=== PATIENT | female | born 1945 | race Caucasian/White ===

== ENCOUNTER 2016-11-22 12:22 | Observation (INO) | payer OTHER, BC ==
[2016-11-22 12:29] VITALS: TEMP 98.1; BMI 26.2
[2016-11-22] MEDS ORDERED: SODIUM CHLORIDE 1,000 ML IV STA ×2 (13:07→15:30)
[2016-11-22] MEDS ORDERED: ONDANSETRON 4 MG/2 ML VIAL IVPUSH ONE (13:07)
--- NOTE | 2016-11-22 13:26 | PDOC ---
History of Present Illness - General Chief Complaint: Nausea/Vomiting Stated Complaint: PCP SENT, DEHYDRATED Time Seen by Provider: 11/22/16 13:06 History Source: Patient Exam Limitations: No Limitations - History of Present Illness Initial Comments: 11/22/16 14:03 70-year-old female presents to the emergency room for evaluation of generalized weakness, nausea vomiting, decreased appetite, elevated glucose, and increased urination. Patient states called her PCP who said to go to the ER for further evaluation. Patient denies fever, chills, headache, visual changes, chest pain, shortness of breath, abdominal pain, diarrhea, dysuria, or lower extremity edema. Pt states history of hypertension, diabetes, and CABG. Timing/Duration: constant, getting worse Severity: moderate Associated Symptoms: reports: loss of appetite, nausea/vomiting, weakness Past History - Past Medical History Allergies/Adverse Reactions: Allergies Allergy/AdvReac Type Severity Reaction Status Date / Time apple [Apple] Allergy Verified 11/22/16 12:25 peach [[place]] Allergy Verified 11/22/16 12:25 Penicillins Allergy Verified 11/22/16 12:25 Home Medications: Ambulatory Orders Aspirin [ASA -] 81 mg PO DAILY 09/03/14 Insuln Asp Prt/Insulin Aspart [Novolog Mix 70-30 Cartridge] 100 unit SQ DAILY Levofloxacin [Levaquin] 500 mg PO DAILY #5 tablet 09/06/14 Lidocaine 5% Patch [Lidoderm -] 1 patch TP Q12H PRN #7 patch 09/06/14 Oxycodone HCl [Roxicodone -] 5 mg PO Q6H PRN #20 tablet 09/06/14 Unobtainable 11/22/16 Diabetes: Yes HTN: Yes Suicide Attempt (Hx): No - Surgical History Cardiac Surgery: Yes (QUADRUPLE BYPASS) - Immunization History Immunization Up to Date: Yes - Psycho/Social/Smoking Cessation Hx Anxiety: No Suicidal Ideation: No Smoking History: Never smoked Have you smoked in the past 12 months: No Information on smoking cessation initiated: No Hx Alcohol Use: No Drug/Substance Use Hx: No Substance Use Type: None Patient Lives Alone: Yes Lives with/in: lives alone Review of Systems - Review of Systems Able to Perform ROS?: Yes Constitutional: Yes: Weakness HEENTM: No: Symptoms Reported Respiratory: No: Symptoms reported Cardiac (ROS): No: Symptoms Reported ABD/GI: Yes: Nausea, Poor Appetite, Poor Fluid Intake, Vomiting : No: Symptoms Reported Musculoskeletal: Yes: Muscle Weakness Integumentary: No: Symptoms Reported Neurological: Yes: Weakness Endocrine: No: Symptoms Reported *Physical Exam - Vital Signs Last Vital Signs Temp Pulse Resp BP Pulse Ox 98.1 F 92 H 20 111/27 100 11/22/16 12:27 11/22/16 12:27 11/22/16 12:27 11/22/16 12:27 11/22/16 12:27 - Physical Exam General Appearance: Yes: Nourished, Appropriately Dressed, Thin. No: Apparent Distress HEENT: positive: EOMI, FELY. negative: Pharynx Normal (dry, fruity breath), Pale Conjunctivae Neck: positive: Supple Respiratory/Chest: positive: Lungs Clear, Normal Breath Sounds. negative: Respiratory Distress, Accessory Muscle Use Cardiovascular: positive: Regular Rhythm, Regular Rate. negative: Murmur Gastrointestinal/Abdominal: positive: Soft. negative: Tenderness Musculoskeletal: negative: CVA Tenderness Extremity: positive: Normal Capillary Refill. negative: Pedal Edema Integumentary: positive: Normal Color, Dry, Warm, Ecchymosis ( left temporal with scab to Center. Small hematoma noted to Center) Neurologic: positive: Motor Strength 5/5 (moving all extremeties actively). negative: Normal Mood/Affect (fatigued) Heart Score/ECG Review - History History: Slightly suspicious - Electrocardiogram EKG: Normal - Age Age: >/= 65 - Risk Factors Risk Factors Heart Score: Yes Hx Diabetes Based on the list above the patient has:: 1-2 risk factors - Troponin Troponin: </= normal limit - Score Heart Score - Total: 3 - ECG Intrepretation Rhythm: Regular Rhythm (92. normal sinus rhythm. No acute findings. No ST elevation or depression.) ED Treatment Course - LABORATORY CBC & Chemistry Diagram: 11/23/16 06:00 11/23/16 06:00 - RADIOLOGY Radiology Studies Ordered: Category Date Time Status CHEST X-RAY PORTABLE* [RAD] Stat Radiology 11/22/16 13:07 Ordered Medical Decision Making - Critical Care Time Total Critical Care Time (minutes): 35 Critical Care Statement: The care of this patient involved high complexity decision making to prevent further life threatening deterioration of the patient 's condition and/or to evalute & treat vital organ system(s) failure or risk of failure. - Medical Decision Making 11/22/16 14:30 patient with history of diabetes presents with decreased appetite, nausea vomiting, increased urination, and weakness. Patient on exam appears dehydrated with a fruity smell to her breath. Patient with normal vital signs. Patient ordered for DKA workup including a cardiac workup and order for her head and neck CT since she states also struck her head on the nightstand of the day and has a hematoma with ecchymosis to the left temporal region. 11/22/16 15:30 Laboratory Tests 11/22/16 11/22/16 11/22/16 13:30 13:30 13:30 WBC 10.6 H D Hgb 13.2 Hct 37.7 Neutrophils % 91.0 H D INR 1.24 H VBG pH POC VBG pCO2 POC VBG pO2 Sodium 128 L Potassium 4.4 Chloride 88 L D Carbon Dioxide 22 Anion Gap 18 H BUN 27 H D Creatinine 1.0 D Creat Clearance w eGFR 54.81 Random Glucose 360 H* D Calcium 9.1 Magnesium 2.3 Total Bilirubin 1.1 H D AST 20 ALT 16 D Alkaline Phosphatase 93 Creatine Kinase 365 H CK-MB (CK-2) Pending Total Protein 6.5 Albumin 3.3 L Acetone, Qual 11/22/16 11/22/16 13:30 13:45 WBC Hgb Hct Neutrophils % INR VBG pH 7.41 POC VBG pCO2 34.5 L POC VBG pO2 19.9 L* Sodium Potassium Chloride Carbon Dioxide Anion Gap BUN Creatinine Creat Clearance w eGFR Random Glucose Calcium Magnesium Total Bilirubin AST ALT Alkaline Phosphatase Creatine Kinase CK-MB (CK-2) Total Protein Albumin Acetone, Qual Positive small 1+ H Patient ordered for second bag of IV fluid. Patient will be admitted and have repeat BGM after 2nd bag of IVF. Pt appears lethargic and inappropriately agitated with conversation. Repeat BGM 11/22/16 15:35 chest x-ray negative. Head CT results pending 11/22/16 16:[address] Gilmore who states to admit to the hospitalist on-call and she will consult. She also recommends repeating BGM and chemistry which I have already placed in the computer. Patient will be admitted to hospitalist Dr. Price who accepted the case. 11/22/16 17:[address] negative with noted nerve impingement of c6 Laboratory Tests 11/22/16 20:07 POC Glucometer [phone] *DC/Admit/Observation/Transfer Diagnosis at time of Disposition: Starvation ketoacidosis, Hyponatremia, IDDM (insulin dependent diabetes mellitus) Diabetic ketoacidosis Qualifiers: Diabetes mellitus type: type 1 Diabetes mellitus complication detail: without coma - Discharge Dispostion Disposition: AGAINST MEDICAL ADVICE Condition at time of disposition: Guarded Admit: Yes
[2016-11-22 13:49] LABS: VENOUS BLOOD GAS HCO3 21.6 meq/L (22-29); VENOUS PH 7.41 (7.31-7.41)
[2016-11-22 14:09] LABS: BASOPHIL 0.2 % (0-2.0); EOSINOPHIL 0.1 % (0-4.5); MCHC 35.1 g/dl (32.0-36.0); MEAN CELL VOLUME 85.5 fl (80-96); MEAN PLT VOLUME 7.5 fl (7.5-11.1); PLATELET COUNT 222 K/MM3 (134-434); WHITE BLOOD COUNT 10.6 K/mm3 (4.0-10.0)
[2016-11-22 14:27] LABS: ALBUMIN 3.3 g/dl (3.4-5.0); ANION GAP 18 (8-16); CALCIUM 9.1 mg/dL (8.5-10.1); CO2 22 mmol/L (21-32); MAGNESIUM 2.3 mg/dL (1.8-2.4); SGOT/AST 20 U/L (15-37); SGPT/ALT 16 U/L (12-78)
[2016-11-22 14:31] LABS: ALK PHOS 93 U/L (45-117); BILIRUBIN,TOTAL 1.1 mg/dL (0.2-1.0); TOT PROT 6.5 g/dl (6.4-8.2); TROPONIN I < 0.02 ng/ml (0.00-0.05)
[2016-11-22 14:32] LABS: INR 1.24 (0.82-1.09); PROTHROMBIN TIME (PATIENT) 13.7 SEC (9.98-11.88)
[2016-11-22 15:00] LABS: GLUCOSE,RANDOM 360 mg/dL (74-106)
--- NOTE | 2016-11-22 17:56 | HP ---
[id number] woman who presents to the ER today complaining of nausea and vomiting, generalized weakness for several days. She also reports increased thirst and increased urination. She notes that her sugars have been high for several weeks and she has been adjusting her insulin dose. She denies fever, chills, chest pain, abdominal pain, hematemesis, diarrhea, dysuria. PAST MEDICAL HISTORY Diabetes mellitus CAD PAST SURGICAL HISTORY 4-vessel CABG Allergies apple [Apple] Allergy (Verified 11/22/16 12:25) peach [[place]] Allergy (Verified 11/22/16 12:25) Penicillins Allergy (Verified 11/22/16 12:25) HOME MEDICATIONS 3 Medication Instructions Recorded Aspirin [ASA -] 81 mg PO DAILY 09/03/14 Insuln Asp Prt/Insulin Aspart 100 unit SQ DAILY 09/03/14 [Novolog Mix 70-30 Cartridge] Levofloxacin [Levaquin] 500 mg PO DAILY #5 tablet 09/06/14 Lidocaine 5% Patch [Lidoderm -] 1 patch TP Q12H PRN #7 patch 09/06/14 Oxycodone HCl [Roxicodone -] 5 mg PO Q6H PRN #20 tablet 09/06/14 Social History: Smoking: Never smoked Alcohol: None Drugs: None Recent Travel: No Family History: Non-contributory REVIEW OF SYSTEMS CONSTITUTIONAL: Present: chills, generalized weakness. Absent: fever, diaphoresis, malaise, loss of appetite, weight change HEENT: Absent: rhinorrhea, nasal congestion, throat pain, throat swelling, difficulty swallowing, mouth swelling, ear pain, eye pain, visual changes CARDIOVASCULAR: Absent: chest pain, syncope, palpitations, lightheadedness, peripheral edema RESPIRATORY: Absent: cough, shortness of breath, dyspnea with exertion, orthopnea, wheezing, stridor, hemoptysis GASTROINTESTINAL: Present: nausea, vomiting. Absent: abdominal pain, abdominal distension, diarrhea, constipation, melena, hematochezia GENITOURINARY: Present: urinary frequency. Absent: dysuria, urgency, hesitancy , hematuria, flank pain MUSCULOSKELETAL: Absent: myalgia, arthralgia, joint swelling, back pain, neck pain SKIN: Absent: rash, itching, pallor HEMATOLOGIC/IMMUNOLOGIC: Absent: easy bleeding, easy bruising, lymphadenopathy, frequent infections ENDOCRINE: Absent: unexplained weight gain, unexplained weight loss, heat intolerance, cold intolerance NEUROLOGIC: Absent: headache, focal weakness, paresthesias, dizziness, unsteady gait, seizure, mental status changes, bladder or bowel incontinence PSYCHIATRIC: Absent: anxiety, depression, suicidal or homicidal ideation, hallucinations. PHYSICAL EXAMINATION Vital Signs Period Temp Pulse Resp BP Sys/Barrera Pulse Ox Last 24 Hr 98.1 F 92 20 111/27 100 GENERAL: Awake, alert, and fully oriented, in no acute distress. HEAD: Normal with no signs of trauma. EYES: Pupils equal, round and reactive to light, extraocular movements intact, sclerae anicteric, conjunctivae clear. EARS, NOSE, THROAT: Ears normal, nares patent, oropharynx clear without exudates. Dry mucous membranes. NECK: Normal range of motion, supple without lymphadenopathy, JVD, or masses. LUNGS: Breath sounds equal, clear to auscultation bilaterally. No wheezes, and no crackles. No accessory muscle use. HEART: Regular rate and rhythm, normal S1 and S2 without murmur, rub or gallop. ABDOMEN: Soft, nontender, not distended, normoactive bowel sounds, no guarding, no rebound, no masses. No hepatomegaly or splenomegaly. MUSCULOSKELETAL: Normal range of motion at all joints. No bony deformities or tenderness. No CVA tenderness. UPPER EXTREMITIES: 2+ pulses, warm, well-perfused. No cyanosis. No clubbing. Cap refill <2 seconds. No peripheral edema. LOWER EXTREMITIES: 2+ pulses, warm, well-perfused. No calf tenderness. No peripheral edema. NEUROLOGICAL: Cranial nerves II-XII intact. Normal speech. Gait not observed. PSYCHIATRIC: Cooperative. Good eye contact. Appropriate mood and affect. SKIN: Warm, dry, normal turgor, no rashes or lesions noted. Laboratory Tests 11/22/16 11/22/16 11/22/16 13:30 13:30 13:30 WBC 10.6 H D RBC 4.42 Hgb 13.2 Hct 37.7 MCV 85.5 MCHC 35.1 RDW 13.0 Plt Count 222 D MPV 7.5 Neutrophils % 91.0 H D Lymphocytes % 3.0 L D Monocytes % 5.7 Eosinophils % 0.1 D Basophils % 0.2 INR 1.24 H VBG pH POC VBG pCO2 POC VBG pO2 Sodium 128 L Potassium 4.4 Chloride 88 L D Carbon Dioxide 22 Anion Gap 18 H BUN 27 H D Creatinine 1.0 D Creat Clearance w eGFR 54.81 Random Glucose 360 H* D Calcium 9.1 Magnesium 2.3 Total Bilirubin 1.1 H D AST 20 ALT 16 D Alkaline Phosphatase 93 Creatine Kinase 365 H CK-MB (CK-2) 2.257 Troponin I < 0.02 Total Protein 6.5 Albumin 3.3 L Acetone, Qual 11/22/16 11/22/16 13:30 13:45 WBC RBC Hgb Hct MCV MCHC RDW Plt Count MPV Neutrophils % Lymphocytes % Monocytes % Eosinophils % Basophils % INR VBG pH 7.41 POC VBG pCO2 34.5 L POC VBG pO2 19.9 L* Sodium Potassium Chloride Carbon Dioxide Anion Gap BUN Creatinine Creat Clearance w eGFR Random Glucose Calcium Magnesium Total Bilirubin AST ALT Alkaline Phosphatase Creatine Kinase CK-MB (CK-2) Troponin I Total Protein Albumin Acetone, Qual Positive small 1+ H Chest x-ray: No acute process. Head CT: Mild to moderate atrophy, minimal chronic microvascular ischemic changes. C-spine CT: No fracture. Moderate DDD C5-C6 with posterior spur formation and right lateral uncovertebral hypertrophy impinging right C6 nerve root. EKG: Sinus rhythm, rate 92, old inferior infarct. ASSESSMENT/PLAN: This is a 70-year-old woman with a history of insulin-dependent DM, CAD who comes to the ER today with weakness, nausea, vomiting, high sugars for several days. Shewas found to have glucose 360, sodium 128, BUN 27, creatinine 1.0, anion gap 18, pH 7.41, and small serum acetone. She has been treated with Zofran , IV fluid and she is feeling better. She is being placed in observation now for further evaluation and treatment of an emergent condition. 1. Hyperglycemia with ketosis - No evidence of acidosis - Given IV fluid in ER - Repeat BMP, ketones - if improving, will continue IV fluid and start Novolog sliding scale 2. Hyponatremia secondary to dehydration, vomiting - Corrected sodium is 132 - IV normal saline - Monitor electrolytes 3. Dehydration from vomiting - Continue IV fluid - Zofran as needed - Monitor BUN, creatinine 4. Uncontrolled type 2 diabetes mellitus 5. CAD, history of CABG - Continue aspirin Problem List - Problem (1) CAD (coronary artery disease) Code(s): I25.10 - ATHSCL HEART DISEASE OF [place] CORONARY ARTERY W/O ANG PCTRS (2) Hyperglycemia Code(s): R73.9 - HYPERGLYCEMIA, UNSPECIFIED (3) Ketosis due to diabetes Code(s): E13.10 - OTH DIABETES MELLITUS WITH KETOACIDOSIS WITHOUT COMA Visit type - Emergency Visit Emergency Visit: Yes ED Registration Date: 11/22/16 Care time: The patient presented to the Emergency Department on the above date and was hospitalized for further evaluation of their emergent condition. - New Patient This patient is new to me today: Yes Date on this admission: 11/22/16 - Critical Care Critical Care patient: No
[2016-11-22] MEDS ORDERED: ONDANSETRON 4 MG/2 ML VIAL IVPB PRN (17:57)
[2016-11-22] MEDS ORDERED: ACETAMINOPHEN 325 MG TABLET (FP) PO PRN (17:57)
[2016-11-22] MEDS ORDERED: SODIUM CHLORIDE 1,000 ML IV SCH (18:00)
[2016-11-22 19:27] LABS: ALBUMIN 3.1 g/dl (3.4-5.0); ALK PHOS 90 U/L (45-117); ANION GAP 14 (8-16); CALCIUM 8.6 mg/dL (8.5-10.1); CO2 21 mmol/L (21-32); CREATININE 0.8 mg/dL (0.55-1.02); GLUCOSE,RANDOM 299 mg/dL (74-106); SGOT/AST 21 U/L (15-37); SGPT/ALT 17 U/L (12-78); TOT PROT 6.2 g/dl (6.4-8.2)
[2016-11-22 19:33] LABS: BILIRUBIN,TOTAL 0.9 mg/dL (0.2-1.0)
[2016-11-22] MEDS: INSULIN SLIDING SCALE (NOVOLOG) 1 VIAL SQ SCH (22:02)
[2016-11-22] MEDS ORDERED: ONDANSETRON 4 MG/2 ML VIAL ONE (22:16)
[2016-11-23] MEDS: INSULIN SLIDING SCALE (NOVOLOG) 1 VIAL SQ SCH (06:08)
[2016-11-23] MEDS ORDERED: INSULIN REGULAR HUMAN 100 UNITS/ML *VIAL ONE (06:09)
[2016-11-23 06:12] LABS: BASOPHIL 0.2 % (0-2.0); MCH 28.1 pg (25.7-33.7); MEAN CELL VOLUME 85.2 fl (80-96); MEAN PLT VOLUME 7.4 fl (7.5-11.1); NEUTROPHILS 87.8 % (42.8-82.8); PLATELET COUNT 274 K/MM3 (134-434); WHITE BLOOD COUNT 11.4 K/mm3 (4.0-10.0)
[2016-11-23 06:15] VITALS: BP 137/67; PULSE 67
[2016-11-23 06:33] LABS: ACETONE SERUM POSITIVE MODERATE 2+ (NEGATIVE)
[2016-11-23 06:34] LABS: ANION GAP 12 (8-16); CALCIUM 8.5 mg/dL (8.5-10.1); CO2 22 mmol/L (21-32); CREATININE 0.9 mg/dL (0.55-1.02); GLUCOSE,RANDOM 284 mg/dL (74-106)
[2016-11-23] MEDS ORDERED: INSULIN (NOVOLOG MIX 70/30) 100 UNITS/ML MDV SQ ONE (09:23)
[2016-11-23] MEDS: INSULIN (NOVOLOG MIX 70/30) 100 UNITS/ML MDV SQ ONE ×2 (09:25→09:35)
[2016-11-23] MEDS ORDERED: ASPIRIN 81 MG CHEWABLE TABLETS ONE (09:45)
--- NOTE | 2016-11-23 09:58 | DS ---
Physical Exam: SUBJECTIVE: Pt was seen and examined. She states she was "very tired and upset " because "I got no sleep last night". She appeared agitated. I reassured her that as soon as we can get her blood sugars under control, we may be able to discharge her. She then stated "I am leaving now" and proceeded to get up from the stretcher. Also noted she had fresh blood on her gown. She stated that she pulled out her peripheral IV, because she was leaving. Assured her we were working diligently to stabilize her. She is refusing to stay and requesting to leave AMA. OBJECTIVE: Vital Signs Period Temp Pulse Resp BP Sys/Barrera Pulse Ox Last 24 Hr 67-78 18-18 115-137/66- 97-99 PHYSICAL EXAM GENERAL: The patient is awake, alert, slightly agitated, but fully oriented. HEAD: Left temporal region with noted purple bruise, pt states bruise is from falling out of bed and hitting bed on night table. EYES: sclera anicteric, conjunctiva clear. ENT: Ears normal, nares patent, oropharynx clear without exudates, moist mucous membranes. NECK: Trachea midline, full range of motion, supple. LUNGS: Breath sounds anteriorly, did not allow me to auscultate her lungs posteriorly HEART: Regular rate and rhythm ABDOMEN: Soft, nontender, nondistended - limited exam secondary to refusal EXTREMITIES: No edema, scabs on bilateral lower ext. NEUROLOGICAL: Normal speech, unsteady gait. Observed walking about 10 feet then had to hold on to furniture for balance. PSYCH: Normal mood, normal affect. LABS Laboratory Results - last 24 hr 11/22/16 11/22/16 11/23/16 18:19 20:07 06:00 WBC 11.4 H RBC 4.46 Hgb 12.5 Hct 38.0 MCV 85.2 MCHC 33.0 RDW 13.0 Plt Count 274 D MPV 7.4 L Neutrophils % 87.8 H Lymphocytes % 4.1 L D Monocytes % 7.9 Eosinophils % 0.0 D Basophils % 0.2 Sodium 130 L Potassium 4.4 Chloride 95 L Carbon Dioxide 21 Anion Gap 14 BUN 26 H Creatinine 0.8 Creat Clearance w eGFR > 60 POC Glucometer [phone] Random Glucose 299 H Calcium 8.6 Total Bilirubin 0.9 AST 21 ALT 17 Alkaline Phosphatase 90 Total Protein 6.2 L Albumin 3.1 L Acetone, Qual 11/23/16 11/23/16 06:00 06:07 WBC RBC Hgb Hct MCV MCHC RDW Plt Count MPV Neutrophils % Lymphocytes % Monocytes % Eosinophils % Basophils % Sodium 128 L Potassium 4.1 Chloride 94 L Carbon Dioxide 22 Anion Gap 12 BUN 22 H Creatinine 0.9 Creat Clearance w eGFR POC Glucometer [phone] Random Glucose 284 H Calcium 8.5 Total Bilirubin AST ALT Alkaline Phosphatase Total Protein Albumin Acetone, Qual Positive moderate 2+ H HOSPITAL COURSE: Date of Admission:11/22/16 Date of Discharge: 11/23/16 The patient has requested to sign out against medical advice. She has displayed the capacity to make her own decisions. I discussed with the patient that the plan was (1) To restart her on her home dose of Insulin and monitor her response (pt states she takes 70/30 of insulin 30 units in the a.m. and 30 units in the afternoon) (2) continue to monitor and hydrate her to assure she is stable and prior to discharge and; (3) Collect a urine sample for further workup. The risks regarding leaving the hospital with hyperglycemia and an unsteady gait have been discussed. All questions were answered fully. The patient understood the risks and is agreeing to leave against medical advice. Since pt gait is unsteady and she was agitated in the ED, 1:1 ordered for safety , as she is a very high fall risk. At a minimum I wanted to assure a safe discharge even if she is leaving AMA. I offered her a taxicab that we would pay for so that she gets home safe as I was concerned about her falling a she has a history of falls. Pt refused taxicab and instead agreed to stay until her friend picked her up. Prior to d/c she was given Novolog 70/30 15 units x 1 and a repeat BGM shows blood sugar of 302. Minutes to complete discharge: 60 Discharge Summary Reason For Visit: STARVATION,DIABETIC KETOACIDOSIS Current Active Problems Head trauma (Acute) Hyperglycemia (Acute) Hyponatremia (Acute) Ketosis due to diabetes (Acute) CAD (coronary artery disease) (Chronic) IDDM (insulin dependent diabetes mellitus) (Chronic) Condition: Guarded - Instructions Referrals: Gemini Gilmore MD [Primary Care Provider] - Disposition: AGAINST MEDICAL ADVICE - Home Medications Comprehensive Discharge Medication List: Ambulatory Orders Aspirin [ASA -] 81 mg PO DAILY 09/03/14 Insuln Asp Prt/Insulin Aspart [Novolog Mix 70-30 Cartridge] 100 unit SQ DAILY Levofloxacin [Levaquin] 500 mg PO DAILY #5 tablet 09/06/14 Lidocaine 5% Patch [Lidoderm -] 1 patch TP Q12H PRN #7 patch 09/06/14 Oxycodone HCl [Roxicodone -] 5 mg PO Q6H PRN #20 tablet 09/06/14 Unobtainable 11/22/16 This patient is new to me today: Yes Date on this admission: 11/23/16 Emergency Visit: Yes ED Registration Date: 11/22/16 Care time: The patient presented to the Emergency Department on the above date and was hospitalized for further evaluation of their emergent condition. Critical Care patient: No - Discharge Referral Referred to [facility] Med P.C.: No
[2016-11-23] MEDS ORDERED: ASPIRIN 81 MG CHEWABLE TABLETS PO SCH (10:00)
--- NOTE | 2016-11-23 12:46 | EKG ---
Test Reason : Blood Pressure : / mmHG Vent. Rate : 092 BPM Atrial Rate : 092 BPM P-R Int : 158 ms QRS Dur : 080 ms QT Int : 386 ms P-R-T Axes : 057 -25 005 degrees QTc Int : 477 ms NORMAL SINUS RHYTHM INFERIOR INFARCT (CITED ON OR BEFORE 11-DEC-2006) ABNORMAL ECG WHEN COMPARED WITH ECG OF 04-SEP-2014 14:21, T WAVE INVERSION NOW EVIDENT IN ANTERIOR LEADS Confirmed by MARGIE ANGELES MD ([id number]) on 11/23/2016 12:46:02 PM Referred By: Confirmed By:MARGIE ANGELES MD
== END 2016-11-23 10:26 | disposition left against medical advice (07) ==
LOC: JER 12:22 → SUPCPDRO 12:22 → INTOOBSV 17:00 → UNDOADMOB 17:00 → JERBED 17:00
PROVIDERS: ADMIT Internal Medicine; ATTEND Nurse Practitioner Family
DX: E10.10 Type 1 diabetes mellitus with ketoacidosis without coma (principal); Z79.4 Long term (current) use of insulin; E87.1 Hypo-osmolality and hyponatremia; E86.0 Dehydration; I25.10 Atherosclerotic heart disease of native coronary artery without angina pectoris; Z95.1 Presence of aortocoronary bypass graft
CPT/HCPCS: 36415; 70450-TC; 71010-TC; 72125-TC; 80048; 80053; 82009; 82550; 82553; 82803; 83735; 84484; 85025; 85610; 93005; 93010; 99285-25; G0378

== ENCOUNTER 2016-11-26 11:03 | Inpatient (IN) | payer OTHER, BC ==
[2016-11-26 11:27] VITALS: BMI 25.8
--- NOTE | 2016-11-26 11:34 | PDOC ---
History of Present Illness - General Chief Complaint: Injury Stated Complaint: HIGH BLOOD SUAGR Time Seen by Provider: 11/26/16 11:31 History Source: Patient, EMS, Family Exam Limitations: No Limitations - History of Present Illness Initial Comments: 11/26/16 11:33 CHIEF COMPLAINT: Falls HISTORY OF PRESENT ILLNESS: This is a 70 year old female with a history of IDDM and CAD s/p CABG brought in by EMS (alerted by her brother) for weakness, frequent falls (6 in the last 3 days with multiple injuries, patient denies any LOC) and failure to thrive (no oral intake for 4 days). She reports low back pain, headache, and right hip pain. She has been taking Advil without relief. She has some nausea. She denies fevers/chills, dysuria, chest pain, shortness of breath, vomiting/diarrhea/constipation, or any other symptoms. Vital signs on arrival are unremarkable. PCP is Dr. Gilmore REVIEW OF SYSTEMS: GENERAL/CONSTITUTIONAL: Generalized weakness. Poor appetite. No fever or chills. No weight change. HEAD, EYES, EARS, NOSE AND THROAT: No change in vision. No ear pain or discharge. No sore throat. CARDIOVASCULAR: No chest pain or palpitations. RESPIRATORY: No cough, wheezing, or shortness of breath. GASTROINTESTINAL: Nausea. No vomiting, diarrhea or constipation. GENITOURINARY: No dysuria, frequency, or change in urination. MUSCULOSKELETAL: No joint or muscle swelling or pain. No neck or back pain. SKIN: No rash or easy bruising. NEUROLOGIC: No headache, vertigo, loss of consciousness, or loss of sensation. ENDOCRINE: No increased thirst. No abnormal weight change. HEMATOLOGIC/LYMPHATIC: No anemia, easy bleeding, or history of blood clots. ALLERGIC/IMMUNOLOGIC: History of PCN allergy. PHYSICAL EXAM: GENERAL: The patient is awake, alert, and fully oriented, in no acute distress. HEAD: Left frontal scalp hematoma. ENT: Pupils equal, round and reactive to light, extraocular movements intact, sclera anicteric, conjunctiva clear. Neck supple. LUNGS: Clear to auscultation bilaterally. Normal excursion. No respiratory distress or use of accessory muscles. CV: RRR, S1/S2, no MRG. Cap refill < 2 sec. ABDOMEN: Soft, tender over bladder, non-distended. EXTREMITIES: Right hip tenderness, limited ROM. NEUROLOGICAL: Normal speech. CN II-XII grossly intact. Midline tenderness L3/4 region. PSYCH: Normal mood, normal affect. SKIN: Warm, dry, normal turgor, no rashes or lesions noted. Past History - Past Medical History Allergies/Adverse Reactions: Allergies Allergy/AdvReac Type Severity Reaction Status Date / Time apple [Apple] Allergy Verified 11/26/16 11:23 peach [[place]] Allergy Verified 11/26/16 11:23 Penicillins Allergy Verified 11/26/16 11:23 Home Medications: Ambulatory Orders Aspirin [ASA -] 81 mg PO DAILY 09/03/14 Insuln Asp Prt/Insulin Aspart [Novolog Mix 70-30 Cartridge] 100 unit SQ DAILY Oxycodone HCl [Roxicodone -] 5 mg PO Q6H PRN #20 tablet 09/06/14 Esomeprazole Magnesium 40 mg PO DAILY 11/26/16 Diabetes: Yes HTN: Yes Suicide Attempt (Hx): No - Surgical History Cardiac Surgery: Yes (QUADRUPLE BYPASS) - Reproductive History Cervical CA: No Dysfunctional Uterine Bleeding: No Ectopic : No Endometrial CA: No Polycystic Ovaries: No Therapeutic (s) & number: No Tubal Ligation: No - Immunization History Immunization Up to Date: Yes - Psycho/Social/Smoking Cessation Hx Anxiety: No Suicidal Ideation: No Smoking History: Never smoked Have you smoked in the past 12 months: No Hx Alcohol Use: No Drug/Substance Use Hx: No Substance Use Type: None *Physical Exam - Vital Signs Last Vital Signs Temp Pulse Resp BP Pulse Ox 97.3 F L 84 18 104/52 97 11/26/16 11:24 11/26/16 11:24 11/26/16 11:24 11/26/16 11:24 11/26/16 11:24 ED Treatment Course - LABORATORY CBC & Chemistry Diagram: 11/26/16 12:00 11/26/16 12:00 - RADIOLOGY Radiology Studies Ordered: Category Date Time Status CHEST X-RAY PORTABLE* [RAD] Stat Radiology 11/26/16 11:32 Ordered Medical Decision Making - Medical Decision Making 11/26/16 12:49 A/P: 70 year old female with frequent falls (6 in last 3 days), multiple injuries, and failure to thrive. 1. EKG 2. Basic labs, UA/culture 3. IVF 4. Head CT, lumbar spine xray, right hip/pelvis xray 5. Oxycodone 5mg po for pain 6. Anticipate admission/SNF placement Blood glucose 331. Will give insulin 5 units sq (patient has not been eating) in addition to IVF. Cr 1.6 (0.9 on 11/23). Head CT: Left frontal soft tissue swelling, no acute intracranial process Hip/pelvis xray: no fracture Lumbar spine xray: no fracture CXR: no acute process 11/26/16 14:[address] Gilmore who requests admission to Hospitalist (not service). 11/26/16 15:03 Patient combative, kicking brother and staff, refusing to remain in bed, attempting to pull out IV and slide out of bed. No improvement with 0.5mg Ativan IVP and Seroquel 25mg PO. Will place [place] Hugger. UA with 1305 WBCs consistent with UTI. Culture sent. Will treat with Levaquin ( PCN allergy). *DC/Admit/Observation/Transfer Diagnosis at time of Disposition: IDDM (insulin dependent diabetes mellitus), Frequent falls, Combative behavior , Confusion and disorientation, Failure to thrive in adult Head trauma Qualifiers: Encounter type: initial encounter Qualified Code(s): S09.90XA - Unspecified injury of head, initial encounter Urinary tract infection Qualifiers: Urinary tract infection type: acute cystitis Hematuria presence: without hematuria Qualified Code(s): N30.00 - Acute cystitis without hematuria - Discharge Dispostion Admit: Yes - Referrals Referrals: Gemini Gilmore MD [Primary Care Provider] -
[2016-11-26] MEDS ORDERED: oxyCODONE HCL 5 MG TABLET PO ONE (11:40)
[2016-11-26] MEDS ORDERED: oxyCODONE HCL 5 MG TABLET ONE (11:44)
--- NOTE | 2016-11-26 12:03 | PDOC ---
*Physical Exam - Vital Signs Last Vital Signs Temp Pulse Resp BP Pulse Ox 97.3 F L 84 18 104/52 97 11/26/16 11:24 11/26/16 11:24 11/26/16 11:24 11/26/16 11:24 11/26/16 11:24 ED Treatment Course - LABORATORY CBC & Chemistry Diagram: 11/28/16 05:35 11/28/16 05:35 - Medications Given in the ED: ED Medications Discontinued Medications Generic Name Dose Route Start Last Admin Trade Name Freq PRN Reason Stop Dose Admin Oxycodone HCl 5 mg 11/26/16 11:40 11/26/16 12:01 Roxicodone - PO 11/26/16 11:41 5 mg ONCE ONE Administration Medical Decision Making - Medical Decision Making 11/26/16 12:02 Pt seen by the Advanced Practice Provider under my direct supervision Ancillary studies reviewed I agree with plan as outlined by the Advanced Practice Provider MADDISON Rivera *DC/Admit/Observation/Transfer Diagnosis at time of Disposition: IDDM (insulin dependent diabetes mellitus), Head trauma, Frequent falls, Urinary tract infection, Combative behavior, Confusion and disorientation, Failure to thrive in adult
[2016-11-26 12:11] LABS: BASOPHIL 0.4 % (0-2.0); EOSINOPHIL 0.3 % (0-4.5); MCH 29.4 pg (25.7-33.7); MEAN CELL VOLUME 86.3 fl (80-96); MEAN PLT VOLUME 7.5 fl (7.5-11.1); NEUTROPHILS 89.8 % (42.8-82.8); PLATELET COUNT 206 K/MM3 (134-434); RDW 13.4 % (11.6-15.6); WHITE BLOOD COUNT 11.9 K/mm3 (4.0-10.0)
[2016-11-26 12:42] LABS: CALCIUM 8.5 mg/dL (8.5-10.1); CREATININE 1.6 mg/dL (0.55-1.02)
[2016-11-26] MEDS ORDERED: INSULIN (NOVOLOG) ASPART 100 UNITS/ML 10ML VIAL SQ ONE (12:48)
[2016-11-26] MEDS ORDERED: SODIUM CHLORIDE 1,000 ML IV STA (12:48)
[2016-11-26] MEDS ORDERED: INSULIN REGULAR HUMAN 100 UNITS/ML *VIAL ONE (13:10)
[2016-11-26] MEDS ORDERED: LORAZEPAM CARPU-JECT 2 MG/ML DISP.SYRIN ONE (14:59)
[2016-11-26] MEDS ORDERED: QUEtiapine FUMARATE 25 MG TABLET (FP) PO ONE (15:02)
[2016-11-26 15:03] LABS: URINE APPEARANCE TURBID; URINE BILIRUBIN NEGATIVE (NEGATIVE); URINE COLOR YELLOW; URINE GLUCOSE (UA) 3+ (NEGATIVE); URINE KETONE TRACE (NEGATIVE); URINE NITRITE NEGATIVE (NEGATIVE); URINE UROBILINOGEN NEGATIVE E.U./dl (0.2-1.0)
[2016-11-26 15:06] LABS: URINE BLOOD 2+ (NEGATIVE); URINE LEUK ESTERASE 3+ (NEGATIVE); URINE PROTEIN 2+ (NEGATIVE)
[2016-11-26] MEDS ORDERED: QUEtiapine FUMARATE 25 MG TABLET (FP) ONE (15:07)
[2016-11-26 15:09] LABS: URINE BACTERIA RARE /hpf (NONE SEEN); URINE RBC 28 /hpf (0-3); URINE WBC 1305 /hpf (3-5)
[2016-11-26] MEDS ORDERED: LEVOFLOXACIN 750 MG IVPB 150 ML IVPB ONE (15:11)
[2016-11-26] MEDS ORDERED: LEVOFLOXACIN 500 MG IVPB 100 ML IVPB ONE ×2 (15:14→15:50)
[2016-11-26] MEDS ORDERED: LORAZEPAM CARPU-JECT 2 MG/ML DISP.SYRIN IVPUSH ONE (15:17)
--- NOTE | 2016-11-26 15:39 | HP ---
PCP: Gemini Gilmore CHIEF COMPLAINT: Altered mental status HISTORY OF PRESENT ILLNESS: This is a 70-year-old woman who wsa brought in to the ER by EMS because of weakness and falls. Her brother called EMS. He reported that she had fallen 6 times in the past 3 days and that she has not been eating or drinking. She is confused and agitated and unable to provide a history. She was admitted here on 11/22 with hyperglycemia, ketosis, dehydration , nausea and vomiting. She was treated with IV fluid. She signed out AMA and was picked up by her neighbor on the morning of 11/23. PAST MEDICAL HISTORY Diabetes mellitus CAD PAST SURGICAL HISTORY 4-vessel CABG Allergies apple [Apple] Allergy (Verified 11/26/16 11:23) peach [[place]] Allergy (Verified 11/26/16 11:23) Penicillins Allergy (Verified 11/26/16 11:23) HOME MEDICATIONS 3 Medication Instructions Recorded Aspirin [ASA -] 81 mg PO DAILY 09/03/14 Insuln Asp Prt/Insulin Aspart 100 unit SQ DAILY 09/03/14 [Novolog Mix 70-30 Cartridge] Oxycodone HCl [Roxicodone -] 5 mg PO Q6H PRN #20 tablet 09/06/14 Esomeprazole Magnesium 40 mg PO DAILY 11/26/16 Social History: Smoking: Never smoked Alcohol: None Drugs: None Recent Travel: No Family History: Non-contributory REVIEW OF SYSTEMS Unable to obtain PHYSICAL EXAMINATION Vital Signs Period Temp Pulse Resp BP Sys/Barrera Pulse Ox Last 24 Hr 97.3 F 84 18 104/52 97 GENERAL: Awake, confused, agitated. HEAD: Hematoma above left eyebrow. EYES: Pupils equal, round and reactive to light, sclerae anicteric, conjunctivae clear. EARS, NOSE, THROAT: Ears normal, nares patent. Dry mucous membranes. NECK: No lymphadenopathy, JVD, or masses. LUNGS: Breath sounds equal, clear to auscultation bilaterally. No wheezes, and no crackles. No accessory muscle use. HEART: Regular rate and rhythm, normal S1 and S2 without murmur, rub or gallop. ABDOMEN: Soft, not distended, normoactive bowel sounds, no guarding, no rebound , no masses. No hepatomegaly or splenomegaly. MUSCULOSKELETAL: Unable to assess. UPPER EXTREMITIES: 2+ pulses, warm, well-perfused. No cyanosis. No clubbing. Cap refill <2 seconds. No peripheral edema. LOWER EXTREMITIES: 2+ pulses, warm, well-perfused. No calf tenderness. No peripheral edema. NEUROLOGICAL: Unable to assess. PSYCHIATRIC: Uncooperative. SKIN: Warm, dry, poor turgor. Laboratory Tests 11/26/16 11/26/16 11/26/16 11:43 12:00 12:00 WBC 11.9 H RBC 4.39 Hgb 12.9 Hct 37.9 MCV 86.3 MCHC 34.0 RDW 13.4 Plt Count 206 D MPV 7.5 Neutrophils % 89.8 H Lymphocytes % 3.4 L Monocytes % 6.1 Eosinophils % 0.3 D Basophils % 0.4 Sodium 131 L Potassium 3.8 Chloride 95 L Carbon Dioxide 21 Anion Gap 15 BUN 42 H D Creatinine 1.6 H D Random Glucose 331 H* Calcium 8.5 Urine Color Yellow Urine Appearance Turbid Urine pH 5.0 Ur Specific Eunice 1.006 Urine Protein 2+ H Urine Glucose (UA) 3+ H Urine Ketones Trace H Urine Blood 2+ H Urine Nitrite Negative Urine Bilirubin Negative Urine Urobilinogen Negative Ur Leukocyte Esterase 3+ H D Urine RBC 28 Urine WBC 1305 Ur Epithelial Cells Rare Urine Bacteria Rare Chest x-ray: No acute process. X-rays lumbar spine: Facet joint arthropathy L3-L4, L4-L5. X-rays pelvis/right hip: IVC filter. Left femur hardware. Head CT: No infarct, mass, hemorrhage, fracture. ASSESSMENT/PLAN: This is a 70-year-old woman with a history of insulin-dependent DM, CAD who comes to the ER today with weakness, falls, altered mental status, decreased oral intake and confusion. She was found to have WBC 11.9, sodium 131, glucose 331, BUN 42, creatinine 1.6. Urinalysis is positive for 2+ protein, 3+ glucose, trace ketones, 2+ blood, 3+ leukocyte esterase and 1305 WBC. She is being admitted now for treatment of an emergent condition. 1. Acute metabolic encephalopathy secondary to UTI, RICHARD - Levaquin IV - IV fluid - Follow up urine culture 2. Acute kidney injury secondary to dehydration - IV fluid - Monitor BUN, creatinine 3. Dehydration - IV fluid 4. Hyponatremia - Corrected sodium is 135 4. Uncontrolled type 2 diabetes mellitus with hyperglycemia - Hold 70/30 insulin - Fingersticks with Novolog sliding scale 5. CAD, history of CABG - Continue aspirin Visit type - Emergency Visit Emergency Visit: Yes ED Registration Date: 11/26/16 Care time: The patient presented to the Emergency Department on the above date and was hospitalized for further evaluation of their emergent condition. - New Patient This patient is new to me today: Yes Date on this admission: 11/26/16 - Critical Care Critical Care patient: No
[2016-11-26] MEDS ORDERED: ONDANSETRON 4 MG/2 ML VIAL IVPB PRN (15:44)
[2016-11-26] MEDS ORDERED: LORAZEPAM CARPU-JECT 2 MG/ML DISP.SYRIN IVPUSH PRN (15:48)
[2016-11-26] MEDS: INSULIN SLIDING SCALE (NOVOLOG) 1 VIAL SQ SCH ×2 (17:41→22:10)
[2016-11-26] MEDS: SODIUM CHLORIDE 1,000 ML IV SCH (17:48)
[2016-11-27] MEDS: SODIUM CHLORIDE 1,000 ML IV SCH ×2 (04:26→17:04)
[2016-11-27] MEDS: INSULIN SLIDING SCALE (NOVOLOG) 1 VIAL SQ SCH ×4 (06:19→21:57)
[2016-11-27 08:10] LABS: CALCIUM 7.9 mg/dL (8.5-10.1); CREATININE 1.1 mg/dL (0.55-1.02)
--- NOTE | 2016-11-27 09:22 | PN ---
Physical Exam: SUBJECTIVE: Patient seen and examined. States she feels well, denies pain. OBJECTIVE: Vital Signs Period Temp Pulse Resp BP Sys/Barrera Pulse Ox Last 24 Hr 97.4 F-98.7 F 82-99 18-20 94-155/50-72 96-97 GENERAL: The patient is awake, alert, and fully oriented, in no acute distress. HEAD: Normal with no signs of trauma. EYES: PERRL, extraocular movements intact, sclera anicteric, conjunctiva clear. No ptosis. ENT: Ears normal, nares patent, oropharynx clear without exudates, moist mucous membranes. NECK: Trachea midline, full range of motion, supple. LUNGS: Breath sounds equal, clear to auscultation bilaterally, no wheezes, no crackles, no accessory muscle use. HEART: Regular rate and rhythm, S1, S2 without murmur, rub or gallop. ABDOMEN: Soft, nontender, nondistended, normoactive bowel sounds, no guarding, no rebound, no hepatosplenomegaly, no masses. EXTREMITIES: 2+ pulses, warm, well-perfused, no edema. NEUROLOGICAL: Cranial nerves II through XII grossly intact. Normal speech, gait not observed. PSYCH: Normal mood, normal affect. SKIN: Warm, dry, normal turgor, no rashes or lesions noted Laboratory Results - last 24 hr 11/26/16 11/26/16 11/27/16 17:33 22:05 05:48 Sodium Potassium Chloride Carbon Dioxide Anion Gap BUN Creatinine POC Glucometer 267 148 239 Random Glucose Calcium 11/27/16 06:00 Sodium 140 Potassium 3.4 L Chloride 106 D Carbon Dioxide 21 Anion Gap 13 BUN 33 H D Creatinine 1.1 H D POC Glucometer Random Glucose 267 H Calcium 7.9 L Active Medications Generic Name Dose Route Start Last Admin Trade Name Freq PRN Reason Stop Dose Admin Acetaminophen 650 mg 11/26/16 15:44 Tylenol - PO Q4H PRN FEVER OR PAIN Aspirin 81 mg 11/27/16 10:00 Asa - PO DAILY KHANH Levofloxacin 50 mls @ 50 mls/hr 11/27/16 10:00 Levaquin 250 Mg Premixed Ivpb - IVPB DAILY KHANH Sodium Chloride 1,000 mls @ 100 mls/hr 11/26/16 15:45 11/27/16 04:26 Normal Saline - IV 100 mls/hr ASDIR KHANH Administration Potassium Chloride 100 mls @ 100 mls/hr 11/27/16 09:15 Potassium Chloride 10 Meq Premix Ivpb - IVPB 11/27/16 10:14 Q60M KHANH Insulin Aspart 1 vial 11/27/16 08:43 Novolog Vial Sliding Scale - SQ ACHS [facility] Protocol Insulin Detemir 7 units 11/27/16 22:00 Levemir Vial SQ HS KHANH Lorazepam 0.5 mg 11/26/16 15:48 11/26/16 22:18 Ativan Injection - IVPUSH 0.5 mg Q6H PRN Administration AGITATION Ondansetron HCl 4 mg 11/26/16 15:44 Zofran Injection IVPB Q6H PRN NAUSEA Pantoprazole Sodium 40 mg 11/27/16 10:00 Protonix - PO DAILY [facility] ASSESSMENT/PLAN:
[2016-11-27] MEDS: PANTOPRAZOLE 40 MG TABLET (FP) PO SCH (09:33)
[2016-11-27] MEDS: ASPIRIN 81 MG CHEWABLE TABLETS PO SCH (09:33)
[2016-11-27 09:40] LABS: BASOPHIL 0.4 % (0-2.0); MCH 29.3 pg (25.7-33.7); MCHC 34.5 g/dl (32.0-36.0); MEAN CELL VOLUME 84.8 fl (80-96); MEAN PLT VOLUME 7.5 fl (7.5-11.1); PLATELET COUNT 219 K/MM3 (134-434); RDW 13.3 % (11.6-15.6); WHITE BLOOD COUNT 10.8 K/mm3 (4.0-10.0)
[2016-11-27] MEDS ORDERED: LEVOFLOXACIN 250 MG IVPB 50 ML IVPB SCH (10:00)
[2016-11-27] MEDS ORDERED: KCL 10 MEQ IVPB 100 ML IVPB SCH (10:30)
[2016-11-27] MEDS ORDERED: INSULIN (NOVOLOG) ASPART 100 UNITS/ML 10ML VIAL ONE (11:56)
[2016-11-27] MEDS ORDERED: INSULIN (NOVOLOG) ASPART 100 UNITS/ML 10ML VIAL SQ ONE (12:45)
[2016-11-27] MEDS: ACETAMINOPHEN 325 MG TABLET (FP) PO PRN (12:55)
--- NOTE | 2016-11-27 13:06 | PN ---
Physical Exam: SUBJECTIVE: 09:22 Patient seen and examined. She denies pain, shortness of breath, fever, chills, nausea or vomiting. She does state she feels better than she did when she was admitted. 14:11: Pt noted to have a fever of 99.9F, she reports some chills. Lactic acid and blood cultures ordered. ID consulted. OBJECTIVE: Vital Signs Period Temp Pulse Resp BP Sys/Barrera Pulse Ox Last 24 Hr 97.4 F-98.7 F 82-99 18-20 94-155/50-72 96-97 GENERAL: The patient is awake, alert, and fully oriented, in no acute distress. She knows her name, where she is and todays date. She was cooperative with my exam, however had to be placed on a Alicia vest as she continues to try to get OOB without assistance. HEAD: Large purple bruise on her left temporal region. EYES: sclera anicteric, conjunctiva clear. No ptosis. ENT: Ears normal, nares patent, oropharynx clear without exudates, moist mucous membranes. NECK: Trachea midline, full range of motion, supple. LUNGS: Breath sounds equal, clear to auscultation bilaterally HEART: Regular rate and rhythm ABDOMEN: Soft, nontender, nondistended, normoactive bowel sounds, no guarding EXTREMITIES: No edema noted, right skinner with multiple scabs NEUROLOGICAL: Normal speech, high fall risk PSYCH: Normal mood, normal affect, not agitated Laboratory Results - last 24 hr 11/26/16 11/26/16 11/27/16 17:33 22:05 05:48 WBC RBC Hgb Hct MCV MCHC RDW Plt Count MPV Neutrophils % Lymphocytes % Monocytes % Eosinophils % Basophils % Sodium Potassium Chloride Carbon Dioxide Anion Gap BUN Creatinine POC Glucometer 267 148 239 Random Glucose Calcium 11/27/16 11/27/16 06:00 06:00 WBC 10.8 H RBC 3.79 Hgb 11.1 D Hct 32.1 L D MCV 84.8 MCHC 34.5 RDW 13.3 Plt Count 219 MPV 7.5 Neutrophils % 90.0 H Lymphocytes % 3.7 L Monocytes % 5.9 Eosinophils % 0.0 D Basophils % 0.4 Sodium 140 Potassium 3.4 L Chloride 106 D Carbon Dioxide 21 Anion Gap 13 BUN 33 H D Creatinine 1.1 H D POC Glucometer Random Glucose 267 H Calcium 7.9 L Active Medications Generic Name Dose Route Start Last Admin Trade Name Raulito PRN Reason Stop Dose Admin Acetaminophen 650 mg 11/26/16 15:44 11/27/16 12:55 Tylenol - PO 650 mg Q4H PRN Administration FEVER OR PAIN Aspirin 81 mg 11/27/16 10:00 11/27/16 09:33 Asa - PO 81 mg DAILY KHANH Administration Levofloxacin 50 mls @ 50 mls/hr 11/27/16 10:00 11/27/16 09:33 Levaquin 250 Mg Premixed Ivpb - IVPB 50 mls/hr DAILY KHANH Administration Sodium Chloride 1,000 mls @ 100 mls/hr 11/26/16 15:45 11/27/16 04:26 Normal Saline - IV 100 mls/hr ASDIR KHANH Administration Insulin Aspart 1 vial 11/27/16 08:43 11/27/16 12:45 Novolog Vial Sliding Scale - SQ 14 units ACHS KHANH Administration Protocol Insulin Detemir 10 units 11/27/16 22:00 Levemir Vial SQ HS KHANH Lorazepam 0.5 mg 11/26/16 15:48 11/26/16 22:18 Ativan Injection - IVPUSH 0.5 mg Q6H PRN Administration AGITATION Ondansetron HCl 4 mg 11/26/16 15:44 Zofran Injection IVPB Q6H PRN NAUSEA Pantoprazole Sodium 40 mg 11/27/16 10:00 11/27/16 09:33 Protonix - PO 40 mg DAILY KHANH Administration ASSESSMENT/PLAN: Mrs. Paul is a 70 year old female with a significant past medical history of hypertension, diabetes mellitus and CABG. On 11/26/2016 she was brought in by EMS for generalized weakness, multiple falls at home with injury, poor PO intake, back pain, headache and right hip pain. . Mrs Paul was recently here on 11/22/2016 for nausea/vomiting, poor appetite, hyperglycemia and increased urination but left AMA. Imaging: Head CT 11/26/2016 - No evidence of intracranial hemorrhage, edema, midline shift , mass effect or skull fracture Hip Pelvis Xray 11/26/2016 - No acute bony abnormalities Metabolic Encephalopathy - acute Assessment/Plan: Metabolic enchephalopaty likely secondary to UTI and RICHARD On admission, pt noted to be confused, agitated, she is now back to her baseline. She answers questions appropriately but has periods of restlessness. She requires a alicia vest as she continues to get OOB unassisted UTI - acute Assessment/Plan: Urinalysis 11/26/2016 with +2 protein, +3 glucose, +2 blood, +3 leuk. est. Urine cultures pending, On Levaquin IV currently Leukocytosis improved today, however had fever of 99.9 (oral) and chills today: given Tylenol 650mg Lactic levels ordered, blood cultures ordered ID consulted and changed Levaquin to Aztreonam Acute Kidney Injury - acute/improving Assessment/Plan: likely due to dehydration/poor PO intake Baseline BUN/Creatinine 14/0.9 RICHARD improving with IV hydration - NS increased to 125cc/hr Avoid nephrotoxic medications Monitor I&Os Skeletal: Head trauma/multiple falls - chronic Assessment/Plan: CT of head with no evidence of intracranial hemorrhage, edema, midline shift, mass effect or skull fracture Bacitracin on left frontal BID Neuro checks q 4 Continue fall precautions [place] Vest for safety, bed alarm PT evaluation, may need short term rehab Cardiology: CABG/CAD Assessment/Plan: on ASA 81mg daily Hypertension - chronic Assessment/Plan: May need to start on cardiac meds, monitor BP for now Trend BPs Endocrine: Hyperglycemia - chronic Assessment/Plan: BGMs remain elevated. Adjusted Novolog sliding scale for tighter control. Added Levemir 10 units starting tonight Cheese Pancake Roller consulted F.E.N. Fluids: Normal Saline increased 125cc/hr Electrolytes: Hyponatremia: resolved Hypokalemia: 1 K rider Nutrition: Diabetic diet/RD consulted for poor PO intake, Glucerna TID Prophylaxis: DVT: SCDs bilateral legs, Heparin SC TID GI: Colace, protonix Psyche consulted to assess for capacity as pt wants to continue to live at home, despite family wishes. Disposition: Requires continued inpatient hospitalization. Full Code. Visit type - Emergency Visit Emergency Visit: Yes ED Registration Date: 11/26/16 Care time: The patient presented to the Emergency Department on the above date and was hospitalized for further evaluation of their emergent condition. - New Patient This patient is new to me today: No - Critical Care Critical Care patient: No - Discharge Referral Referred to [facility] Med P.C.: No
--- NOTE | 2016-11-27 14:37 | CONSULT ---
Consult Consult Specialty:: infectious diseases Reason for Consultation:: ams,uti,fever - History of Present Illness Chief Complaint: says nothing is bothering her History of Present Illness: Patient not able to give history but giving here and there initial admission history is as follows 70-year-old woman who wsa brought in to the ER by EMS because of weakness and falls. Her brother called EMS. He reported that she had fallen 6 times in the past 3 days and that she has not been eating or drinking. She is confused and agitated and unable to provide a history. She was admitted here on 11/22 with hyperglycemia, ketosis, dehydration, nausea and vomiting. She was treated with IV fluid. She signed out AMA and was picked up by her neighbor on the morning of 11/23. when asked the patient how did she fall she cannot tell me she has bruises on the left forehead patient is a non compliant patient and has not been taking her medications properly currently she is awake and answering in one sentences she denies smoking etoh and drugs - History Source History Provided By: Medical Record Limitations to Obtaining History: Clinical Condition - Alcohol/Substance Use Hx Alcohol Use: No - Smoking History Smoking history: Never smoked Have you smoked in the past 12 months: No Home Medications - Allergies Allergies/Adverse Reactions: Allergies Allergy/AdvReac Type Severity Reaction Status Date / Time apple [Apple] Allergy Verified 11/26/16 11:23 peach [[place]] Allergy Verified 11/26/16 11:23 Penicillins Allergy Verified 11/26/16 11:23 - Home Medications Home Medications: Ambulatory Orders Aspirin [ASA -] 81 mg PO DAILY 09/03/14 Insuln Asp Prt/Insulin Aspart [Novolog Mix 70-30 Cartridge] 100 unit SQ DAILY Oxycodone HCl [Roxicodone -] 5 mg PO Q6H PRN #20 tablet 09/06/14 Esomeprazole Magnesium 40 mg PO DAILY 11/26/16 Review of Systems Unable to obtain ROS, reason: unable to clearly obtain Physical Exam Vital Signs: Vital Signs Temperature 99.9 F H 11/27/16 14:03 Pulse Rate 88 11/27/16 14:03 Respiratory Rate 20 11/27/16 14:03 Blood Pressure 128/57 11/27/16 14:03 O2 Sat by Pulse Oximetry (%) 96 11/26/16 21:00 Constitutional: Yes: Anxious, Mild Distress, Other Eyes: Yes: Conjunctiva Clear HENT: Yes: Atraumatic, Other (bruise on the left side of th forehead) Neck: Yes: Supple, Trachea Midline Respiratory: Yes: Regular, Poor Air Entry Gastrointestinal: Yes: Normal Bowel Sounds, Soft Musculoskeletal: Yes: WNL Extremities: Yes: WNL Wound/Incision: Yes: Other Neurological: Yes: Alert, Confusion Psychiatric: Yes: Alert Labs: CBC, BMP 11/27/16 06:00 11/27/16 12:30 Imaging - Results Chest X-ray: Report Reviewed, Image Reviewed X-ray: Report Reviewed, Image Reviewed Cat Scan: Report Reviewed, Image Reviewed Assessment/Plan uti dehydration ac kidney injury metabolic encephalopathy fever uti uncontolled dm plan will start patient on aztreonam hydration
[2016-11-27] MEDS ORDERED: SODIUM CHLORIDE 1,000 ML IV STA (15:47)
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
--- NOTE | 2016-11-27 16:10 | CONSULT ---
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 She has neighbors who are friends, supportive of her. She is admitted for dehydration, UTI, recent falls, with large hemotoma on left forehead. Head CT scan is normal but currently has increasesd lactic acid, looks flushed but afebrile. Unstable diabetes, insulin dependent. Denies substance abuse, but endorsed she loves to yu but not done so in 3 months. Symptoms: reports: Depressed Mood (Endorsed feeling depressed at times at [facility] , but denies si.) - Previous Psychiatric Treatment Outpatient: None Inpatient: None - Previous Substance Abuse Treatment Outpatient: None Inpatient: None - Current Medications Current Medications: Active Medications Acetaminophen (Tylenol -) 650 mg PO Q4H PRN PRN Reason: FEVER OR PAIN Last Admin: 11/27/16 12:55 Dose: 650 mg Aspirin (Asa -) 81 mg PO DAILY K[facility]ANH Last Admin: 11/27/16 09:33 Dose: 81 mg Bacitracin (Bacitracin -) 1 applic TP BID K[facility]ANH Heparin Sodium (Porcine) (Heparin -) 5,000 unit SQ TID K[facility]ANH Aztreonam 1 gm/ Dextrose 50 mls @ 100 mls/hr IVPB Q8H-IV K[facility] Sodium Chloride (Normal Saline -) 1,000 mls @ 125 mls/hr IV ASDIR K[facility]ANH Sodium Chloride (Normal Saline -) 1,000 mls @ 1,000 mls/hr IV ASDIR STA Stop: 11/27/16 16:46 Last Admin: 11/27/16 15:56 Dose: 1,000 mls/hr Insulin Aspart (Novolog Vial Sliding Scale -) 1 vial SQ ACHS [facility] PRN Reason: Protocol Last Admin: 11/27/16 12:45 Dose: 14 units Insulin Detemir (Levemir Vial) 10 units SQ HS [facility] Lorazepam (Ativan Injection -) 0.5 mg IVPUSH Q6H PRN PRN Reason: AGITATION Last Admin: 11/26/16 22:18 Dose: 0.5 mg Ondansetron HCl (Zofran Injection) 4 mg IVPB Q6H PRN PRN Reason: NAUSEA Pantoprazole Sodium (Protonix -) 40 mg PO DAILY [facility] Last Admin: 11/27/16 09:33 Dose: 40 mg - Allergies Allergies: Allergies Allergy/AdvReac Type Severity Reaction Status Date / Time apple [Apple] Allergy Verified 11/26/16 11:23 peach [[place]] Allergy Verified 11/26/16 11:23 Penicillins Allergy Verified 11/26/16 11:23 - Current Living Status Usual Living Arrangement: Alone (Has family pets) - Current Mental Status Evaluation Appearance: Disheveled Attitude: Cooperative, Suspicious ("mildly suspiuscious of others") - Affect Affect: Flat Appropriateness: Appropriate to Content - Mood Mood: Depressed - Speech/Language Expressive: Soft - Psychomotor Activity Psychomotor Activity: Normal - Thought Process Thought Process: Intact - Thought Content Hallucinations: Absent Problem List - Problems (1) Head trauma Code(s): S09.90XA - UNSPECIFIED INJURY OF HEAD, INITIAL ENCOUNTER Qualifiers: Encounter type: initial encounter Qualified Code(s): S09.90XA - Unspecified injury of head, initial encounter (2) Depression determined by examination Code(s): F32.9 - MAJOR DEPRESSIVE DISORDER, SINGLE EPISODE, UNSPECIFIED Assessment/Plan Patient currently depressed affect, She is not confused, she is able to sign her own consent does not lack comptency. May benifit for a follow up with her PCP, possibly depression may benefit from Lexapro 5mg for depression, once her toxicity or may start in Outpatient. Thanks for the consult.
--- NOTE | 2016-11-27 16:28 | EKG ---
Test Reason : Blood Pressure : / mmHG Vent. Rate : 084 BPM Atrial Rate : 084 BPM P-R Int : 144 ms QRS Dur : 080 ms QT Int : 418 ms P-R-T Axes : 015 -37 -06 degrees QTc Int : 493 ms SINUS RHYTHM WITH OCCASIONAL PREMATURE VENTRICULAR COMPLEXES LEFT AXIS DEVIATION INFERIOR INFARCT (CITED ON OR BEFORE 11-DEC-2006) T WAVE ABNORMALITY, CONSIDER ANTERIOR ISCHEMIA ABNORMAL ECG WHEN COMPARED WITH ECG OF 22-NOV-2016 14:40, PREMATURE VENTRICULAR COMPLEXES ARE NOW PRESENT Confirmed by VALERIE MIDDLETON MD ([id number]) on 11/27/2016 4:27:25 PM Referred By: Confirmed By:VALERIE MIDDLETON MD
[2016-11-27] MEDS: AZTREONAM 1 GM in DEXTROSE 5%-WATER - 50 ML IVPB SCH (18:04)
[2016-11-27] MEDS ORDERED: PT OWN MED DRAWER 7, Y5N ONE (18:07)
[2016-11-27] MEDS: BACITRACIN 30 GM TUBE TOPICAL OINTMENT TP SCH ×2 (18:07→21:59)
[2016-11-27] MEDS: INSULIN DETEMIR 100 UNITS/ML MDV SQ SCH (21:57)
[2016-11-27] MEDS: HEPARIN NA (PORCINE) 5,000 UNITS/ML 1ML VIAL SQ SCH (21:59)
[2016-11-27] MEDS ORDERED: BACITRACIN 30 GM TUBE TOPICAL OINTMENT TP SCH (22:00)
[2016-11-27] MEDS ORDERED: INSULIN DETEMIR 100 UNITS/ML MDV SQ SCH (22:00)
[2016-11-28] MEDS ORDERED: PT OWN MED DRAWER 7, Y5N ONE ×3 (00:44→18:00)
[2016-11-28] MEDS: ACETAMINOPHEN 325 MG TABLET (FP) PO PRN (00:45)
[2016-11-28] MEDS: SODIUM CHLORIDE 1,000 ML IV SCH ×3 (01:12→15:39)
[2016-11-28] MEDS: AZTREONAM 1 GM in DEXTROSE 5%-WATER - 50 ML IVPB SCH ×3 (01:13→18:01)
[2016-11-28] MEDS: HEPARIN NA (PORCINE) 5,000 UNITS/ML 1ML VIAL SQ SCH ×3 (06:19→22:00)
[2016-11-28] MEDS: INSULIN SLIDING SCALE (NOVOLOG) 1 VIAL SQ SCH ×5 (06:19→22:02)
[2016-11-28 07:08] LABS: ALBUMIN 1.8 g/dl (3.4-5.0); ANION GAP 11 (8-16); CALCIUM 8.1 mg/dL (8.5-10.1); CO2 24 mmol/L (21-32); GLUCOSE,RANDOM 163 mg/dL (74-106)
[2016-11-28 07:17] LABS: ALK PHOS 75 U/L (45-117); BILIRUBIN,TOTAL 0.3 mg/dL (0.2-1.0); CREATININE 0.7 mg/dL (0.55-1.02); SGOT/AST 25 U/L (15-37); SGPT/ALT 16 U/L (12-78); TOT PROT 4.3 g/dl (6.4-8.2)
[2016-11-28] MEDS ORDERED: POTASSIUM CHLORIDE TABS 20 MEQ TABLET.ER (FP) PO ONE ×2 (07:33→11:15)
[2016-11-28 07:39] LABS: MCH 29.7 pg (25.7-33.7); MCHC 35.2 g/dl (32.0-36.0); MEAN CELL VOLUME 84.3 fl (80-96); MEAN PLT VOLUME 7.3 fl (7.5-11.1); PLATELET COUNT 220 K/MM3 (134-434); RDW 13.3 % (11.6-15.6)
--- NOTE | 2016-11-28 08:43 | PN ---
Progress Note (short form) - Note Progress Note: Subjective: The patient was seen and examined at the bedside, she reports feeling better today. She is denying any pain. Tmax 99.9 Current Medications Generic Name Dose Route Start Last Admin Trade Name Freeugenie PRN Reason Stop Dose Admin Acetaminophen 650 mg 11/26/16 15:44 11/28/16 00:45 Tylenol - PO 650 mg Q4H PRN Administration FEVER OR PAIN Aspirin 81 mg 11/27/16 10:00 11/27/16 09:33 Asa - PO 81 mg DAILY K[facility]AN[facility] Administration Bacitracin 1 applic 11/27/16 15:00 11/27/16 21:59 Bacitracin - TP 1 applic BID K[facility]AN[facility] Administration Heparin Sodium (Porcine) 5,000 unit 11/27/16 22:00 11/28/16 06:19 Heparin - SQ 5,000 unit TID [facility] Administration Aztreonam 1 gm/ Dextrose 50 mls @ 100 mls/hr 11/27/16 18:00 11/28/16 01:13 IVPB 100 mls/hr Q8H-IV [facility] Administration Sodium Chloride 1,000 mls @ 125 mls/hr 11/27/16 15:02 11/28/16 01:12 Normal Saline - IV 125 mls/hr ASDIR K[facility]ANH Administration Insulin Aspart 1 vial 11/27/16 08:43 11/28/16 06:19 Novolog Vial Sliding Scale - SQ 2 units ACHS K[facility] Administration Protocol Insulin Detemir 10 units 11/27/16 22:00 11/27/16 21:57 Levemir Vial SQ 10 unit HS [facility] Administration Lorazepam 0.5 mg 11/26/16 15:48 11/26/16 22:18 Ativan Injection - IVPUSH 0.5 mg Q6H PRN Administration AGITATION Ondansetron HCl 4 mg 11/26/16 15:44 Zofran Injection IVPB Q6H PRN NAUSEA Pantoprazole Sodium 40 mg 11/27/16 10:00 11/27/16 09:33 Protonix - PO 40 mg DAILY K[facility] Administration Objective: Vital Signs Period Temp Pulse Resp BP Sys/Barrera Pulse Ox Last 24 Hr 98.1 F-99.9 F 72-101 18-20 124-148/57-86 94-96 Physical Exam: General: NAD, A&Ox3 HEENT: Forehead ecchymosis Lungs: CTA bilaterally Heart: RRR, S1S2 Abd: Obese, soft, non-tender. Normoactive bowel sounds Ext: Warm, well-perfused. 2+ DP/PT bilaterally Neuro: CN 2-12 intact CBCD WBC 10.0 K/mm3 (4.0-10.0) 11/28/16 05:35 RBC 3.60 M/mm3 (3.60-5.2) 11/28/16 05:35 Hgb 10.7 GM/dL (10.7-15.3) 11/28/16 05:35 Hct 30.3 % (32.4-45.2) L 11/28/16 05:35 MCV 84.3 fl (80-96) 11/28/16 05:35 MCHC 35.2 g/dl (32.0-36.0) 11/28/16 05:35 RDW 13.3 % (11.6-15.6) 11/28/16 05:35 Plt Count 220 K/MM3 (134-434) 11/28/16 05:35 MPV 7.3 fl (7.5-11.1) L 11/28/16 05:35 CMP Sodium 140 mmol/L (136-145) 11/28/16 05:35 Potassium 3.1 mmol/L (3.5-5.1) L 11/28/16 05:35 Chloride 105 mmol/L (98-107) 11/28/16 05:35 Carbon Dioxide 24 mmol/L (21-32) 11/28/16 05:35 Anion Gap 11 (8-16) 11/28/16 05:35 BUN 18 mg/dL (7-18) D 11/28/16 05:35 Creatinine 0.7 mg/dL (0.55-1.02) D 11/28/16 05:35 Creat Clearance w eGFR > 60 (>60) 11/28/16 05:35 Random Glucose 163 mg/dL (74-106) H D 11/28/16 05:35 Calcium 8.1 mg/dL (8.5-10.1) L 11/28/16 05:35 Total Bilirubin 0.3 mg/dL (0.2-1.0) D 11/28/16 05:35 AST 25 U/L (15-37) 11/28/16 05:35 ALT 16 U/L (12-78) 11/28/16 05:35 Alkaline Phosphatase 75 U/L (45-117) 11/28/16 05:35 Total Protein 4.3 g/dl (6.4-8.2) L D 11/28/16 05:35 Albumin 1.8 g/dl (3.4-5.0) L D 11/28/16 05:35 Microbiology 11/26/16 11:43 Urine - Urine Clean Catch Urine Culture - Preliminary Non Lactose Fermenting Gnb Assessment: This is a 70 year old female with PMHx of CAD s/p CABG, DM, who presented to the ED for weakness and falls. Plan: 1) ID: UTI - Urine culture with prelim non-lactose fermenting gnb - Continue Aztreonam, awaiting final culture - Lactic acidosis resolved - Leukocytosis resolved - F/u blood cultures - Appreciate ID consult 2) Neuro: Acute metabolic encephalopathy - Likely 2/2 infectious etiology: UTI - Resolved 3) MSK: S/p Fall - Head CT 11/26 with no evidence of acute intracranial hemorrhage, edema, midline shift, mass effect, or skull fracture - Right hip x-ray with no acute pathology - Lumbar x-ray with no acute bony abnormalities are seen - PT: walked 30ft with PT 4) : RICHARD - Resolved 5) Endocrine: IDDM - BGM ACHS - ISS ACHS - Continue Levemir 6) Cardiology: CAD s/p CABG - Continue ASA 7) F/E/N: - Monitor electrolytes - Hypokalemia: replete - Diabetic diet 8) Prophylaxis: - Heparin 5,000u sq tid - SCDs bilaterally 9) Dispo: - Requires continued inpatient care - Will likely require SNF, discussed with case management - Per Psych: patient has capacity to make her own decisions CODE STATUS: FULL CODE Visit type - Emergency Visit Emergency Visit: Yes ED Registration Date: 11/26/16 Care time: The patient presented to the Emergency Department on the above date and was hospitalized for further evaluation of their emergent condition. - New Patient This patient is new to me today: Yes Date on this admission: 11/28/16 - Critical Care Critical Care patient: No
[2016-11-28] MEDS: PANTOPRAZOLE 40 MG TABLET (FP) PO SCH (11:03)
[2016-11-28] MEDS: ASPIRIN 81 MG CHEWABLE TABLETS PO SCH (11:03)
--- NOTE | 2016-11-28 16:12 | PN ---
Progress Note, Physician History of Present Illness: patient stable low grade fever - Current Medication List Current Medications: Active Medications Acetaminophen (Tylenol -) 650 mg PO Q4H PRN PRN Reason: FEVER OR PAIN Last Admin: 11/28/16 00:45 Dose: 650 mg Aspirin (Asa -) 81 mg PO DAILY [facility] Last Admin: 11/28/16 11:03 Dose: 81 mg Bacitracin (Bacitracin -) 1 applic TP BID [facility] Last Admin: 11/27/16 21:59 Dose: 1 applic Heparin Sodium (Porcine) (Heparin -) 5,000 unit SQ TID [facility] Last Admin: 11/28/16 14:49 Dose: 5,000 unit Aztreonam 1 gm/ Dextrose 50 mls @ 100 mls/hr IVPB Q8H-IV [facility] Last Admin: 11/28/16 11:02 Dose: 100 mls/hr Sodium Chloride (Normal Saline -) 1,000 mls @ 125 mls/hr IV ASDIR [facility] Last Admin: 11/28/16 15:39 Dose: Not Given Insulin Aspart (Novolog Vial Sliding Scale -) 1 vial SQ ACHS [facility] PRN Reason: Protocol Last Admin: 11/28/16 13:48 Dose: 4 units Insulin Detemir (Levemir Vial) 10 units SQ HS [facility] Last Admin: 11/27/16 21:57 Dose: 10 unit Lorazepam (Ativan Injection -) 0.5 mg IVPUSH Q6H PRN PRN Reason: AGITATION Last Admin: 11/26/16 22:18 Dose: 0.5 mg Ondansetron HCl (Zofran Injection) 4 mg IVPB Q6H PRN PRN Reason: NAUSEA Pantoprazole Sodium (Protonix -) 40 mg PO DAILY [facility] Last Admin: 11/28/16 11:03 Dose: 40 mg - Objective Vital Signs: Vital Signs Temperature 97.7 F 11/28/16 14:08 Pulse Rate 82 11/28/16 14:08 Respiratory Rate 20 11/28/16 14:08 Blood Pressure 139/76 11/28/16 14:08 O2 Sat by Pulse Oximetry (%) 94 L 11/27/16 21:00 Constitutional: Yes: No Distress, Calm HENT: Yes: Other (ecchymosis on left forehead) Cardiovascular: Yes: Regular Rate and Rhythm Respiratory: Yes: Regular, CTA Bilaterally Gastrointestinal: Yes: Normal Bowel Sounds, Soft Musculoskeletal: Yes: WNL Extremities: Yes: WNL Labs: CBC, BMP 11/28/16 05:35 11/28/16 05:35 Assessment/Plan uti dehydration ac kidney injury metabolic encephalopathy fever uti uncontolled dm plan await for organism to be identified continue current abx
[2016-11-28] MEDS ORDERED: INSULIN (NOVOLOG) ASPART 100 UNITS/ML 10ML VIAL ONE (21:10)
[2016-11-28] MEDS: BACITRACIN 30 GM TUBE TOPICAL OINTMENT TP SCH ×2 (21:57→22:04)
[2016-11-28] MEDS: INSULIN DETEMIR 100 UNITS/ML MDV SQ SCH (22:00)
[2016-11-29] MEDS ORDERED: PT OWN MED DRAWER 7, Y5N ONE ×2 (01:27→09:26)
[2016-11-29] MEDS: AZTREONAM 1 GM in DEXTROSE 5%-WATER - 50 ML IVPB SCH ×2 (01:29→09:29)
[2016-11-29] MEDS: HEPARIN NA (PORCINE) 5,000 UNITS/ML 1ML VIAL SQ SCH ×3 (06:05→15:09)
[2016-11-29] MEDS: INSULIN SLIDING SCALE (NOVOLOG) 1 VIAL SQ SCH ×3 (06:05→11:58)
[2016-11-29 07:28] LABS: CALCIUM 7.2 mg/dL (8.5-10.1); CREATININE 0.5 mg/dL (0.55-1.02)
[2016-11-29] MEDS ORDERED: POTASSIUM CHLORIDE TABS 20 MEQ TABLET.ER (FP) PO ONE ×2 (08:30→13:47)
--- NOTE | 2016-11-29 08:30 | PN ---
Progress Note (short form) - Note Progress Note: Subjective: The patient was seen and examined at the bedside, she reports feeling good today. She would like to be discharged home today. Awaiting PT reevaluation Current Medications Generic Name Dose Route Start Last Admin Trade Name Raulito PRN Reason Stop Dose Admin Acetaminophen 650 mg 11/26/16 15:44 11/28/16 00:45 Tylenol - PO 650 mg Q4H PRN Administration FEVER OR PAIN Aspirin 81 mg 11/27/16 10:00 11/28/16 11:03 Asa - PO 81 mg DAILY [facility]ANH Administration Bacitracin 1 applic 11/27/16 15:00 11/28/16 22:04 Bacitracin - TP Not Given BID [facility] Heparin Sodium (Porcine) 5,000 unit 11/27/16 22:00 11/29/16 06:08 Heparin - SQ Not Given TID [facility] Aztreonam 1 gm/ Dextrose 50 mls @ 100 mls/hr 11/27/16 18:00 11/29/16 01:29 IVPB 100 mls/hr Q8H-IV [facility] Administration Sodium Chloride 1,000 mls @ 125 mls/hr 11/27/16 15:02 11/28/16 15:39 Normal Saline - IV Not Given ASDIR K[facility] Insulin Aspart 1 vial 11/27/16 08:43 11/29/16 06:08 Novolog Vial Sliding Scale - SQ Not Given ACHS [facility] Protocol Insulin Detemir 10 units 11/27/16 22:00 11/28/16 22:00 Levemir Vial SQ 10 unit HS [facility] Administration Lorazepam 0.5 mg 11/26/16 15:48 11/26/16 22:18 Ativan Injection - IVPUSH 0.5 mg Q6H PRN Administration AGITATION Ondansetron HCl 4 mg 11/26/16 15:44 Zofran Injection IVPB Q6H PRN NAUSEA Pantoprazole Sodium 40 mg 11/27/16 10:00 11/28/16 11:03 Protonix - PO 40 mg DAILY K[facility]ANH Administration Potassium Chloride 40 meq 11/29/16 08:30 K-Dur - PO 11/29/16 08:31 ONCE ONE Objective: Vital Signs Period Temp Pulse Resp BP Sys/Barrera Pulse Ox Last 24 Hr 97.7 F-99.6 F 82-94 18-20 117-139/54-76 94 Physical Exam: General: NAD, A&Ox3 HEENT: Forehead ecchymosis Lungs: CTA bilaterally Heart: RRR, S1S2 Abd: Obese, soft, non-tender. Normoactive bowel sounds Ext: Left elbow abrasion. Warm, well-perfused. 2+ DP/PT bilaterally Neuro: CN 2-12 intact CBCD WBC 10.0 K/mm3 (4.0-10.0) 11/28/16 05:35 RBC 3.60 M/mm3 (3.60-5.2) 11/28/16 05:35 Hgb 10.7 GM/dL (10.7-15.3) 11/28/16 05:35 Hct 30.3 % (32.4-45.2) L 11/28/16 05:35 MCV 84.3 fl (80-96) 11/28/16 05:35 MCHC 35.2 g/dl (32.0-36.0) 11/28/16 05:35 RDW 13.3 % (11.6-15.6) 11/28/16 05:35 Plt Count 220 K/MM3 (134-434) 11/28/16 05:35 MPV 7.3 fl (7.5-11.1) L 11/28/16 05:35 CMP Sodium 137 mmol/L (136-145) 11/29/16 06:00 Potassium 3.1 mmol/L (3.5-5.1) L 11/29/16 06:00 Chloride 105 mmol/L (98-107) 11/29/16 06:00 Carbon Dioxide 22 mmol/L (21-32) 11/29/16 06:00 Anion Gap 10 (8-16) 11/29/16 06:00 BUN 10 mg/dL (7-18) D 11/29/16 06:00 Creatinine 0.5 mg/dL (0.55-1.02) L D 11/29/16 06:00 Creat Clearance w eGFR > 60 (>60) 11/28/16 05:35 Random Glucose 152 mg/dL (74-106) H 11/29/16 06:00 Calcium 7.2 mg/dL (8.5-10.1) L 11/29/16 06:00 Total Bilirubin 0.3 mg/dL (0.2-1.0) D 11/28/16 05:35 AST 25 U/L (15-37) 11/28/16 05:35 ALT 16 U/L (12-78) 11/28/16 05:35 Alkaline Phosphatase 75 U/L (45-117) 11/28/16 05:35 Total Protein 4.3 g/dl (6.4-8.2) L D 11/28/16 05:35 Albumin 1.8 g/dl (3.4-5.0) L D 11/28/16 05:35 Microbiology 11/27/16 14:35 Blood - Peripheral Venous Blood Culture - Preliminary NO GROWTH OBTAINED AFTER 24 HOURS, INCUBATION TO CONTINUE FOR 4 DAYS. 11/27/16 14:30 Blood - Peripheral Venous Blood Culture - Preliminary NO GROWTH OBTAINED AFTER 24 HOURS, INCUBATION TO CONTINUE FOR 4 DAYS. 11/26/16 11:43 Urine - Urine Clean Catch Urine Culture - Preliminary Non Lactose Fermenting Gnb Assessment: This is a 70 year old female with PMHx of CAD s/p CABG, DM, who presented to the ED for weakness and falls. Plan: 1) ID: UTI - Urine culture with prelim non-lactose fermenting gnb - Continue Aztreonam, awaiting final culture - Lactic acidosis resolved - Leukocytosis resolved - Blood cultures with NGTD - Appreciate ID consult 2) Neuro: Acute metabolic encephalopathy - Likely 2/2 infectious etiology: UTI - Resolved 3) MSK: S/p Fall - Head CT 11/26 with no evidence of acute intracranial hemorrhage, edema, midline shift, mass effect, or skull fracture - Right hip x-ray with no acute pathology - Lumbar x-ray with no acute bony abnormalities are seen - PT: patient refused PT yesterday 4) : RICHARD - Resolved 5) Endocrine: IDDM - BGM ACHS - ISS ACHS - Continue Levemir 6) Cardiology: CAD s/p CABG - Continue ASA 7) F/E/N: - Monitor electrolytes - Hypokalemia: replete - Diabetic diet 8) Prophylaxis: - Heparin 5,000u sq tid - SCDs bilaterally 9) Dispo: - Requires continued inpatient care - Will likely require SNF, discussed with case management - Per Psych: patient has capacity to make her own decisions CODE STATUS: FULL CODE Visit type - Emergency Visit Emergency Visit: Yes ED Registration Date: 11/26/16 Care time: The patient presented to the Emergency Department on the above date and was hospitalized for further evaluation of their emergent condition. - New Patient This patient is new to me today: No - Critical Care Critical Care patient: No
[2016-11-29] MEDS: ASPIRIN 81 MG CHEWABLE TABLETS PO SCH (09:29)
[2016-11-29] MEDS: PANTOPRAZOLE 40 MG TABLET (FP) PO SCH (09:29)
[2016-11-29] MEDS: BACITRACIN 30 GM TUBE TOPICAL OINTMENT TP SCH (09:30)
[2016-11-29] MEDS: SODIUM CHLORIDE 1,000 ML IV SCH (11:27)
--- NOTE | 2016-11-29 14:25 | DS ---
Physical Examination Vital Signs: Vital Signs Temperature 98.7 F 11/29/16 09:31 Pulse Rate 88 11/29/16 09:31 Respiratory Rate 20 11/29/16 09:31 Blood Pressure 129/67 11/29/16 09:31 O2 Sat by Pulse Oximetry (%) 94 L 11/28/16 21:00 Findings/Remarks: Physical Exam: General: NAD, A&Ox3 HEENT: Forehead ecchymosis Lungs: CTA bilaterally Heart: RRR, S1S2 Abd: Obese, soft, non-tender. Normoactive bowel sounds Ext: Left elbow abrasion. Warm, well-perfused. 2+ DP/PT bilaterally Neuro: CN 2-12 intact Labs: CBC, BMP 11/28/16 05:35 11/29/16 06:00 Discharge Summary Reason For Visit: IDDM,HEAD TRAUMA,FREQUENT FALLS Current Active Problems Combative behavior (Acute) Confusion and disorientation (Acute) Depression determined by examination (Acute) Failure to thrive in adult (Acute) Frequent falls (Acute) Head trauma (Acute) Hyperglycemia (Acute) Hyponatremia (Acute) Urinary tract infection (Acute) CAD (coronary artery disease) (Chronic) IDDM (insulin dependent diabetes mellitus) (Chronic) Hospital Course: This is a 70 year old female with PMHx of CAD s/p CABG, DM, who presented to the ED for weakness and falls. Plan: 1) ID: UTI - Urine culture with billy sensitive e.coli - Lactic acidosis resolved - Leukocytosis resolved - Blood cultures with NGTD - Appreciate ID consult 2) Neuro: Acute metabolic encephalopathy - Likely 2/2 infectious etiology: UTI - Resolved 3) MSK: S/p Fall - Head CT 11/26 with no evidence of acute intracranial hemorrhage, edema, midline shift, mass effect, or skull fracture - Right hip x-ray with no acute pathology - Lumbar x-ray with no acute bony abnormalities are seen - PT: patient refused PT yesterday 4) : RICHARD - Resolved 5) Endocrine: IDDM - BGM ACHS - ISS ACHS - Continue Levemir 6) Cardiology: CAD s/p CABG - Continue ASA The patient was discharged on oral levaquin 500mg po daily x3 days Condition: Improved - Instructions Diet, Activity, Other Instructions: Please return to the ED with new, persistent, or worsening symptoms. Please follow-up with providers as indicated. Please have your potassium level checked tomorrow, replete as needed. Referrals: Gemini Gilmore MD [Primary Care Provider] - (Please follow-up with your pcp within 2-3 days ) Disposition: [facility] FACILITY - Home Medications Comprehensive Discharge Medication List: Ambulatory Orders Aspirin [ASA -] 81 mg PO DAILY 09/03/14 Esomeprazole Magnesium 40 mg PO DAILY 11/26/16 Bacitracin - [Bacitracin Topical Ointment -] 1 applic TP BID tube 11/29/16 Insulin (Levemir) [Levemir Vial] 10 units SQ HS #0 ml 11/29/16 Insulin Sliding Scale [Novolog Vial Sliding Scale -] 1 vial SQ ACHS units 11/29 This patient is new to me today: No Emergency Visit: Yes ED Registration Date: 11/26/16 Care time: The patient presented to the Emergency Department on the above date and was hospitalized for further evaluation of their emergent condition. Critical Care patient: No - Discharge Referral Referred to [facility] Med P.C.: No
--- NOTE | 2016-11-29 14:55 | PN ---
Progress Note, Physician History of Present Illness: doing much better sitting in chair - Current Medication List Current Medications: Active Medications Acetaminophen (Tylenol -) 650 mg PO Q4H PRN PRN Reason: FEVER OR PAIN Last Admin: 11/28/16 00:45 Dose: 650 mg Aspirin (Asa -) 81 mg PO DAILY [facility] Last Admin: 11/29/16 09:29 Dose: 81 mg Bacitracin (Bacitracin -) 1 applic TP BID [facility] Last Admin: 11/29/16 09:30 Dose: 1 applic Heparin Sodium (Porcine) (Heparin -) 5,000 unit SQ TID [facility] Last Admin: 11/29/16 06:08 Dose: Not Given Aztreonam 1 gm/ Dextrose 50 mls @ 100 mls/hr IVPB Q8H-IV [facility] Last Admin: 11/29/16 09:29 Dose: 100 mls/hr Sodium Chloride (Normal Saline -) 1,000 mls @ 125 mls/hr IV ASDIR [facility] Last Admin: 11/29/16 11:27 Dose: 125 mls/hr Insulin Aspart (Novolog Vial Sliding Scale -) 1 vial SQ ACHS [facility] PRN Reason: Protocol Last Admin: 11/29/16 11:58 Dose: 4 units Insulin Detemir (Levemir Vial) 10 units SQ HS [facility] Last Admin: 11/28/16 22:00 Dose: 10 unit Lorazepam (Ativan Injection -) 0.5 mg IVPUSH Q6H PRN PRN Reason: AGITATION Last Admin: 11/26/16 22:18 Dose: 0.5 mg Ondansetron HCl (Zofran Injection) 4 mg IVPB Q6H PRN PRN Reason: NAUSEA Pantoprazole Sodium (Protonix -) 40 mg PO DAILY [facility] Last Admin: 11/29/16 09:29 Dose: 40 mg - Objective Vital Signs: Vital Signs Temperature 98.7 F 11/29/16 09:31 Pulse Rate 88 11/29/16 09:31 Respiratory Rate 20 11/29/16 09:31 Blood Pressure 129/67 11/29/16 09:31 O2 Sat by Pulse Oximetry (%) 94 L 11/28/16 21:00 Constitutional: Yes: No Distress, Calm Cardiovascular: Yes: Regular Rate and Rhythm Respiratory: Yes: Regular, CTA Bilaterally Gastrointestinal: Yes: Normal Bowel Sounds, Soft Musculoskeletal: Yes: WNL Extremities: Yes: WNL Neurological: Yes: Alert, Oriented Psychiatric: Yes: Alert Labs: CBC, BMP 11/28/16 05:35 11/29/16 06:00 Assessment/Plan uti dehydration ac kidney injury metabolic encephalopathy fever uti uncontolled dm plan organism noted can switch to oral levaquin 500mg daily for 3 more days
[2016-11-29 14:59] VITALS: BP 112/64; PULSE 82; TEMP 98
== END 2016-11-29 17:03 | DRG 682 ==
LOC: JER 11:03 → JERBED 15:20 → J7W 17:20
PROVIDERS: ADMIT Internal Medicine; ATTEND Registered Nurse
DX: N17.9 Acute kidney failure, unspecified (principal); G92 Toxic encephalopathy; E13.10 Other specified diabetes mellitus with ketoacidosis without coma; N39.0 Urinary tract infection, site not specified; E87.1 Hypo-osmolality and hyponatremia; E86.0 Dehydration; R62.7 Adult failure to thrive; Z79.4 Long term (current) use of insulin; F44.89 Other dissociative and conversion disorders; B96.20 Unspecified Escherichia coli [E. coli] as the cause of diseases classified elsewhere; I25.10 Atherosclerotic heart disease of native coronary artery without angina pectoris; Z95.1 Presence of aortocoronary bypass graft; Z95.5 Presence of coronary angioplasty implant and graft; S00.83XA Contusion of other part of head, initial encounter; W19.XXXA Unspecified fall, initial encounter; Z91.81 History of falling; Y92.009 Unspecified place in unspecified non-institutional (private) residence as the place of occurrence of the external cause; Z91.14 Patient's other noncompliance with medication regimen; R45.1 Restlessness and agitation; F32.9 Major depressive disorder, single episode, unspecified
CPT/HCPCS: 36415; 70450-TC; 71010-TC; 72100-TC; 73523-TC; 80048; 80053; 81003; 81015; 82009; 82947; 83605; 85025; 87040; 87086; 87186; 93005; 93010; 94010; 97116-GP; 97162-PG; 99283-25; G0378; J1644

== ENCOUNTER 2016-12-29 11:34 | Inpatient (IN) | payer OTHER, BC ==
--- NOTE | 2016-12-29 11:45 | PDOC ---
History of Present Illness - General History Source: Patient Exam Limitations: No Limitations - History of Present Illness Initial Comments: 12/29/16 12:45 The patient is a 71 year old female with a significant past medical history of hypertension, insulin dependent diabetes mellitus, CAD s/p CABG, who presents to the ER via EMS with high blood sugar since director of early childhood today. Family alerted EMS today for patients high blood sugar and confusion. As per EMS, patients blood sugar measured 388 and she had a fever of 101. On interview, family is not at patients bedside. Patient denies any pain. She states her blood sugar normally gets high when she is stressed, but she denies any recent stress. Patient states she had a flu shot this year. She states she took her insulin medication this morning. Denies chest pain, heart palpitations Denies cough, shortness of breath, chest pain Denies abdominal pain, nausea, vomiting, diarrhea Denies headache, lightheadedness <Tawana Parra - Last Filed: 12/29/16 15:02> <Alla Brown - Last Filed: 12/29/16 21:50> - General Chief Complaint: Blood Sugar Problem Stated Complaint: HYPER GLYCIEMIA Time Seen by Provider: 12/29/16 11:45 Past History <Tawana Parra - Last Filed: 12/29/16 15:02> - Past Medical History Cancer: Yes Cardiac Disorders: Yes Diabetes: Yes HTN: Yes Suicide Attempt (Hx): No - Surgical History Cardiac Surgery: Yes (QUADRUPLE BYPASS) - Reproductive History Cervical CA: No Dysfunctional Uterine Bleeding: No Ectopic : No Endometrial CA: No Polycystic Ovaries: No Therapeutic (s) & number: No Tubal Ligation: No - Immunization History Immunization Up to Date: Yes - Psycho/Social/Smoking Cessation Hx Anxiety: No Suicidal Ideation: No Smoking History: Never smoked Have you smoked in the past 12 months: No Hx Alcohol Use: No Drug/Substance Use Hx: No Substance Use Type: None <Alla Brown - Last Filed: 12/29/16 21:50> - Past Medical History Allergies/Adverse Reactions: Allergies Allergy/AdvReac Type Severity Reaction Status Date / Time apple [Apple] Allergy Verified 12/29/16 12:20 peach [[place]] Allergy Verified 12/29/16 12:20 Penicillins Allergy Verified 12/29/16 12:20 Home Medications: Ambulatory Orders Aspirin [ASA -] 81 mg PO DAILY 09/03/14 Esomeprazole Magnesium 40 mg PO DAILY 11/26/16 Insulin (Levemir) [Levemir Vial] 10 units SQ HS #0 ml 11/29/16 Insulin Sliding Scale [Novolog Vial Sliding Scale -] 1 vial SQ ACHS units 11/29 Escitalopram Oxalate [Lexapro -] 10 mg PO DAILY 12/29/16 Ezetimibe/Simvastatin [Vytorin 10-20 mg Tablet] 1 tab PO DAILY 12/29/16 Review of Systems - Review of Systems Able to Perform ROS?: Yes Comments:: 12/29/16 12:47 GENERAL/CONSTITUTIONAL: Fever, chills. No weakness. HEAD, EYES, EARS, NOSE AND THROAT: No change in vision. No ear pain or discharge. No sore throat. CARDIOVASCULAR: No chest pain or shortness of breath. RESPIRATORY: No cough, wheezing, or hemoptysis. GASTROINTESTINAL: No nausea, vomiting, diarrhea or constipation. GENITOURINARY: No dysuria, frequency, or change in urination. MUSCULOSKELETAL: No joint or muscle swelling or pain. No neck or back pain. SKIN: No rash NEUROLOGIC: No headache, vertigo, loss of consciousness, or change in strength/ sensation. ENDOCRINE: No increased thirst. No abnormal weight change. HEMATOLOGIC/LYMPHATIC: No anemia, easy bleeding, or history of blood clots. ALLERGIC/IMMUNOLOGIC: No hives or skin allergy. <Uts,Tawana - Last Filed: 12/29/16 15:02> *Physical Exam - Vital Signs Last Vital Signs Temp Pulse Resp BP Pulse Ox 101.2 F H 103 H 18 157/54 100 12/29/16 11:50 12/29/16 11:50 12/29/16 11:50 12/29/16 11:50 12/29/16 11:50 - Physical Exam Comments: 12/29/16 12:49 GENERAL: Awake, alert, and fully oriented, in no acute distress HEAD: No signs of trauma EYES: PERRLA, EOMI, sclera anicteric, conjunctiva clear ENT: Dry mucous membranes. Auricles normal inspection, hearing grossly normal, nares patent, oropharynx clear without exudates. NECK: Normal ROM, supple, no lymphadenopathy, JVD, or masses LUNGS: Breath sounds equal, clear to auscultation bilaterally. No wheezes, and no crackles HEART: Regular rate and rhythm, normal S1 and S2, no murmurs, rubs or gallops ABDOMEN: Soft, nontender, normoactive bowel sounds. No guarding, no rebound. No masses EXTREMITIES: Normal range of motion, no edema. No clubbing or cyanosis. No cords, erythema, or tenderness NEUROLOGICAL: Cranial nerves II through XII grossly intact. Normal speech, normal gait SKIN: Warm, Dry, normal turgor, no rashes or lesions noted. <PrfantasmaTawana - Last Filed: 12/29/16 15:02> Heart Score/ECG Review - ECG Impressions Comment:: EKG read 13:40- NSR 95 bpm, no acute ST/T changes. +Q waves III, aVF. <Alla Brown - Last Filed: 12/29/16 21:50> ED Treatment Course - LABORATORY CBC & Chemistry Diagram: 12/29/16 12:50 12/29/16 12:50 <AlannaAbiodun meeka - Last Filed: 12/29/16 15:02> - LABORATORY CBC & Chemistry Diagram: 12/29/16 12:50 12/29/16 18:25 <Alla Brown - Last Filed: 12/29/16 21:50> Medical Decision Making - Medical Decision Making 12/29/16 15:[address] Fuller <PrfantasmaTawana - Last Filed: 12/29/16 15:02> - Medical Decision Making 12/29/16 14:47 Late entry. Patient has history of DM, poor outpatient compliance with meds. She was initially very vague with history, unclear as to why she was in ED. On her initial evaluation, she was noted to be somewhat bizarre (when asked for urine sample, she put cold water with soap in the specimen cup). I discussed with her brother, to determine if this is baseline. He stated that she acts like this from time to time, and that she frequently signs out AMA when she is feeling better. He received a call from relative, who stated that patient has been vomiting frequently for the past 2 days, unable to tolerate anything PO. She has been somewhat confused, different than her baseline. He notes that she has had DKA in the past due to UTI. I am still awaiting urine sample. I have ordered an insulin drip, as her gap is high and she has 2+ acetone in the blood. Will discuss with ICU for admission. <Alla Brown - Last Filed: 12/29/16 21:50> *DC/Admit/Observation/Transfer - Attestations Scribe Attestion: 12/29/16 12:51 Documentation prepared by Tawana Parra, acting as medical assistant cardiology for Alla Brown MD <Tawana Parra - Last Filed: 12/29/16 15:02> - Discharge Dispostion Admit: Yes <Alla Brown - Last Filed: 12/29/16 21:50> Diagnosis at time of Disposition: DKA, type 2 Qualifiers: Diabetes mellitus complication detail: without coma Diabetes mellitus snf insulin use: with termite inspector use Qualified Code(s): E13.10 - Other specified diabetes mellitus with ketoacidosis without coma - Discharge Dispostion Condition at time of disposition: Critical
[2016-12-29] MEDS ORDERED: SODIUM CHLORIDE 1,000 ML IV STA (12:32)
[2016-12-29] MEDS ORDERED: ACETAMINOPHEN 325 MG TABLET (FP) PO ONE (12:32)
[2016-12-29] MEDS ORDERED: ACETAMINOPHEN 325 MG TABLET (FP) ONE (12:41)
[2016-12-29 12:58] LABS: BASOPHIL 0.2 % (0-2.0); MCH 29.1 pg (25.7-33.7); MCHC 33.4 g/dl (32.0-36.0); MEAN CELL VOLUME 87.1 fl (80-96); MEAN PLT VOLUME 7.7 fl (7.5-11.1); NEUTROPHILS 95.2 % (42.8-82.8); PLATELET COUNT 180 K/MM3 (134-434); RDW 15.4 % (11.6-15.6); WHITE BLOOD COUNT 12.2 K/mm3 (4.0-10.0)
[2016-12-29 13:20] LABS: ALK PHOS 124 U/L (45-117); ANION GAP 20 (8-16); BILIRUBIN,TOTAL 0.7 mg/dL (0.2-1.0); CALCIUM 8.3 mg/dL (8.5-10.1); CO2 14 mmol/L (21-32); CREATININE 0.9 mg/dL (0.55-1.02); SGPT/ALT 15 U/L (12-78); TOT PROT 6.1 g/dl (6.4-8.2)
[2016-12-29 13:22] LABS: SGOT/AST 17 U/L (15-37)
[2016-12-29 13:27] LABS: GLUCOSE,RANDOM 393 mg/dL (74-106)
[2016-12-29] MEDS ORDERED: INSULIN REGULAR HUMAN 100 UNITS/ML *VIAL SQ ONE (13:34)
[2016-12-29 13:37] LABS: OSMOLALITY,SERUM 301 mosm/kg (278-305)
[2016-12-29 13:39] LABS: ACETONE SERUM POSITIVE MODERATE 2+ (NEGATIVE)
--- NOTE | 2016-12-29 13:42 | EKG ---
Test Reason : Blood Pressure : / mmHG Vent. Rate : 095 BPM Atrial Rate : 095 BPM P-R Int : 154 ms QRS Dur : 082 ms QT Int : 406 ms P-R-T Axes : 048 -27 085 degrees QTc Int : 510 ms NORMAL SINUS RHYTHM INFERIOR INFARCT (CITED ON OR BEFORE 11-DEC-2006) PROLONGED QT ABNORMAL ECG WHEN COMPARED WITH ECG OF 26-NOV-2016 11:46, PREMATURE VENTRICULAR COMPLEXES ARE NO LONGER PRESENT Confirmed by VALERIE MIDDLETON MD ([id number]) on 12/29/2016 1:42:11 PM Referred By: Confirmed By:VALERIE MIDDLETON MD
[2016-12-29] MEDS ORDERED: INSULIN REGULAR 100 UNITS in SODIUM CHLORIDE 99 ML IVPB SCH (13:45)
[2016-12-29] MEDS ORDERED: INSULIN REGULAR HUMAN 100 UNITS/ML *VIAL ONE (14:14)
--- NOTE | 2016-12-29 15:05 | HP ---
CHIEF COMPLAINT: vomiting x 1 week PCP: [facility]ando HISTORY OF PRESENT ILLNESS: This is a 71 year old female with a significant past medical history of hypertension, insulin dependent diabetes mellitus, CAD s/p CABG, who presents to the ER with high blood sugar and vomiting for past week. Family alerted EMS today for patients high blood sugar and confusion. She also had a temperature of 101 by EMS . Patient denies any pain, shortness of breath, dizziness or nausea at present . She admits to vomiting for past week, no foods today and complaining of hunger on interview. Patient states she had a flu shot this year. She states she took her insulin medication this morning. ER course was notable for: (1)random glucose: 393mg/dl (2)temperature: 101 (3)Anion Gap: 20 Recent Travel: None PAST MEDICAL HISTORY: Hypertension Insulin Dependent Diabetes Mellitus CAD PAST SURGICAL HISTORY: s/p left hip fracture CabG Social History: Smoking: denies Alcohol: denies Drugs: denies Family History: Allergies apple [Apple] Allergy (Verified 12/29/16 12:20) peach [[place]] Allergy (Verified 12/29/16 12:20) Penicillins Allergy (Verified 12/29/16 12:20) HOME MEDICATIONS: Home Medications Medication Instructions Recorded Aspirin [ASA -] 81 mg PO DAILY 09/03/14 Esomeprazole Magnesium 40 mg PO DAILY 11/26/16 Insulin (Levemir) [Levemir Vial] 10 units SQ HS #0 ml 11/29/16 Insulin Sliding Scale [Novolog 1 vial SQ ACHS units 11/29/16 Vial Sliding Scale -] Escitalopram Oxalate [Lexapro -] 10 mg PO DAILY 12/29/16 Ezetimibe/Simvastatin [Vytorin 1 tab PO DAILY 12/29/16 10-20 mg Tablet] REVIEW OF SYSTEMS CONSTITUTIONAL: Absent: fever, chills, diaphoresis, generalized weakness, malaise, loss of appetite, weight change HEENT: Absent: rhinorrhea, nasal congestion, throat pain, throat swelling, difficulty swallowing, mouth swelling, ear pain, eye pain, visual changes CARDIOVASCULAR: Absent: chest pain, syncope, palpitations, irregular heart rate, lightheadedness , peripheral edema RESPIRATORY: Absent: cough, shortness of breath, dyspnea with exertion, orthopnea, wheezing, stridor, hemoptysis GASTROINTESTINAL: Absent: abdominal pain, abdominal distension, nausea, vomiting, diarrhea, constipation, melena, hematochezia GENITOURINARY: Absent: dysuria, frequency, urgency, hesitancy, hematuria, flank pain, genital pain MUSCULOSKELETAL: Absent: myalgia, arthralgia, joint swelling, back pain, neck pain SKIN: Absent: rash, itching, pallor HEMATOLOGIC/IMMUNOLOGIC: Absent: easy bleeding, easy bruising, lymphadenopathy, frequent infections ENDOCRINE: Absent: unexplained weight gain, unexplained weight loss, heat intolerance, cold intolerance NEUROLOGIC: Absent: headache, focal weakness or paresthesias, dizziness, unsteady gait, seizure, mental status changes, bladder or bowel incontinence PSYCHIATRIC: Absent: anxiety, depression, suicidal or homicidal ideation, hallucinations. PHYSICAL EXAMINATION Vital Signs - 24 hr 12/29/16 12/29/16 11:50 14:30 Temperature 101.2 F H Pulse Rate 103 H Pulse Rate [ 91 H Apical] Respiratory 18 18 Rate Blood Pressure 157/54 Blood Pressure 115/53 [Left Arm] O2 Sat by Pulse 100 96 Oximetry (%) GENERAL: Awake, alert, and fully oriented, in no acute distress. HEAD: Normal with no signs of trauma. EYES: Pupils equal, round and reactive to light, extraocular movements intact, sclera anicteric, conjunctiva clear. No lid lag. EARS, NOSE, THROAT: Ears normal, nares patent, oropharynx clear without exudates. Moist mucous membranes. NECK: Normal range of motion, supple without lymphadenopathy, JVD, or masses. LUNGS: Breath sounds equal, clear to auscultation bilaterally. No wheezes, and no crackles. No accessory muscle use. HEART: Regular rate and rhythm, normal S1 and S2 without murmur, rub or gallop. ABDOMEN: Soft, nontender, not distended, normoactive bowel sounds, no guarding, no rebound, no masses. No hepatomegaly or splenomegaly. MUSCULOSKELETAL: Normal range of motion at all joints. No bony deformities or tenderness. No CVA tenderness. UPPER EXTREMITIES: 2+ pulses, warm, well-perfused. No cyanosis. No clubbing. Cap refill <2 seconds. No peripheral edema. LOWER EXTREMITIES: 2+ pulses, warm, well-perfused. No calf tenderness. No peripheral edema. NEUROLOGICAL: Cranial nerves II-XII intact. Normal speech. Normal gait. PSYCHIATRIC: Cooperative. Good eye contact. Appropriate mood and affect. SKIN: Warm, dry, normal turgor, no rashes or lesions noted. Laboratory Results - last 24 hr 12/29/16 12/29/16 12/29/16 12:50 12:50 12:50 WBC 12.2 H RBC 4.17 Hgb 12.1 D Hct 36.3 D MCV 87.1 MCHC 33.4 RDW 15.4 D Plt Count 180 MPV 7.7 Neutrophils % 95.2 H Lymphocytes % 1.4 L D Monocytes % 3.2 L Eosinophils % 0.0 D Basophils % 0.2 Sodium 132 L Potassium 4.6 D Chloride 98 Carbon Dioxide 14 L D Anion Gap 20 H BUN 25 H D Creatinine 0.9 D Creat Clearance w eGFR > 60 Random Glucose 393 H* D Serum Osmolality 301 Lactic Acid Calcium 8.3 L Total Bilirubin 0.7 D AST 17 D ALT 15 Alkaline Phosphatase 124 H D Total Protein 6.1 L D Albumin 3.0 L D Acetone, Qual Positive moderate 2+ H 12/29/16 12:50 WBC RBC Hgb Hct MCV MCHC RDW Plt Count MPV Neutrophils % Lymphocytes % Monocytes % Eosinophils % Basophils % Sodium Potassium Chloride Carbon Dioxide Anion Gap BUN Creatinine Creat Clearance w eGFR Random Glucose Serum Osmolality Lactic Acid 1.534 Calcium Total Bilirubin AST ALT Alkaline Phosphatase Total Protein Albumin Acetone, Qual ASSESSMENT/PLAN: This is a 71 year old female with a significant past medical history of hypertension, insulin dependent diabetes mellitus, CAD s/p CABG, who presents to the ER with high blood sugar and vomiting for past week. Family alerted EMS today for patients high blood sugar and confusion. She also had a temperature of 101. She is admitted to ICU for DKA and possible UTI 1. IDDM/DKA -insulin drip as directed - NS with 20 meq of kcl 1 l at 100cc/hr -admit to icu; DKA protocol -repeat bmp 2. UTI -urinalysis/urine culture -Blood cultures -Rocephin 1gm daily 3. Hypertension - continue on home medication 4. CAD - continue on Vytorin VTE Prophylaxis SCDS both legs FEN Fluids: Po fluids, IVF normal saline with 20 meq kcl Electroylte replete as necessary Nutrition: remain NPO Problem List - Problem (1) DKA, type 2 Code(s): E13.10 - OTH DIABETES MELLITUS WITH KETOACIDOSIS WITHOUT COMA Qualifiers: Diabetes mellitus complication detail: without coma Diabetes mellitus society editor insulin use: with society editor use Qualified Code(s): E13.10 - Other specified diabetes mellitus with ketoacidosis without coma (2) Hyperglycemia Code(s): R73.9 - HYPERGLYCEMIA, UNSPECIFIED (3) Urinary tract infection Code(s): N39.0 - URINARY TRACT INFECTION, SITE NOT SPECIFIED (4) CAD (coronary artery disease) Code(s): I25.10 - ATHSCL HEART DISEASE OF [place] CORONARY ARTERY W/O ANG PCTRS (5) IDDM (insulin dependent diabetes mellitus) Code(s): E11.9 - TYPE 2 DIABETES MELLITUS WITHOUT COMPLICATIONS Z79.4 - HAULING CONTRACTOR (CURRENT) USE OF INSULIN (6) HTN (hypertension) Code(s): I10 - ESSENTIAL (PRIMARY) HYPERTENSION Visit type - Emergency Visit Emergency Visit: Yes ED Registration Date: 12/29/16 Care time: The patient presented to the Emergency Department on the above date and was hospitalized for further evaluation of their emergent condition. - New Patient This patient is new to me today: Yes Date on this admission: 12/29/16 - Critical Care Critical Care patient: No
[2016-12-29] MEDS ORDERED: SODIUM CHLORIDE 1,000 ML IV SCH (16:00)
[2016-12-29 16:26] LABS: URINE APPEARANCE CLOUDY; URINE BILIRUBIN NEGATIVE (NEGATIVE); URINE COLOR YELLOW; URINE GLUCOSE (UA) 3+ (NEGATIVE); URINE KETONE 2+ (NEGATIVE); URINE NITRITE NEGATIVE (NEGATIVE); URINE UROBILINOGEN 2.0 E.U/dl E.U./dl (0.2-1.0)
[2016-12-29 16:30] LABS: URINE BLOOD 2+ (NEGATIVE); URINE LEUK ESTERASE 2+ (NEGATIVE); URINE PROTEIN 1+ (NEGATIVE)
[2016-12-29 16:35] LABS: URINE BACTERIA FEW /hpf (NONE SEEN); URINE RBC 11 /hpf (0-3); URINE WBC 46 /hpf (3-5)
[2016-12-29] MEDS ORDERED: CEFTRIAXONE 1 GM in DEXTROSE 5%-WATER - 50 ML IVPB SCH (17:00)
[2016-12-29] MEDS ORDERED: SODIUM CHLORIDE 1,000 ML with POTASSIUM CHLORIDE 20 MEQ IVPB SCH (17:00)
[2016-12-29] MEDS ORDERED: LEVOFLOXACIN 500 MG IVPB 100 ML IVPB ONE (17:20)
[2016-12-29 17:26] VITALS: BMI 24.3
[2016-12-29] MEDS ORDERED: SODIUM CHLORIDE 0.9%/KCL 1,000 ML IV SCH (17:30)
[2016-12-29] MEDS ORDERED: DEXTROSE 5%-0.45% SALINE 1,000 ML with POTASSIUM CHLORIDE 20 MEQ IVPB SCH (18:45)
[2016-12-29 19:00] LABS: CREATININE 0.8 mg/dL (0.55-1.02)
[2016-12-29] MEDS: MUPIROCIN 2% TOPICAL OINTMENT FOR DECOLONIZATION NS SCH (21:40)
[2016-12-29] MEDS ORDERED: CHLORHEXIDINE GLUCONATE 4% CLEANSER FOR DECOLONIZATION TP SCH (22:00)
[2016-12-30 06:11] LABS: BASOPHIL 0.2 % (0-2.0); EOSINOPHIL 0.4 % (0-4.5); MCH 29.5 pg (25.7-33.7); MCHC 34.5 g/dl (32.0-36.0); MEAN CELL VOLUME 85.4 fl (80-96); NEUTROPHILS 87.2 % (42.8-82.8); PLATELET COUNT 157 K/MM3 (134-434); RDW 15.5 % (11.6-15.6); WHITE BLOOD COUNT 7.4 K/mm3 (4.0-10.0)
[2016-12-30] MEDS: INSULIN (NOVOLOG) ASPART 100 UNITS/ML 10ML VIAL SQ SCH ×3 (06:30→18:00)
[2016-12-30 06:54] LABS: ALBUMIN 2.4 g/dl (3.4-5.0); ANION GAP 10 (8-16); CALCIUM 8.1 mg/dL (8.5-10.1); CO2 22 mmol/L (21-32); GLUCOSE,RANDOM 186 mg/dL (74-106); SGPT/ALT 12 U/L (12-78)
[2016-12-30 06:57] LABS: ALK PHOS 94 U/L (45-117); BILIRUBIN,TOTAL 0.4 mg/dL (0.2-1.0); CREATININE 0.6 mg/dL (0.55-1.02); SGOT/AST 16 U/L (15-37); TOT PROT 5.1 g/dl (6.4-8.2)
[2016-12-30] MEDS ORDERED: INSULIN (NOVOLOG) ASPART 100 UNITS/ML 10ML VIAL SQ SCH ×2 (07:00)
[2016-12-30] MEDS ORDERED: PANTOPRAZOLE 40 MG TABLET (FP) PO SCH (10:00)
[2016-12-30] MEDS ORDERED: ESCITALOPRAM OXALATE 10 MG TABLET (FP) PO SCH (10:00)
[2016-12-30] MEDS ORDERED: ATORVASTATIN CA 10 MG TABLET (FP) PO SCH (10:00)
[2016-12-30] MEDS ORDERED: EZETIMIBE 10 MG TABLET (FP) PO SCH (10:00)
[2016-12-30] MEDS ORDERED: ASPIRIN 81 MG CHEWABLE TABLETS PO SCH (10:00)
[2016-12-30] MEDS ORDERED: PT OWN MED DRAWER 7, Y5N ONE ×3 (10:01→18:19)
[2016-12-30] MEDS: MUPIROCIN 2% TOPICAL OINTMENT FOR DECOLONIZATION NS SCH (10:02)
--- NOTE | 2016-12-30 10:05 | CONSULT ---
Consult Consult Specialty:: PULM/CCM Referred by:: SHMUEL Reason for Consultation:: DKA - History of Present Illness Chief Complaint: Eleavted blood sugar / AMS History of Present Illness: 71 F, hypertension, insulin dependent diabetes mellitus (endocrine in Dr Gilmore) , CAD, and CABG. Admitted via the ER due to elevated blood sugar and confusion since yesterday AM. As per EMS records her blood sugar measured 388 and she had a fever of 101. No travel history or sick contacts. She was placed on IV Insulin therapy and admitted to the ICU. - History Source History Provided By: Patient Limitations to Obtaining History: Poor Historian - Past Medical History Cardio/Vascular: Yes: CAD, HTN Pulmonary: No: COPD, Previously Intubated, Pulmonary Embolus ...: No Endocrine: Yes: Diabetes Mellitus - Past Surgical History Past Surgical History: Yes: CABG - Alcohol/Substance Use Hx Alcohol Use: No - Smoking History Smoking history: Never smoked Have you smoked in the past 12 months: No - Social History Usual Living Arrangement: Alone (Has family pets) Home Medications - Allergies Allergies/Adverse Reactions: Allergies Allergy/AdvReac Type Severity Reaction Status Date / Time apple [Apple] Allergy Verified 12/29/16 12:20 peach [[place]] Allergy Verified 12/29/16 12:20 Penicillins Allergy Verified 12/29/16 12:20 - Home Medications Home Medications: Ambulatory Orders Aspirin [ASA -] 81 mg PO DAILY 09/03/14 Esomeprazole Magnesium 40 mg PO DAILY 11/26/16 Insulin (Levemir) [Levemir Vial] 10 units SQ HS #0 ml 11/29/16 Insulin Sliding Scale [Novolog Vial Sliding Scale -] 1 vial SQ ACHS units 11/29 Escitalopram Oxalate [Lexapro -] 10 mg PO DAILY 12/29/16 Ezetimibe/Simvastatin [Vytorin 10-20 mg Tablet] 1 tab PO DAILY 12/29/16 Review of Systems - Review of Systems Constitutional: reports: Fever, Malaise. denies: Chills, Loss of Appetite, Night Sweats, Unintentional Wgt. Loss, Weakness Eyes: reports: No Symptoms HENT: reports: No Symptoms Neck: reports: No Symptoms Cardiovascular: reports: No Symptoms Respiratory: reports: Cough. denies: Hemoptysis, Snoring, SOB, SOB on Exertion , Wheezing Gastrointestinal: reports: No Symptoms Genitourinary: reports: No Symptoms Breasts: reports: No Symptoms Reported Musculoskeletal: reports: No Symptoms Integumentary: reports: No Symptoms Neurological: reports: Confusion Endocrine: reports: No Symptoms Hematology/Lymphatic: reports: No Symptoms Psychiatric: reports: No Symptoms Physical Exam Vital Signs: Vital Signs Temperature 98.0 F 12/30/16 06:00 Pulse Rate 75 12/30/16 08:00 Respiratory Rate 20 12/30/16 08:45 Blood Pressure 113/63 12/30/16 08:00 O2 Sat by Pulse Oximetry (%) 100 12/30/16 08:53 Constitutional: Yes: Well Nourished, No Distress, Calm Eyes: Yes: Conjunctiva Clear, EOM Intact HENT: Yes: Atraumatic, Normocephalic Neck: Yes: Supple, Trachea Midline Cardiovascular: Yes: Regular Rate and Rhythm Respiratory: Yes: Regular, CTA Bilaterally. No: Accessory Muscle Use, Stridor, Wheezes Gastrointestinal: Yes: Normal Bowel Sounds, Soft ...Rectal Exam: Yes: Deferred Renal/: Yes: WNL Musculoskeletal: Yes: WNL Extremities: Yes: WNL Edema: No Peripheral Pulses WNL: Yes Integumentary: Yes: WNL Neurological: Yes: Alert, Oriented ...Motor Strength: WNL Psychiatric: Yes: WNL, Alert, Oriented Labs: CBC, BMP 12/30/16 05:00 12/30/16 05:00 Imaging - Results Chest X-ray: Report Reviewed, Image Reviewed (Clear lung feilds / film is slightly rotated -> accentuated Right pulmonary artery) Problem List - Problems (1) DKA, type 2 Code(s): E13.10 - OTH DIABETES MELLITUS WITH KETOACIDOSIS WITHOUT COMA Qualifiers: Diabetes mellitus complication detail: without coma Diabetes mellitus alf insulin use: with alf use Qualified Code(s): E13.10 - Other specified diabetes mellitus with ketoacidosis without coma (2) HTN (hypertension) Code(s): I10 - ESSENTIAL (PRIMARY) HYPERTENSION (3) Confusion and disorientation Code(s): F99 - MENTAL DISORDER, NOT OTHERWISE SPECIFIED (4) Hyperglycemia Code(s): R73.9 - HYPERGLYCEMIA, UNSPECIFIED (5) CAD (coronary artery disease) Code(s): I25.10 - ATHSCL HEART DISEASE OF [place] CORONARY ARTERY W/O ANG PCTRS (6) IDDM (insulin dependent diabetes mellitus) Code(s): E11.9 - TYPE 2 DIABETES MELLITUS WITHOUT COMPLICATIONS Z79.4 - TOWERMAN (CURRENT) USE OF INSULIN Assessment/Plan Insulin coverage PO as tolerated IVF VTE prophylaxis Follow BGM Noted that the patient received empiric ABX -> all cultures are pending Dr Fuller CCTime 35"
[2016-12-30] MEDS ORDERED: LEVOFLOXACIN 500 MG IVPB 100 ML IVPB SCH (10:45)
--- NOTE | 2016-12-30 11:32 | PN ---
Progress Note (short form) - Note Progress Note: Subjective: The patient was seen and examined at the bedside, she reports feeling good this morning. Current Medications Generic Name Dose Route Start Last Admin Trade Name Raulito PRN Reason Stop Dose Admin Aspirin 81 mg 12/30/16 10:00 12/30/16 09:57 Asa - PO 81 mg DAILY KHANH Administration Atorvastatin Calcium 10 mg 12/30/16 10:00 12/30/16 09:57 Lipitor - PO 10 mg DAILY KHANH Administration Chlorhexidine Gluconate 1 applic 12/29/16 22:00 12/29/16 21:40 Hibiclens For Decolonization - TP 1 applic HS KHANH Administration Ezetimibe 10 mg 12/30/16 10:00 Zetia - PO DAILY KHANH Escitalopram Oxalate 10 mg 12/30/16 10:00 12/30/16 09:57 Lexapro - PO 10 mg DAILY KHANH Administration Potassium Chloride 20 meq/ 1,010 mls @ 100 mls/hr 12/29/16 18:45 12/29/16 18:45 Dextrose/Sodium Chloride IVPB 100 mls/hr ASDIR KHANH Administration Levofloxacin 100 mls @ 100 mls/hr 12/30/16 10:45 12/30/16 11:22 Levaquin 500 Mg Premixed Ivpb - IVPB 100 mls/hr DAILY KHANH Administration Insulin Aspart 5 units 12/30/16 07:00 12/30/16 06:30 Novolog Vial SQ 5 units TIDAC KHANH Administration Insulin Aspart 1 vial 12/30/16 16:30 Novolog Vial Sliding Scale - SQ ACHS [facility] Protocol Insulin Detemir 15 units 12/30/16 22:00 Levemir Vial SQ HS KHANH Mupirocin 1 applic 12/29/16 22:00 12/30/16 10:02 Bactroban Ointment (For Decolonization) - NS 01/03/17 21:59 1 applic BID KHANH Administration Pantoprazole Sodium 40 mg 12/30/16 10:00 12/30/16 09:57 Protonix - PO 40 mg DAILY KHANH Administration Objective: Vital Signs Period Temp Pulse Resp BP Sys/Barrera Pulse Ox Last 24 Hr 97.5 F-101.2 F 75-103 18-23 99-157/46-63 96-100 Physical Exam: General: NAD, A&Ox3 Lungs: CTA bilaterally Heart: RRR, S1S2 Abd: Soft, non-tender, non-distended. Normoactive bowel sounds Ext: Warm, well-perfused. 2+ DP/PT bilaterally Neuro: CN 2-12 intact CBCD WBC 7.4 K/mm3 (4.0-10.0) D 12/30/16 05:00 RBC 3.58 M/mm3 (3.60-5.2) L 12/30/16 05:00 Hgb 10.6 GM/dL (10.7-15.3) L D 12/30/16 05:00 Hct 30.6 % (32.4-45.2) L D 12/30/16 05:00 MCV 85.4 fl (80-96) 12/30/16 05:00 MCHC 34.5 g/dl (32.0-36.0) 12/30/16 05:00 RDW 15.5 % (11.6-15.6) 12/30/16 05:00 Plt Count 157 K/MM3 (134-434) 12/30/16 05:00 MPV 8.0 fl (7.5-11.1) 12/30/16 05:00 CMP Sodium 131 mmol/L (136-145) L 12/30/16 05:00 Potassium 4.2 mmol/L (3.5-5.1) 12/30/16 05:00 Chloride 99 mmol/L (98-107) 12/30/16 05:00 Carbon Dioxide 22 mmol/L (21-32) D 12/30/16 05:00 Anion Gap 10 (8-16) 12/30/16 05:00 BUN 16 mg/dL (7-18) D 12/30/16 05:00 Creatinine 0.6 mg/dL (0.55-1.02) D 12/30/16 05:00 Creat Clearance w eGFR > 60 (>60) 12/30/16 05:00 Random Glucose 186 mg/dL (74-106) H D 12/30/16 05:00 Calcium 8.1 mg/dL (8.5-10.1) L 12/30/16 05:00 Total Bilirubin 0.4 mg/dL (0.2-1.0) D 12/30/16 05:00 AST 16 U/L (15-37) 12/30/16 05:00 ALT 12 U/L (12-78) 12/30/16 05:00 Alkaline Phosphatase 94 U/L (45-117) D 12/30/16 05:00 Total Protein 5.1 g/dl (6.4-8.2) L 12/30/16 05:00 Albumin 2.4 g/dl (3.4-5.0) L 12/30/16 05:00 Microbiology 12/29/16 12:50 Nasopharyngeal Swab Influenza Types A,B Antigen (CARLITO) - Final 12/29/16 12:50 Nasopharyngeal Swab - Final Assessment: This is a 71 year old female with PMHx of HTN, IDDM, CAD s/p CABG, who presented to the ED with hyperglycemia and vomiting x 1 week. Plan: 1) Endocrinology: DKA - Anion gap closed: insulin gtt discontinued overnight - Continue Levemir - ISS ACHS - Insulin Novolog 5u sq tidac - BGM ACHS - IV fluids 2) ID: UA with 2+ leuks, 2+ ketones - Empiric abx with Levaquin - Awaiting urine culture - WBC trended down 12.2->7.4 - Tmax 12/29 101.2 3) Cardiology: CAD - Continue ASA - Continue Zetia - Continue Lipitor 4) F/E/N: - Diabetic diet - Monitor electrolytes - Hyponatremia, continue to monitor 5) Prophylaxis: - OOB ambulating - Heparin 5,000u sq bid 6) Dispo: - Requires continued inpatient care CODE STATUS: FULL CODE Problem List - Problems (1) DKA, type 2 Code(s): E13.10 - OTH DIABETES MELLITUS WITH KETOACIDOSIS WITHOUT COMA Qualifiers: Diabetes mellitus complication detail: without coma Diabetes mellitus intermediate insulin use: with long term care phlebotomist use Qualified Code(s): E13.10 - Other specified diabetes mellitus with ketoacidosis without coma (2) HTN (hypertension) Code(s): I10 - ESSENTIAL (PRIMARY) HYPERTENSION (3) Hyperglycemia Code(s): R73.9 - HYPERGLYCEMIA, UNSPECIFIED (4) Hyponatremia Code(s): E87.1 - HYPO-OSMOLALITY AND HYPONATREMIA (5) Urinary tract infection Code(s): N39.0 - URINARY TRACT INFECTION, SITE NOT SPECIFIED (6) CAD (coronary artery disease) Code(s): I25.10 - ATHSCL HEART DISEASE OF [place] CORONARY ARTERY W/O ANG PCTRS (7) IDDM (insulin dependent diabetes mellitus) Code(s): E11.9 - TYPE 2 DIABETES MELLITUS WITHOUT COMPLICATIONS 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 - New Patient This patient is new to me today: No - Critical Care Critical Care patient: Yes Total Critical Care Time (in minutes): 40 Critical Care Statement: The care of this patient involved high complexity decision making to prevent further life threatening deterioration of the patient 's condition and/or to evalute & treat vital organ system(s) failure or risk of failure.
[2016-12-30] MEDS: INSULIN SLIDING SCALE (NOVOLOG) 1 VIAL SQ SCH ×3 (12:20→21:15)
[2016-12-30] MEDS ORDERED: INSULIN SLIDING SCALE (NOVOLOG) 1 VIAL SQ SCH ×2 (12:30→16:30)
[2016-12-30] MEDS ORDERED: HEMOQUE TEST 1 EACH EACH ONE (16:38)
[2016-12-30] MEDS ORDERED: DEXTROSE 5%-0.45% SALINE 1,000 ML with POTASSIUM CHLORIDE 20 MEQ IVPB SCH (18:26)
[2016-12-30] MEDS ORDERED: INSULIN (NOVOLOG) ASPART 100 UNITS/ML 10ML VIAL ONE (21:09)
[2016-12-30] MEDS: HEPARIN NA (PORCINE) 5,000 UNITS/ML 1ML VIAL SQ SCH (21:14)
[2016-12-30] MEDS: INSULIN DETEMIR 100 UNITS/ML MDV SQ SCH (21:15)
[2016-12-30] MEDS ORDERED: HEPARIN NA (PORCINE) 5,000 UNITS/ML 1ML VIAL SQ SCH (22:00)
[2016-12-30] MEDS ORDERED: MUPIROCIN 2% TOPICAL OINTMENT FOR DECOLONIZATION NS SCH (22:00)
[2016-12-30] MEDS ORDERED: INSULIN DETEMIR 100 UNITS/ML MDV SQ SCH (22:00)
[2016-12-30] MEDS ORDERED: CHLORHEXIDINE GLUCONATE 4% CLEANSER FOR DECOLONIZATION TP SCH (22:00)
[2016-12-31] MEDS: INSULIN (NOVOLOG) ASPART 100 UNITS/ML 10ML VIAL SQ SCH ×3 (06:34→17:27)
[2016-12-31] MEDS: INSULIN SLIDING SCALE (NOVOLOG) 1 VIAL SQ SCH ×4 (06:34→21:08)
[2016-12-31] MEDS: ASPIRIN 81 MG CHEWABLE TABLETS PO SCH (09:37)
[2016-12-31] MEDS: HEPARIN NA (PORCINE) 5,000 UNITS/ML 1ML VIAL SQ SCH ×2 (09:37→21:08)
[2016-12-31] MEDS: ESCITALOPRAM OXALATE 10 MG TABLET (FP) PO SCH (09:38)
[2016-12-31] MEDS: EZETIMIBE 10 MG TABLET (FP) PO SCH (09:39)
[2016-12-31] MEDS: PANTOPRAZOLE 40 MG TABLET (FP) PO SCH (09:39)
[2016-12-31] MEDS: ATORVASTATIN CA 10 MG TABLET (FP) PO SCH (09:42)
[2016-12-31] MEDS ORDERED: LEVOFLOXACIN 500 MG IVPB 100 ML IVPB SCH (10:00)
[2016-12-31 11:55] LABS: BASOPHIL 0.3 % (0-2.0); EOSINOPHIL 0.9 % (0-4.5); MCH 29.5 pg (25.7-33.7); MCHC 35.4 g/dl (32.0-36.0); MEAN CELL VOLUME 83.2 fl (80-96); MEAN PLT VOLUME 7.7 fl (7.5-11.1); NEUTROPHILS 80.1 % (42.8-82.8); PLATELET COUNT 141 K/MM3 (134-434); RDW 15.5 % (11.6-15.6); WHITE BLOOD COUNT 5.3 K/mm3 (4.0-10.0)
--- NOTE | 2016-12-31 12:49 | CONSULT ---
Consult Consult Specialty:: infectious diseases Reason for Consultation:: uti - History of Present Illness Chief Complaint: dizziness,vomiting History of Present Illness: 71 year old female with a significant past medical history of hypertension, insulin dependent diabetes mellitus, CAD s/p CABG, who presents to the ER with high blood sugar and vomiting for past week. Family alerted EMS today for patients high blood sugar and confusion. She also had a temperature of 101 by EMS . Patient denies any pain, shortness of breath, dizziness or nausea at present . She admits to vomiting for past week, no foods today and complaining of hunger on interview. Patient states she had a flu shot this year. She states she took her insulin medication this morning. this was the admission history patient tells me that she is very well now and that she was throwing up for more than 10 days on admission patient was started on levaquin by MADDISON Delgado patient is growing gnb in the urine I ahve taken care of this patient on the last admission and as far as i recollect patient had uti that time also - History Source History Provided By: Patient Limitations to Obtaining History: No Limitations - Past Medical History Cardio/Vascular: Yes: CAD, HTN Pulmonary: No: COPD, Previously Intubated, Pulmonary Embolus ...: No Endocrine: Yes: Diabetes Mellitus - Past Surgical History Past Surgical History: Yes: CABG - Alcohol/Substance Use Hx Alcohol Use: No - Smoking History Smoking history: Never smoked Have you smoked in the past 12 months: No - Social History Usual Living Arrangement: Alone (Has family pets) Home Medications - Allergies Allergies/Adverse Reactions: Allergies Allergy/AdvReac Type Severity Reaction Status Date / Time apple [Apple] Allergy Verified 12/29/16 12:20 peach [Charles] Allergy Verified 12/29/16 12:20 Penicillins Allergy Verified 12/29/16 12:20 - Home Medications Home Medications: Ambulatory Orders Aspirin [ASA -] 81 mg PO DAILY 09/03/14 Esomeprazole Magnesium 40 mg PO DAILY 11/26/16 Insulin (Levemir) [Levemir Vial] 10 units SQ HS #0 ml 11/29/16 Insulin Sliding Scale [Novolog Vial Sliding Scale -] 1 vial SQ ACHS units 11/29 Escitalopram Oxalate [Lexapro -] 10 mg PO DAILY 12/29/16 Ezetimibe/Simvastatin [Vytorin 10-20 mg Tablet] 1 tab PO DAILY 12/29/16 Review of Systems - Review of Systems Constitutional: reports: Fever, Weakness Eyes: reports: No Symptoms HENT: reports: No Symptoms Neck: reports: No Symptoms Cardiovascular: reports: No Symptoms Respiratory: reports: No Symptoms Gastrointestinal: reports: Vomiting Genitourinary: reports: Other Neurological: reports: Confusion Endocrine: reports: Increased Thirst, Other Hematology/Lymphatic: reports: No Symptoms Psychiatric: reports: No Symptoms Physical Exam Vital Signs: Vital Signs Temperature 98 F 12/31/16 10:00 Pulse Rate 70 12/31/16 10:00 Respiratory Rate 18 12/31/16 10:00 Blood Pressure 146/69 12/31/16 10:00 O2 Sat by Pulse Oximetry (%) 98 12/31/16 09:00 Constitutional: Yes: Well Nourished, No Distress, Calm Eyes: Yes: Conjunctiva Clear HENT: Yes: Atraumatic Neck: Yes: Supple, Trachea Midline Cardiovascular: Yes: Regular Rate and Rhythm Respiratory: Yes: Regular, CTA Bilaterally Gastrointestinal: Yes: Normal Bowel Sounds, Soft Musculoskeletal: Yes: WNL Extremities: Yes: WNL Neurological: Yes: Alert, Oriented Psychiatric: Yes: Alert, Oriented Labs: CBC, BMP 12/31/16 11:15 12/30/16 05:00 Assessment/Plan Problem List - Problems (1) DKA, type 2 Code(s): E13.10 - OTH DIABETES MELLITUS WITH KETOACIDOSIS WITHOUT COMA Qualifiers: Diabetes mellitus complication detail: without coma Diabetes mellitus long-term insulin use: with long-term use Qualified Code(s): E13.10 - Other specified diabetes mellitus with ketoacidosis without coma (2) HTN (hypertension) Code(s): I10 - ESSENTIAL (PRIMARY) HYPERTENSION (3) Hyperglycemia Code(s): R73.9 - HYPERGLYCEMIA, UNSPECIFIED (4) Hyponatremia Code(s): E87.1 - HYPO-OSMOLALITY AND HYPONATREMIA (5) Urinary tract infection Code(s): N39.0 - URINARY TRACT INFECTION, SITE NOT SPECIFIED (6) CAD (coronary artery disease) Code(s): I25.10 - ATHSCL HEART DISEASE OF [place] CORONARY ARTERY W/O ANG PCTRS (7) IDDM (insulin dependent diabetes mellitus) Code(s): E11.9 - TYPE 2 DIABETES MELLITUS WITHOUT COMPLICATIONS Z79.4 - ASSISTED (CURRENT) USE OF INSULIN plan stopped levaquin started on aztreonam continue monitoring await for identification of organism and sensitivities
[2016-12-31] MEDS: AZTREONAM 1 GM in DEXTROSE 5%-WATER - 50 ML IVPB SCH ×2 (13:44→17:28)
--- NOTE | 2016-12-31 14:02 | PN ---
Physical Exam: SUBJECTIVE: Patient seen and examined. She states she feels better, denies any nausea or vomiting. OBJECTIVE: GENERAL: The patient is awake, alert, and fully oriented, in no acute distress. She knows her name, where she is and todays date. She was cooperative with my exam. No signs of agitation. EYES: sclera anicteric, conjunctiva clear. No ptosis. ENT: Ears normal, nares patent, oropharynx clear without exudates, moist mucous membranes. NECK: Trachea midline, full range of motion, supple. LUNGS: Breath sounds equal, clear to auscultation bilaterally HEART: Regular rate and rhythm ABDOMEN: Soft, nontender, nondistended, normoactive bowel sounds, no guarding EXTREMITIES: No edema noted NEUROLOGICAL: Normal speech, high fall risk PSYCH: Normal mood, normal affect, not agitated Vital Signs Period Temp Pulse Resp BP Sys/Barrera Pulse Ox Last 24 Hr 97.8 F-98.4 F 70-87 16-18 116-146/54-69 98-100 Laboratory Results - last 24 hr 12/30/16 12/30/16 12/30/16 11:02 16:36 21:14 WBC RBC Hgb Hct MCV MCHC RDW Plt Count MPV Neutrophils % Lymphocytes % Monocytes % Eosinophils % Basophils % POC Glucometer 296.51136 278.54915 223 12/31/16 12/31/16 12/31/16 05:45 11:15 11:41 WBC 5.3 RBC 3.81 Hgb 11.2 Hct 31.7 L MCV 83.2 MCHC 35.4 RDW 15.5 Plt Count 141 MPV 7.7 Neutrophils % 80.1 Lymphocytes % 9.6 D Monocytes % 9.1 Eosinophils % 0.9 D Basophils % 0.3 POC Glucometer 80 195 Active Medications Generic Name Dose Route Start Last Admin Trade Name Freq PRN Reason Stop Dose Admin Aspirin 81 mg 12/31/16 10:00 12/31/16 09:37 Asa - PO 81 mg DAILY KHANH Administration Atorvastatin Calcium 10 mg 12/31/16 10:12/31/16 09:42 Lipitor - PO 10 mg DAILY KHANH Administration Ezetimibe 10 mg 12/31/16 10:00 12/31/16 09:39 Zetia - PO 10 mg DAILY KHANH Administration Escitalopram Oxalate 10 mg 12/31/16 10:00 12/31/16 09:38 Lexapro - PO 10 mg DAILY KHANH Administration Heparin Sodium (Porcine) 5,000 unit 12/30/16 22:00 12/31/16 09:37 Heparin - SQ 5,000 unit BID KHANH Administration Potassium Chloride 20 meq/ 1,010 mls @ 100 mls/hr 12/30/16 18:26 12/31/16 04:48 Dextrose/Sodium Chloride IVPB 100 mls/hr ASDIR KHANH Administration Aztreonam 1 gm/ Dextrose 50 mls @ 100 mls/hr 12/31/16 13:00 12/31/16 13:44 IVPB 100 mls/hr Q8H-IV KHANH Administration Protocol Insulin Aspart 1 vial 12/30/16 22:00 12/31/16 11:41 Novolog Vial Sliding Scale - SQ Not Given ACHS KHANH Protocol Insulin Aspart 5 units 12/31/16 07:00 12/31/16 11:42 Novolog Vial SQ 5 units TIDAC KHANH Administration Insulin Detemir 15 units 12/30/16 22:00 12/30/16 21:15 Levemir Vial SQ 15 units HS KHANH Administration Pantoprazole Sodium 40 mg 12/31/16 10:00 12/31/16 09:39 Protonix - PO 40 mg DAILY KHANH Administration ASSESSMENT/PLAN: Mrs. Paul is a 71 year old female with a significant past medical history of hypertension, diabetes mellitus and CABG. She presented to the ER on 12/29/2016 with high blood sugar and vomiting for past week. Family alerted EMS today for patients high blood sugar and confusion. She also had a temperature of 101 on admission. Mrs Paul was recently here on 11/22/2016 for nausea/vomiting, poor appetite, hyperglycemia and increased urination but left AMA. On 11/26/2016 she was brought in by EMS for generalized weakness, multiple falls at home with injury, poor PO intake, back pain, headache and right hip pain. . In the ER she was noted to have a random glucose of 393, temperature of 101F and an anion gap of 20. Imagin12/29/2016 with improvement in aeration since prior study. No acute chest pathology. Metabolic Encephalopathy - acute Assessment/Plan: Metabolic enchephalopaty likely secondary to hyperglycemia and acute UTI Hyperglycemia - chronic Assessment/Plan: Anion gap 10 Insulin drip d/sabino On Levemir @ HS Monitor BGMs will decrease IVFs UTI - acute Assessment/Plan: Confusion likely secondary to acute UTI Urine cultures with non lactose fermenting grib Tmax 101.2 on 12/29, WBC within normal limits Pt is back to her baseline mentally ID consulted and changed Levaquin to Aztreonam Cardiology: CABG/CAD/Hyperlipidemia Assessment/Plan: on ASA 81mg daily, Zetia and Lipitor Hypertension - chronic Assessment/Plan: May need to start on cardiac meds, monitor BP for now Trend BPs F.E.N. Fluids: D5 w/20 MEQ @50cc/hr Electrolytes: within normal limits Nutrition: diabetic diet Physical therapy requested Prophylaxis: DVT: Heparin BID GI: Protonix 40mg daily Visit type - Emergency Visit Emergency Visit: Yes ED Registration Date: 12/29/16 Care time: The patient presented to the Emergency Department on the above date and was hospitalized for further evaluation of their emergent condition. - New Patient This patient is new to me today: No - Critical Care Critical Care patient: No - Discharge Referral Referred to [facility] Med P.C.: No
[2016-12-31] MEDS ORDERED: DEXTROSE 5%-NORMAL SALINE 1,000 ML IV SCH (14:45)
[2016-12-31] MEDS: INSULIN DETEMIR 100 UNITS/ML MDV SQ SCH (21:08)
[2017-01-01] MEDS: AZTREONAM 1 GM in DEXTROSE 5%-WATER - 50 ML IVPB SCH ×3 (02:19→17:02)
[2017-01-01] MEDS: INSULIN (NOVOLOG) ASPART 100 UNITS/ML 10ML VIAL SQ SCH ×3 (06:20→16:56)
[2017-01-01] MEDS: INSULIN SLIDING SCALE (NOVOLOG) 1 VIAL SQ SCH ×4 (06:20→21:25)
[2017-01-01 07:16] LABS: BASOPHIL 0.3 % (0-2.0); EOSINOPHIL 1.3 % (0-4.5); MCH 29.4 pg (25.7-33.7); MCHC 35.2 g/dl (32.0-36.0); MEAN CELL VOLUME 83.4 fl (80-96); MEAN PLT VOLUME 7.7 fl (7.5-11.1); NEUTROPHILS 79.3 % (42.8-82.8); PLATELET COUNT 148 K/MM3 (134-434); RDW 15.1 % (11.6-15.6); WHITE BLOOD COUNT 4.8 K/mm3 (4.0-10.0)
[2017-01-01 08:20] LABS: ALBUMIN 2.5 g/dl (3.4-5.0); ALK PHOS 101 U/L (45-117); ANION GAP 9 (8-16); BILIRUBIN,TOTAL 0.4 mg/dL (0.2-1.0); CALCIUM 8.5 mg/dL (8.5-10.1); CO2 25 mmol/L (21-32); CREATININE 0.6 mg/dL (0.55-1.02); GLUCOSE,RANDOM 250 mg/dL (74-106); MAGNESIUM 1.7 mg/dL (1.8-2.4); SGOT/AST 7 U/L (15-37); SGPT/ALT 12 U/L (12-78); TOT PROT 5.2 g/dl (6.4-8.2)
[2017-01-01] MEDS ORDERED: MAGNESIUM SULF 50% (8.12 MEQ/2 ML-1 GM VIAL) IVPB ONE (08:45)
[2017-01-01] MEDS: ATORVASTATIN CA 10 MG TABLET (FP) PO SCH (09:29)
[2017-01-01] MEDS: PANTOPRAZOLE 40 MG TABLET (FP) PO SCH (09:30)
[2017-01-01] MEDS: HEPARIN NA (PORCINE) 5,000 UNITS/ML 1ML VIAL SQ SCH ×2 (09:30→21:21)
[2017-01-01] MEDS: EZETIMIBE 10 MG TABLET (FP) PO SCH (09:30)
[2017-01-01] MEDS: ESCITALOPRAM OXALATE 10 MG TABLET (FP) PO SCH (09:31)
[2017-01-01] MEDS: ASPIRIN 81 MG CHEWABLE TABLETS PO SCH (09:31)
--- NOTE | 2017-01-01 10:20 | PN ---
Physical Exam: SUBJECTIVE: Patient seen and examined. She is asking to go home. Verbalizing the need to take better care of herself so she does not keep returning to the hospital. She is in agreement of having a visiting nurse monitor her closer at home. Walked apx 150feet with physical therapy. OBJECTIVE: Vital Signs Period Temp Pulse Resp BP Sys/Barrera Pulse Ox Last 24 Hr 97.8 F-98.2 F 68-86 18-118 124-152/54-73 96-98 GENERAL: The patient is awake, alert, and fully oriented, in no acute distress. She knows her name, where she is and todays date. She was cooperative with my exam. No signs of agitation. Asking to go home. EYES: sclera anicteric, conjunctiva clear. No ptosis. ENT: Ears normal, nares patent, oropharynx clear without exudates, moist mucous membranes. NECK: Trachea midline, full range of motion, supple. LUNGS: Breath sounds equal, clear to auscultation bilaterally HEART: Regular rate and rhythm ABDOMEN: Soft, nontender, nondistended, normoactive bowel sounds, no guarding EXTREMITIES: No edema noted NEUROLOGICAL: Normal speech, high fall risk - multiple falls at home s/p rehab. PSYCH: Normal mood, normal affect, not agitated, cooperative. Laboratory Results - last 24 hr 12/31/16 12/31/16 12/31/16 11:15 11:41 17:26 WBC 5.3 RBC 3.81 Hgb 11.2 Hct 31.7 L MCV 83.2 MCHC 35.4 RDW 15.5 Plt Count 141 MPV 7.7 Neutrophils % 80.1 Lymphocytes % 9.6 D Monocytes % 9.1 Eosinophils % 0.9 D Basophils % 0.3 Sodium Potassium Chloride Carbon Dioxide Anion Gap BUN Creatinine Creat Clearance w eGFR POC Glucometer 195 191 Random Glucose Calcium Magnesium Total Bilirubin AST ALT Alkaline Phosphatase Total Protein Albumin 12/31/16 01/01/17 01/01/17 21:03 05:35 05:35 WBC 4.8 RBC 3.94 Hgb 11.6 Hct 32.8 MCV 83.4 MCHC 35.2 RDW 15.1 Plt Count 148 MPV 7.7 Neutrophils % 79.3 Lymphocytes % 10.4 Monocytes % 8.7 Eosinophils % 1.3 Basophils % 0.3 Sodium 138 Potassium 3.6 Chloride 104 Carbon Dioxide 25 Anion Gap 9 BUN 7 D Creatinine 0.6 Creat Clearance w eGFR > 60 POC Glucometer 301 Random Glucose 250 H D Calcium 8.5 Magnesium 1.7 L D Total Bilirubin 0.4 AST 7 L D ALT 12 Alkaline Phosphatase 101 Total Protein 5.2 L Albumin 2.5 L 01/01/17 05:48 WBC RBC Hgb Hct MCV MCHC RDW Plt Count MPV Neutrophils % Lymphocytes % Monocytes % Eosinophils % Basophils % Sodium Potassium Chloride Carbon Dioxide Anion Gap BUN Creatinine Creat Clearance w eGFR POC Glucometer 253 Random Glucose Calcium Magnesium Total Bilirubin AST ALT Alkaline Phosphatase Total Protein Albumin Active Medications Generic Name Dose Route Start Last Admin Trade Name Freq PRN Reason Stop Dose Admin Aspirin 81 mg 12/31/16 10:00 01/01/17 09:31 Asa - PO 81 mg DAILY KHANH Administration Atorvastatin Calcium 10 mg 12/31/16 10:00 01/01/17 09:29 Lipitor - PO 10 mg DAILY KHANH Administration Ezetimibe 10 mg 12/31/16 10:00 01/01/17 09:30 Zetia - PO 10 mg DAILY KHANH Administration Escitalopram Oxalate 10 mg 12/31/16 10:00 01/01/17 09:31 Lexapro - PO 10 mg DAILY KHANH Administration Heparin Sodium (Porcine) 5,000 unit 12/30/16 22:00 01/01/17 09:30 Heparin - SQ Not Given BID [facility] Aztreonam 1 gm/ Dextrose 50 mls @ 100 mls/hr 12/31/16 13:00 01/01/17 09:34 IVPB 100 mls/hr Q8H-IV KHANH Administration Protocol Dextrose/Sodium Chloride 1,000 mls @ 75 mls/hr 12/31/16 14:45 12/31/16 14:45 D5-Ns - IV 75 mls/hr ASDIR KHANH Administration Insulin Aspart 1 vial 12/30/16 22:00 01/01/17 06:20 Novolog Vial Sliding Scale - SQ [address] [facility] Administration Protocol Insulin Aspart 5 units 12/31/16 07:00 01/01/17 06:20 Novolog Vial SQ 5 units TIDAC KHANH Administration Insulin Detemir 15 units 12/30/16 22:00 12/31/16 21:08 Levemir Vial SQ 15 units HS KHANH Administration Pantoprazole Sodium 40 mg 12/31/16 10:00 01/01/17 09:30 Protonix - PO 40 mg DAILY KHANH Administration ASSESSMENT/PLAN: Mrs. Paul is a 71 year old female with a significant past medical history of hypertension, diabetes mellitus and CABG. She presented to the ER on 12/29/2016 with high blood sugar and vomiting for past week. Family alerted EMS today for patients high blood sugar and confusion. She also had a temperature of 101F. on admission. Mrs Paul was recently here on 11/22/2016 for nausea/vomiting, poor appetite, hyperglycemia and increased urination but left AMA. On 11/26/2016 she was brought in by EMS for generalized weakness, multiple falls at home with injury, poor PO intake, back pain, headache and right hip pain and was sent to rehab on discharge. . On this admission she was noted to have a random glucose of 393, temperature of 101F, leukocytosis, tachycardia and had altered mental status. Her UA on admission with urine protein +1, glucose 3+, Ketones 2+, blood 2+, leuk est.2+. Imagin12/29/2016 with improvement in aeration since prior study. No acute chest pathology. Sepsis - resolved Assessment/Plan: On admission had leukocytosis (12.2), tachycardia (hr 103s), was febrile (101.2F) and had altered mental status. Her WBC is now within normal limits, her vitals are stable and her mental status is back to baseline Tmax 101.2 on 12/29, WBC within normal limits, remains afebrile Levaquin has been changed to Aztreonam 1gm as per ID Urine cultures with +Ecoli Blood cultures ngtd Metabolic Encephalopathy - resolved Assessment/Plan: Metabolic enchephalopaty likely secondary to hyperglycemia and acute UTI Hyperglycemia - chronic Assessment/Plan: Anion gap 10 Insulin drip d/sabino On Levemir 15 units @ HS, but blood sugars remain elevated, increased Levemir to 20units Monitor BGMs, will d/c IVFs. UTI - acute Assessment/Plan: Confusion likely secondary to acute UTI Urine cultures with +ecoli Tmax 101.2 on 12/29, WBC within normal limits, remains afebrile Pt is back to her baseline mentally ID consulted and changed Levaquin to Aztreonam Cardiology: CABG/CAD/Hyperlipidemia Assessment/Plan: on ASA 81mg daily, Zetia and Lipitor Hypertension - chronic Assessment/Plan: monitor BP for now, Trend BPs F.E.N. Fluids: tolerating PO Electrolytes: within normal limits Nutrition: diabetic diet Physical following Prophylaxis: DVT: Heparin BID GI: colace prn Disposition: Continues to require inpatient hospitalization. Full Code. Visit type - Emergency Visit Emergency Visit: Yes ED Registration Date: 12/29/16 Care time: The patient presented to the Emergency Department on the above date and was hospitalized for further evaluation of their emergent condition. - New Patient This patient is new to me today: No - Critical Care Critical Care patient: No - Discharge Referral Referred to [facility] Med P.C.: No
[2017-01-01] MEDS ORDERED: INSULIN (NOVOLOG) ASPART 100 UNITS/ML 10ML VIAL ONE ×2 (11:01→20:43)
--- NOTE | 2017-01-01 15:08 | PN ---
Progress Note, Physician History of Present Illness: patient stable doing much better - Current Medication List Current Medications: Active Medications Aspirin (Asa -) 81 mg PO DAILY [facility] Last Admin: 01/01/17 09:31 Dose: 81 mg Atorvastatin Calcium (Lipitor -) 10 mg PO DAILY [facility] Last Admin: 01/01/17 09:29 Dose: 10 mg Ezetimibe (Zetia -) 10 mg PO DAILY [facility] Last Admin: 01/01/17 09:30 Dose: 10 mg Escitalopram Oxalate (Lexapro -) 10 mg PO DAILY [facility] Last Admin: 01/01/17 09:31 Dose: 10 mg Heparin Sodium (Porcine) (Heparin -) 5,000 unit SQ BID [facility] Last Admin: 01/01/17 09:30 Dose: Not Given Aztreonam 1 gm/ Dextrose 50 mls @ 100 mls/hr IVPB Q8H-IV [facility] PRN Reason: Protocol Last Admin: 01/01/17 09:34 Dose: 100 mls/hr Insulin Aspart (Novolog Vial Sliding Scale -) 1 vial SQ ACHS [facility] PRN Reason: Protocol Last Admin: 01/01/17 11:17 Dose: Not Given Insulin Aspart (Novolog Vial) 5 units SQ TIDAC [facility] Last Admin: 01/01/17 11:16 Dose: 5 units Insulin Detemir (Levemir Vial) 20 units SQ HS [facility] Pantoprazole Sodium (Protonix -) 40 mg PO DAILY [facility] Last Admin: 01/01/17 09:30 Dose: 40 mg - Objective Vital Signs: Vital Signs Temperature 97.8 F 01/01/17 06:00 Pulse Rate 68 01/01/17 14:57 Respiratory Rate 20 01/01/17 14:57 Blood Pressure 131/57 01/01/17 14:57 O2 Sat by Pulse Oximetry (%) 98 01/01/17 09:00 Constitutional: Yes: No Distress, Calm Cardiovascular: Yes: Regular Rate and Rhythm Respiratory: Yes: Regular, CTA Bilaterally Gastrointestinal: Yes: Normal Bowel Sounds, Soft Genitourinary: Yes: Anuria Musculoskeletal: Yes: WNL Extremities: Yes: WNL Neurological: Yes: Alert, Oriented Psychiatric: Yes: Alert Labs: CBC, BMP 01/01/17 05:35 01/01/17 05:35 Assessment/Plan Problem List - Problems (1) DKA, type 2 Code(s): E13.10 - OTH DIABETES MELLITUS WITH KETOACIDOSIS WITHOUT COMA Qualifiers: Diabetes mellitus complication detail: without coma Diabetes mellitus terminal press operator insulin use: with terminal press operator use Qualified Code(s): E13.10 - Other specified diabetes mellitus with ketoacidosis without coma (2) HTN (hypertension) Code(s): I10 - ESSENTIAL (PRIMARY) HYPERTENSION (3) Hyperglycemia Code(s): R73.9 - HYPERGLYCEMIA, UNSPECIFIED (4) Hyponatremia Code(s): E87.1 - HYPO-OSMOLALITY AND HYPONATREMIA (5) Urinary tract infection Code(s): N39.0 - URINARY TRACT INFECTION, SITE NOT SPECIFIED (6) CAD (coronary artery disease) Code(s): I25.10 - ATHSCL HEART DISEASE OF [place] CORONARY ARTERY W/O ANG PCTRS (7) IDDM (insulin dependent diabetes mellitus) Code(s): E11.9 - TYPE 2 DIABETES MELLITUS WITHOUT COMPLICATIONS Z79.4 - RETIREMENT (CURRENT) USE OF INSULIN plan continue aztreonam if patient is doing well we will consider switching to oral tomorrow rest as per primary team
[2017-01-01] MEDS ORDERED: INSULIN DETEMIR 100 UNITS/ML MDV SQ ONE (20:42)
[2017-01-01] MEDS ORDERED: INSULIN DETEMIR 100 UNITS/ML MDV SQ SCH (22:00)
[2017-01-02] MEDS ORDERED: PT OWN MED DRAWER 7, Y5N ONE ×2 (01:18→09:47)
[2017-01-02] MEDS: AZTREONAM 1 GM in DEXTROSE 5%-WATER - 50 ML IVPB SCH ×2 (01:22→12:00)
[2017-01-02] MEDS: INSULIN (NOVOLOG) ASPART 100 UNITS/ML 10ML VIAL SQ SCH (06:29)
[2017-01-02] MEDS: INSULIN SLIDING SCALE (NOVOLOG) 1 VIAL SQ SCH ×2 (06:29→12:01)
[2017-01-02 07:19] LABS: BASOPHIL 0.5 % (0-2.0); EOSINOPHIL 2.5 % (0-4.5); MCH 29.5 pg (25.7-33.7); MCHC 35.4 g/dl (32.0-36.0); MEAN CELL VOLUME 83.5 fl (80-96); MEAN PLT VOLUME 7.4 fl (7.5-11.1); NEUTROPHILS 77.9 % (42.8-82.8); PLATELET COUNT 167 K/MM3 (134-434); RDW 15.1 % (11.6-15.6)
[2017-01-02 07:55] LABS: ALBUMIN 2.2 g/dl (3.4-5.0); ALK PHOS 92 U/L (45-117); ANION GAP 11 (8-16); BILIRUBIN,TOTAL 0.3 mg/dL (0.2-1.0); CALCIUM 8.1 mg/dL (8.5-10.1); CO2 24 mmol/L (21-32); CREATININE 0.6 mg/dL (0.55-1.02); GLUCOSE,RANDOM 207 mg/dL (74-106); SGOT/AST 8 U/L (15-37); SGPT/ALT 11 U/L (12-78); TOT PROT 4.9 g/dl (6.4-8.2)
[2017-01-02] MEDS ORDERED: INSULIN (NOVOLOG) ASPART 100 UNITS/ML 10ML VIAL SQ SCH (08:46)
--- NOTE | 2017-01-02 08:48 | DS ---
Physical Exam: SUBJECTIVE: Patient seen and examined. States she feels ready for discharge. She denies any pain, discomfort or any other discomfort. OBJECTIVE: Vital Signs Period Temp Pulse Resp BP Sys/Barrera Pulse Ox Last 24 Hr 97.0 F-97.8 F 63-80 18-20 128-147/57-74 97-98 PHYSICAL EXAM GENERAL: The patient is awake, alert, and fully oriented, in no acute distress. She knows her name, where she is and todays date. She was cooperative with my exam. No signs of agitation. Asking to go home. EYES: sclera anicteric, conjunctiva clear. No ptosis. ENT: Ears normal, nares patent, oropharynx clear without exudates, moist mucous membranes. NECK: Trachea midline, full range of motion, supple. LUNGS: Breath sounds equal, clear to auscultation bilaterally HEART: Regular rate and rhythm ABDOMEN: Soft, nontender, nondistended, normoactive bowel sounds, no guarding EXTREMITIES: No edema noted NEUROLOGICAL: Normal speech, high fall risk - multiple falls at home s/p rehab. PSYCH: Normal mood, normal affect, not agitated, cooperative. LABS Laboratory Results - last 24 hr 01/01/17 01/01/17 01/02/17 11:14 21:22 05:35 WBC 6.0 RBC 3.63 Hgb 10.7 Hct 30.3 L MCV 83.5 MCHC 35.4 RDW 15.1 Plt Count 167 MPV 7.4 L Neutrophils % 77.9 Lymphocytes % 10.9 Monocytes % 8.2 Eosinophils % 2.5 D Basophils % 0.5 Sodium Potassium Chloride Carbon Dioxide Anion Gap BUN Creatinine Creat Clearance w eGFR POC Glucometer 196 162 Random Glucose Calcium Total Bilirubin AST ALT Alkaline Phosphatase Total Protein Albumin 01/02/17 01/02/17 06:00 06:22 WBC RBC Hgb Hct MCV MCHC RDW Plt Count MPV Neutrophils % Lymphocytes % Monocytes % Eosinophils % Basophils % Sodium 138 Potassium 3.5 Chloride 103 Carbon Dioxide 24 Anion Gap 11 BUN 8 Creatinine 0.6 Creat Clearance w eGFR > 60 POC Glucometer 225 Random Glucose 207 H Calcium 8.1 L Total Bilirubin 0.3 D AST 8 L ALT 11 L Alkaline Phosphatase 92 Total Protein 4.9 L Albumin 2.2 L HOSPITAL COURSE: Date of Admission:12/29/16 Date of Discharge: 01/02/17 ASSESSMENT/PLAN: Mrs. Paul is a 71 year old female with a significant past medical history of hypertension, diabetes mellitus and CABG. She presented to the ER on 12/29/2016 with high blood sugar and vomiting for past week. Family alerted EMS today for patients high blood sugar and confusion. She also had a temperature of 101F. on admission. Mrs Paul was recently here on 11/22/2016 for nausea/vomiting, poor appetite, hyperglycemia and increased urination but left AMA. On 11/26/2016 she was brought in by EMS for generalized weakness, multiple falls at home with injury, poor PO intake, back pain, headache and right hip pain and was sent to rehab on discharge. . On this admission she was noted to have a random glucose of 393, temperature of 101F, leukocytosis, tachycardia and had altered mental status. Her UA on admission with urine protein +1, glucose 3+, Ketones 2+, blood 2+, leuk est.2+. Imagin12/29/2016 with improvement in aeration since prior study. No acute chest pathology. Sepsis - resolved Assessment/Plan: On admission had leukocytosis (12.2), tachycardia (hr 103s), was febrile (101.2F) and had altered mental status. Her WBC is now within normal limits, her vitals are stable and her mental status is back to baseline Tmax 101.2 on 12/29, WBC within normal limits, remains afebrile Urine cultures with +Ecoli Blood cultures ngtd Metabolic Encephalopathy - resolved Assessment/Plan: Metabolic enchephalopaty likely secondary to hyperglycemia and acute UTI Hyperglycemia - chronic Assessment/Plan: will be discharged on: Novolog sliding scale ac/hs Novolog 8 units TID/AC Levemir 20 units @ HS will need close follow up with visiting nurse who will reinforce importance of blood sugar monitoring and insulin administration UTI - acute/continue PO antibiotics, follow up with PCP Assessment/Plan: Pt is back to her baseline mentally Cardiology: CABG/CAD/Hyperlipidemia Assessment/Plan: on ASA 81mg daily, Zetia and Lipitor Hypertension - chronic Assessment/Plan: monitor BP for now, Trend BPs Disposition: Discharge today with close VNA follow up for elevated blood sugars. Will also refer to PCP. Full Code. Minutes to complete discharge: 45 Discharge Summary Reason For Visit: DKA TYPE 2 Current Active Problems DKA, type 2 (Acute) HTN (hypertension) (Acute) Condition: Improved - Instructions Diet, Activity, Other Instructions: Discharge medications: Novolog 8 units three times before meals Levemir 20 units @ bedtime In addition to the above, if your blood sugar falls within these ranges, plse follow the sliding scale ranges: Blood sugar 151-200 - take an additional 2 units of Novolog (fast acting insulin ) Blood sugar 201-250 - take an additional 3 units of Novolog (fast acting insulin ) Blood sugar 251-300 - take an additional 4 units of Novolog (fast acting insulin ) Blood sugar 301-350 - take an additional 5 units of Novolog and call your provider for additional dose instructions. Please test your blood sugar levels before meals. I your blood sugar falls below 80, do not take insulin but recheck before the next meal. Signs of Hypoglycemia: shakiness, sweating, dizziness. If your blood sugar drops suddenly and your experience signs of hypoglycemia, please call your provider immediately or return to the ER. Disposition: HOME - Home Medications Comprehensive Discharge Medication List: Ambulatory Orders Aspirin [ASA -] 81 mg PO DAILY 09/03/14 Esomeprazole Magnesium 40 mg PO DAILY 11/26/16 Insulin (Levemir) [Levemir Vial] 10 units SQ HS #0 ml 11/29/16 Insulin Sliding Scale [Novolog Vial Sliding Scale -] 1 vial SQ ACHS units 11/29 Escitalopram Oxalate [Lexapro -] 10 mg PO DAILY 12/29/16 Ezetimibe/Simvastatin [Vytorin 10-20 mg Tablet] 1 tab PO DAILY 12/29/16 This patient is new to me today: No Emergency Visit: Yes ED Registration Date: 12/29/16 Care time: The patient presented to the Emergency Department on the above date and was hospitalized for further evaluation of their emergent condition. Critical Care patient: No - Discharge Referral Referred to [facility] Med P.C.: No
[2017-01-02] MEDS: EZETIMIBE 10 MG TABLET (FP) PO SCH (09:40)
[2017-01-02] MEDS: PANTOPRAZOLE 40 MG TABLET (FP) PO SCH (09:40)
[2017-01-02] MEDS: ASPIRIN 81 MG CHEWABLE TABLETS PO SCH (09:40)
[2017-01-02] MEDS: ESCITALOPRAM OXALATE 10 MG TABLET (FP) PO SCH (09:40)
[2017-01-02] MEDS: ATORVASTATIN CA 10 MG TABLET (FP) PO SCH (09:40)
[2017-01-02] MEDS: HEPARIN NA (PORCINE) 5,000 UNITS/ML 1ML VIAL SQ SCH (09:40)
[2017-01-02] MEDS ORDERED: Insulin (LOG) Aspart 100 UNITS/ML VIAL SQ ONE (13:30)
--- NOTE | 2017-01-02 16:15 | PN ---
Progress Note, Physician History of Present Illness: patient stable doing much better no issues wants to go home - Current Medication List Current Medications: Active Medications Aspirin (Asa -) 81 mg PO DAILY [facility] Last Admin: 01/02/17 09:40 Dose: 81 mg Atorvastatin Calcium (Lipitor -) 10 mg PO DAILY [facility] Last Admin: 01/02/17 09:40 Dose: 10 mg Ezetimibe (Zetia -) 10 mg PO DAILY [facility] Last Admin: 01/02/17 09:40 Dose: 10 mg Escitalopram Oxalate (Lexapro -) 10 mg PO DAILY [facility] Last Admin: 01/02/17 09:40 Dose: 10 mg Heparin Sodium (Porcine) (Heparin -) 5,000 unit SQ BID [facility] Last Admin: 01/02/17 09:40 Dose: 5,000 unit Aztreonam 1 gm/ Dextrose 50 mls @ 100 mls/hr IVPB Q8H-IV [facility] PRN Reason: Protocol Last Admin: 01/02/17 12:00 Dose: 100 mls/hr Insulin Aspart (Novolog Vial Sliding Scale -) 1 vial SQ ACHS [facility] PRN Reason: Protocol Last Admin: 01/02/17 12:01 Dose: Not Given Insulin Aspart (Novolog Vial) 8 units SQ TIDAC [facility] Last Admin: 01/02/17 11:35 Dose: 8 units Insulin Aspart (Novolog) 4 units SQ ONCE ONE Stop: 01/02/17 13:31 Last Admin: 01/02/17 15:12 Dose: 4 units Insulin Detemir (Levemir Vial) 20 units SQ HS [facility] Last Admin: 01/01/17 21:24 Dose: 20 units Pantoprazole Sodium (Protonix -) 40 mg PO DAILY [facility] Last Admin: 01/02/17 09:40 Dose: 40 mg - Objective Vital Signs: Vital Signs Temperature 97.3 F L 01/02/17 14:00 Pulse Rate 81 01/02/17 14:00 Respiratory Rate 18 01/02/17 14:00 Blood Pressure 110/54 01/02/17 14:00 O2 Sat by Pulse Oximetry (%) 95 01/02/17 10:00 Constitutional: Yes: No Distress, Calm Cardiovascular: Yes: Regular Rate and Rhythm Respiratory: Yes: Regular, CTA Bilaterally Gastrointestinal: Yes: Normal Bowel Sounds, Soft Musculoskeletal: Yes: WNL Extremities: Yes: WNL Neurological: Yes: Alert, Oriented Psychiatric: Yes: Alert, Oriented Labs: CBC, BMP 01/02/17 05:35 01/02/17 06:00 Assessment/Plan Problem List - Problems (1) DKA, type 2 Code(s): E13.10 - OTH DIABETES MELLITUS WITH KETOACIDOSIS WITHOUT COMA Qualifiers: Diabetes mellitus complication detail: without coma Diabetes mellitus fpc insulin use: with fpc use Qualified Code(s): E13.10 - Other specified diabetes mellitus with ketoacidosis without coma (2) HTN (hypertension) Code(s): I10 - ESSENTIAL (PRIMARY) HYPERTENSION (3) Hyperglycemia Code(s): R73.9 - HYPERGLYCEMIA, UNSPECIFIED (4) Hyponatremia Code(s): E87.1 - HYPO-OSMOLALITY AND HYPONATREMIA (5) Urinary tract infection Code(s): N39.0 - URINARY TRACT INFECTION, SITE NOT SPECIFIED (6) CAD (coronary artery disease) Code(s): I25.10 - ATHSCL HEART DISEASE OF [place] CORONARY ARTERY W/O ANG PCTRS (7) IDDM (insulin dependent diabetes mellitus) Code(s): E11.9 - TYPE 2 DIABETES MELLITUS WITHOUT COMPLICATIONS Z79.4 - FDC (CURRENT) USE OF INSULIN plan doing well no issues patient can be send home on bactrim ds twice a day for 3 days education about diet and blood sugar control
[2017-01-02 19:58] VITALS: BP 136/61; PULSE 70; TEMP 98
== END 2017-01-02 17:15 | disposition home or self-care (01) | DRG 871 ==
LOC: JER 11:34 → JERBED 15:00 → JICU 16:56 → J4W 12-30 18:31
PROVIDERS: ADMIT Internal Medicine; ATTEND Nurse Practitioner Family
DX: A41.9 Sepsis, unspecified organism (principal); G93.41 Metabolic encephalopathy; E13.10 Other specified diabetes mellitus with ketoacidosis without coma; N39.0 Urinary tract infection, site not specified; E87.1 Hypo-osmolality and hyponatremia; Z79.4 Long term (current) use of insulin; I25.10 Atherosclerotic heart disease of native coronary artery without angina pectoris; Z95.1 Presence of aortocoronary bypass graft; B96.20 Unspecified Escherichia coli [E. coli] as the cause of diseases classified elsewhere; R41.82 Altered mental status, unspecified
CPT/HCPCS: 36415; 71010-TC; 80048; 80053; 81003; 81015; 82009; 83036; 83605; 83735; 83930; 85025; 87040; 87086; 87186; 87254; 87804; 93005; 93010; 97116-GP; 97161-GP; 99284-25; J1644

== ENCOUNTER 2017-01-12 13:29 | Emergency (ER) | payer OTHER, BC ==
[2017-01-12 13:50] VITALS: BMI 23.9
[2017-01-12] MEDS ORDERED: DIPHTH,PERTUSS(ACELL),TET VAC 0.5 ML VIAL IM ONE (14:15)
[2017-01-12 14:51] LABS: BASOPHIL 0.9 % (0-2.0); EOSINOPHIL 2.6 % (0-4.5); MCH 29.6 pg (25.7-33.7); MCHC 33.9 g/dl (32.0-36.0); MEAN CELL VOLUME 87.3 fl (80-96); MEAN PLT VOLUME 6.9 fl (7.5-11.1); NEUTROPHILS 82.2 % (42.8-82.8); PLATELET COUNT 304 K/MM3 (134-434); RDW 15.4 % (11.6-15.6); WHITE BLOOD COUNT 8.2 K/mm3 (4.0-10.0)
[2017-01-12 15:15] LABS: ALBUMIN 3.4 g/dl (3.4-5.0); BILIRUBIN,TOTAL 0.3 mg/dL (0.2-1.0); MAGNESIUM 2.2 mg/dL (1.8-2.4); TOT PROT 6.5 g/dl (6.4-8.2)
[2017-01-12] MEDS ORDERED: SODIUM CHLORIDE 1,000 ML IV STA (15:28)
--- NOTE | 2017-01-12 15:42 | PDOC ---
History of Present Illness - General Chief Complaint: Injury Stated Complaint: FALL/HEAD INJURY Time Seen by Provider: 01/12/17 13:54 History Source: Patient Exam Limitations: No Limitations - History of Present Illness Initial Comments: 01/12/17 15:02 71-year-old female with history of diabetes presents the ED status post mechanical fall. Patient states was closing the hurst of her car and when she did she lost her balance causing her to fall forward striking her left for head and left shoulder. Patient states had no LOC and was able to get up initially after the fall but due to the bleeding she had called EMS who brought her in ao 3 with normal vital signs. Patient states is on no blood thinners except for baby aspirin and denies any headache presently, dizziness, chest pain, shortness of breath, abdominal pain or weakness. Patient is stating left shoulder pain but only when she moves it. Occurred: reports: just prior to arrival Severity: reports: moderate Pain Location: reports: head, upper extremity Modifying Factors: improves with: None Loss of Consciousness: no loss of consciousness Associated Symptoms (Fall): denies symptoms Past History - Past Medical History Allergies/Adverse Reactions: Allergies Allergy/AdvReac Type Severity Reaction Status Date / Time apple [Apple] Allergy Verified 01/12/17 13:50 peach [[place]] Allergy Verified 01/12/17 13:50 Penicillins Allergy Verified 01/12/17 13:50 Home Medications: Ambulatory Orders Aspirin [ASA -] 81 mg PO DAILY 09/03/14 Esomeprazole Magnesium 40 mg PO DAILY 11/26/16 Insulin Sliding Scale [Novolog Vial Sliding Scale -] 1 vial SQ ACHS units 11/29 Escitalopram Oxalate [Lexapro -] 10 mg PO DAILY 12/29/16 Ezetimibe/Simvastatin [Vytorin 10-20 mg Tablet] 1 tab PO DAILY 12/29/16 Atorvastatin Ca [Lipitor] 10 mg PO DAILY tablet 01/02/17 Ezetimibe [Zetia -] 10 mg PO DAILY tablet 01/02/17 Insulin (Levemir) [Levemir Flexpen -] 20 units SQ HS #4 pen 01/02/17 Insulin Aspart [Novolog Flexpen] 8 unit SQ TID #7 insuln.pen 01/02/17 Insulin Sliding Scale [Novolog Vial Sliding Scale -] 1 vial SQ ACHS units 01/02 Sulfamethoxazole/Trimethoprim [Bactrim Ds -] 1 tab PO BID #6 tablet 01/02/17 Anemia: No Asthma: No Cancer: Yes Cardiac Disorders: Yes (CAD, CABG) CVA: No COPD: No Dementia: No Diabetes: Yes GI Disorders: No Disorders: No HTN: Yes Hypercholesterolemia: No Liver Disease: No Suicide Attempt (Hx): No Seizures: No Thyroid Disease: No - Surgical History Cardiac Surgery: Yes (QUADRUPLE BYPASS) Orthopedic Surgery: Yes (left hip fracture repair) - Reproductive History Cervical CA: No Dysfunctional Uterine Bleeding: No Ectopic : No Endometrial CA: No Polycystic Ovaries: No Therapeutic (s) & number: No Tubal Ligation: No - Immunization History Immunization Up to Date: Yes - Psycho/Social/Smoking Cessation Hx Anxiety: No Suicidal Ideation: No Smoking History: Never smoked Have you smoked in the past 12 months: No Information on smoking cessation initiated: No Hx Alcohol Use: No Drug/Substance Use Hx: No Substance Use Type: None Hx Substance Use Treatment: No Patient Lives Alone: Yes Lives with/in: lives alone Review of Systems - Review of Systems Able to Perform ROS?: Yes Constitutional: No: Symptoms Reported HEENTM: No: Symptoms Reported Respiratory: No: Symptoms reported Cardiac (ROS): No: Symptoms Reported ABD/GI: No: Symptoms Reported : No: Symptoms Reported Musculoskeletal: Yes: Joint Pain (left shoulder) Integumentary: Yes: Other (laceration to left forehead) Neurological: No: Headache *Physical Exam - Vital Signs Last Vital Signs Temp Pulse Resp BP Pulse Ox 98 F 81 14 141/76 97 01/12/17 13:31 01/12/17 13:31 01/12/17 13:31 01/12/17 13:31 01/12/17 13:31 - Physical Exam General Appearance: Yes: Nourished, Appropriately Dressed. No: Apparent Distress HEENT: positive: EOMI, FELY, TMs Normal, Pharynx Normal. negative: Pale Conjunctivae Neck: positive: Supple. negative: Tender, Decreased range of motion Respiratory/Chest: positive: Lungs Clear, Normal Breath Sounds. negative: Chest Tender, Respiratory Distress, Accessory Muscle Use Cardiovascular: positive: Regular Rhythm, Regular Rate. negative: Murmur Gastrointestinal/Abdominal: positive: Soft. negative: Tenderness Musculoskeletal: negative: Vertebral Tenderness Extremity: positive: Normal Capillary Refill, Normal Inspection, Normal Range of Motion. negative: Tender (left shoulder. no crepitus), Swelling, Erythema Integumentary: positive: Ecchymosis (to left temporal region, noted 2cm linear lacaration to left scalp line and a 1cm linear laceration above larger laceration) Neurologic: positive: Motor Strength 5/5 (ambulatory) Procedures - Laceration/Wound Repair Left Face Wound Length: to 2.5 cm Wound Explored: clean Wound's Depth, Shape: superficial, linear Irrigated w/ Saline: Yes Wound Repaired With: Dermabond ED Treatment Course - LABORATORY CBC & Chemistry Diagram: 01/12/17 14:38 01/12/17 14:38 - ADDITIONAL ORDERS Additional order review: Laboratory Results 01/12/17 14:38 Sodium 136 Potassium 5.3 H D Chloride 101 Carbon Dioxide 27 Anion Gap 8 BUN 18 D Creatinine 1.0 D Creat Clearance w eGFR 54.66 Random Glucose 329 H* D Calcium 9.0 Magnesium 2.2 D Total Bilirubin 0.3 AST 13 L D ALT 15 D Alkaline Phosphatase 130 H D Total Protein 6.5 D Albumin 3.4 D 01/12/17 14:38 RBC 4.24 MCV 87.3 MCHC 33.9 RDW 15.4 MPV 6.9 L Neutrophils % 82.2 Lymphocytes % 10.6 Monocytes % 3.7 L Eosinophils % 2.6 Basophils % 0.9 - RADIOLOGY Radiology Studies Ordered: Category Date Time Status CERVICAL SPINE CT W/O CONTR [CT] Stat CT Scan 01/12/17 14:[address] WITHOUT CONTRAST [CT] Stat CT Scan 01/12/17 14:14 Ordered - Medications Given in the ED: ED Medications Discontinued Medications Generic Name Dose Route Start Last Admin Trade Name Freq PRN Reason Stop Dose Admin Diphtheria/Tetanus/Acell Pertussis 0.5 ml 01/12/17 14:15 01/12/17 14:44 Adacel Adolescent/Adult - IM 01/12/17 14:16 0.5 ml .ONCE ONE Administration Medical Decision Making - Medical Decision Making 01/12/17 15:27 Patient status post mechanical fall with laceration to left scalp line. Patient states unknown last tetanus and has no complaints presently. Patient went for her head and neck tetanus, labs, and will perform laceration repair with Dermabond 01/12/17 16:29 CT of the head shows no significant change without acute intracranial pathology. Cervical CT negative for acute findings. Procedure for laceration repair done without difficulty. Patient currently receiving an IV fluid bolus and a pitcher of water. Patient will have repeat BGM prior to discharge. 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 Patient did have Escherichia coli last month which was sensitive to cephalosporins and Bactrim. I discussed with patient that if positive will receive a call to start antibiotics. *DC/Admit/Observation/Transfer Diagnosis at time of Disposition: IDDM (insulin dependent diabetes mellitus) Closed head injury Qualifiers: Encounter type: initial encounter Qualified Code(s): S09.90XA - Unspecified injury of head, initial encounter Laceration of forehead without complication Qualifiers: Encounter type: initial encounter Qualified Code(s): S01.81XA - Laceration without foreign body of other part of head, initial encounter - Discharge Dispostion Disposition: HOME Condition at time of disposition: Good - Patient Instructions Printed Discharge Instructions: DI for Closed Head Injury, DI for Laceration Repair With Dermabond Additional Instructions: Continue taking her medications as prescribed. Please do not get laceration wet as the glue may not hold. Allow glueto fall off on its own over the next 5 days. Return to ED if you develop any headache, dizziness, or visual changes.
[2017-01-12 17:51] LABS: URINE APPEARANCE CLEAR; URINE BILIRUBIN NEGATIVE (NEGATIVE); URINE BLOOD NEGATIVE (NEGATIVE); URINE COLOR STRAW; URINE GLUCOSE (UA) 3+ (NEGATIVE); URINE KETONE NEGATIVE (NEGATIVE); URINE NITRITE NEGATIVE (NEGATIVE); URINE PROTEIN NEGATIVE (NEGATIVE); URINE UROBILINOGEN NEGATIVE E.U./dl (0.2-1.0)
[2017-01-12 18:05] LABS: URINE LEUK ESTERASE 2+ (NEGATIVE)
[2017-01-12 18:09] LABS: URINE BACTERIA FEW /hpf (NONE SEEN); URINE HYALINE CAST 2 /lpf; URINE RBC 1 /hpf (0-3); URINE WBC 29 /hpf (3-5)
[2017-01-12 18:12] VITALS: BP 131/81; PULSE 76; TEMP 97.6
--- NOTE | 2017-01-13 20:28 | EKG ---
Test Reason : Blood Pressure : / mmHG Vent. Rate : 075 BPM Atrial Rate : 075 BPM P-R Int : 160 ms QRS Dur : 076 ms QT Int : 410 ms P-R-T Axes : 033 -14 065 degrees QTc Int : 457 ms SINUS RHYTHM WITH OCCASIONAL PREMATURE VENTRICULAR COMPLEXES INFERIOR INFARCT (CITED ON OR BEFORE 11-DEC-2006) POOR R WAVE PROGRESSION ABNORMAL ECG WHEN COMPARED WITH ECG OF 29-DEC-2016 13:37, PREMATURE VENTRICULAR COMPLEXES ARE NOW PRESENT QT HAS SHORTENED Confirmed by VITALIY HAJI MD ([id number]) on 01/13/2017 8:28:26 PM Referred By: Confirmed By:VITALIY HAJI MD
== END 2017-01-12 18:12 | disposition home or self-care (01) ==
LOC: JER 13:29
PROC: 3E0234Z Introduction of Serum, Toxoid and Vaccine into Muscle, Percutaneous Approach (ICD-10-PCS; principal; 2017-01-12)
PROC: 0HQ1XZZ Repair Face Skin, External Approach (ICD-10-PCS; 2017-01-12)
PROC: 3E0337Z Introduction of Electrolytic and Water Balance Substance into Peripheral Vein, Percutaneous Approach (ICD-10-PCS; 2017-01-12)
DX: S01.81XA Laceration without foreign body of other part of head, initial encounter (principal); W18.39XA Other fall on same level, initial encounter; Y93.89 Activity, other specified; Y92.89 Other specified places as the place of occurrence of the external cause; I10 Essential (primary) hypertension; E11.9 Type 2 diabetes mellitus without complications; Z79.4 Long term (current) use of insulin; I25.10 Atherosclerotic heart disease of native coronary artery without angina pectoris; Z95.1 Presence of aortocoronary bypass graft
CPT/HCPCS: 12011-25; 36415; 70450-TC; 72125-TC; 80053; 81003; 81015; 83735; 85025; 90471; 93005; 93010; 96360; 99285-25

== ENCOUNTER 2017-03-09 10:59 | Inpatient (IN) | payer OTHER, BC ==
[2017-03-09 11:27] VITALS: BMI 23.0
[2017-03-09 11:51] LABS: BASOPHIL 0.3 % (0-2.0); MCH 30.1 pg (25.7-33.7); MCHC 34.7 g/dl (32.0-36.0); MEAN CELL VOLUME 86.6 fl (80-96); MEAN PLT VOLUME 7.1 fl (7.5-11.1); NEUTROPHILS 91.8 % (42.8-82.8); PLATELET COUNT 201 K/MM3 (134-434); RDW 13.8 % (11.6-15.6)
[2017-03-09 12:07] LABS: INR 1.09 (0.82-1.09)
[2017-03-09 12:17] LABS: ALBUMIN 3.4 g/dl (3.4-5.0); ALK PHOS 127 U/L (45-117); ANION GAP 16 (8-16); BILIRUBIN,TOTAL 0.7 mg/dL (0.2-1.0); CALCIUM 9.1 mg/dL (8.5-10.1); CO2 20 mmol/L (21-32); CREATININE 1.2 mg/dL (0.55-1.02); GLUCOSE,RANDOM 252 mg/dL (74-106); MAGNESIUM 2.2 mg/dL (1.8-2.4); SGOT/AST 14 U/L (15-37); SGPT/ALT 13 U/L (12-78); TOT PROT 6.9 g/dl (6.4-8.2)
[2017-03-09 12:19] LABS: TROPONIN I < 0.02 ng/ml (0.00-0.05)
[2017-03-09] MEDS ORDERED: SODIUM CHLORIDE 0.9% 1000 ML INFUS.BAG IV ONE (12:25)
--- NOTE | 2017-03-09 12:26 | PDOC ---
History of Present Illness - General Chief Complaint: Blood Sugar Problem Stated Complaint: DIABETIC Time Seen by Provider: 03/09/17 11:17 - History of Present Illness Initial Comments: 03/09/17 12:26 CHIEF COMPLAINT: blood sugar, vomiting HISTORY OF PRESENT ILLNESS: 71 yo F with hx of IDDM, GERD, HLD s/p cardiac bypass x 4 presents to ED with vomiting x "a few days" and high blood sugar. Patient states she "feels fine" now and has no complaints. She denies any SOB, chest pain, palpitations, abdominal pain, or change in bowel or urinary. No recent travel or sick contacts. PAST MEDICAL HISTORY: Denies past medical history FAMILY HISTORY: Denies SOCIAL HISTORY: Denies tobacco, alcohol, illicit drug use. SURGICAL HISTORY: Denies ALLERGIES: PCN REVIEW OF SYSTEMS General/Constitutional: Denies fever or chills. Denies weakness, weight change. HEENT: Denies change in vision. Denies ear pain or discharge. Denies sore throat. Cardiovascular: Denies chest pain or shortness of breath. Respiratory: Denies cough, wheezing, or hemoptysis. Gastrointestinal: Vomiting "for a few days" but I feel better now. Denies diarrhea or constipation. Denies rectal bleeding. Genitourinary: Denies dysuria, frequency, or change in urination. Musculoskeletal: Denies joint or muscle swelling or pain. Denies neck or back pain. Skin and breasts: Denies rash or easy bruising. PHYSICAL EXAM General Appearance: Well-appearing, appropriately dressed. No apparent distress , no intoxication. HEENT: EOMI, PERRLA, normal ENT inspection, normal voice, TMs normal, pharynx normal. No conjunctival pallor. No photophobia, scleral icterus. Neck: Supple. Trachea midline. No tenderness, rigidity, carotid bruit, stridor , lymphadenopathy, or thyromegaly. Respiratory/Chest: Lungs CTAB. Cardiovascular: RRR. S1, S2. Vascular Pulses: Dorsalis-Pedis (R): 2+, Dorsalis-Pedis (L): 2+ Gastrointestinal/Abdominal: Normal bowel sounds. Abdomen soft, non-distended. No tenderness or rebound tenderness. No organomegaly, pulsatile mass, guarding , hernia, hepatomegaly, splenomegaly. Lymphatic: No adenopathy, tenderness. Musculoskeletal/Extremities: Normal inspection. FROM of all extremities, normal capillary refill. Pelvis Stable. No CVA tenderness. No tenderness to extremities, pedal edema, swelling, erythema or deformity. Integumentary: Appropriate color, dry, warm. No cyanosis, erythema, jaundice or rash Neurologic: division controller II-XII intact. Fully oriented, alert. Appropriate mood/affect. Motor strength 5/5. No appreciable EOM palsy, facial droop or sensory deficit. Past History - Past Medical History Allergies/Adverse Reactions: Allergies Allergy/AdvReac Type Severity Reaction Status Date / Time apple [Apple] Allergy Verified 03/09/17 11:27 peach [[place]] Allergy Verified 03/09/17 11:27 Penicillins Allergy Verified 03/09/17 11:27 Home Medications: Ambulatory Orders Aspirin [ASA -] 81 mg PO DAILY 09/03/14 Esomeprazole Magnesium 40 mg PO DAILY 11/26/16 Insulin Sliding Scale [Novolog Vial Sliding Scale -] 1 vial SQ ACHS units 11/29 Escitalopram Oxalate [Lexapro -] 10 mg PO DAILY 12/29/16 Ezetimibe/Simvastatin [Vytorin 10-20 mg Tablet] 1 tab PO DAILY 12/29/16 Atorvastatin Ca [Lipitor] 10 mg PO DAILY tablet 01/02/17 Ezetimibe [Zetia -] 10 mg PO DAILY tablet 01/02/17 Insulin (Levemir) [Levemir Flexpen -] 20 units SQ HS #4 pen 01/02/17 Insulin Aspart [Novolog Flexpen] 8 unit SQ TID #7 insuln.pen 01/02/17 Insulin Sliding Scale [Novolog Vial Sliding Scale -] 1 vial SQ ACHS units 01/02 Sulfamethoxazole/Trimethoprim [Bactrim DS -] 1 tab PO BID #14 tablet 03/09/17 Anemia: No Asthma: No Cancer: Yes Cardiac Disorders: Yes (CAD, CABG) CVA: No COPD: No Dementia: No Diabetes: Yes GI Disorders: No Disorders: No HTN: Yes Hypercholesterolemia: No Liver Disease: No Suicide Attempt (Hx): No Seizures: No Thyroid Disease: No - Surgical History Cardiac Surgery: Yes (QUADRUPLE BYPASS) Orthopedic Surgery: Yes (left hip fracture repair) - Reproductive History Cervical CA: No Dysfunctional Uterine Bleeding: No Ectopic : No Endometrial CA: No Polycystic Ovaries: No Therapeutic (s) & number: No Tubal Ligation: No - Immunization History Immunization Up to Date: Yes - Psycho/Social/Smoking Cessation Hx Anxiety: No Suicidal Ideation: No Smoking History: Never smoked Have you smoked in the past 12 months: No Information on smoking cessation initiated: No Hx Alcohol Use: No Drug/Substance Use Hx: No Substance Use Type: None Hx Substance Use Treatment: No *Physical Exam - Vital Signs Last Vital Signs Temp Pulse Resp BP Pulse Ox 99.3 F 95 H 16 104/55 97 03/09/17 11:20 03/09/17 11:20 03/09/17 11:20 03/09/17 11:20 03/09/17 11:20 Heart Score/ECG Review - History History: Moderately suspicious - Electrocardiogram EKG: Non specific repolarization disturbance - Age Age: >/= 65 - Risk Factors Risk Factors Heart Score: Yes Hx Hypercholesterolemia, Yes Hx Diabetes Based on the list above the patient has:: 1-2 risk factors - Troponin Troponin: </= normal limit - Score Heart Score - Total: 5 ED Treatment Course - LABORATORY CBC & Chemistry Diagram: 03/09/17 11:40 03/09/17 11:40 - ADDITIONAL ORDERS Additional order review: Laboratory Results 03/09/17 11:40 Sodium 129 L Potassium 4.7 Chloride 93 L Carbon Dioxide 20 L D Anion Gap 16 BUN 34 H D Creatinine 1.2 H Creat Clearance w eGFR 44.29 Random Glucose 252 H D Calcium 9.1 Magnesium 2.2 Total Bilirubin 0.7 D AST 14 L ALT 13 Alkaline Phosphatase 127 H Creatine Kinase 63 Troponin I < 0.02 Total Protein 6.9 Albumin 3.4 03/09/17 11:40 RBC 4.27 MCV 86.6 MCHC 34.7 RDW 13.8 D MPV 7.1 L Neutrophils % 91.8 H Lymphocytes % 4.0 L D Monocytes % 3.9 Eosinophils % 0.0 D Basophils % 0.3 - RADIOLOGY Radiology Studies Ordered: Category Date Time Status CHEST PA & LAT [RAD] Stat Radiology 03/09/17 11:35 Ordered Medical Decision Making - Medical Decision Making 03/09/17 13:38 71 yo F with hx of IDDM, GERD, HLD presents to ED with vomiting x "a few days" and high blood sugar. VS notable for temp 99.3F, HR 95. -rectal temp -CBC, CMP, PT/INR, Acetone -UA, Ucx -EKG, CXR EKG - non specific T wave changes to V2 and V3 Labs: WBC 11.1, BUN 34, Creatinine 1.2 UA: WBC 50 -1 L NS -Levaquin Rectal temp: 99.1F, HR now 83 Patient reassessed, states she feels okay and would like to go home. -Bactrim po rx sent to pharm Will discharge to home. 03/09/17 14:54 Patient vomited again prior to discharge and was unable to get out of bed. Discussed case with ER attending MD De Santiago. Will admit for inpatient services for RICHARD, UTI, and generalized weakness. *DC/Admit/Observation/Transfer Diagnosis at time of Disposition: IDDM (insulin dependent diabetes mellitus), Hyperglycemia Urinary tract infection Qualifiers: Urinary tract infection type: site unspecified Hematuria presence: without hematuria Qualified Code(s): N39.0 - Urinary tract infection, site not specified - Discharge Dispostion Admit: Yes - Prescriptions Prescriptions: Sulfamethoxazole/Trimethoprim [Bactrim DS -] 1 tab PO BID #14 tablet - Patient Instructions Printed Discharge Instructions: DI for Hyperglycemia -- Adult, DI for Urinary Tract Infection (UTI) Additional Instructions: Please take medications as prescribed and follow up with your primary care doctor within the next week. If you experience any fever, chills, nausea, vomiting, diarrhea, headache, dizziness, lightheadedness, chest pain, shortness of breath, or any new or worsening symptoms, please return to the ER.
[2017-03-09 12:41] LABS: URINE APPEARANCE SLCLOUDY; URINE BILIRUBIN NEGATIVE (NEGATIVE); URINE COLOR LTYELLOW; URINE GLUCOSE (UA) 3+ (NEGATIVE); URINE KETONE 2+ (NEGATIVE); URINE NITRITE NEGATIVE (NEGATIVE); URINE UROBILINOGEN NEGATIVE E.U./dl (0.2-1.0)
[2017-03-09 12:44] LABS: URINE BLOOD 3+ (NEGATIVE); URINE LEUK ESTERASE 2+ (NEGATIVE); URINE PROTEIN 2+ (NEGATIVE)
[2017-03-09 12:51] LABS: URINE BACTERIA RARE /hpf (NONE SEEN); URINE HYALINE CAST 1 /lpf; URINE MUCUS RARE; URINE RBC 7 /hpf (0-3); URINE WBC 50 /hpf (3-5)
[2017-03-09] MEDS ORDERED: LEVOFLOXACIN 500 MG IVPB 100 ML IVPB ONE ×2 (13:03→13:07)
--- NOTE | 2017-03-09 14:01 | PDOC ---
*Physical Exam - Vital Signs Last Vital Signs Temp Pulse Resp BP Pulse Ox 99.1 F 83 16 110/51 99 03/09/17 13:36 03/09/17 13:35 03/09/17 13:35 03/09/17 13:35 03/09/17 13:35 ED Treatment Course - LABORATORY CBC & Chemistry Diagram: 03/09/17 11:40 03/09/17 11:40 - ADDITIONAL ORDERS Additional order review: Laboratory Results 03/09/17 03/09/17 03/09/17 12:27 12:26 11:40 INR Sodium 129 L Potassium 4.7 Chloride 93 L Carbon Dioxide 20 L D Anion Gap 16 BUN 34 H D Creatinine 1.2 H Creat Clearance w eGFR 44.29 Random Glucose 252 H D Calcium 9.1 Magnesium 2.2 Total Bilirubin 0.7 D AST 14 L ALT 13 Alkaline Phosphatase 127 H Creatine Kinase 63 Troponin I < 0.02 Total Protein 6.9 Albumin 3.4 Urine Color Ltyellow Urine Appearance Slcloudy Urine pH 5.0 Ur Specific [place] 1.022 Urine Protein 2+ H Urine Glucose (UA) 3+ H Urine Ketones 2+ H Urine Blood 3+ H Urine Nitrite Negative Urine Bilirubin Negative Urine Urobilinogen Negative Ur Leukocyte Esterase 2+ H Urine RBC 7 Urine WBC 50 Ur Epithelial Cells Rare Urine Bacteria Rare Hyaline Casts 1 Urine Mucus Rare Acetone, Qual Positive small 1+ H 03/09/17 11:40 INR 1.09 Sodium Potassium Chloride Carbon Dioxide Anion Gap BUN Creatinine Creat Clearance w eGFR Random Glucose Calcium Magnesium Total Bilirubin AST ALT Alkaline Phosphatase Creatine Kinase Troponin I Total Protein Albumin Urine Color Urine Appearance Urine pH Ur Specific [place] Urine Protein Urine Glucose (UA) Urine Ketones Urine Blood Urine Nitrite Urine Bilirubin Urine Urobilinogen Ur Leukocyte Esterase Urine RBC Urine WBC Ur Epithelial Cells Urine Bacteria Hyaline Casts Urine Mucus Acetone, Qual 03/09/17 11:40 RBC 4.27 MCV 86.6 MCHC 34.7 RDW 13.8 D MPV 7.1 L Neutrophils % 91.8 H Lymphocytes % 4.0 L D Monocytes % 3.9 Eosinophils % 0.0 D Basophils % 0.3 - Medications Given in the ED: ED Medications Discontinued Medications Generic Name Dose Route Start Last Admin Trade Name Freq PRN Reason Stop Dose Admin Sodium Chloride 1,000 ml 03/09/17 12:25 03/09/17 12:28 Normal Saline - IV 03/09/17 12:26 1,000 ml ONCE ONE Administration Medical Decision Making - Medical Decision Making 03/09/17 14:00 Patient seen and evaluated with the nurse practitioner. I agree with the overall evaluation, assessment, and management with the following summary of visit: 71-year-old female diabetic presents with generalized weakness. Found to have UTI, mild dehydration on BUN/Cr. Given IV fluids and IV abx, HR improved, remained afebrile rectally. Requested discharge on abx, but encouraged for admission. Ultimately unable to stand on her own 2/2 generalized weakness, so will admit for UTI, VINNY, EKG changes. *DC/Admit/Observation/Transfer Diagnosis at time of Disposition: IDDM (insulin dependent diabetes mellitus), Hyperglycemia Urinary tract infection Qualifiers: Urinary tract infection type: site unspecified Hematuria presence: without hematuria Qualified Code(s): N39.0 - Urinary tract infection, site not specified - Prescriptions Prescriptions: Sulfamethoxazole/Trimethoprim [Bactrim DS -] 1 tab PO BID #14 tablet - Referrals - Patient Instructions Printed Discharge Instructions: DI for Urinary Tract Infection (UTI), DI for Hyperglycemia -- Adult Additional Instructions: Please take medications as prescribed and follow up with your primary care doctor within the next week. If you experience any fever, chills, nausea, vomiting, diarrhea, headache, dizziness, lightheadedness, chest pain, shortness of breath, or any new or worsening symptoms, please return to the ER. - Post Discharge Activity
[2017-03-09] MEDS ORDERED: ONDANSETRON 4 MG/2 ML VIAL IVPUSH ONE (14:40)
[2017-03-09] MEDS ORDERED: ONDANSETRON 4 MG/2 ML VIAL ONE (14:41)
[2017-03-09] MEDS ORDERED: ONDANSETRON 8 MG TABLET (FP) PO PRN (16:28)
--- NOTE | 2017-03-09 16:32 | PN ---
Teaching Attending Note Name of Resident: Maren Lora ATTENDING PHYSICIAN STATEMENT I saw and evaluated the patient. I reviewed the resident's note and discussed the case with the resident. I agree with the resident's findings and plan as documented. SUBJECTIVE: This is a 71-year-old woman with a history of type 2 DM, GERD, hyperlipidemia, CAD, CABG who presents to the ER complaining of weakness, vomiting. OBJECTIVE: Vital Signs Period Temp Pulse Resp BP Sys/Barrera Pulse Ox Last 24 Hr 99.1 F-99.3 F 83-95 16-16 104-110/51-55 97-99 GENERAL: No acute distress. Confused. HEART: S1S2, RRR LUNGS: Clear ABDOMEN: Soft, non-tender, non-distended, normal BS EXTREMITIES: No edema ASSESSMENT AND PLAN: This is a 71-year-old woman with a history of type 2 DM, CAD, CABG, HTN, hyperlipidemia, GERD who comes to the ER today with weakness, vomiting, altered mental status. 1. Acute kidney injury secondary to dehydration - IV fluid - Monitor BUN, creatinine 2. Acute metabolic encephalopathy secondary to RICHARD, UTI, hyperglycemia 3. Hyponatremia, hypovolemic - IV normal saline - Monitor electrolytes 4. UTI - Start Levaquin 5. CAD, history of CABG - Continue aspirin, Lipitor 6. Type 2 diabetes mellitus, uncontrolled - Contiue Levemir - Novolog slidng scale 7. Hypertension - On no medication 8. Hyperlpidemia - Continue Lipitor, Zetia 9. GERD - Continue Nexium
[2017-03-09] MEDS: INSULIN SLIDING SCALE (NOVOLOG) 1 VIAL SQ SCH ×2 (16:40→22:05)
--- NOTE | 2017-03-09 16:53 | HP ---
CHIEF COMPLAINT: vomiting; weakness PCP: Dr. Gilmore HISTORY OF PRESENT ILLNESS: 71 year old female with a PMHx of IDDM, HLD, CAD s/p x4 stents; presents to the emergency room due to vomiting for the past two weeks, poor appetite, weakness, urinary symptoms including dysuria and right sided flank pain. Patient has not been eating regular, does admit to weight loss, amount unknown. Has not been to her primary in a while, according to the patient. She denies MAL[place] , chills, chest pain, sob, diarrhea, abdominal pain. Upon admission, temp 99.3; normotensive, was going to be discharged after fluids given, but was weak and unable to get up out of bed. She was found to have hyperglycemia, hyponatremic and cr 1.2. Urine analysis positive for probable urinary tract infection. Recent Travel: no PAST MEDICAL HISTORY: PMHx of IDDM, HLD, CAD s/p x4 stents PAST SURGICAL HISTORY: CABG Social History: Smoking:no Alcohol:no Drugs: no Family History: Allergies apple [Apple] Allergy (Verified 03/09/17 11:27) peach [[place]] Allergy (Verified 03/09/17 11:27) Penicillins Allergy (Verified 03/09/17 11:27) HOME MEDICATIONS: Home Medications Medication Instructions Recorded Aspirin [ASA -] 81 mg PO DAILY 09/03/14 Esomeprazole Magnesium 40 mg PO DAILY 11/26/16 Insulin Sliding Scale [Novolog 1 vial SQ ACHS units 11/29/16 Vial Sliding Scale -] Escitalopram Oxalate [Lexapro -] 10 mg PO DAILY 12/29/16 Ezetimibe/Simvastatin [Vytorin 1 tab PO DAILY 12/29/16 10-20 mg Tablet] Atorvastatin Ca [Lipitor] 10 mg PO DAILY tablet 01/02/17 Ezetimibe [Zetia -] 10 mg PO DAILY tablet 01/02/17 Insulin (Levemir) [Levemir Flexpen 20 units SQ HS #4 pen 01/02/17 -] Insulin Aspart [Novolog Flexpen] 8 unit SQ TID #7 insuln.pen 01/02/17 Insulin Sliding Scale [Novolog 1 vial SQ ACHS units 01/02/17 Vial Sliding Scale -] Sulfamethoxazole/Trimethoprim 1 tab PO BID #14 tablet 03/09/17 [Bactrim DS -] REVIEW OF SYSTEMS CONSTITUTIONAL: Positive: generalized weakness, malaise, loss of appetite, weight change Absent: fever, chills, diaphoresis, HEENT: Absent: rhinorrhea, nasal congestion, throat pain, throat swelling, difficulty swallowing, mouth swelling, ear pain, eye pain, visual changes CARDIOVASCULAR: Absent: chest pain, syncope, palpitations, irregular heart rate, lightheadedness , peripheral edema RESPIRATORY: Absent: cough, shortness of breath, dyspnea with exertion, orthopnea, wheezing, stridor, hemoptysis GASTROINTESTINAL: Positive:nausea, vomiting, Absent: abdominal pain, abdominal distension, diarrhea, constipation, melena, hematochezia GENITOURINARY: Positive: dysuria,flank pain, Absent: frequency, urgency, hesitancy, hematuria, genital pain MUSCULOSKELETAL: Absent: myalgia, arthralgia, joint swelling, back pain, neck pain SKIN: Absent: rash, itching, pallor HEMATOLOGIC/IMMUNOLOGIC: Absent: easy bleeding, easy bruising, lymphadenopathy, frequent infections ENDOCRINE: Absent: unexplained weight gain, unexplained weight loss, heat intolerance, cold intolerance NEUROLOGIC: Absent: headache, focal weakness or paresthesias, dizziness, unsteady gait, seizure, mental status changes, bladder or bowel incontinence PSYCHIATRIC: Absent: anxiety, depression, suicidal or homicidal ideation, hallucinations. PHYSICAL EXAMINATION GENERAL: Awake, alert, and mildly confused HEAD: Normal with no signs of trauma. EYES: Pupils equal, round and reactive to light, extraocular movements intact, sclera anicteric, conjunctiva clear. No lid lag. EARS, NOSE, THROAT: Ears normal, nares patent, oropharynx clear without exudates. Moist mucous membranes. acetone odor to breath NECK: Normal range of motion, supple without lymphadenopathy, JVD, or masses. LUNGS: Breath sounds equal, clear to auscultation bilaterally. No wheezes, and no crackles. No accessory muscle use. HEART: Regular rate and rhythm, normal S1 and S2 without murmur, rub or gallop. ABDOMEN: Soft, nontender, not distended, normoactive bowel sounds, no guarding, no rebound, no masses. No hepatomegaly or splenomegaly. MUSCULOSKELETAL: Normal range of motion at all joints. No bony deformities or tenderness. No CVA tenderness. Right sided flank pain UPPER EXTREMITIES: 2+ pulses, warm, well-perfused. No cyanosis. No clubbing. No peripheral edema. LOWER EXTREMITIES: 2+ pulses, warm, well-perfused. No calf tenderness. No peripheral edema. NEUROLOGICAL: Cranial nerves II-XII intact. Normal speech. Normal gait. PSYCHIATRIC: Cooperative. Good eye contact. Appropriate mood and affect. SKIN: Warm, dry, normal turgor, no rashes or lesions noted, normal capillary refill. Current Medications Generic Name Dose Route Start Last Admin Trade Name Freq PRN Reason Stop Dose Admin Aspirin 81 mg 03/10/17 10:00 Asa - PO DAILY [facility] Atorvastatin Calcium 10 mg 03/10/17 10:00 Lipitor - PO DAILY [facility] Ezetimibe 10 mg 03/10/17 10:00 Zetia - PO DAILY [facility] Escitalopram Oxalate 10 mg 03/10/17 10:00 Lexapro - PO DAILY [facility] Levofloxacin 50 mls @ 50 mls/hr 03/10/17 10:00 Levaquin 250 Mg Premixed Ivpb - IVPB DAILY [facility] Sodium Chloride 1,000 mls @ 100 mls/hr 03/09/17 17:00 03/09/17 17:05 Normal Saline - IV 100 mls/hr ASDIR [facility] Administration Insulin Aspart 1 vial 03/09/17 16:30 03/09/17 16:40 Novolog Vial Sliding Scale - SQ Not Given [facility] Protocol Insulin Detemir 20 units 03/09/17 22:00 Levemir Vial SQ HS [facility] Ondansetron HCl 4 mg 03/09/17 16:28 Zofran - PO Q8H PRN NAUSEA AND/OR VOMITING Pantoprazole Sodium 40 mg 03/10/17 10:00 Protonix - PO DAILY [facility] ASSESSMENT/PLAN: 71 yea old female with a PMHx of IDDM, sugars currently uncontrolled, CABG, HTN , HLD, present to the ER with N/V/ poor appetite,, admitted to observation for RICHARD and UTI. #Acute kidney injury secondary to UTI and dehydration: -IV levaquin qd -IVF NS -monitor Cr -urine electrolytes, creatinine, osmols #Uncontrolled diabetes/ hypergylcemia -started levemir 20U HS -Insulin SS ACHS -BGM -hemoglobin A1c #hyponatremia: -urine studies -FeNa #confusion: most likely secondary to UTI and hyperglycemia #HLD -lipitor 10mg po daily #CAD: -cont ASA 81mg qd FEN: Fluids: NS 83ml/hr Electrolytes: hyponatremia VTE prophylaxis: scds for now ; in obs; ambulate Disposition: observation Visit type - Emergency Visit Emergency Visit: Yes ED Registration Date: 03/09/17 Care time: The patient presented to the Emergency Department on the above date and was hospitalized for further evaluation of their emergent condition. - New Patient This patient is new to me today: Yes Date on this admission: 03/11/17 - Critical Care Critical Care patient: No
[2017-03-09] MEDS: SODIUM CHLORIDE 1,000 ML IV SCH (17:05)
[2017-03-09] MEDS ORDERED: INSULIN (NOVOLOG) ASPART 100 UNITS/ML 10ML VIAL ONE (21:41)
[2017-03-09] MEDS: INSULIN DETEMIR 100 UNITS/ML MDV SQ SCH (22:05)
[2017-03-10] MEDS ORDERED: oxyCODONE HCL 5 MG TABLET PO ONE (01:16)
[2017-03-10] MEDS: INSULIN SLIDING SCALE (NOVOLOG) 1 VIAL SQ SCH ×4 (06:36→21:18)
[2017-03-10 07:55] LABS: BASOPHIL 0.1 % (0-2.0); EOSINOPHIL 0.4 % (0-4.5); MCH 30.3 pg (25.7-33.7); MCHC 35.4 g/dl (32.0-36.0); MEAN CELL VOLUME 85.7 fl (80-96); MEAN PLT VOLUME 7.5 fl (7.5-11.1); NEUTROPHILS 86.4 % (42.8-82.8); PLATELET COUNT 167 K/MM3 (134-434); RDW 13.5 % (11.6-15.6); WHITE BLOOD COUNT 6.7 K/mm3 (4.0-10.0)
[2017-03-10 07:58] LABS: CALCIUM 8.6 mg/dL (8.5-10.1); COCKROFT - GAULT 80.053; CREATININE 0.6 mg/dL (0.55-1.02)
[2017-03-10] MEDS ORDERED: ONDANSETRON 4 MG TABLET PO ONE (10:32)
[2017-03-10] MEDS: ASPIRIN 81 MG CHEWABLE TABLETS PO SCH (10:44)
[2017-03-10] MEDS: EZETIMIBE 10 MG TABLET (FP) PO SCH (10:44)
[2017-03-10] MEDS: PANTOPRAZOLE 40 MG TABLET (FP) PO SCH (10:44)
[2017-03-10] MEDS: SODIUM CHLORIDE 1,000 ML IV SCH ×3 (10:45→22:46)
[2017-03-10] MEDS: ESCITALOPRAM OXALATE 10 MG TABLET (FP) PO SCH (10:45)
[2017-03-10] MEDS: LEVOFLOXACIN 250 MG IVPB 50 ML IVPB SCH (10:45)
[2017-03-10] MEDS: ATORVASTATIN CA 10 MG TABLET (FP) PO SCH (10:46)
--- NOTE | 2017-03-10 10:54 | PN ---
Physical Exam: SUBJECTIVE: Patient seen and examined. She has no complaints. OBJECTIVE: Vital Signs Period Temp Pulse Resp BP Sys/Barrera Pulse Ox Last 24 Hr 98.0 F-99.0 F 72-81 16-18 118-146/57-71 99-99 GENERAL: The patient is awake, alert, and fully oriented, in no acute distress. LUNGS: Breath sounds equal, clear to auscultation bilaterally, no wheezes, no crackles, no accessory muscle use. HEART: Regular rate and rhythm, S1, S2 without murmur, rub or gallop. ABDOMEN: Soft, nontender, nondistended, normoactive bowel sounds, no guarding, no rebound, no hepatosplenomegaly, no masses. EXTREMITIES: 2+ pulses, warm, well-perfused, no edema. NEUROLOGICAL: Cranial nerves II through XII grossly intact. Normal speech, gait not observed. Laboratory Results - last 24 hr 03/09/17 03/09/17 03/10/17 17:10 22:03 06:00 WBC 6.7 D RBC 3.86 Hgb 11.7 Hct 33.0 MCV 85.7 MCHC 35.4 RDW 13.5 Plt Count 167 MPV 7.5 Neutrophils % 86.4 H Lymphocytes % 4.7 L Monocytes % 8.4 D Eosinophils % 0.4 D Basophils % 0.1 Sodium Potassium Chloride Carbon Dioxide Anion Gap BUN Creatinine POC Glucometer 308 Random Glucose Lactic Acid 1.148 Calcium 03/10/17 03/10/17 06:00 06:35 WBC RBC Hgb Hct MCV MCHC RDW Plt Count MPV Neutrophils % Lymphocytes % Monocytes % Eosinophils % Basophils % Sodium 134 L Potassium 3.8 Chloride 100 Carbon Dioxide 22 Anion Gap 12 BUN 21 H D Creatinine 0.6 D POC Glucometer 104 Random Glucose 96 D Lactic Acid Calcium 8.6 Active Medications Generic Name Dose Route Start Last Admin Trade Name Freq PRN Reason Stop Dose Admin Aspirin 81 mg 03/10/17 10:00 03/10/17 10:44 Asa - PO 81 mg DAILY [facility] Administration Atorvastatin Calcium 10 mg 03/10/17 10:03/10/17 10:46 Lipitor - PO Not Given DAILY [facility] Ezetimibe 10 mg 03/10/17 10:00 03/10/17 10:44 Zetia - PO 10 mg DAILY [facility] Administration Escitalopram Oxalate 10 mg 03/10/17 10:00 03/10/17 10:45 Lexapro - PO 10 mg DAILY [facility] Administration Levofloxacin 50 mls @ 50 mls/hr 03/10/17 10:00 03/10/17 10:45 Levaquin 250 Mg Premixed Ivpb - IVPB 50 mls/hr DAILY [facility] Administration Sodium Chloride 1,000 mls @ 100 mls/hr 03/09/17 17:00 03/10/17 10:45 Normal Saline - IV 100 mls/hr ASDIR [facility] Administration Insulin Aspart 1 vial 03/09/17 16:30 03/10/17 06:36 Novolog Vial Sliding Scale - SQ Not Given [facility] Protocol Insulin Detemir 20 units 03/09/17 22:00 03/09/17 22:05 Levemir Vial SQ 20 units HS [facility] Administration Ondansetron HCl 4 mg 03/09/17 16:28 03/10/17 10:45 Zofran - PO 4 mg Q8H PRN Administration NAUSEA AND/OR VOMITING Pantoprazole Sodium 40 mg 03/10/17 10:00 03/10/17 10:44 Protonix - PO 40 mg DAILY [facility] Administration ASSESSMENT/PLAN: This is a 71-year-old woman with a history of type 2 DM, CAD, CABG, HTN, hyperlipidemia, GERD who comes to the ER today with weakness, vomiting, altered mental status. 1. Acute kidney injury secondary to dehydration - Improved - Continue IV fluid - Continue to monitor BUN, creatinine 2. Acute metabolic encephalopathy secondary to RICHARD, UTI, hyperglycemia - Improved 3. Hyponatremia, hypovolemic - Improving with IV normal saline - Continue to monitor electrolytes 4. UTI - Start Levaquin 5. CAD, history of CABG - Continue aspirin, Lipitor 6. Type 2 diabetes mellitus, uncontrolled - Contiue Levemir - Novolog slidng scale 7. Hypertension - On no medication 8. Hyperlpidemia - Continue Lipitor, Zetia 9. GERD - Continue Nexium 10. Physical therapy evaluation Visit type - Emergency Visit Emergency Visit: Yes ED Registration Date: 03/09/17 Care time: The patient presented to the Emergency Department on the above date and was hospitalized for further evaluation of their emergent condition. - New Patient This patient is new to me today: No - Critical Care Critical Care patient: No
[2017-03-10 11:40] LABS: URINE CREATININE 64.6 mg/dL (20-320)
[2017-03-10 13:20] LABS: OSMOLALITY,SERUM 271 mosm/kg (278-305)
[2017-03-10] MEDS: INSULIN DETEMIR 100 UNITS/ML MDV SQ SCH (21:17)
[2017-03-10] MEDS ORDERED: HALOPERIDOL LACTATE 5 MG/ML IM ONE ×2 (22:22→23:51)
--- NOTE | 2017-03-11 00:10 | EKG ---
Test Reason : Blood Pressure : / mmHG Vent. Rate : 088 BPM Atrial Rate : 088 BPM P-R Int : 156 ms QRS Dur : 076 ms QT Int : 380 ms P-R-T Axes : 034 -08 091 degrees QTc Int : 459 ms POOR DATA QUALITY, INTERPRETATION MAY BE ADVERSELY AFFECTED NORMAL SINUS RHYTHM NONSPECIFIC ST AND T WAVE ABNORMALITY ABNORMAL ECG WHEN COMPARED WITH ECG OF 12-JAN-2017 14:44, PREMATURE VENTRICULAR COMPLEXES ARE NO LONGER PRESENT T WAVE INVERSION NOW EVIDENT IN ANTERIOR LEADS Confirmed by HENOK RUBIN MD ([id number]) on 03/11/2017 12:10:02 AM Referred By: Confirmed By:HENOK RUBIN MD
[2017-03-11] MEDS: INSULIN SLIDING SCALE (NOVOLOG) 1 VIAL SQ SCH ×4 (06:27→22:33)
[2017-03-11 07:36] LABS: CALCIUM 8.9 mg/dL (8.5-10.1)
[2017-03-11 07:37] LABS: COCKROFT - GAULT 96.067; CREATININE 0.5 mg/dL (0.55-1.02)
[2017-03-11] MEDS: LEVOFLOXACIN 250 MG IVPB 50 ML IVPB SCH (09:38)
[2017-03-11] MEDS: ASPIRIN 81 MG CHEWABLE TABLETS PO SCH (09:38)
[2017-03-11] MEDS: ESCITALOPRAM OXALATE 10 MG TABLET (FP) PO SCH (09:39)
[2017-03-11] MEDS: ATORVASTATIN CA 10 MG TABLET (FP) PO SCH (09:39)
[2017-03-11] MEDS: EZETIMIBE 10 MG TABLET (FP) PO SCH (09:40)
[2017-03-11] MEDS: PANTOPRAZOLE 40 MG TABLET (FP) PO SCH (09:40)
[2017-03-11] MEDS ORDERED: INSULIN (NOVOLOG) ASPART 100 UNITS/ML 10ML VIAL ONE ×2 (11:53→17:38)
[2017-03-11] MEDS ORDERED: ESCITALOPRAM OXALATE 10 MG TABLET (FP) PO SCH (13:45)
[2017-03-11] MEDS ORDERED: ESCITALOPRAM OXALATE 20 MG TABLET (FP) PO ONE (15:44)
[2017-03-11] MEDS ORDERED: POTASSIUM CHLORIDE TABS 20 MEQ TABLET.ER (FP) PO ONE (16:34)
--- NOTE | 2017-03-11 16:35 | PN ---
Physical Exam: SUBJECTIVE: Patient seen and examined, wants to go home, still weak and unsteady on her feet; physical therapy today, narrow gait, unsteady , needs assistance. OBJECTIVE: Vital Signs Period Temp Pulse Resp BP Sys/Barrera Pulse Ox Last 24 Hr 97.9 F-99.2 F 69-86 18-20 105-155/45-67 98-99 GENERAL: The patient is awake, alert, and fully oriented, in no acute distress. HEAD: Normal with no signs of trauma. LUNGS: Breath sounds equal, clear to auscultation bilaterally, no wheezes, no crackles, no accessory muscle use. HEART: Regular rate and rhythm, S1, S2 without murmur, rub or gallop. ABDOMEN: Soft, nontender, nondistended, normoactive bowel sounds, no guarding, no rebound, no hepatosplenomegaly, no masses. EXTREMITIES: 2+ pulses, warm, well-perfused, no edema. NEUROLOGICAL: Cranial nerves II through XII grossly intact. Normal speech, gait not observed. PSYCH: Normal mood, normal affect. SKIN: Warm, dry, normal turgor, no rashes or lesions noted Laboratory Results - last 24 hr 03/10/17 03/10/17 03/11/17 17:17 21:15 05:35 Sodium 138 Potassium 3.4 L Chloride 102 Carbon Dioxide 24 Anion Gap 12 BUN 12 D Creatinine 0.5 L POC Glucometer 168 136 Random Glucose 69 L D Calcium 8.9 03/11/17 06:23 Sodium Potassium Chloride Carbon Dioxide Anion Gap BUN Creatinine POC Glucometer 77 Random Glucose Calcium Active Medications Generic Name Dose Route Start Last Admin Trade Name Raulito PRN Reason Stop Dose Admin Aspirin 81 mg 03/10/17 10:00 03/11/17 09:38 Asa - PO 81 mg DAILY KHANH Administration Atorvastatin Calcium 10 mg 03/10/17 10:00 03/11/17 09:39 Lipitor - PO 10 mg DAILY KHANH Administration Ezetimibe 10 mg 03/10/17 10:03/11/17 09:40 Zetia - PO 10 mg DAILY KHANH Administration Escitalopram Oxalate 30 mg 03/11/17 13:45 Lexapro - PO DAILY KHANH Levofloxacin 50 mls @ 50 mls/hr 03/10/17 10:00 03/11/17 09:38 Levaquin 250 Mg Premixed Ivpb - IVPB 50 mls/hr DAILY KHANH Administration Sodium Chloride 1,000 mls @ 100 mls/hr 03/09/17 17:00 03/10/17 22:46 Normal Saline - IV 100 mls/hr ASDIR KHANH Administration Insulin Aspart 1 vial 03/09/17 16:30 03/11/17 11:54 Novolog Vial Sliding Scale - SQ 2 units ACHS KHANH Administration Protocol Insulin Detemir 20 units 03/09/17 22:00 03/10/17 21:17 Levemir Vial SQ 20 units HS KHANH Administration Ondansetron HCl 4 mg 03/09/17 16:28 03/10/17 10:45 Zofran - PO 4 mg Q8H PRN Administration NAUSEA AND/OR VOMITING Pantoprazole Sodium 40 mg 03/10/17 10:00 03/11/17 09:40 Protonix - PO 40 mg DAILY KHANH Administration Potassium Chloride 20 meq 03/11/17 16:34 K-Dur - PO 03/11/17 16:35 ONCE ONE ASSESSMENT/PLAN: 71 yea old female with a PMHx of IDDM, sugars currently uncontrolled, CABG, HTN , HLD, present to the ER with N/V/ poor appetite,, admitted to observation for RICHARD and UTI. #Acute kidney injury secondary to dehydration: richard resolved -IVF NS -urine electrolytes, creatinine, osmols #UTI: -urine culture contaminated; will repeat UA to check for resolving infection #Uncontrolled diabetes/ hypergylcemia -started levemir 20U HS -Insulin SS ACHS -BGM -hemoglobin A1c #hyponatremia: resolved -urine studies -FeNa #metabolic encephaolopathy: most likely secondary to UTI and hyperglycemia -reosolved with treatment of underlying issues #HLD -lipitor 10mg po daily #CAD: -cont ASA 81mg qd FEN: Fluids: NS 83ml/hr Electrolytes: wnl VTE prophylaxis: heparin Disposition: discuss with family subacute rehab; patient refusing [facility] [phone] Visit type - Emergency Visit Emergency Visit: Yes ED Registration Date: 03/09/17 Care time: The patient presented to the Emergency Department on the above date and was hospitalized for further evaluation of their emergent condition. - New Patient This patient is new to me today: No - Critical Care Critical Care patient: No
[2017-03-11] MEDS: SODIUM CHLORIDE 1,000 ML IV SCH (17:47)
--- NOTE | 2017-03-11 19:55 | PN ---
Teaching Attending Note Name of Resident: Maren Lora ATTENDING PHYSICIAN STATEMENT I saw and evaluated the patient. I reviewed the resident's note and discussed the case with the resident. I agree with the resident's findings and plan as documented. SUBJECTIVE: Patient confused overnight. No complaints this morning. Wants to go home. OBJECTIVE: Vital Signs Period Temp Pulse Resp BP Sys/Barrera Pulse Ox Last 24 Hr 97.9 F-99.2 F 69-86 18-20 105-137/45-67 95-98 HEART: S1S2, RRR LUNGS: Clear ABDOMEN: Soft, non-tender, non-distended, normal BS EXTREMITIES: No edema ASSESSMENT AND PLAN: This is a 71-year-old woman with a history of type 2 DM, CAD, CABG, HTN, hyperlipidemia, GERD who comes to the ER today with weakness, vomiting, altered mental status. 1. Acute kidney injury secondary to dehydration - Improved 2. Acute metabolic encephalopathy secondary to RICHARD, UTI, hyperglycemia 3. Hyponatremia, hypovolemic - Improved 4. Hypokalemia - Replete potassium 5. UTI - Continue Levaquin 6. CAD, history of CABG - Continue aspirin, Lipitor 7. Type 2 diabetes mellitus, uncontrolled - Contiue Levemir - Novolog slidng scale 8. Hypertension - On no medication 9. Hyperlpidemia - Continue Lipitor, Zetia 10. GERD - Continue Protonix 11. Depression - Continue Lexapro 12. Unsteady gait with multiple falls - Continue PT - May need subacute rehab at discharge
[2017-03-11] MEDS: HEPARIN NA (PORCINE) 5,000 UNITS/ML 1ML VIAL SQ SCH (22:32)
[2017-03-11] MEDS: INSULIN DETEMIR 100 UNITS/ML MDV SQ SCH (22:33)
[2017-03-12] MEDS: SODIUM CHLORIDE 1,000 ML IV SCH (04:32)
[2017-03-12] MEDS: INSULIN SLIDING SCALE (NOVOLOG) 1 VIAL SQ SCH ×2 (06:32→12:18)
[2017-03-12] MEDS: HEPARIN NA (PORCINE) 5,000 UNITS/ML 1ML VIAL SQ SCH ×2 (06:32→14:07)
[2017-03-12] MEDS ORDERED: ONDANSETRON 4 MG TABLET PO PRN (07:00)
[2017-03-12 08:13] LABS: CALCIUM 8.4 mg/dL (8.5-10.1); COCKROFT - GAULT 96.067; CREATININE 0.5 mg/dL (0.55-1.02)
[2017-03-12] MEDS: ATORVASTATIN CA 10 MG TABLET (FP) PO SCH (10:18)
[2017-03-12] MEDS: ASPIRIN 81 MG CHEWABLE TABLETS PO SCH (10:18)
[2017-03-12] MEDS: PANTOPRAZOLE 40 MG TABLET (FP) PO SCH (10:19)
[2017-03-12] MEDS: EZETIMIBE 10 MG TABLET (FP) PO SCH (10:19)
[2017-03-12] MEDS: LEVOFLOXACIN 250 MG IVPB 50 ML IVPB SCH (10:20)
[2017-03-12 11:40] LABS: URINE APPEARANCE CLEAR; URINE BILIRUBIN NEGATIVE (NEGATIVE); URINE BLOOD 2+ (NEGATIVE); URINE COLOR LTYELLOW; URINE GLUCOSE (UA) 2+ (NEGATIVE); URINE KETONE NEGATIVE (NEGATIVE); URINE LEUK ESTERASE 1+ (NEGATIVE); URINE NITRITE NEGATIVE (NEGATIVE); URINE PROTEIN NEGATIVE (NEGATIVE); URINE UROBILINOGEN NEGATIVE E.U./dl (0.2-1.0)
[2017-03-12 12:15] LABS: URINE MUCUS RARE; URINE RBC 4 /hpf (0-3); URINE WBC 14 /hpf (3-5)
[2017-03-12] MEDS ORDERED: INSULIN (NOVOLOG) ASPART 100 UNITS/ML 10ML VIAL ONE (12:15)
[2017-03-12 14:51] VITALS: BP 153/70; PULSE 70; TEMP 98.8
--- NOTE | 2017-03-12 15:04 | DS ---
Physical Exam: SUBJECTIVE: Patient seen and examined, awake, alert, oriented. Able to walked 50 feet with physical therapy yesterday; with rolling walker, although with one assist. Discussed with patient rehab, she refuses to go. Patient tolerating diet, glucose controlled. Denies chest pain, n,v, fever, chills. OBJECTIVE: Vital Signs Period Temp Pulse Resp BP Sys/Barrera Pulse Ox Last 24 Hr 97.9 F-99.5 F 70-75 18-20 112-153/51-70 95-97 PHYSICAL EXAM GENERAL: The patient is awake, alert, and fully oriented, in no acute distress. HEAD: Normal with no signs of trauma. LUNGS: Breath sounds equal, clear to auscultation bilaterally, no wheezes, no crackles, no accessory muscle use. HEART: Regular rate and rhythm, S1, S2, systolic murmur, rub or gallop. ABDOMEN: Soft, nontender, nondistended, normoactive bowel sounds, no guarding, no rebound, no hepatosplenomegaly, no masses. EXTREMITIES: 2+ pulses, warm, well-perfused, no edema. NEUROLOGICAL: Cranial nerves II through XII grossly intact. Normal speech, gait not observed. PSYCH: Normal mood, normal affect. SKIN: Warm, dry, normal turgor, no rashes or lesions noted. LABS Laboratory Results - last 24 hr 03/11/17 03/11/17 03/11/17 11:10 16:37 22:22 Sodium Potassium Chloride Carbon Dioxide Anion Gap BUN Creatinine POC Glucometer 159 158 191 Random Glucose Calcium Urine Color Urine Appearance Urine pH Ur Specific [place] Urine Protein Urine Glucose (UA) Urine Ketones Urine Blood Urine Nitrite Urine Bilirubin Urine Urobilinogen Ur Leukocyte Esterase Urine RBC Urine WBC Ur Epithelial Cells Urine Mucus 03/12/17 03/12/17 03/12/17 06:00 06:31 10:40 Sodium 141 Potassium 3.8 Chloride 107 Carbon Dioxide 26 Anion Gap 8 BUN 9 D Creatinine 0.5 L POC Glucometer 110 Random Glucose 87 D Calcium 8.4 L Urine Color Ltyellow Urine Appearance Clear Urine pH 6.0 Ur Specific [place] 1.008 Urine Protein Negative Urine Glucose (UA) 2+ H Urine Ketones Negative Urine Blood 2+ H Urine Nitrite Negative Urine Bilirubin Negative Urine Urobilinogen Negative Ur Leukocyte Esterase 1+ H Urine RBC 4 Urine WBC 14 Ur Epithelial Cells Rare Urine Mucus Rare 03/12/17 12:11 Sodium Potassium Chloride Carbon Dioxide Anion Gap BUN Creatinine POC Glucometer 180 Random Glucose Calcium Urine Color Urine Appearance Urine pH Ur Specific [place] Urine Protein Urine Glucose (UA) Urine Ketones Urine Blood Urine Nitrite Urine Bilirubin Urine Urobilinogen Ur Leukocyte Esterase Urine RBC Urine WBC Ur Epithelial Cells Urine Mucus HOSPITAL COURSE: Date of Admission:03/09/17 Date of Discharge: 03/12/17 This is a 71 year old female with a past medical history of IDDM, CABG, HTN, HLD , presented to the ER with N/V/poor appetite, admitted to hospital for RICHARD and UTI. Acute kidney injury and hyponatremia secondary to dehydration, resolved with IFV. Urinary tract infection treated with levaquin. Patient was hyperglycemic on presentation, controlled with levemir 20U HS and insulin SS. Sent home on regular home regimen. Patient was confused at times attributed to metabolic encephaolopathy, most likely secondary to UTI and hyperglycemia that resolved with treatment of underlying issues. Patient refused sub acute rehab, was sent home with VNS and script for outpatient physical therapy evaluation and treatment. Minutes to complete discharge: 35 Discharge Summary Reason For Visit: UTI HYPERGLYCEMIA Current Active Problems Hyperglycemia (Acute) Urinary tract infection (Acute) IDDM (insulin dependent diabetes mellitus) (Chronic) Condition: Improved - Instructions Diet, Activity, Other Instructions: Please take medications as prescribed and follow up with your primary care doctor within the next week. Due to your weakness we recommend physical therapy. Out patient physical therapy script is provided. If you experience any fever, chills, nausea, vomiting, diarrhea, headache, dizziness, lightheadedness, chest pain, shortness of breath, or any new or worsening symptoms, please return to the ER. Disposition: HOME - Home Medications Comprehensive Discharge Medication List: Ambulatory Orders Aspirin [ASA -] 81 mg PO DAILY 09/03/14 Esomeprazole Magnesium 40 mg PO DAILY 11/26/16 Insulin Sliding Scale [Novolog Vial Sliding Scale -] 1 vial SQ ACHS units 11/29 Escitalopram Oxalate [Lexapro -] 30 mg PO DAILY 12/29/16 Ezetimibe/Simvastatin [Vytorin 10-20 mg Tablet] 1 tab PO DAILY 12/29/16 Atorvastatin Ca [Lipitor] 10 mg PO DAILY tablet 01/02/17 Ezetimibe [Zetia -] 10 mg PO DAILY tablet 01/02/17 Insulin (Levemir) [Levemir Flexpen -] 20 units SQ HS #4 pen 01/02/17 Insulin Aspart [Novolog Flexpen] 8 unit SQ TID #7 insuln.pen 01/02/17 Insulin Sliding Scale [Novolog Vial Sliding Scale -] 1 vial SQ ACHS units 01/02 Miscellaneous Medical Supply [Outpatient Order] 1 each ASDIR #1 misc This patient is new to me today: No Emergency Visit: Yes ED Registration Date: 03/09/17 Care time: The patient presented to the Emergency Department on the above date and was hospitalized for further evaluation of their emergent condition. Critical Care patient: No - Discharge Referral Referred to [facility] Med P.C.: No
--- NOTE | 2017-03-12 15:14 | PN ---
Teaching Attending Note Name of Resident: Maren Lora ATTENDING PHYSICIAN STATEMENT I saw and evaluated the patient. I reviewed the resident's note and discussed the case with the resident. I agree with the resident's findings and plan as documented. SUBJECTIVE:currently asymptomatic. denies Cp, SOB,fever, chills, N/V/C/D, dyusria, urinary frequency OBJECTIVE: Last Vital Signs Temp Pulse Resp BP Pulse Ox 98.8 F 70 18 153/70 97 03/12/17 14:50 03/12/17 14:50 03/12/17 14:50 03/12/17 14:50 03/12/17 09:00 General NAD, A&Ox3 CV S1 S2 RRR no murmur/rub/gallop Lungs CTA B/L no wheezing/rales/rhonchi Abdomen soft NT/ND no suprapubic tendereness ASSESSMENT AND PLAN: 71-year-old woman with a history of type 2 DM, CAD, CABG, HTN, hyperlipidemia, GERD who comes to the ER and was admitted for further evalaution of thait emergent condition 1. Acute metabolic encephalopathy- likely due to UTI and dehydration. resolved. received levaquin x4 days. now is alert and oriented. 2. RICHARD- due to dehydration. resolved. 3. Hypokalemia- resolved 4. unsteady gait- ambulated 50ft with PT. home with home PT 5. d/c home.
--- NOTE | 2017-03-12 16:32 | HOSP ---
Subjective - Review of Symptoms Events since last encounter: Call to evaluate patient due to fall while getting into wheelchair. Patient niece was present and witness fall. Patient did not loose consciousness, did not suffer any head or bodily trauma. Patient states she was getting into wheelchair and tripped over foot of chair. HEENT: No: Head Aches, Visual Changes Pulmonary: No: Dyspnea, Cough Cardiovascular: No: Chest Pain, Palpitations, Light Headedness Gastrointestinal: No: Nausea, Vomiting, Abdominal Pain Neurological: No: Weakness, Numbness, Incoordination, Change in speech, Confusion Physical Examination Vital Signs: Vital Signs Temperature 98.8 F 03/12/17 14:50 Pulse Rate 70 03/12/17 14:50 Respiratory Rate 18 03/12/17 14:50 Blood Pressure 153/70 03/12/17 14:50 O2 Sat by Pulse Oximetry (%) 97 03/12/17 09:00 Constitutional: Yes: Calm HENT: Yes: Atraumatic, Normocephalic (palation of head without tenderness, erythema) Cardiovascular: Yes: WNL, Regular Rate and Rhythm Respiratory: Yes: Regular, CTA Bilaterally Musculoskeletal: Yes: WNL. No: Back Pain, Joint Stiffness, Joint Swelling Extremities: Yes: WNL. No: Calf Tenderness Edema: No Peripheral Pulses: Left Radial: 2+, Right Radial: 2+, Left Doralis Pedis: 2+, Right Dorsalis Pedis: 2+ Neurological: Yes: Alert, Oriented ...Motor Strength: WNL, LUE, LLE, RUE, RLE Psychiatric: Yes: Alert, Oriented Labs: CBC, BMP 03/10/17 06:00 03/12/17 06:00 Hospitalist Encounter Assessment: 71 year old female admitted for weakness, dehydration urinary tract infection, was being discharged to home when she tripped while getting into wheelchair. #mechanical fall: -no LOC, denies weakness -full strength 5/5 on all extremities on exam -no point tenderness to palpation of hips, back , coccyx, or head; no surrounding swelling, erythema -I do not feel need for imaging due to negative exam; -patient awake, alert, oriented, no confusion, niece witnessed fall and stated she did not hit her head; head CT not indicated -patient was advised that she needed subacute rehab; patient refused -patient states she will go to outpatient therapy and follow up with her primary -niece states that there are neighbors and family that checks on her throughout the day, until night. Outcome: patient discharged home Visit type - Emergency Visit Emergency Visit: Yes ED Registration Date: 03/09/17 Care time: The patient presented to the Emergency Department on the above date and was hospitalized for further evaluation of their emergent condition. - New Patient This patient is new to me today: No - Critical Care Critical Care patient: No
== END 2017-03-12 17:36 | disposition home or self-care (01) | DRG 682 ==
LOC: JER 10:59 → JERBED 15:48 → J7W 20:43
PROVIDERS: ADMIT Internal Medicine; ATTEND Internal Medicine
DX: N17.9 Acute kidney failure, unspecified (principal); G93.41 Metabolic encephalopathy; N39.0 Urinary tract infection, site not specified; E87.1 Hypo-osmolality and hyponatremia; E86.0 Dehydration; I25.10 Atherosclerotic heart disease of native coronary artery without angina pectoris; E11.65 Type 2 diabetes mellitus with hyperglycemia; E86.1 Hypovolemia; I10 Essential (primary) hypertension; E87.6 Hypokalemia; F32.9 Major depressive disorder, single episode, unspecified; E78.5 Hyperlipidemia, unspecified; R26.81 Unsteadiness on feet; K21.9 Gastro-esophageal reflux disease without esophagitis; W01.0XXA Fall on same level from slipping, tripping and stumbling without subsequent striking against object, initial encounter; Y93.89 Activity, other specified; Y92.238 Other place in hospital as the place of occurrence of the external cause; Z95.1 Presence of aortocoronary bypass graft; Z95.5 Presence of coronary angioplasty implant and graft; Z79.4 Long term (current) use of insulin; Z91.81 History of falling
CPT/HCPCS: 36415; 71020-TC; 80048; 80053; 81003; 81015; 82009; 82436; 82550; 82570; 83605; 83735; 83930; 83935; 84133; 84300; 84484; 85025; 85610; 87086; 93005; 93010; 97116-GP; 97162-PG; 99284-25; J1644

== ENCOUNTER 2017-03-31 13:15 | Emergency (ER) | payer OTHER, BC ==
[2017-03-31 13:44] VITALS: BP 116/57; PULSE 88; TEMP 97.4; BMI 22.1
--- NOTE | 2017-03-31 15:00 | PDOC ---
History of Present Illness - General Chief Complaint: Injury Stated Complaint: FALL/ R LEG PAIN Time Seen by Provider: 03/31/17 14:39 History Source: Patient Exam Limitations: No Limitations - History of Present Illness Initial Comments: 03/31/17 16:39 Chief complaint: Right leg pain Patient is a 71-year-old female with a history of diabetes who had been hospitalized at the end of February and when she was getting ready to leave the hospital and get in the wheelchair, fell to the floor. Patient she states that she felt okay, did not want be seen in the emergency room and went home. Patient states she's been able to walk but has pain in the right upper thigh area. pt took Advil for the pain. GENERAL/CONSTITUTIONAL: No fever, weakness. dizziness HEAD, EYES, EARS, NOSE AND THROAT: No change in vision. No ear pain or discharge. No sore throat. CARDIOVASCULAR: No chest pain RESPIRATORY: No shortness of breath or cough GASTROINTESTINAL: No pain, nausea, vomiting, diarrhea or constipation GENITOURINARY: No dysuria MUSCULOSKELETAL: No neck or back pain, + right leg SKIN: No rash NEUROLOGIC: No headache, vertigo, loss of consciousness, or loss of sensation. GENERAL: The patient is awake, alert, and fully oriented, in no acute distress. HEAD: Normal with no signs of trauma. EYES: Pupils equal, round and reactive to light, sclera anicteric, conjunctiva clear. ENT: pharynx: no erythema, no exudate, uvula midline NECK: supple CHEST: clear, nontender, rr ABD: soft, nontender EXTREMITIES: No swelling or discoloration to the right thigh, no tenderness to the hip or pelvis or femur, Normal range of motion, no edema, neurovascular intact NEUROLOGICAL: Normal speech, pt ambulating easily with 4 pronged cane SKIN: Warm, Dry Past History - Past Medical History Allergies/Adverse Reactions: Allergies Allergy/AdvReac Type Severity Reaction Status Date / Time apple [Apple] Allergy Verified 03/31/17 13:25 peach [Donley] Allergy Verified 03/31/17 13:25 Penicillins Allergy Verified 03/31/17 13:25 Home Medications: Ambulatory Orders Aspirin [ASA -] 81 mg PO DAILY 09/03/14 Esomeprazole Magnesium 40 mg PO DAILY 11/26/16 Insulin Sliding Scale [Novolog Vial Sliding Scale -] 1 vial SQ ACHS units 11/29 Escitalopram Oxalate [Lexapro -] 30 mg PO DAILY 12/29/16 Ezetimibe/Simvastatin [Vytorin 10-20 mg Tablet] 1 tab PO DAILY 12/29/16 Atorvastatin Ca [Lipitor] 10 mg PO DAILY tablet 01/02/17 Ezetimibe [Zetia -] 10 mg PO DAILY tablet 01/02/17 Insulin (Levemir) [Levemir Flexpen -] 20 units SQ HS #4 pen 01/02/17 Insulin Aspart [Novolog Flexpen] 8 unit SQ TID #7 insuln.pen 01/02/17 Insulin Sliding Scale [Novolog Vial Sliding Scale -] 1 vial SQ ACHS units 01/02 Miscellaneous Medical Supply [Outpatient Order] 1 each ASDIR #1 misc Anemia: No Asthma: No Cancer: No Cardiac Disorders: Yes (CAD, CABG) CVA: No COPD: No Dementia: No Diabetes: Yes GI Disorders: No Disorders: No HTN: Yes Hypercholesterolemia: Yes Liver Disease: No Suicide Attempt (Hx): No Seizures: No Thyroid Disease: No - Surgical History Cardiac Surgery: Yes (QUADRUPLE BYPASS) Orthopedic Surgery: Yes (left hip fracture repair) - Reproductive History Cervical CA: No Dysfunctional Uterine Bleeding: No Ectopic : No Endometrial CA: No Polycystic Ovaries: No Therapeutic (s) & number: No Tubal Ligation: No - Immunization History Immunization Up to Date: Yes - Psycho/Social/Smoking Cessation Hx Anxiety: No Suicidal Ideation: No Smoking History: Never smoked Have you smoked in the past 12 months: No Hx Alcohol Use: No Drug/Substance Use Hx: No Substance Use Type: None Hx Substance Use Treatment: No *Physical Exam - Vital Signs Last Vital Signs Temp Pulse Resp BP Pulse Ox 97.4 F L 88 20 116/57 98 03/31/17 13:21 03/31/17 13:21 03/31/17 13:21 03/31/17 13:21 03/31/17 13:21 Medical Decision Making - Medical Decision Making Patient who fell about 3 weeks ago and has pain to the right thigh area, is ambulatory with her walker as usual but continues to have pain and will get an x -ray. X-ray shows possible fracture of the right greater trochanter and review of old x-rays do not show this, we'll get a CT to better evaluate the area Patient is not requiring any pain medication, updated on progress, awaiting CT result Patient informed of results, discussed with patient that I was calling orthopedists to discuss on to let her know what the proper management and treatment would be. 19:[address] Bartlett 03/31/17 19:45 second call placed to Dr. Bartlett to discuss findings, patient updated and aware 03/31/17 19:49 Patient not a waiting room, left without letting us know Patient found standing outside waiting for a ride, refusing to come back in. When inside to get AMA form for patient to sign, patient gone prior to signing AMA 03/31/17 19:55 Doron fraser will call pt after Dr. Bartlett calls *DC/Admit/Observation/Transfer Diagnosis at time of Disposition: Greater trochanter fracture Qualifiers: Encounter type: initial encounter Fracture type: closed Fracture alignment: displaced Laterality: right Qualified Code(s): S72.111A - Displaced fracture of greater trochanter of right femur, initial encounter for closed fracture - Discharge Dispostion Disposition: AGAINST MEDICAL ADVICE Admit: No - Referrals Referrals: Tulio Bartlett MD [Staff Physician] -
--- NOTE | 2017-04-01 09:50 | PDOC ---
Patient Follow-up (Call Back) - Post ED Follow - Up Disposition at time of original discharge: AGAINST MEDICAL ADVICE Reason for Call Back: Radiology (notified by FT staff to f/u with patient regarding orthopedics evaluation. Staff spoke with Dr. Bartlett yesterday, no acute intervention needed and recommended office f/u. I called patient at cell ( directly to voicemail but not set up) and home number but went to fax. Pt has seen Edelson in the past, knows of her imaging findings, will attempt to call back again.)
== END 2017-03-31 20:03 | disposition left against medical advice (07) ==
LOC: JERFT 13:15
DX: S72.111A Displaced fracture of greater trochanter of right femur, initial encounter for closed fracture (principal); I25.10 Atherosclerotic heart disease of native coronary artery without angina pectoris; I10 Essential (primary) hypertension; Z95.1 Presence of aortocoronary bypass graft; E11.9 Type 2 diabetes mellitus without complications; Z79.4 Long term (current) use of insulin; E78.00 Pure hypercholesterolemia, unspecified; W18.39XA Other fall on same level, initial encounter; Y93.89 Activity, other specified; Y92.238 Other place in hospital as the place of occurrence of the external cause
CPT/HCPCS: 72192-TC; 73523-TC; 73552-TC-RT; 99281-25

== ENCOUNTER 2017-06-18 15:07 | Inpatient (IN) | payer OTHER, BC ==
[2017-06-18] MEDS ORDERED: ACETAMINOPHEN INJECTION 100 ML IVPB ONE (15:22)
[2017-06-18] MEDS ORDERED: SODIUM CHLORIDE 1,000 ML IV STA ×2 (15:26→17:21)
[2017-06-18] MEDS ORDERED: SODIUM CHLORIDE 0.9% 1000 ML INFUS.BAG IV PRN (15:26)
[2017-06-18] MEDS ORDERED: VANCOMYCIN 1 GRAM (PRE-DOCKED) 1,000 MG/250 ML BAG IVPB ONE (15:33)
[2017-06-18] MEDS ORDERED: LEVOFLOXACIN 500 MG IVPB 100 ML IVPB ONE ×2 (15:34→16:17)
[2017-06-18] MEDS ORDERED: INSULIN REGULAR HUMAN 100 UNITS/ML *VIAL IVPUSH ONE (15:41)
--- NOTE | 2017-06-18 15:59 | PDOC ---
History of Present Illness - General Chief Complaint: Altered Mental Status Stated Complaint: Sugar Problem Time Seen by Provider: 06/18/17 15:22 - History of Present Illness Initial Comments: 06/18/17 15:52 06/18/17 15:54 71F w/ hx of IDDM, HLD, CAD s/p 4 stents and CABG presenting from home after pt' s brother called EMS due to her altered mental status. Per the pt's niece, the pt was in her USOH 2 days ago. She reports that the pt lives alone, and the pt called her brother today who noticed that she wasn't speaking coherently. So, the brother called EMS to bring her in. The pt was found altered with feculent material around her face. Due to the patient's AMS, further history was unable to be elicited. Of note, the pt presented to [facility] in 02/2017 for a UTI, treated with levaquin. 06/18/17 16:03 Past History - Past Medical History Allergies/Adverse Reactions: Allergies Allergy/AdvReac Type Severity Reaction Status Date / Time apple [Apple] Allergy Verified 06/18/17 15:33 peach [[place]] Allergy Verified 06/18/17 15:33 Penicillins Allergy Verified 06/18/17 15:33 Home Medications: Ambulatory Orders Aspirin [ASA -] 81 mg PO DAILY 09/03/14 Esomeprazole Magnesium 40 mg PO DAILY 11/26/16 Insulin Sliding Scale [Novolog Vial Sliding Scale -] 1 vial SQ ACHS units 11/29 Escitalopram Oxalate [Lexapro -] 30 mg PO DAILY 12/29/16 Ezetimibe/Simvastatin [Vytorin 10-20 mg Tablet] 1 tab PO DAILY 12/29/16 Atorvastatin Ca [Lipitor] 10 mg PO DAILY tablet 01/02/17 Ezetimibe [Zetia -] 10 mg PO DAILY tablet 01/02/17 Insulin (Levemir) [Levemir Flexpen -] 20 units SQ HS #4 pen 01/02/17 Insulin Aspart [Novolog Flexpen] 8 unit SQ TID #7 insuln.pen 01/02/17 Insulin Sliding Scale [Novolog Vial Sliding Scale -] 1 vial SQ ACHS units 01/02 Miscellaneous Medical Supply [Outpatient Order] 1 each ASDIR #1 misc Anemia: No Asthma: No Cancer: No Cardiac Disorders: Yes (CAD, CABG) CVA: No COPD: No Dementia: No Diabetes: Yes GI Disorders: No Disorders: No HTN: Yes Hypercholesterolemia: Yes Liver Disease: No Suicide Attempt (Hx): No Seizures: No Thyroid Disease: No Comment:: 06/18/17 15:59 PMH: as stated above PSH: as stated above Meds: Allergies: apple, peach, penicillin Fam Hx: Social Hx: per chart, pt denies toxic habits - Surgical History Cardiac Surgery: Yes (QUADRUPLE BYPASS) Orthopedic Surgery: Yes (left hip fracture repair) - Reproductive History Cervical CA: No Dysfunctional Uterine Bleeding: No Ectopic : No Endometrial CA: No Polycystic Ovaries: No Therapeutic (s) & number: No Tubal Ligation: No - Immunization History Immunization Up to Date: Yes - Psycho/Social/Smoking Cessation Hx Anxiety: No Suicidal Ideation: No Smoking History: Unknown if ever smoked Have you smoked in the past 12 months: No Information on smoking cessation initiated: No Hx Alcohol Use: No Drug/Substance Use Hx: No Substance Use Type: None Hx Substance Use Treatment: No Review of Systems - Review of Systems Able to Perform ROS?: No (altered mental status) *Physical Exam - Vital Signs Last Vital Signs Temp Pulse Resp BP Pulse Ox 105.7 F H 130 H 26 H 130/93 93 L 06/18/17 15:33 06/18/17 15:33 06/18/17 15:33 06/18/17 15:33 06/18/17 15:33 - Physical Exam Comments: 06/18/17 16:01 GENERAL: Awake, A&Ox2 (person and place) HEAD: normocephalic, atraumtic, feculent material around face HEENT: PERRLA, EOMI, dry mucous membranes NECK: Normal ROM, supple, no lymphadenopathy, JVD, or masses HEART: tachycardic, normal S1 and S2, no murmurs, rubs or gallops LUNGS: CTAB, no wheezing, no rales ABDOMEN: Soft, nontender, nondistended, normoactive bowel sounds. No guarding, no rebound. No masses EXTREMITIES: Normal range of motion SKIN: no rashes or lesions noted NEUROLOGICAL: altered mental status ED Treatment Course - LABORATORY CBC & Chemistry Diagram: 06/18/17 15:30 06/18/17 15:30 - ADDITIONAL ORDERS Additional order review: Laboratory Results 06/18/17 15:32 POC Glucometer [id number] 06/18/17 15:32 POC Glucometer [id number] - RADIOLOGY Radiology Studies Ordered: Category Date Time Status CHEST X-RAY PORTABLE* [RAD] Stat Radiology 06/18/17 15:26 Ordered Medical Decision Making - Medical Decision Making 06/18/17 16:03 71F w/ hx of IDDM, HLD, CAD s/p 4 stents and CABG presenting from home with altered mental status. Exam notable for fever of 105 and tachycardia in 130s. Sepsis- secondary to UTI, PNA? -sepsis set: -CBC: -CMP: -UA: -Ucx: -EKG: -CXR: -acetone: Found to have an anion gap of 20 with glucose level in 380s and urine ketones + glucose. Her UA also showed 3+leuk esterase, she had a trop of 2, and her EKG showed ST depression in leads 1, AVL, V5, and V6. She was given vancomycin and levofloxacin (allergic to PCN), 2 boluses of NS, 4 units of insulin and then started on an insulin drip. 06/18/17 16:29 06/18/17 17:54 *DC/Admit/Observation/Transfer Diagnosis at time of Disposition: Diabetic ketoacidosis Qualifiers: Diabetes mellitus type: other specified (including AJAY) Diabetes mellitus complication detail: without coma Qualified Code(s): E13.10 - Other specified diabetes mellitus with ketoacidosis without coma - Discharge Dispostion Admit: Yes Decision to Admit order Date/Time: 06/18/17 17:51 - Attestations Physician Attestion: 06/18/17 17:51 I, Dr. Edilberto De La Cruz, attest that this document has been prepared under my direction and personally reviewed by me in its entirety. I further attest, that it accurately reflects all work, treatment, procedures and medical decision -making performed by me.
[2017-06-18 16:05] LABS: VENOUS PH 7.45 (7.32-7.42)
[2017-06-18 16:06] LABS: VENOUS BLOOD GAS HCO3 13.7 meq/L (19-25)
[2017-06-18 16:30] LABS: BASOPHIL 0.3 % (0-2.0); EOSINOPHIL 0.1 % (0-4.5); MCH 29.1 pg (25.7-33.7); MCHC 34.4 g/dl (32.0-36.0); MEAN CELL VOLUME 84.6 fl (80-96); MEAN PLT VOLUME 7.9 fl (7.5-11.1); NEUTROPHILS 91.4 % (42.8-82.8); PLATELET COUNT 239 K/MM3 (134-434); RDW 13.8 % (11.6-15.6); WHITE BLOOD COUNT 5.8 K/mm3 (4.0-10.0)
[2017-06-18 16:32] LABS: INR 1.28 (0.82-1.09); PROTHROMBIN TIME (PATIENT) 14.2 SEC (9.98-11.88)
[2017-06-18 16:35] LABS: ACTIVATED PTT 23.5 SECONDS (26.9-34.4)
[2017-06-18 16:42] LABS: ANION GAP 22 (8-16); BILIRUBIN,TOTAL 0.9 mg/dL (0.2-1.0); CALCIUM 8.9 mg/dL (8.5-10.1); CO2 15 mmol/L (21-32); SGOT/AST 13 U/L (15-37); SGPT/ALT 16 U/L (12-78)
[2017-06-18 16:45] LABS: URINE APPEARANCE CLOUDY; URINE BILIRUBIN NEGATIVE (NEGATIVE); URINE BLOOD 3+ (NEGATIVE); URINE COLOR LTYELLOW; URINE GLUCOSE (UA) 3+ (NEGATIVE); URINE KETONE 2+ (NEGATIVE); URINE LEUK ESTERASE 3+ (NEGATIVE); URINE NITRITE NEGATIVE (NEGATIVE); URINE PROTEIN 2+ (NEGATIVE); URINE UROBILINOGEN NEGATIVE mg/dL (0.2-1.0)
--- NOTE | 2017-06-18 16:47 | PDOC ---
Attending Attestation - Resident Resident Name: DanelastEdilberto - ED Attending Attestation I have performed the following: I have examined & evaluated the patient, The case was reviewed & discussed with the resident, I agree w/resident's findings & plan, Exceptions are as noted - HPI HPI: 06/18/17 16:43 71y/o F lives alone h/o UTI p/w AMS today - Physicial Exam PE: 06/18/17 16:43 high fever 105, tachy, hypoxia R base coarse breath sounds/rhonchi abd soft/nt no cvat neuro nonfocal - Critical Care Time Total Critical Care Time: 65 Critical Care Statement: The care of this patient involved high complexity decision making to prevent further life threatening deterioration of the patient 's condition and/or to evalute & treat vital organ system(s) failure or risk of failure. - Medical Decision Making 06/18/17 16:44 71y/o F with AMS in the setting of fever/sepsis. sepsis protocol initiated. Upon defervescing with tylenol, MS improved significantly now following commands and conversant IV abx IV fluid resuscitation CXR/UA admit Heart Score/ECG Review #1 ECG reviewed & interpreted by me at: 15:15 General ECG Interpretation: Sinus Rhythm (tachy at 130), Normal Intervals (qtc 438), No acute ischemic changes (t wave flattening I/AVL, likely rate related sub-mm ST depression V5V6)
[2017-06-18] MEDS ORDERED: VANCOMYCIN 1 GRAM (PRE-DOCKED) 250 ML IVPB ONE (16:48)
[2017-06-18 16:53] LABS: URINE RBC 11 /hpf (0-3); URINE WBC 132 /hpf (3-5)
[2017-06-18 16:57] LABS: ALK PHOS 108 U/L (45-117); CPK 52 IU/L (26-192)
[2017-06-18 17:20] LABS: GLUCOSE,RANDOM 383 mg/dL (74-106); TROPONIN I 1.72 ng/ml (0.00-0.05)
[2017-06-18] MEDS ORDERED: INSULIN REGULAR 100 UNITS in SODIUM CHLORIDE 99 ML IVPB SCH ×2 (17:30→21:28)
[2017-06-18] MEDS ORDERED: ASPIRIN 81 MG CHEWABLE TABLETS PO ONE (17:49)
[2017-06-18] MEDS ORDERED: ACETAMINOPHEN 325 MG TABLET (FP) PO PRN (17:53)
--- NOTE | 2017-06-18 17:55 | HP ---
CHIEF COMPLAINT: AMS PCP: Dr. Gilmore HISTORY OF PRESENT ILLNESS: This is a 71 year old female with a history of IDDM and prior admissions for DKA, HLD, CAD s/p stents x 4, and prior admissions for UTI/sepsis (billy-sensitive E coli) brought in to the ED via EMS after being found down in her apartment. Earlier today, she had called her brother, who noted that she was not speaking coherently. On evaluation, the patient is oriented x 1 only and denies all complaints including chest pain and shortness of breath. She can't recall the last time she used her insulin. ER course was notable for: (1) T 105.7, P 130, RR 26 (2) Glucose 383 with AG 22 (3) Troponin 1.72 (4) EKG: Sinus tachycardia 130bpm (5) UA with 132 WBCs Recent Travel: Unknown, unlikely PAST MEDICAL HISTORY: As above PAST SURGICAL HISTORY: CABG Social History: Lives alone, takes care of 4 dogs, takes medications independently Smoking: None Alcohol: None Drugs: None Allergies apple [Apple] Allergy (Verified 06/18/17 15:33) peach [[place]] Allergy (Verified 06/18/17 15:33) Penicillins Allergy (Verified 06/18/17 15:33) HOME MEDICATIONS: Home Medications Medication Instructions Recorded Aspirin [ASA -] 81 mg PO DAILY 09/03/14 Esomeprazole Magnesium 40 mg PO DAILY 11/26/16 Insulin Sliding Scale [Novolog 1 vial SQ ACHS units 11/29/16 Vial Sliding Scale -] Escitalopram Oxalate [Lexapro -] 30 mg PO DAILY 12/29/16 Ezetimibe/Simvastatin [Vytorin 1 tab PO DAILY 12/29/16 10-20 mg Tablet] Atorvastatin Ca [Lipitor] 10 mg PO DAILY tablet 01/02/17 Ezetimibe [Zetia -] 10 mg PO DAILY tablet 01/02/17 Insulin (Levemir) [Levemir Flexpen 20 units SQ HS #4 pen 01/02/17 -] Insulin Aspart [Novolog Flexpen] 8 unit SQ TID #7 insuln.pen 01/02/17 Insulin Sliding Scale [Novolog 1 vial SQ ACHS units 01/02/17 Vial Sliding Scale -] Miscellaneous Medical Supply 1 each ASDIR #1 misc 03/12/17 [Outpatient Order] REVIEW OF SYSTEMS Limited by mental status. Denies chest pain, SOB, abdominal pain. PHYSICAL EXAMINATION Vital Signs - 24 hr 06/18/17 06/18/17 15:33 16:28 Temperature 105.7 F H Pulse Rate 130 H Pulse Rate [ 108 H Left] Respiratory 26 H 22 Rate Blood Pressure 130/93 Blood Pressure 90/51 [Arm] O2 Sat by Pulse 93 L 98 Oximetry (%) GENERAL: Awake, alert, oriented x 1 only. HEAD: Normal with no signs of trauma. EYES: Pupils equal, round and reactive to light, extraocular movements intact, sclera anicteric, conjunctiva clear. No lid lag. EARS, NOSE, THROAT: Ears normal, nares patent, oropharynx clear without exudates. Mucous membranes very dry. NECK: Normal range of motion, supple without lymphadenopathy, JVD, or masses. LUNGS: Breath sounds equal, clear to auscultation bilaterally. No wheezes, and no crackles. No accessory muscle use. HEART: Regular rate and rhythm, normal S1 and S2 without murmur, rub or gallop. ABDOMEN: Soft, nontender, not distended, normoactive bowel sounds, no guarding, no rebound, no masses. No hepatomegaly or splenomegaly. MUSCULOSKELETAL: Normal range of motion at all joints. No bony deformities or tenderness. No CVA tenderness. UPPER EXTREMITIES: 2+ pulses, warm, well-perfused. No cyanosis. No clubbing. No peripheral edema. LOWER EXTREMITIES: 2+ pulses, warm, well-perfused. No calf tenderness. No peripheral edema. NEUROLOGICAL: Cranial nerves II-XII intact. Normal speech. PSYCHIATRIC: Cooperative. Good eye contact. Appropriate mood and affect. SKIN: Warm, dry, normal turgor, no rashes or lesions noted, cap refill 3 seconds . Laboratory Results - last 24 hr 06/18/17 06/18/17 06/18/17 15:30 15:30 15:30 WBC 5.8 RBC 4.01 Hgb 11.7 Hct 33.9 MCV 84.6 MCH 29.1 MCHC 34.4 RDW 13.8 Plt Count 239 D MPV 7.9 Neutrophils % 91.4 H Lymphocytes % 3.3 L D Monocytes % 4.9 Eosinophils % 0.1 Basophils % 0.3 VBG pH POC VBG pCO2 POC VBG pO2 Mixed VBG HCO3 Sodium 130 L Potassium 4.3 Chloride 93 L D Carbon Dioxide 15 L D Anion Gap 22 H BUN 30 H D Creatinine 1.0 D Creat Clearance w eGFR 54.66 POC Glucometer Random Glucose 383 H* D Lactic Acid Calcium 8.9 Total Bilirubin 0.9 D AST 13 L ALT 16 D Alkaline Phosphatase 108 Creatine Kinase 52 Troponin I 1.72 H* Total Protein 6.0 L Albumin 3.0 L Urine Color Ltyellow Urine Appearance Cloudy Urine pH 5.0 Urine Protein 2+ H Urine Glucose (UA) 3+ H Urine Ketones 2+ H Urine Blood 3+ H Urine Nitrite Negative Urine Bilirubin Negative Urine Urobilinogen Negative Ur Leukocyte Esterase 3+ H D Urine RBC 11 Urine WBC 132 Ur Epithelial Cells Rare Blood Type Antibody Screen 06/18/17 06/18/17 06/18/17 15:30 15:30 15:32 WBC RBC Hgb Hct MCV MCH MCHC RDW Plt Count MPV Neutrophils % Lymphocytes % Monocytes % Eosinophils % Basophils % VBG pH POC VBG pCO2 POC VBG pO2 Mixed VBG HCO3 Sodium Potassium Chloride Carbon Dioxide Anion Gap BUN Creatinine Creat Clearance w eGFR POC Glucometer [id number] Random Glucose Lactic Acid 2.2 H* Calcium Total Bilirubin AST ALT Alkaline Phosphatase Creatine Kinase Troponin I Total Protein Albumin Urine Color Urine Appearance Urine pH Urine Protein Urine Glucose (UA) Urine Ketones Urine Blood Urine Nitrite Urine Bilirubin Urine Urobilinogen Ur Leukocyte Esterase Urine RBC Urine WBC Ur Epithelial Cells Blood Type AB NEGATIVE Antibody Screen Negative 06/18/17 16:05 WBC RBC Hgb Hct MCV MCH MCHC RDW Plt Count MPV Neutrophils % Lymphocytes % Monocytes % Eosinophils % Basophils % VBG pH 7.45 H POC VBG pCO2 19.8 L* D POC VBG pO2 52.5 H D Mixed VBG HCO3 13.7 L* Sodium Potassium Chloride Carbon Dioxide Anion Gap BUN Creatinine Creat Clearance w eGFR POC Glucometer Random Glucose Lactic Acid Calcium Total Bilirubin AST ALT Alkaline Phosphatase Creatine Kinase Troponin I Total Protein Albumin Urine Color Urine Appearance Urine pH Urine Protein Urine Glucose (UA) Urine Ketones Urine Blood Urine Nitrite Urine Bilirubin Urine Urobilinogen Ur Leukocyte Esterase Urine RBC Urine WBC Ur Epithelial Cells Blood Type Antibody Screen ASSESSMENT/PLAN: 71 year old female with sepsis, DKA, NSTEMI. Problem List - Problem (1) Diabetic ketoacidosis Assessment/Plan: -Admit to ICU -Insulin gtt -IVF -FS q1h -Check HgbA1C Code(s): E13.10 - OTH DIABETES MELLITUS WITH KETOACIDOSIS WITHOUT COMA Qualifiers: Diabetes mellitus type: other specified (including AJAY) Diabetes mellitus complication detail: without coma Qualified Code(s): E13.10 - Other specified diabetes mellitus with ketoacidosis without coma (2) Sepsis Assessment/Plan: -Likely secondary to UTI -Continue IVF resuscitation -Follow up blood and urine cultures -Antibiotics -Tylenol prn fever Code(s): A41.9 - SEPSIS, UNSPECIFIED ORGANISM (3) Confusion and disorientation Assessment/Plan: -Likely secondary to DKA + fever -Neuro checks -Fall risk precautions Code(s): F99 - MENTAL DISORDER, NOT OTHERWISE SPECIFIED (4) Urinary tract infection Assessment/Plan: -Levaquin per prior sensitivities (PCN allergy) -ID evaluation Code(s): N39.0 - URINARY TRACT INFECTION, SITE NOT SPECIFIED Qualifiers: Urinary tract infection type: site unspecified Hematuria presence: without hematuria Qualified Code(s): N39.0 - Urinary tract infection, site not specified; R31.9 - Hematuria, unspecified (5) Elevated troponin Assessment/Plan: -Demand ischemia vs true NSTEMI -Repeat EKG now -Repeat cardiac enzymes now and serially -ASA 162mg now -Lovenox 1mg/kg sq once now and again tomorrow a.m. pending cardiology evaluation -Cardiology consultation requested Code(s): R74.8 - ABNORMAL LEVELS OF OTHER SERUM ENZYMES (6) DVT prophylaxis Assessment/Plan: -Therapeutic Lovenox Code(s): [id number] - Visit type - Emergency Visit Emergency Visit: Yes ED Registration Date: 06/18/17 Care time: The patient presented to the Emergency Department on the above date and was hospitalized for further evaluation of their emergent condition. - New Patient This patient is new to me today: Yes Date on this admission: 06/22/17 - Critical Care Critical Care patient: No
[2017-06-18] MEDS ORDERED: SODIUM CHLORIDE 1,000 ML IV SCH (18:00)
[2017-06-18] MEDS ORDERED: ENOXAPARIN NA (PORCINE) 60 MG/0.6 ML DISP.SYRIN SQ ONE ×2 (18:00→18:09)
[2017-06-18] MEDS ORDERED: ASPIRIN 81 MG CHEWABLE TABLETS ONE (18:10)
[2017-06-18 19:28] LABS: ANION GAP 16 (8-16); CALCIUM 7.7 mg/dL (8.5-10.1); CO2 15 mmol/L (21-32); CREATININE 0.9 mg/dL (0.55-1.02)
[2017-06-18 19:43] LABS: CPK 112 IU/L (26-192)
[2017-06-18 19:54] LABS: MAGNESIUM 1.5 mg/dL (1.8-2.4)
[2017-06-18 19:55] LABS: GLUCOSE,RANDOM 349 mg/dL (74-106); TROPONIN I 3.64 ng/ml (0.00-0.05)
[2017-06-18] MEDS ORDERED: HEMOQUE TEST 1 EACH EACH ONE (20:56)
--- NOTE | 2017-06-18 21:11 | CONSULT ---
Consult - text type - Consultation Consultation Note: PULM/CCM Pt seen and examined in the ICU Reason for Request: Diabetic ketoacidosis, urinary track infection with severe sepsis CC: altered mental status Hx: from medical record, pt altered HPI: Briefly Ms Paul is a 71 year old woman with a history of IDDM , multiple prior admissions for DKA, HLD, CAD s/p stents x 4 (only on Statin/ASA), and prior admissions for UTI/sepsis ( in past billy-sensitive E coli)who was found down in apt by family and sent to ED via EMS. Per report today pt apparently called her brother noted her to be confused and incoherent over the phone. He went to house and found her significantly altered prompting 911 activation. In ED pt was febrile, tachycardic and mildly hypotensive. Pt was confused, but directable. Labs were notable for BGL 350, Hco3 15, AG 22. UA was dirty (132wbc , 3+LE), Trop was + but EKG without significant ischemic changes. Received insulin bolus and gtt. She denied, LOC, trauma, falls, sick contacts, chest pain , shortness of breath. LVQ started for UTI. BP with SBP in High 70s, receiving IVF with appropriate response. ' Past Surgical History Past Surgical History CABG Past Medical History Cardio/Vascular CAD,HTN Endocrine Diabetes Mellitus Ambulatory Orders Aspirin [ASA -] 81 mg PO DAILY 09/03/14 Esomeprazole Magnesium 40 mg PO DAILY 11/26/16 Insulin Sliding Scale [Novolog Vial Sliding Scale -] 1 vial SQ ACHS units 11/29 Escitalopram Oxalate [Lexapro -] 30 mg PO DAILY 12/29/16 Ezetimibe/Simvastatin [Vytorin 10-20 mg Tablet] 1 tab PO DAILY 12/29/16 Atorvastatin Ca [Lipitor] 10 mg PO DAILY tablet 01/02/17 Ezetimibe [Zetia -] 10 mg PO DAILY tablet 01/02/17 Insulin (Levemir) [Levemir Flexpen -] 20 units SQ HS #4 pen 01/02/17 Insulin Aspart [Novolog Flexpen] 8 unit SQ TID #7 insuln.pen 01/02/17 Insulin Sliding Scale [Novolog Vial Sliding Scale -] 1 vial SQ ACHS units 01/02 Miscellaneous Medical Supply [Outpatient Order] 1 each ASDIR #1 misc Current Medications Acetaminophen (Tylenol -) 650 mg PO Q6H PRN PRN Reason: FEVER OR PAIN Chlorhexidine Gluconate (Hibiclens For Decolonization -) 1 applic TP HS KHANH Enoxaparin Sodium (Lovenox -) 60 mg SQ ONCE ONE Stop: 06/19/17 06:01 Insulin Human Regular 100 (units/ Sodium Chloride) 100 mls @ 5.66 mls/hr IVPB TITR KHANH; 0.1 UNITS/KG/HR PRN Reason: Protocol Last Admin: 06/18/17 18:08 Dose: 5.66 mls/hr Levofloxacin (Levaquin 500 Mg Premixed Ivpb -) 100 mls @ 100 mls/hr IVPB DAILY KHANH Sodium Chloride (Normal Saline -) 1,000 mls @ 125 mls/hr IV ASDIR KHANH Last Admin: 06/18/17 19:39 Dose: 125 mls/hr Mupirocin (Bactroban Ointment (For Decolonization) -) 1 applic NS BID KHANH Stop: 06/23/17 21:59 Sodium Chloride (Normal Saline -) 550 ml IV Q20M PRN PRN Reason: MAP<65mm Hg OR SBP <90 Last Admin: 06/18/17 16:27 Dose: 550 ml Vital Signs Temp 100.9 F H 06/18/17 18:02 Pulse 94 H 06/18/17 19:33 Resp 20 06/18/17 19:33 BP 83/57 06/18/17 19:33 Pulse Ox 97 06/18/17 19:33 Intake & Output 06/17/17 06/18/17 06/18/17 23:59 11:59 23:59 Weight 56.699 kg Other: Height 5 ft 2 in Body Mass Index (BMI) 22.8 Weight Measurement Method Est/Stated by Patient 06/18/17 15:30 06/18/17 18:02 Urine Test Results Urine Color Ltyellow 06/18/17 15:30 Urine Appearance Cloudy 06/18/17 15:30 Urine pH 5.0 (5.0-8.0) 06/18/17 15:30 Urine Protein 2+ (NEGATIVE) H 06/18/17 15:30 Urine Glucose (UA) 3+ (NEGATIVE) H 06/18/17 15:30 Urine Ketones 2+ (NEGATIVE) H 06/18/17 15:30 Urine Blood 3+ (NEGATIVE) H 06/18/17 15:30 Urine Nitrite Negative (NEGATIVE) 06/18/17 15:30 Urine Bilirubin Negative (NEGATIVE) 06/18/17 15:30 Ur Leukocyte Esterase 3+ (NEGATIVE) H D 06/18/17 15:30 Urine RBC 11 /hpf (0-3) 06/18/17 15:30 Urine WBC 132 /hpf (3-5) 06/18/17 15:30 Ur Epithelial Cells Rare /hpf (FEW) 06/18/17 15:30 CXR: clear EKG SR, L axis, normal intervals, ST flattening V4-V6 ROS: pt confused, unable to illicit clearly EXAM: HEENT: NCAT, PERRL, no LAD PULM: clear anterior, no wheeze CV: RRR, no m/r/g appreciated ABD; soft, NT, ND, +BS EXT: cool, no edema, pulses present x 4 Derm: no rash NEURO: oriented to self, hospital, but unclear recent hx. Does not know year. Non focal exam. NO protator drift, symetric face, no aphasia. A/ 71 year old female with a history of IDDM and prior admissions for DKA, HLD, CAD s/p stents x 4, and prior admissions for UTI/sepsis now returning with altered mental status, +UA and DKA DKA: suspect due to UTI, ?compliance -insulin gtt until BGL < 250 -if able to eat tonight can transition to long acting, suspect with transition with breakfast --D5 1/2 to maintain bgl >100 -K repletions -A1C Sepsis: 2/2 UTI -volume resusitate 30cc/kg --trend lactate UTI: -cxl in lab -hernandez -levaquin, narrow on cxl +troponin" suspect demand in setting of Uro sepsis -q 8 trop x 3 -BID ekg -cards consult called -cont asa and plavix -low threshold to add hep gtt, started on lovenox DISPO: maintain in ICU Prophy: LMWH Peng Chavis ACNP [id number] 35min CCT
[2017-06-18] MEDS ORDERED: MAGNESIUM SULF 50% (8.12 MEQ/2 ML-1 GM VIAL) IVPB ONE (21:28)
[2017-06-18] MEDS ORDERED: LACTATED RINGERS SOLUTION 1,000 ML IV ONE (21:37)
[2017-06-18] MEDS: MUPIROCIN 2% TOPICAL OINTMENT FOR DECOLONIZATION NS SCH (21:44)
[2017-06-18] MEDS ORDERED: D5-1/2NS+20 MEQ KCL - 1,000 ML IV SCH (21:45)
[2017-06-18] MEDS: CHLORHEXIDINE GLUCONATE 4% CLEANSER FOR DECOLONIZATION TP SCH (22:00)
[2017-06-18 22:54] VITALS: BMI 25.6
[2017-06-19] MEDS ORDERED: HEMOQUE CONTROL SOLUTION ONE ×2 (01:18→01:29)
[2017-06-19 01:26] LABS: TROPONIN I 3.29 ng/ml (0.00-0.05)
[2017-06-19 01:37] LABS: ANION GAP 13 (8-16); CALCIUM 7.4 mg/dL (8.5-10.1); CO2 18 mmol/L (21-32); CREATININE 0.6 mg/dL (0.55-1.02); GLUCOSE,RANDOM 117 mg/dL (74-106)
[2017-06-19] MEDS ORDERED: SODIUM CHLORIDE 0.9% 1000 ML INFUS.BAG IV ONE (05:19)
[2017-06-19] MEDS ORDERED: ENOXAPARIN NA (PORCINE) 60 MG/0.6 ML DISP.SYRIN SQ ONE (06:00)
[2017-06-19] MEDS ORDERED: INSULIN (NOVOLOG) ASPART 100 UNITS/ML 10ML VIAL SQ SCH (07:00)
[2017-06-19 07:21] LABS: ALBUMIN 2.3 g/dl (3.4-5.0); ANION GAP 13 (8-16); CALCIUM 7.8 mg/dL (8.5-10.1); CO2 17 mmol/L (21-32); CREATININE 0.6 mg/dL (0.55-1.02); GLUCOSE,RANDOM 159 mg/dL (74-106); MAGNESIUM 2.2 mg/dL (1.8-2.4); SGOT/AST 59 U/L (15-37); SGPT/ALT 33 U/L (12-78)
[2017-06-19 07:39] LABS: ALK PHOS 109 U/L (45-117); BILIRUBIN,TOTAL 0.5 mg/dL (0.2-1.0); CPK 225 IU/L (26-192)
[2017-06-19 07:48] LABS: TROPONIN I 2.37 ng/ml (0.00-0.05)
--- NOTE | 2017-06-19 08:42 | PN ---
Progress Note, Physician Chief Complaint: ID Full note dictated - Current Medication List Current Medications: Active Medications Acetaminophen (Tylenol -) 650 mg PO Q6H PRN PRN Reason: FEVER OR PAIN Last Admin: 06/19/17 06:54 Dose: 650 mg Chlorhexidine Gluconate (Hibiclens For Decolonization -) 1 applic TP HS KHANH Last Admin: 06/18/17 22:00 Dose: 1 applic Levofloxacin (Levaquin 500 Mg Premixed Ivpb -) 100 mls @ 100 mls/hr IVPB DAILY KHANH Potassium Chloride/Dextrose/Sod Cl (D5-1/2ns+20 Meq Kcl -) 1,000 mls @ 42 mls/ hr IV ASDIR KHANH Last Admin: 06/18/17 22:19 Dose: 42 mls/hr Insulin Aspart (Novolog Vial) 10 units SQ TIDAC KHANH PRN Reason: Protocol Insulin Detemir (Levemir Vial) 31 units SQ HS KHANH Mupirocin (Bactroban Ointment (For Decolonization) -) 1 applic NS BID KHANH Stop: 06/23/17 21:59 Last Admin: 06/18/17 21:44 Dose: 1 applic Sodium Chloride (Normal Saline -) 550 ml IV Q20M PRN PRN Reason: MAP<65mm Hg OR SBP <90 Last Admin: 06/18/17 16:27 Dose: 550 ml - Objective Vital Signs: Vital Signs Temperature 97.9 F 06/19/17 05:00 Pulse Rate 83 06/19/17 06:00 Respiratory Rate 18 06/19/17 06:00 Blood Pressure 89/48 06/19/17 06:00 O2 Sat by Pulse Oximetry (%) 95 06/18/17 22:27 Labs: CBC, BMP 06/19/17 05:20 06/19/17 05:20 INR, PTT INR 1.28 (0.82-1.09) H 06/18/17 15:30 Problem List - Problems (1) Diabetic ketoacidosis Assessment/Plan: Advise though patient has had sensitive E COli previously I would cover for the possibility of quinolone resistance She is reportedly PCN allergic Has positive blood cultures Gram negative rods Give Cefepime Code(s): E13.10 - OTH DIABETES MELLITUS WITH KETOACIDOSIS WITHOUT COMA Qualifiers: Diabetes mellitus type: other specified (including AJAY) Diabetes mellitus complication detail: without coma Qualified Code(s): E13.10 - Other specified diabetes mellitus with ketoacidosis without coma (2) Elevated troponin Code(s): R74.8 - ABNORMAL LEVELS OF OTHER SERUM ENZYMES (3) Sepsis Code(s): A41.9 - SEPSIS, UNSPECIFIED ORGANISM (4) Gram-negative bacteremia Code(s): R78.81 - BACTEREMIA Assessment/Plan Advise Cefepime 1 gram q8h pending c/s
--- NOTE | 2017-06-19 09:17 | CON.CARD ---
Consult Consult Specialty:: cardiology Reason for Consultation:: TNI elevation; hx CABG - History of Present Illness History of Present Illness: 71F w/ hx of IDDM, HLD, CAD s/p 4 stents and CABG presenting from home after pt' s brother called EMS due to her altered mental status. Per the pt's niece, the pt was in her USOH 2 days ago. She reports that the pt lives alone, and the pt called her brother today who noticed that she wasn't speaking coherently. So, the brother called EMS to bring her in. The pt was found altered with feculent material around her face. Due to the patient's AMS, further history was unable to be elicited. Of note, the pt presented to [facility] in 02/2017 for a UTI, treated with levaquin. - History Source History Provided By: Patient, Medical Record Limitations to Obtaining History: Other (confusion; ?dementia) - Past Medical History Cardio/Vascular: Yes: CAD, HTN, MA Reproductive: Yes: Postmenopausal ...: No Endocrine: Yes: Diabetes Mellitus - Past Surgical History Past Surgical History: Yes: CABG (? additional stents (pt is unsure)) - Alcohol/Substance Use Hx Alcohol Use: No - Smoking History Smoking history: Former smoker Have you smoked in the past 12 months: No - Social History Usual Living Arrangement: Alone (Has family pets) Home Medications - Allergies Allergies/Adverse Reactions: Allergies Allergy/AdvReac Type Severity Reaction Status Date / Time apple [Apple] Allergy Verified 06/18/17 15:33 peach [Dougherty] Allergy Verified 06/18/17 15:33 Penicillins Allergy Verified 06/18/17 15:33 - Home Medications Home Medications: Ambulatory Orders Aspirin [ASA -] 81 mg PO DAILY 09/03/14 Escitalopram Oxalate [Lexapro -] 30 mg PO DAILY 12/29/16 Insulin Aspart [Novolog Flexpen] 8 unit SQ TID #7 insuln.pen 01/02/17 Family Disease History - Family Disease History Family Disease History: Heart Disease: Father Review of Systems - Review of Systems Constitutional: reports: Weakness Eyes: reports: No Symptoms HENT: reports: No Symptoms Neck: reports: No Symptoms Cardiovascular: reports: Chest Pain Respiratory: reports: SOB on Exertion Gastrointestinal: reports: No Symptoms Genitourinary: reports: Other Breasts: reports: No Symptoms Reported Musculoskeletal: reports: Muscle Weakness Neurological: reports: Weakness Endocrine: reports: No Symptoms Hematology/Lymphatic: reports: No Symptoms Psychiatric: reports: Anxiety, Other - Risk Factors Known Risk Factors: Yes: Age, Hypertension, Prior MA /Emb Stroke (hx CABG ? 2002 ), Smoking Vital Signs: Vital Signs Temperature 97.9 F 06/19/17 05:00 Pulse Rate 83 06/19/17 06:00 Respiratory Rate 18 06/19/17 06:00 Blood Pressure 89/48 06/19/17 06:00 O2 Sat by Pulse Oximetry (%) 95 06/18/17 22:27 Constitutional: Yes: Anxious Eyes: Yes: WNL HENT: Yes: WNL Neck: Yes: WNL Respiratory: Yes: Regular Gastrointestinal: Yes: Soft Renal/: No: Anuria Cardiovascular: Yes: Tachycardia JVD: No PMI: Displaced Heart Sounds: Yes: S2 Murmur: Yes: Systolic Murmur, Grade 2 Musculoskeletal: Yes: Muscle Weakness Extremities: Yes: Cool Edema: No Peripheral Pulses WNL: No Peripheral Pulses: 1+ Left Doralis Pedis, 1+ Right Dorsalis Pedis Integumentary: Yes: WNL Neurological: Yes: Weakness - Other Data Labs, Other Data: CBC, BMP 06/19/17 05:20 06/19/17 05:20 INR, PTT INR 1.28 (0.82-1.09) H 06/18/17 15:30 Troponin, BNP 06/18/17 06/19/17 06/19/17 18:02 00:00 00:10 Troponin I 3.64 H* Cancelled 3.29 H* 06/19/17 06/19/17 05:20 06:40 Troponin I 2.37 H* Cancelled Troponin, BNP 06/18/17 06/19/17 06/19/17 18:02 00:00 00:10 Troponin I 3.64 H* Cancelled 3.29 H* 06/19/17 06/19/17 05:20 06:40 Troponin I 2.37 H* Cancelled Imaging - Results EKG: Image Reviewed (sinus tachycardia; ? old IW MA; STT anterior changes) Problem List - Problems (1) Elevated troponin Code(s): R74.8 - ABNORMAL LEVELS OF OTHER SERUM ENZYMES (2) Confusion and disorientation Code(s): F99 - MENTAL DISORDER, NOT OTHERWISE SPECIFIED (3) HTN (hypertension) Code(s): I10 - ESSENTIAL (PRIMARY) HYPERTENSION (4) Hx of CABG Code(s): Z95.1 - PRESENCE OF AORTOCORONARY BYPASS GRAFT (5) Diabetes Code(s): E11.9 - TYPE 2 DIABETES MELLITUS WITHOUT COMPLICATIONS (6) Acute coronary syndrome Assessment/Plan: R?o NSTEMI. Serial TNI, EKGs. ECHO for LVEF, regional wall motion, ASA, clopidogrel. Addendum: ECHO today shows reduced LVEF, with marked hypokinesis of the anterior wall (this was not noted on a 2011 ECHO; pt had CABG ?2002). Would treat pt as NSTEMI. IV heparin or full-dose Lovenox. ASA 81 mg daily. Atorvastatin. Clopidogrel 75 mg daily. Code(s): I24.9 - ACUTE ISCHEMIC HEART DISEASE, UNSPECIFIED (7) Dehydration Assessment/Plan: Pt recevied 6 liters fluid; BP borderline low; hyponatremic. F?u BUN/Cr, electrolytes, Is and Os, daily weight. Code(s): E86.0 - DEHYDRATION
--- NOTE | 2017-06-19 09:17 | PN ---
Physical Exam: SUBJECTIVE: Patient seen and examined in the ICU. Patient reluctantly cooperative with assessment. Reports occasional dysuria. OBJECTIVE: Vital Signs Period Temp Pulse Resp BP Sys/Barrera Pulse Ox Last 24 Hr 97.6 F-100.9 F 80-105 14-30 69-108/42-97 95-98 GENERAL: The patient is awake, alert, and oriented to person (knows today is Saturday but unsure of date and does not recognize hospital surroundings), in no acute distress. HEAD: Normal with no signs of trauma. EYES: PERRL, extraocular movements intact, sclera anicteric, conjunctiva clear. No ptosis. ENT: Ears normal, nares patent, oropharynx clear without exudates, dry mucous membranes. NECK: Trachea midline, full range of motion, supple. LUNGS: Breath sounds equal, clear to auscultation bilaterally, no wheezes, no crackles, no accessory muscle use. HEART: Regular rate and rhythm, S1, S2 without murmur, rub or gallop. ABDOMEN: Soft, nontender, nondistended, normoactive bowel sounds, no guarding, no rebound, no hepatosplenomegaly, no masses. EXTREMITIES: 2+ pulses, warm, well-perfused, no edema. NEUROLOGICAL: Cranial nerves II through XII grossly intact. Normal speech, gait not observed. PSYCH: Normal mood, normal affect. SKIN: Warm, dry, tenting present. Laboratory Results - last 24 hr 06/18/17 06/18/17 06/18/17 18:02 18:02 21:02 WBC Corrected WBC (auto) RBC Hgb Hct MCV MCH MCHC RDW Plt Count MPV Neutrophils % Lymphocytes % Monocytes % Eosinophils % Basophils % Differential Comment Smudge Cells Platelet Estimate Platelet Comment RBC Morphology Sodium 131 L Potassium 4.0 Chloride 100 Carbon Dioxide 15 L Anion Gap 16 BUN 31 H Creatinine 0.9 Creat Clearance w eGFR POC Glucometer 229.06804 Random Glucose 349 H* Lactic Acid 2.0 Calcium 7.7 L Magnesium 1.5 L D Total Bilirubin AST ALT Alkaline Phosphatase Creatine Kinase 112 Creatine Kinase Index CK-MB (CK-2) Troponin I 3.64 H* Total Protein Albumin 06/18/17 06/18/17 06/19/17 22:13 23:27 00:00 WBC Corrected WBC (auto) RBC Hgb Hct MCV MCH MCHC RDW Plt Count MPV Neutrophils % Lymphocytes % Monocytes % Eosinophils % Basophils % Differential Comment Smudge Cells Platelet Estimate Platelet Comment RBC Morphology Sodium 139 Potassium 3.6 Chloride 108 H Carbon Dioxide 18 L Anion Gap 13 BUN 25 H Creatinine 0.6 D Creat Clearance w eGFR POC Glucometer 188.67953 139.89427 Random Glucose 117 H D Lactic Acid Calcium 7.4 L Magnesium Total Bilirubin AST ALT Alkaline Phosphatase Creatine Kinase Creatine Kinase Index CK-MB (CK-2) Troponin I Cancelled Total Protein Albumin 06/19/17 06/19/17 06/19/17 00:10 00:10 01:25 WBC Corrected WBC (auto) RBC Hgb Hct MCV MCH MCHC RDW Plt Count MPV Neutrophils % Lymphocytes % Monocytes % Eosinophils % Basophils % Differential Comment Smudge Cells Platelet Estimate Platelet Comment RBC Morphology Sodium Potassium Chloride Carbon Dioxide Anion Gap BUN Creatinine Creat Clearance w eGFR POC Glucometer 131.88640 162.34804 Random Glucose Lactic Acid Calcium Magnesium Total Bilirubin AST ALT Alkaline Phosphatase Creatine Kinase 147 Creatine Kinase Index CK-MB (CK-2) Troponin I 3.29 H* Total Protein Albumin 06/19/17 06/19/17 06/19/17 03:09 05:01 05:20 WBC Cancelled Corrected WBC (auto) Cancelled RBC Cancelled Hgb Cancelled Hct Cancelled MCV Cancelled MCH Cancelled MCHC Cancelled RDW Cancelled Plt Count Cancelled MPV Cancelled Neutrophils % Cancelled Lymphocytes % Cancelled Monocytes % Cancelled Eosinophils % Cancelled Basophils % Cancelled Differential Comment Cancelled Smudge Cells Cancelled Platelet Estimate Cancelled Platelet Comment Cancelled RBC Morphology Cancelled Sodium Potassium Chloride Carbon Dioxide Anion Gap BUN Creatinine Creat Clearance w eGFR POC Glucometer 180.09785 162.25987 Random Glucose Lactic Acid Calcium Magnesium Total Bilirubin AST ALT Alkaline Phosphatase Creatine Kinase Creatine Kinase Index CK-MB (CK-2) Troponin I Total Protein Albumin 06/19/17 06/19/17 06/19/17 05:20 06:27 06:40 WBC Corrected WBC (auto) RBC Hgb Hct MCV MCH MCHC RDW Plt Count MPV Neutrophils % Lymphocytes % Monocytes % Eosinophils % Basophils % Differential Comment Smudge Cells Platelet Estimate Platelet Comment RBC Morphology Sodium 137 Potassium 4.3 Chloride 107 Carbon Dioxide 17 L Anion Gap 13 BUN 22 H Creatinine 0.6 Creat Clearance w eGFR > 60 POC Glucometer 200.27365 Random Glucose 159 H D Lactic Acid Calcium 7.8 L Magnesium 2.2 D Total Bilirubin 0.5 D AST 59 H D ALT 33 D Alkaline Phosphatase 109 Creatine Kinase 225 H Creatine Kinase Index 6.9 H* CK-MB (CK-2) 15.548 H Troponin I 2.37 H* Cancelled Total Protein 5.0 L Albumin 2.3 L D Active Medications Generic Name Dose Route Start Last Admin Trade Name Freq PRN Reason Stop Dose Admin Acetaminophen 650 mg 06/18/17 17:53 06/19/17 06:54 Tylenol - PO 650 mg Q6H PRN Administration FEVER OR PAIN Chlorhexidine Gluconate 1 applic 06/18/17 22:00 06/18/17 22:00 Hibiclens For Decolonization - TP 1 applic HS KHANH Administration Potassium Chloride/Dextrose/Sod Cl 1,000 mls @ 42 mls/hr 06/18/17 21:45 22:19 D5-1/2ns+20 Meq Kcl - IV 42 mls/hr ASDIR KHANH Administration Cefepime HCl 1 gm/ Dextrose 100 mls @ 200 mls/hr 06/19/17 10:00 IVPB Q8H-IV KHANH Insulin Aspart 10 units 06/19/17 07:00 Novolog Vial SQ TIDAC KHANH Protocol Insulin Detemir 31 units 06/19/17 22:00 Levemir Vial SQ HS KHANH Mupirocin 1 applic 06/18/17 22:00 06/18/17 21:44 Bactroban Ointment (For Decolonization) - NS 06/23/17 21:59 1 applic BID KHANH Administration Sodium Chloride 550 ml 06/18/17 15:26 06/18/17 16:27 Normal Saline - IV 550 ml Q20M PRN Administration MAP<65mm Hg OR SBP <90 Microbiology 06/18/17 15:30 Blood - Peripheral Venous Blood Culture - Preliminary Pending Organism 06/18/17 15:40 Blood - Peripheral Venous Blood Culture - Preliminary Pending Organism Urine Test Results Urine Color Ltyellow 06/18/17 15:30 Urine Appearance Cloudy 06/18/17 15:30 Urine pH 5.0 (5.0-8.0) 06/18/17 15:30 Ur Specific [place] 1.020 (1.005-1.025) 06/18/17 15:30 Urine Protein 2+ (NEGATIVE) H 06/18/17 15:30 Urine Glucose (UA) 3+ (NEGATIVE) H 06/18/17 15:30 Urine Ketones 2+ (NEGATIVE) H 06/18/17 15:30 Urine Blood 3+ (NEGATIVE) H 06/18/17 15:30 Urine Nitrite Negative (NEGATIVE) 06/18/17 15:30 Urine Bilirubin Negative (NEGATIVE) 06/18/17 15:30 Ur Leukocyte Esterase 3+ (NEGATIVE) H D 06/18/17 15:30 Urine RBC 11 /hpf (0-3) 06/18/17 15:30 Urine WBC 132 /hpf (3-5) 06/18/17 15:30 Ur Epithelial Cells Rare /hpf (FEW) 06/18/17 15:30 ASSESSMENT/PLAN: A: 71 yo woman with h/o HTN and DM who presents with septic shock, UTI, DKA and NSTEMI. P: #Neuro- AMS likely 2/2 UTI - frequent neuro checks - FSBG q4h - fall precautions #Cardiac- NSTEMI - troponins downtrending 3.64->3.29->2.37 - likely demand ischemia given normal EKG and absence of chest pain - trend troponins - Echo pending - Full dose Lovenox - Cards consulted #ID- Septic shock from urinary source- given UA - blood cx- GNB growth after 24 hours - MAP remains<65 after 3.5L of IVF - Continue Levaquin - Broaden coverage with Cefipime given severity of illness (PCN allergy -> rash ) - appreciate ID consult - D5-1/2NS+20mEqKCl@75cc/hr - monitor BP #- UTI - see septic shock #Endo- DKA(resolved) - AG 13 down from 22 on admission - FSBG<200 - check FSBG q4h - restart Levemir tonight - continue ISS coverage #F/E/N - Diabetic diet - D5-1/2NS+20mEqKCl@75cc/hr - replete prn #PPX - Full dose Lovenox Dispo- requires ICU treatment for her acute medical conditions Visit type - Emergency Visit Emergency Visit: Yes ED Registration Date: 06/18/17 Care time: The patient presented to the Emergency Department on the above date and was hospitalized for further evaluation of their emergent condition. - New Patient This patient is new to me today: Yes Date on this admission: 06/19/17 - Critical Care Critical Care patient: Yes Total Critical Care Time (in minutes): 45 Critical Care Statement: The care of this patient involved high complexity decision making to prevent further life threatening deterioration of the patient 's condition and/or to evalute & treat vital organ system(s) failure or risk of failure.
[2017-06-19] MEDS ORDERED: CEFEPIME HCL 2 GM VIAL (RESTRICTED TO ID) IVPB SCH (10:00)
[2017-06-19] MEDS ORDERED: LEVOFLOXACIN 500 MG IVPB 100 ML IVPB SCH (10:00)
[2017-06-19] MEDS: CEFEPIME 1 GM in DEXTROSE 5%-WATER 100 ML IVPB SCH ×2 (10:09→17:01)
[2017-06-19] MEDS: MUPIROCIN 2% TOPICAL OINTMENT FOR DECOLONIZATION NS SCH ×2 (10:10→22:02)
[2017-06-19] MEDS: D5-1/2NS+20 MEQ KCL - 1,000 ML IV SCH (10:10)
--- NOTE | 2017-06-19 10:36 | CONS ---
DATE OF CONSULTATION: DATE OF DICTATION: 06/19/2017 HISTORY OF PRESENT ILLNESS: This is a 71-year-old female who was admitted to the hospital after she was noted to be confused and incoherent by family talking to her on the phone. They went to the house and found her mental status significantly altered prompting a 911 call. Here, she was noted to be febrile, hypotensive, and with an elevated blood sugar, and was treated in the ICU for sepsis with levofloxacin. Looking back, the patient has had multiple admissions in the past for treatment of urinary tract infection and has had sensitive E. coli grown from a urine culture most recently. Presently, she is alert, in no acute distress, and denies any localizing complaints. She did note chills prior to admission and seems oriented at the current time. PAST MEDICAL HISTORY: Insulin-dependent diabetes, recurrent UTIs, coronary artery disease with stents, hyperlipidemia. MEDICATIONS: Aspirin, insulin, Vytorin, atorvastatin, Zetia, Levemir. ALLERGIES: To PENICILLIN, unknown per patient. SURGICAL HISTORY: Coronary artery bypass graft surgery. SOCIAL HISTORY: She is a nonsmoker, no history of alcohol use. FAMILY HISTORY: Patient cannot provide. REVIEW OF SYSTEMS: Respiratory: No cough or shortness of breath. Cardiac: No chest pain, palpitations, or syncope. Gastrointestinal: No nausea, vomiting, diarrhea, or abdominal pain. Genitourinary: No dysuria, hematuria, or urinary frequency. PHYSICAL EXAMINATION: General: She was an alert female, lying in bed, in no acute distress. Vital signs: Temperature 97.9, pulse 83, blood pressure 90/48, respirations 18. Neck: Supple. Lungs: Clear. Heart: S1, S2, regular rhythm, no audible murmur. Abdomen: Soft, nontender, without hepatosplenomegaly. Extremities: Without clubbing, cyanosis, or edema. Neurologic: Grossly nonfocal. Skin: No rash. LABORATORY DATA: The white count is 5.8, hemoglobin 11.7, platelets 239 with 91% neutrophils. INR 1.28. BUN 22, creatinine 0.6, bilirubin 0.5, AST 59. Troponin 2.37. Urinalysis 132 white cells, 11 red cells, 3+ leukocyte esterase. Chest x-ray was reviewed, shows no acute pulmonary pathology. ASSESSMENT: Sepsis syndrome with fever to 105.6, noted to be hypotensive and tachypneic with hypoxemia, criteria for severe sepsis. She has had sensitive Escherichia coli in the past, sensitive to quinolones. Despite the fact that clinically she appears to be doing well at this time, I would broaden the coverage for the possibility of more resistant gram-negative organisms as patient now reported to have positive blood cultures for gram-negative rods. Pending blood and urine cultures, will give her cefepime 1 g IV q.8 hours. Additional problems include demand ischemia with elevated , diabetic ketoacidosis, coronary artery disease, history of recurrent urinary tract infections, gram-negative brad bacteremia. PLAN: As outlined above. SHAVON PULIDO M.D. SANTOS/[id number]
[2017-06-19 10:44] LABS: CHOLESTEROL 150 mg/dL (50-200); LDL CHOLESTEROL (ONLY SJRH) 92 mg/dL (5-100); THYROID STIMULATING HORMONE 0.55 uIU/ml (0.358-3.74)
[2017-06-19] MEDS: INSULIN (NOVOLOG) ASPART 100 UNITS/ML 10ML VIAL SQ SCH ×3 (10:51→17:01)
--- NOTE | 2017-06-19 13:51 | PN ---
Teaching Attending Note Name of Resident: Nelli Merrill ATTENDING PHYSICIAN STATEMENT I saw and evaluated the patient. I reviewed the resident's note and discussed the case with the resident. I agree with the resident's findings and plan as documented. SUBJECTIVE: Patient seen and examined in the ICU. Awake and alert. Denies CP or SOB. BP is marginal, but is asymptomatic. Troponin still elevated. Intake & Output 06/16/17 06/17/17 06/18/17 06/19/17 23:59 23:59 23:59 23:59 Intake Total 2021 478 Balance 2021 47 Weight 140 lb 1.6 oz 139 lb 7 oz Last Vital Signs Temp Pulse Resp BP Pulse Ox 98.8 F 82 25 H 95/47 95 06/19/17 13:33 06/19/17 13:33 06/19/17 13:33 06/19/17 13:33 06/19/17 09:00 Active Medications Acetaminophen (Tylenol -) 650 mg PO Q6H PRN PRN Reason: FEVER OR PAIN Last Admin: 06/19/17 06:54 Dose: 650 mg Chlorhexidine Gluconate (Hibiclens For Decolonization -) 1 applic TP HS KHANH Last Admin: 06/18/17 22:00 Dose: 1 applic Heparin Sodium (Porcine) (Heparin -) 5,000 unit SQ TID KHANH Cefepime HCl 1 gm/ Dextrose 100 mls @ 200 mls/hr IVPB Q8H-IV KHANH Last Admin: 06/19/17 10:09 Dose: 200 mls/hr Potassium Chloride/Dextrose/Sod Cl (D5-1/2ns+20 Meq Kcl -) 1,000 mls @ 75 mls/ hr IV ASDIR KHANH Last Admin: 06/19/17 10:10 Dose: 75 mls/hr Insulin Aspart (Novolog Vial) 10 units SQ TIDAC KHANH PRN Reason: Protocol Last Admin: 06/19/17 11:06 Dose: 10 units Insulin Detemir (Levemir Vial) 31 units SQ HS KHANH Mupirocin (Bactroban Ointment (For Decolonization) -) 1 applic NS BID KHANH Stop: 06/23/17 21:59 Last Admin: 06/19/17 10:10 Dose: 1 applic Sodium Chloride (Normal Saline -) 550 ml IV Q20M PRN PRN Reason: MAP<65mm Hg OR SBP <90 Last Admin: 06/18/17 16:27 Dose: 550 ml EXAM: HEENT: (-) Pallor, (-) Icterus PULM: clear, no wheeze CV: S1S2 regular ABD; soft, NT, ND, +BS EXT: cool, no edema, pulses present x 4 Derm: no rash NEURO: Non-focal Laboratory Results - last 24 hr 06/18/17 06/18/17 06/18/17 15:30 15:30 15:30 WBC 5.8 Corrected WBC (auto) RBC 4.01 Hgb 11.7 Hct 33.9 MCV 84.6 MCH 29.1 MCHC 34.4 RDW 13.8 Plt Count 239 D MPV 7.9 Neutrophils % 91.4 H Lymphocytes % 3.3 L D Monocytes % 4.9 Eosinophils % 0.1 Basophils % 0.3 Differential Comment Smudge Cells Platelet Estimate Platelet Comment RBC Morphology INR 1.28 H PTT (Actin FS) 23.5 L VBG pH POC VBG pCO2 POC VBG pO2 Mixed VBG HCO3 Sodium Potassium Chloride Carbon Dioxide Anion Gap BUN Creatinine Creat Clearance w eGFR POC Glucometer Random Glucose Lactic Acid Calcium Magnesium Total Bilirubin AST ALT Alkaline Phosphatase Creatine Kinase Creatine Kinase Index CK-MB (CK-2) Troponin I Total Protein Albumin Triglycerides Cholesterol Total LDL Cholesterol HDL Cholesterol TSH Urine Color Ltyellow Urine Appearance Cloudy Urine pH 5.0 Ur Specific [place] 1.020 Urine Protein 2+ H Urine Glucose (UA) 3+ H Urine Ketones 2+ H Urine Blood 3+ H Urine Nitrite Negative Urine Bilirubin Negative Urine Urobilinogen Negative Ur Leukocyte Esterase 3+ H D Urine RBC 11 Urine WBC 132 Ur Epithelial Cells Rare Acetone, Qual Blood Type Antibody Screen 06/18/17 06/18/17 06/18/17 15:30 15:30 15:30 WBC Corrected WBC (auto) RBC Hgb Hct MCV MCH MCHC RDW Plt Count MPV Neutrophils % Lymphocytes % Monocytes % Eosinophils % Basophils % Differential Comment Smudge Cells Platelet Estimate Platelet Comment RBC Morphology INR PTT (Actin FS) VBG pH POC VBG pCO2 POC VBG pO2 Mixed VBG HCO3 Sodium 130 L Potassium 4.3 Chloride 93 L D Carbon Dioxide 15 L D Anion Gap 22 H BUN 30 H D Creatinine 1.0 D Creat Clearance w eGFR 54.66 POC Glucometer Random Glucose 383 H* D Lactic Acid 2.2 H* Calcium 8.9 Magnesium Total Bilirubin 0.9 D AST 13 L ALT 16 D Alkaline Phosphatase 108 Creatine Kinase 52 Creatine Kinase Index CK-MB (CK-2) Troponin I 1.72 H* Total Protein 6.0 L Albumin 3.0 L Triglycerides Cholesterol Total LDL Cholesterol HDL Cholesterol TSH Urine Color Urine Appearance Urine pH Ur Specific [place] Urine Protein Urine Glucose (UA) Urine Ketones Urine Blood Urine Nitrite Urine Bilirubin Urine Urobilinogen Ur Leukocyte Esterase Urine RBC Urine WBC Ur Epithelial Cells Acetone, Qual Blood Type AB NEGATIVE Antibody Screen Negative 06/18/17 06/18/17 06/18/17 15:32 16:00 16:05 WBC Corrected WBC (auto) RBC Hgb Hct MCV MCH MCHC RDW Plt Count MPV Neutrophils % Lymphocytes % Monocytes % Eosinophils % Basophils % Differential Comment Smudge Cells Platelet Estimate Platelet Comment RBC Morphology INR PTT (Actin FS) VBG pH 7.45 H POC VBG pCO2 19.8 L* D POC VBG pO2 52.5 H D Mixed VBG HCO3 13.7 L* Sodium Potassium Chloride Carbon Dioxide Anion Gap BUN Creatinine Creat Clearance w eGFR POC Glucometer [phone] Random Glucose Lactic Acid Calcium Magnesium Total Bilirubin AST ALT Alkaline Phosphatase Creatine Kinase Creatine Kinase Index CK-MB (CK-2) Troponin I Total Protein Albumin Triglycerides Cholesterol Total LDL Cholesterol HDL Cholesterol TSH Urine Color Urine Appearance Urine pH Ur Specific [place] Urine Protein Urine Glucose (UA) Urine Ketones Urine Blood Urine Nitrite Urine Bilirubin Urine Urobilinogen Ur Leukocyte Esterase Urine RBC Urine WBC Ur Epithelial Cells Acetone, Qual Positive small 1+ H Blood Type Antibody Screen 06/18/17 06/18/17 06/18/17 17:44 18:02 18:02 WBC Corrected WBC (auto) RBC Hgb Hct MCV MCH MCHC RDW Plt Count MPV Neutrophils % Lymphocytes % Monocytes % Eosinophils % Basophils % Differential Comment Smudge Cells Platelet Estimate Platelet Comment RBC Morphology INR PTT (Actin FS) VBG pH POC VBG pCO2 POC VBG pO2 Mixed VBG HCO3 Sodium 131 L Potassium 4.0 Chloride 100 Carbon Dioxide 15 L Anion Gap 16 BUN 31 H Creatinine 0.9 Creat Clearance w eGFR POC Glucometer [phone] Random Glucose 349 H* Lactic Acid 2.0 Calcium 7.7 L Magnesium 1.5 L D Total Bilirubin AST ALT Alkaline Phosphatase Creatine Kinase 112 Creatine Kinase Index CK-MB (CK-2) Troponin I 3.64 H* Total Protein Albumin Triglycerides Cholesterol Total LDL Cholesterol HDL Cholesterol TSH Urine Color Urine Appearance Urine pH Ur Specific [place] Urine Protein Urine Glucose (UA) Urine Ketones Urine Blood Urine Nitrite Urine Bilirubin Urine Urobilinogen Ur Leukocyte Esterase Urine RBC Urine WBC Ur Epithelial Cells Acetone, Qual Blood Type Antibody Screen 06/18/17 06/18/17 06/18/17 21:02 22:13 23:27 WBC Corrected WBC (auto) RBC Hgb Hct MCV MCH MCHC RDW Plt Count MPV Neutrophils % Lymphocytes % Monocytes % Eosinophils % Basophils % Differential Comment Smudge Cells Platelet Estimate Platelet Comment RBC Morphology INR PTT (Actin FS) VBG pH POC VBG pCO2 POC VBG pO2 Mixed VBG HCO3 Sodium Potassium Chloride Carbon Dioxide Anion Gap BUN Creatinine Creat Clearance w eGFR POC Glucometer 229.74256 188.28622 139.41886 Random Glucose Lactic Acid Calcium Magnesium Total Bilirubin AST ALT Alkaline Phosphatase Creatine Kinase Creatine Kinase Index CK-MB (CK-2) Troponin I Total Protein Albumin Triglycerides Cholesterol Total LDL Cholesterol HDL Cholesterol TSH Urine Color Urine Appearance Urine pH Ur Specific [place] Urine Protein Urine Glucose (UA) Urine Ketones Urine Blood Urine Nitrite Urine Bilirubin Urine Urobilinogen Ur Leukocyte Esterase Urine RBC Urine WBC Ur Epithelial Cells Acetone, Qual Blood Type Antibody Screen 06/19/17 06/19/17 06/19/17 00:00 00:10 00:10 WBC Corrected WBC (auto) RBC Hgb Hct MCV MCH MCHC RDW Plt Count MPV Neutrophils % Lymphocytes % Monocytes % Eosinophils % Basophils % Differential Comment Smudge Cells Platelet Estimate Platelet Comment RBC Morphology INR PTT (Actin FS) VBG pH POC VBG pCO2 POC VBG pO2 Mixed VBG HCO3 Sodium 139 Potassium 3.6 Chloride 108 H Carbon Dioxide 18 L Anion Gap 13 BUN 25 H Creatinine 0.6 D Creat Clearance w eGFR POC Glucometer [phone] Random Glucose 117 H D Lactic Acid Calcium 7.4 L Magnesium Total Bilirubin AST ALT Alkaline Phosphatase Creatine Kinase 147 Creatine Kinase Index CK-MB (CK-2) Troponin I Cancelled 3.29 H* Total Protein Albumin Triglycerides Cholesterol Total LDL Cholesterol HDL Cholesterol TSH Urine Color Urine Appearance Urine pH Ur Specific [place] Urine Protein Urine Glucose (UA) Urine Ketones Urine Blood Urine Nitrite Urine Bilirubin Urine Urobilinogen Ur Leukocyte Esterase Urine RBC Urine WBC Ur Epithelial Cells Acetone, Qual Blood Type Antibody Screen 06/19/17 06/19/17 06/19/17 01:25 03:09 05:01 WBC Corrected WBC (auto) RBC Hgb Hct MCV MCH MCHC RDW Plt Count MPV Neutrophils % Lymphocytes % Monocytes % Eosinophils % Basophils % Differential Comment Smudge Cells Platelet Estimate Platelet Comment RBC Morphology INR PTT (Actin FS) VBG pH POC VBG pCO2 POC VBG pO2 Mixed VBG HCO3 Sodium Potassium Chloride Carbon Dioxide Anion Gap BUN Creatinine Creat Clearance w eGFR POC Glucometer 162.37327 180.81182 162.43118 Random Glucose Lactic Acid Calcium Magnesium Total Bilirubin AST ALT Alkaline Phosphatase Creatine Kinase Creatine Kinase Index CK-MB (CK-2) Troponin I Total Protein Albumin Triglycerides Cholesterol Total LDL Cholesterol HDL Cholesterol TSH Urine Color Urine Appearance Urine pH Ur Specific [place] Urine Protein Urine Glucose (UA) Urine Ketones Urine Blood Urine Nitrite Urine Bilirubin Urine Urobilinogen Ur Leukocyte Esterase Urine RBC Urine WBC Ur Epithelial Cells Acetone, Qual Blood Type Antibody Screen 06/19/17 06/19/17 06/19/17 05:20 05:20 06:27 WBC Cancelled Corrected WBC (auto) Cancelled RBC Cancelled Hgb Cancelled Hct Cancelled MCV Cancelled MCH Cancelled MCHC Cancelled RDW Cancelled Plt Count Cancelled MPV Cancelled Neutrophils % Cancelled Lymphocytes % Cancelled Monocytes % Cancelled Eosinophils % Cancelled Basophils % Cancelled Differential Comment Cancelled Smudge Cells Cancelled Platelet Estimate Cancelled Platelet Comment Cancelled RBC Morphology Cancelled INR PTT (Actin FS) VBG pH POC VBG pCO2 POC VBG pO2 Mixed VBG HCO3 Sodium 137 Potassium 4.3 Chloride 107 Carbon Dioxide 17 L Anion Gap 13 BUN 22 H Creatinine 0.6 Creat Clearance w eGFR > 60 POC Glucometer 200.33341 Random Glucose 159 H D Lactic Acid Calcium 7.8 L Magnesium 2.2 D Total Bilirubin 0.5 D AST 59 H D ALT 33 D Alkaline Phosphatase 109 Creatine Kinase 225 H Creatine Kinase Index 6.9 H* CK-MB (CK-2) 15.548 H Troponin I 2.37 H* Total Protein 5.0 L Albumin 2.3 L D Triglycerides 163 H Cholesterol 150 Total LDL Cholesterol 92 HDL Cholesterol 20 L TSH 0.55 Urine Color Urine Appearance Urine pH Ur Specific [place] Urine Protein Urine Glucose (UA) Urine Ketones Urine Blood Urine Nitrite Urine Bilirubin Urine Urobilinogen Ur Leukocyte Esterase Urine RBC Urine WBC Ur Epithelial Cells Acetone, Qual Blood Type Antibody Screen 06/19/17 06/19/17 06/19/17 06:40 06:40 11:02 WBC Corrected WBC (auto) RBC Hgb Hct MCV MCH MCHC RDW Plt Count MPV Neutrophils % Lymphocytes % Monocytes % Eosinophils % Basophils % Differential Comment Smudge Cells Platelet Estimate Platelet Comment RBC Morphology INR PTT (Actin FS) VBG pH POC VBG pCO2 POC VBG pO2 Mixed VBG HCO3 Sodium Potassium Chloride Carbon Dioxide Anion Gap BUN Creatinine Creat Clearance w eGFR POC Glucometer [phone] Random Glucose Lactic Acid Calcium Magnesium Total Bilirubin AST ALT Alkaline Phosphatase Creatine Kinase Creatine Kinase Index CK-MB (CK-2) Troponin I Cancelled Total Protein Albumin Triglycerides Cancelled Cholesterol Cancelled Total LDL Cholesterol Cancelled HDL Cholesterol Cancelled TSH Cancelled Urine Color Urine Appearance Urine pH Ur Specific [place] Urine Protein Urine Glucose (UA) Urine Ketones Urine Blood Urine Nitrite Urine Bilirubin Urine Urobilinogen Ur Leukocyte Esterase Urine RBC Urine WBC Ur Epithelial Cells Acetone, Qual Blood Type Antibody Screen IMP: DKA (+) Troponin / NSTEMI IDDM HPL CAD s/p stents x 4 UTI / Bacteremia / Sepsis Hypotension IVF Glycemic control O2 as needed ABX per ID Replete lytes ASA IV Heparin ECHO Dr Fuller Critical Care Total Critical Care Time (in minutes): 35 Critical Care Statement: The care of this patient involved high complexity decision making to prevent further life threatening deterioration of the patient 's condition and/or to evalute & treat vital organ system(s) failure or risk of failure.
[2017-06-19] MEDS ORDERED: HEPARIN NA (PORCINE) 5,000 UNITS/ML 1ML VIAL SQ SCH (14:00)
--- NOTE | 2017-06-19 14:34 | EKG ---
Test Reason : Blood Pressure : / mmHG Vent. Rate : 077 BPM Atrial Rate : 241 BPM P-R Int : 000 ms QRS Dur : 074 ms QT Int : 382 ms P-R-T Axes : 000 -18 034 degrees QTc Int : 432 ms NORMAL SINUS RHYTHM INFERIOR INFARCT , AGE UNDETERMINED ABNORMAL ECG WHEN COMPARED WITH ECG OF 18-JUN-2017 15:15, VENT. RATE HAS DECREASED BY 53 BPM QRS VOLTAGE HAS DECREASED INFERIOR INFARCT IS NOW PRESENT NONSPECIFIC T WAVE ABNORMALITY, WORSE IN ANTEROLATERAL LEADS Confirmed by MARY MÁRQUEZ MD ([id number]) on 06/19/2017 2:33:39 PM Referred By: Kinga COSTA Confirmed By:MARY MÁRQUEZ MD
--- NOTE | 2017-06-19 14:46 | EKG ---
Test Reason : Blood Pressure : / mmHG Vent. Rate : 130 BPM Atrial Rate : 130 BPM P-R Int : 150 ms QRS Dur : 082 ms QT Int : 298 ms P-R-T Axes : 048 -47 056 degrees QTc Int : 438 ms SINUS TACHYCARDIA LEFT AXIS DEVIATION NONSPECIFIC ST AND T WAVE ABNORMALITY ABNORMAL ECG WHEN COMPARED WITH ECG OF 09-MAR-2017 11:16, QRS AXIS SHIFTED LEFT T WAVE INVERSION NO LONGER EVIDENT IN ANTERIOR LEADS Confirmed by MARY MÁRQUEZ MD ([id number]) on 06/19/2017 2:45:38 PM Referred By: Confirmed By:MARY MÁRQUEZ MD
--- NOTE | 2017-06-19 14:59 | PN ---
Physical Exam: SUBJECTIVE: Patient seen and examined at bed side this morning. Feels better. Eating breakfast. Tolerating diet. No acute overnight events. Spoke with Patients brother this morning who mentioned that patient lives alone (has 4 dogs). She is able to walk independently, doesn't drive. Was found to be shivering with AMS, then brought her here. Has a h/o DKA and sepsis secondary to UTI. OBJECTIVE: Vital Signs Period Temp Pulse Resp BP Sys/Barrera Pulse Ox Last 24 Hr 97.6 F-100.9 F 79-105 14-30 69-108/42-97 95-98 GENERAL: The patient is awake, alert, and fully oriented, in no acute distress. HEAD: Normal with no signs of trauma. EYES: EOM intact, no pallor or icterus. ENT: Ears normal,moist mucous membranes. NECK: Supple. LUNGS: Breath sounds equal, clear to auscultation bilaterally, no wheezes, no crackles, no accessory muscle use. HEART: Regular rate and rhythm, S1, S2 without murmur, rub or gallop. ABDOMEN: Soft, nontender, nondistended, normoactive bowel sounds, no guarding, no rebound, no hepatosplenomegaly, no masses. EXTREMITIES: 2+ pulses, warm, well-perfused, no edema. NEUROLOGICAL: No facial droop, weak to perform power, reflexes intact, Cranial nerves II through XII grossly intact. Normal speech, gait not observed. PSYCH: Normal mood, normal affect. SKIN: Warm, dry, normal turgor, no rashes or lesions noted Laboratory Results - last 24 hr 06/18/17 06/18/17 06/18/17 18:02 18:02 21:02 WBC Corrected WBC (auto) RBC Hgb Hct MCV MCH MCHC RDW Plt Count MPV Neutrophils % Lymphocytes % Monocytes % Eosinophils % Basophils % Differential Comment Smudge Cells Platelet Estimate Platelet Comment RBC Morphology Sodium 131 L Potassium 4.0 Chloride 100 Carbon Dioxide 15 L Anion Gap 16 BUN 31 H Creatinine 0.9 Creat Clearance w eGFR POC Glucometer 229.00906 Random Glucose 349 H* Lactic Acid 2.0 Calcium 7.7 L Magnesium 1.5 L D Total Bilirubin AST ALT Alkaline Phosphatase Creatine Kinase 112 Creatine Kinase Index CK-MB (CK-2) Troponin I 3.64 H* Total Protein Albumin Triglycerides Cholesterol Total LDL Cholesterol HDL Cholesterol TSH 06/18/17 06/18/17 06/19/17 22:13 23:27 00:00 WBC Corrected WBC (auto) RBC Hgb Hct MCV MCH MCHC RDW Plt Count MPV Neutrophils % Lymphocytes % Monocytes % Eosinophils % Basophils % Differential Comment Smudge Cells Platelet Estimate Platelet Comment RBC Morphology Sodium 139 Potassium 3.6 Chloride 108 H Carbon Dioxide 18 L Anion Gap 13 BUN 25 H Creatinine 0.6 D Creat Clearance w eGFR POC Glucometer 188.26580 139.24956 Random Glucose 117 H D Lactic Acid Calcium 7.4 L Magnesium Total Bilirubin AST ALT Alkaline Phosphatase Creatine Kinase Creatine Kinase Index CK-MB (CK-2) Troponin I Cancelled Total Protein Albumin Triglycerides Cholesterol Total LDL Cholesterol HDL Cholesterol TSH 06/19/17 06/19/17 06/19/17 00:10 00:10 01:25 WBC Corrected WBC (auto) RBC Hgb Hct MCV MCH MCHC RDW Plt Count MPV Neutrophils % Lymphocytes % Monocytes % Eosinophils % Basophils % Differential Comment Smudge Cells Platelet Estimate Platelet Comment RBC Morphology Sodium Potassium Chloride Carbon Dioxide Anion Gap BUN Creatinine Creat Clearance w eGFR POC Glucometer 131.27956 162.33762 Random Glucose Lactic Acid Calcium Magnesium Total Bilirubin AST ALT Alkaline Phosphatase Creatine Kinase 147 Creatine Kinase Index CK-MB (CK-2) Troponin I 3.29 H* Total Protein Albumin Triglycerides Cholesterol Total LDL Cholesterol HDL Cholesterol TSH 06/19/17 06/19/17 06/19/17 03:09 05:01 05:20 WBC Cancelled Corrected WBC (auto) Cancelled RBC Cancelled Hgb Cancelled Hct Cancelled MCV Cancelled MCH Cancelled MCHC Cancelled RDW Cancelled Plt Count Cancelled MPV Cancelled Neutrophils % Cancelled Lymphocytes % Cancelled Monocytes % Cancelled Eosinophils % Cancelled Basophils % Cancelled Differential Comment Cancelled Smudge Cells Cancelled Platelet Estimate Cancelled Platelet Comment Cancelled RBC Morphology Cancelled Sodium Potassium Chloride Carbon Dioxide Anion Gap BUN Creatinine Creat Clearance w eGFR POC Glucometer 180.54592 162.42205 Random Glucose Lactic Acid Calcium Magnesium Total Bilirubin AST ALT Alkaline Phosphatase Creatine Kinase Creatine Kinase Index CK-MB (CK-2) Troponin I Total Protein Albumin Triglycerides Cholesterol Total LDL Cholesterol HDL Cholesterol TSH 06/19/17 06/19/17 06/19/17 05:20 06:27 06:40 WBC Corrected WBC (auto) RBC Hgb Hct MCV MCH MCHC RDW Plt Count MPV Neutrophils % Lymphocytes % Monocytes % Eosinophils % Basophils % Differential Comment Smudge Cells Platelet Estimate Platelet Comment RBC Morphology Sodium 137 Potassium 4.3 Chloride 107 Carbon Dioxide 17 L Anion Gap 13 BUN 22 H Creatinine 0.6 Creat Clearance w eGFR > 60 POC Glucometer 200.86775 Random Glucose 159 H D Lactic Acid Calcium 7.8 L Magnesium 2.2 D Total Bilirubin 0.5 D AST 59 H D ALT 33 D Alkaline Phosphatase 109 Creatine Kinase 225 H Creatine Kinase Index 6.9 H* CK-MB (CK-2) 15.548 H Troponin I 2.37 H* Cancelled Total Protein 5.0 L Albumin 2.3 L D Triglycerides 163 H Cholesterol 150 Total LDL Cholesterol 92 HDL Cholesterol 20 L TSH 0.55 06/19/17 06/19/17 06:40 11:02 WBC Corrected WBC (auto) RBC Hgb Hct MCV MCH MCHC RDW Plt Count MPV Neutrophils % Lymphocytes % Monocytes % Eosinophils % Basophils % Differential Comment Smudge Cells Platelet Estimate Platelet Comment RBC Morphology Sodium Potassium Chloride Carbon Dioxide Anion Gap BUN Creatinine Creat Clearance w eGFR POC Glucometer 281.19877 Random Glucose Lactic Acid Calcium Magnesium Total Bilirubin AST ALT Alkaline Phosphatase Creatine Kinase Creatine Kinase Index CK-MB (CK-2) Troponin I Total Protein Albumin Triglycerides Cancelled Cholesterol Cancelled Total LDL Cholesterol Cancelled HDL Cholesterol Cancelled TSH Cancelled Active Medications Generic Name Dose Route Start Last Admin Trade Name Johnathonq PRN Reason Stop Dose Admin Acetaminophen 650 mg 06/18/17 17:53 06/19/17 06:54 Tylenol - PO 650 mg Q6H PRN Administration FEVER OR PAIN Chlorhexidine Gluconate 1 applic 06/18/17 22:00 06/18/17 22:00 Hibiclens For Decolonization - TP 1 applic HS KHANH Administration Heparin Sodium (Porcine) 5,000 unit 06/19/17 14:00 Heparin - SQ TID KHANH Cefepime HCl 1 gm/ Dextrose 100 mls @ 200 mls/hr 06/19/17 10:00 06/19/17 10:09 IVPB 200 mls/hr Q8H-IV KHANH Administration Potassium Chloride/Dextrose/Sod Cl 1,000 mls @ 75 mls/hr 06/19/17 09:23 10:10 D5-1/2ns+20 Meq Kcl - IV 75 mls/hr ASDIR KHANH Administration Insulin Aspart 10 units 06/19/17 07:00 06/19/17 11:06 Novolog Vial SQ 10 units TIDAC KHANH Administration Protocol Insulin Detemir 31 units 06/19/17 22:00 Levemir Vial SQ HS KHANH Mupirocin 1 applic 06/18/17 22:00 06/19/17 10:10 Bactroban Ointment (For Decolonization) - NS 06/23/17 21:59 1 applic BID KHANH Administration Sodium Chloride 550 ml 06/18/17 15:26 06/18/17 16:27 Normal Saline - IV 550 ml Q20M PRN Administration MAP<65mm Hg OR SBP <90 ASSESSMENT/PLAN: Patient is a 71 year old woman with h/o HTN and DM who presents with septic shock, UTI, DKA and NSTEMI. Severe sepsis/Bacteremia likely secondary to Urinary Tract Infection Came in with fever of 105. 1 F, UA WBC of 132 IV fluids, IV Cefepime 1gm Q8H, confirmed with patient she doesn't have allergy to cephalosporins Recently had UTI- E.coli pansensitive Urine culture pending, to change abx as per c/s Blood culture positive Neurology AMS likely secondary to sepsis Now improving Fall precautions Cardiology NSTEMI vs Demand ischemia Troponins trending down 3.64->3.29->2.37---> Pending Received Lovenox 60mg BID, no heparin drip at this time, as per cardiology Echo pending Cardiology consult appreciated Hypotension, this morning MAP was around 55, was given 1L of NS and MAP improved to 80's Continue D5-1/2NS+20mEqKCl@75cc/hr Endocrinology DKA now resolved, AG closed. Levemir 31 U HS and INsulin 10U TIDAC HbA1c 10.3 FEN IV D5-1/2NS+20mEqKCl@75cc/hr Electrolytes to be repeated in am Diabetic diet Prophylaxis For DVT: On Heparin 5000 IU TID For GI: Not indicated Illness, Investigation and Plan of care explained to the patient. She verbalized understanding. Case seen and discussed with Dr. Fuller. Visit type - Emergency Visit Emergency Visit: Yes ED Registration Date: 06/18/17 Care time: The patient presented to the Emergency Department on the above date and was hospitalized for further evaluation of their emergent condition. - New Patient This patient is new to me today: Yes Date on this admission: 06/19/17 - Critical Care Critical Care patient: Yes Total Critical Care Time (in minutes): 35 Critical Care Statement: The care of this patient involved high complexity decision making to prevent further life threatening deterioration of the patient 's condition and/or to evalute & treat vital organ system(s) failure or risk of failure.
[2017-06-19 15:39] LABS: BASOPHIL 0.3 % (0-2.0); EOSINOPHIL 0.7 % (0-4.5); MCH 29.5 pg (25.7-33.7); MCHC 35.1 g/dl (32.0-36.0); MEAN CELL VOLUME 83.9 fl (80-96); NEUTROPHILS 86.5 % (42.8-82.8); PLATELET COUNT 175 K/MM3 (134-434); RDW 13.8 % (11.6-15.6); WHITE BLOOD COUNT 5.3 K/mm3 (4.0-10.0)
[2017-06-19] MEDS ORDERED: PT OWN MED DRAWER 7, Y5N ONE (16:59)
[2017-06-19] MEDS: ENOXAPARIN NA (PORCINE) 60 MG/0.6 ML DISP.SYRIN SQ SCH (17:23)
[2017-06-19] MEDS ORDERED: ATORVASTATIN CA 20 MG TABLET (FP) PO ONE (17:37)
[2017-06-19] MEDS: CLOPIDOGREL BISULFATE 75 MG TABLET (FP) PO SCH (17:50)
[2017-06-19] MEDS: ASPIRIN 81 MG CHEWABLE TABLETS PO SCH (17:50)
[2017-06-19] MEDS: INSULIN DETEMIR 100 UNITS/ML MDV SQ SCH (22:02)
[2017-06-19] MEDS: CHLORHEXIDINE GLUCONATE 4% CLEANSER FOR DECOLONIZATION TP SCH (22:02)
[2017-06-20] MEDS ORDERED: PT OWN MED DRAWER 7, Y5N ONE ×3 (01:37→15:40)
[2017-06-20] MEDS: CEFEPIME 1 GM in DEXTROSE 5%-WATER 100 ML IVPB SCH ×3 (03:00→17:14)
[2017-06-20] MEDS ORDERED: HALOPERIDOL LACTATE 5 MG/ML ONE (04:27)
[2017-06-20] MEDS ORDERED: HALOPERIDOL LACTATE 5 MG/ML IM ONE (05:00)
[2017-06-20 06:34] LABS: BASOPHIL 0.2 % (0-2.0); EOSINOPHIL 0.4 % (0-4.5); MCH 29.4 pg (25.7-33.7); MCHC 35.4 g/dl (32.0-36.0); MEAN PLT VOLUME 7.9 fl (7.5-11.1); NEUTROPHILS 89.9 % (42.8-82.8); PLATELET COUNT 248 K/MM3 (134-434); RDW 13.5 % (11.6-15.6); WHITE BLOOD COUNT 6.8 K/mm3 (4.0-10.0)
[2017-06-20] MEDS: ENOXAPARIN NA (PORCINE) 60 MG/0.6 ML DISP.SYRIN SQ SCH ×2 (06:43→18:17)
[2017-06-20 07:06] LABS: ALBUMIN 2.1 g/dl (3.4-5.0); ANION GAP 11 (8-16); BILIRUBIN,TOTAL 0.4 mg/dL (0.2-1.0); CALCIUM 8.1 mg/dL (8.5-10.1); CO2 18 mmol/L (21-32); CREATININE 0.7 mg/dL (0.55-1.02); GLUCOSE,RANDOM 294 mg/dL (74-106); SGOT/AST 20 U/L (15-37); SGPT/ALT 19 U/L (12-78); TOT PROT 4.5 g/dl (6.4-8.2)
[2017-06-20 07:07] LABS: ALK PHOS 85 U/L (45-117)
--- NOTE | 2017-06-20 07:39 | PN ---
Progress Note, Physician Chief Complaint: ID ICU follow up for this 71 year old female with sepsis syndrome and GNB in blood cultures Empiric therapy given Levofloxacin initially changed Cefepime pending c/s in event of resistant organism Currently sleeping but according to nurses very confused overnight Hemodynamically stable - Current Medication List Current Medications: Active Medications Acetaminophen (Tylenol -) 650 mg PO Q6H PRN PRN Reason: FEVER OR PAIN Last Admin: 06/19/17 06:54 Dose: 650 mg Aspirin (Asa -) 81 mg PO DAILY [facility] Last Admin: 06/19/17 17:50 Dose: 81 mg Atorvastatin Calcium (Lipitor -) 20 mg PO HS [facility] Chlorhexidine Gluconate (Hibiclens For Decolonization -) 1 applic TP HS [facility] Last Admin: 06/19/17 22:02 Dose: 1 applic Clopidogrel Bisulfate (Plavix -) 75 mg PO DAILY [facility] Last Admin: 06/19/17 17:50 Dose: 75 mg Enoxaparin Sodium (Lovenox -) 60 mg SQ BID@0600,1800 [facility] Last Admin: 06/20/17 06:43 Dose: 60 mg Cefepime HCl 1 gm/ Dextrose 100 mls @ 200 mls/hr IVPB Q8H-IV [facility] Last Admin: 06/20/17 03:00 Dose: 200 mls/hr Potassium Chloride/Dextrose/Sod Cl (D5-1/2ns+20 Meq Kcl -) 1,000 mls @ 75 mls/ hr IV ASDIR [facility] Last Admin: 06/19/17 10:10 Dose: 75 mls/hr Insulin Aspart (Novolog Vial) 10 units SQ TIDAC [facility] PRN Reason: Protocol Last Admin: 06/19/17 17:01 Dose: 10 units Insulin Detemir (Levemir Vial) 31 units SQ HS [facility] Last Admin: 06/19/17 22:02 Dose: 31 units Mupirocin (Bactroban Ointment (For Decolonization) -) 1 applic NS BID [facility] Stop: 06/23/17 21:59 Last Admin: 06/19/17 22:02 Dose: 1 applic Sodium Chloride (Normal Saline -) 550 ml IV Q20M PRN PRN Reason: MAP<65mm Hg OR SBP <90 Last Admin: 06/18/17 16:27 Dose: 550 ml - Objective Vital Signs: Vital Signs Temperature 98.9 F 06/20/17 02:00 Pulse Rate 100 H 06/20/17 06:00 Respiratory Rate 24 06/20/17 06:00 Blood Pressure 90/51 06/20/17 06:00 O2 Sat by Pulse Oximetry (%) 95 06/19/17 20:33 Constitutional: Yes: No Distress Neck: Yes: WNL, Supple Cardiovascular: Yes: Regular Rate and Rhythm, S1, S2. No: Murmur Respiratory: Yes: WNL, Regular, CTA Bilaterally, Rhonchi. No: Rales Gastrointestinal: Yes: WNL, Normal Bowel Sounds, Soft. No: Tenderness, Tenderness, Rebound Extremities: No: Cold, Cool, Cyanosis Edema: No Labs: CBC, BMP 06/20/17 05:15 06/20/17 06:00 INR, PTT INR 1.28 (0.82-1.09) H 06/18/17 15:30 Problem List - Problems (1) Diabetic ketoacidosis Code(s): E13.10 - OTH DIABETES MELLITUS WITH KETOACIDOSIS WITHOUT COMA Qualifiers: Diabetes mellitus type: other specified (including AJAY) Diabetes mellitus complication detail: without coma Qualified Code(s): E13.10 - Other specified diabetes mellitus with ketoacidosis without coma (2) Elevated troponin Code(s): R74.8 - ABNORMAL LEVELS OF OTHER SERUM ENZYMES (3) Sepsis Code(s): A41.9 - SEPSIS, UNSPECIFIED ORGANISM (4) Gram-negative bacteremia Code(s): R78.81 - BACTEREMIA Assessment/Plan Microbiology 06/18/17 15:40 Blood - Peripheral Venous Blood Culture - Preliminary Pending Organism 06/18/17 15:30 Blood - Peripheral Venous Blood Culture - Preliminary Gram Negative [facility] Tests 06/18/17 06/20/17 06/20/17 15:30 05:15 06:00 WBC 6.8 Hgb 10.0 L Hct 28.3 L Plt Count 248 D Creat Clearance w eGFR > 60 Random Glucose 294 H D Ur Leukocyte Esterase 3+ H D Assessment Sepsis syndrome urinary source suspected Gram neg bacteremia ( anaerobic bottles) DKA Elevated TNI demand ischemia Plan Clinically improved so will stay course with Cefepime pending final c/s Critical care time spent in ICU care YES 35 minutes Kade ANSARI
[2017-06-20] MEDS: INSULIN (NOVOLOG) ASPART 100 UNITS/ML 10ML VIAL SQ SCH ×3 (08:20→16:48)
--- NOTE | 2017-06-20 09:08 | PN ---
Progress Note, Physician Chief Complaint: Pt is anxious; wants to go home and arrange her things. History of Present Illness: 71F w/ hx of IDDM, HLD, CAD ?s/p 4 stents; and CABG (?2002) presenting from home after pt's brother called EMS due to her altered mental status. Per the pt' s niece, the pt was in her USOH 2 days ago. She reports that the pt lives alone , and the pt called her brother today who noticed that she wasn't speaking coherently. So, the brother called EMS to bring her in. The pt was found altered with feculent material around her face. Due to the patient's AMS, further history was unable to be elicited. Of note, the pt presented to [facility] in 02/2017 for a UTI, treated with levaquin. - Current Medication List Current Medications: Active Medications Acetaminophen (Tylenol -) 650 mg PO Q6H PRN PRN Reason: FEVER OR PAIN Last Admin: 06/19/17 06:54 Dose: 650 mg Aspirin (Asa -) 81 mg PO DAILY [facility] Last Admin: 06/19/17 17:50 Dose: 81 mg Atorvastatin Calcium (Lipitor -) 20 mg PO HS [facility] Chlorhexidine Gluconate (Hibiclens For Decolonization -) 1 applic TP HS [facility] Last Admin: 06/19/17 22:02 Dose: 1 applic Clopidogrel Bisulfate (Plavix -) 75 mg PO DAILY [facility] Last Admin: 06/19/17 17:50 Dose: 75 mg Enoxaparin Sodium (Lovenox -) 60 mg SQ BID@0600,1800 [facility] Last Admin: 06/20/17 06:43 Dose: 60 mg Cefepime HCl 1 gm/ Dextrose 100 mls @ 200 mls/hr IVPB Q8H-IV [facility] Last Admin: 06/20/17 03:00 Dose: 200 mls/hr Potassium Chloride/Dextrose/Sod Cl (D5-1/2ns+20 Meq Kcl -) 1,000 mls @ 75 mls/ hr IV ASDIR [facility] Last Admin: 06/19/17 10:10 Dose: 75 mls/hr Insulin Aspart (Novolog Vial) 10 units SQ TIDAC [facility] PRN Reason: Protocol Last Admin: 06/20/17 08:20 Dose: 10 units Insulin Detemir (Levemir Vial) 31 units SQ HS [facility] Last Admin: 06/19/17 22:02 Dose: 31 units Mupirocin (Bactroban Ointment (For Decolonization) -) 1 applic NS BID [facility] Stop: 06/23/17 21:59 Last Admin: 06/19/17 22:02 Dose: 1 applic Sodium Chloride (Normal Saline -) 550 ml IV Q20M PRN PRN Reason: MAP<65mm Hg OR SBP <90 Last Admin: 06/18/17 16:27 Dose: 550 ml - Objective Vital Signs: Vital Signs Temperature 98.7 F 06/20/17 08:00 Pulse Rate 99 H 06/20/17 08:00 Respiratory Rate 27 H 06/20/17 08:00 Blood Pressure 89/59 06/20/17 08:00 O2 Sat by Pulse Oximetry (%) 98 06/20/17 08:00 Constitutional: Yes: Anxious Eyes: Yes: WNL HENT: Yes: WNL Labs: CBC, BMP 06/20/17 05:15 06/20/17 06:00 INR, PTT INR 1.28 (0.82-1.09) H 06/18/17 15:30 Problem List - Problems (1) Confusion and disorientation Code(s): F99 - MENTAL DISORDER, NOT OTHERWISE SPECIFIED (2) Hx of CABG Code(s): Z95.1 - PRESENCE OF AORTOCORONARY BYPASS GRAFT (3) Diabetes Assessment/Plan: uncontrolled for some time (HGBA1C > 10). Code(s): E11.9 - TYPE 2 DIABETES MELLITUS WITHOUT COMPLICATIONS (4) Dehydration Assessment/Plan: Pt recevied 6 liters fluid; BP borderline low; hyponatremic. F?u BUN/Cr, electrolytes, Is and Os, daily weight. Code(s): E86.0 - DEHYDRATION (5) NSTEMI (non-ST elevated myocardial infarction) Assessment/Plan: Continue ASA and clopidogrel. Can discontinue Lovenox tomorrow. Atorvastatin. Problematic giving beta blockers or ACEI due to low BP, but would start these as soon as possible (NSTEMI; significant systolic dysfunction). Ideally, pt needs coronary artery evaluation. She does not seems to understand what she is going through, makes little eye contact, and is intent on going home to take care of her house and cats.Will try to speak with health care proxy (?niece). Code(s): I21.4 - NON-ST ELEVATION (NSTEMI) MYOCARDIAL INFARCTION (6) [place] cardiac risk >20% in next 10 years Code(s): Z91.89 - OTH PERSONAL RISK FACTORS, NOT ELSEWHERE CLASSIFIED
[2017-06-20] MEDS: D5-1/2NS+20 MEQ KCL - 1,000 ML IV SCH (09:23)
[2017-06-20] MEDS: ASPIRIN 81 MG CHEWABLE TABLETS PO SCH (09:43)
[2017-06-20] MEDS: CLOPIDOGREL BISULFATE 75 MG TABLET (FP) PO SCH (09:43)
[2017-06-20] MEDS: MUPIROCIN 2% TOPICAL OINTMENT FOR DECOLONIZATION NS SCH ×2 (09:44→22:49)
--- NOTE | 2017-06-20 11:51 | PN ---
Physical Exam: SUBJECTIVE: Patient seen and examined in the ICU. She states she feels well and wants to go home. Denies chest pain or shortness of breath. OBJECTIVE: Reported to be confused overnight, given Haldol Trops began to trend down but now elevated at 3.23 (1.72>3.64>3.29>2.37>2.14> 3.23>) Blood cultures 06/18/2017 shows negative rods Blood cultures 06/18/2017 +ecoli UC non lactose fermenting Remains hypotensive, appears weak, frail although she denies Vital Signs Period Temp Pulse Resp BP Sys/Barrera Pulse Ox Last 24 Hr 97.8 F-98.9 F 82-127 17-27 89-132/47-81 95-98 GENERAL: The patient is awake, alert, and fully oriented during my exam but was reported to be confused and agitated this morning, haldol given HEAD: Normal with no signs of trauma. EYES: PERRL, extraocular movements intact, sclera anicteric, conjunctiva clear. No ptosis. ENT: Ears normal, nares patent, oropharynx clear without exudates, moist mucous membranes. NECK: Trachea midline, full range of motion, supple. LUNGS: Breath sounds equal, clear to auscultation bilaterally, no wheezes HEART: Regular rate and rhythm, S1, S2 without murmur, rub or gallop. ABDOMEN: Soft, nontender, nondistended, normoactive bowel sounds, no guarding, no rebound, no hepatosplenomegaly, no masses. EXTREMITIES: 2+ pulses, warm, well-perfused, no edema. NEUROLOGICAL: Normal speech, gait not observed. PSYCH: Normal mood, normal affect. SKIN: Warm, dry, normal turgor, no rashes or lesions noted Laboratory Results - last 24 hr 06/19/17 06/19/17 06/19/17 05:20 14:30 14:30 WBC 5.3 RBC 3.38 L Hgb 10.0 L D Hct 28.3 L D MCV 83.9 MCH 29.5 MCHC 35.1 RDW 13.8 Plt Count 175 D MPV 8.0 Neutrophils % 86.5 H Lymphocytes % 5.5 L D Monocytes % 7.0 Eosinophils % 0.7 D Basophils % 0.3 Sodium Potassium Chloride Carbon Dioxide Anion Gap BUN Creatinine Creat Clearance w eGFR POC Glucometer Random Glucose Hemoglobin A1c % 10.3 H D Calcium Total Bilirubin AST ALT Alkaline Phosphatase Troponin I 2.14 H* Total Protein Albumin 06/19/17 06/19/17 06/20/17 16:53 21:48 03:12 WBC RBC Hgb Hct MCV MCH MCHC RDW Plt Count MPV Neutrophils % Lymphocytes % Monocytes % Eosinophils % Basophils % Sodium Potassium Chloride Carbon Dioxide Anion Gap BUN Creatinine Creat Clearance w eGFR POC Glucometer [phone] 240.70001 Random Glucose Hemoglobin A1c % Calcium Total Bilirubin AST ALT Alkaline Phosphatase Troponin I Total Protein Albumin 06/20/17 06/20/17 06/20/17 05:15 06:00 08:50 WBC 6.8 RBC 3.42 L Hgb 10.0 L Hct 28.3 L MCV 83.0 MCH 29.4 MCHC 35.4 RDW 13.5 Plt Count 248 D MPV 7.9 Neutrophils % 89.9 H Lymphocytes % 3.9 L D Monocytes % 5.6 Eosinophils % 0.4 Basophils % 0.2 Sodium 133 L Potassium 4.0 Chloride 104 Carbon Dioxide 18 L Anion Gap 11 BUN 16 D Creatinine 0.7 Creat Clearance w eGFR > 60 POC Glucometer Random Glucose 294 H D Hemoglobin A1c % Calcium 8.1 L Total Bilirubin 0.4 AST 20 D ALT 19 D Alkaline Phosphatase 85 D Troponin I 3.23 H* Total Protein 4.5 L Albumin 2.1 L Active Medications Generic Name Dose Route Start Last Admin Trade Name Freq PRN Reason Stop Dose Admin Acetaminophen 650 mg 06/18/17 17:53 06/19/17 06:54 Tylenol - PO 650 mg Q6H PRN Administration FEVER OR PAIN Aspirin 81 mg 06/19/17 17:45 06/20/17 09:43 Asa - PO 81 mg DAILY [facility] Administration Atorvastatin Calcium 20 mg 06/20/17 22:00 Lipitor - PO HS [facility] Chlorhexidine Gluconate 1 applic 06/18/17 22:00 06/19/17 22:02 Hibiclens For Decolonization - TP 1 applic HS [facility] Administration Clopidogrel Bisulfate 75 mg 06/19/17 17:45 06/20/17 09:43 Plavix - PO 75 mg DAILY [facility] Administration Enoxaparin Sodium 60 mg 06/19/17 18:00 06/20/17 06:43 Lovenox - SQ 60 mg BID@0600,1800 [facility] Administration Cefepime HCl 1 gm/ Dextrose 100 mls @ 200 mls/hr 06/19/17 10:00 06/20/17 09:44 IVPB 200 mls/hr Q8H-IV [facility] Administration Potassium Chloride/Dextrose/Sod Cl 1,000 mls @ 75 mls/hr 06/19/17 09:23 09:23 D5-1/2ns+20 Meq Kcl - IV 75 mls/hr ASDIR [facility] Administration Insulin Aspart 10 units 06/19/17 07:00 06/20/17 08:20 Novolog Vial SQ 10 units TIDAC [facility] Administration Protocol Insulin Detemir 31 units 06/19/17 22:00 06/19/17 22:02 Levemir Vial SQ 31 units HS [facility] Administration Mupirocin 1 applic 06/18/17 22:00 06/20/17 09:44 Bactroban Ointment (For Decolonization) - NS 06/23/17 21:59 1 applic BID [facility] Administration Sodium Chloride 550 ml 06/18/17 15:26 06/18/17 16:27 Normal Saline - IV 550 ml Q20M PRN Administration MAP<65mm Hg OR SBP <90 ASSESSMENT/PLAN: Mrs. Paul is a 71 year old female with a significant past medical history of hypertension, diabetes mellitus and CABG. She presented to the ER on 06/18/2017 with high blood sugar and confusion. She was found to be in septic shock on admission likely secondary to a UTI. She also had DKA with an elevated anion gap. Her troponins were initially trending down but now are uptrending. ID: Severe Sepsis/Bacteremia - acute Assessment/Plan: On admission had leukocytosis (12.2), tachycardia (hr 130s), was febrile (105.7F), UA WBC of 132 and had altered mental status. Her WBC is now within normal limits, but remains hypotensive. Her mental status is close to her baseline, but had a period of agitation and confusion this a.m. She is on Cefepime 1 gram q8 (day 2) Urine cultures with non lactose fermenting Blood cultures 06/18/2017 shows negative rods Blood cultures 06/18/2017 +ecoli Will repeat blood and urine cultures ID following Neurology: Metabolic Encephalopathy - improving A/P: metabolic encephalopathy likely secondary to sepsis, UTI and DKA She is alert and oriented on my exam, however had an episode of confusion and agitation this a.m., given Haldol SepsisL continue antibiotics as per ID UTI: on antiboitics, continue DKA now resolved, s/p insulin drip and IVF fluids Monitor mental status Cardiology: Elevated troponins/NSTEMI vs Demand ischemia/ACS A/P: Troponins initially trending down but now uptrending Denies chest pain or shortness of breath Lovenox 60mg BID Echo pending Cardiology following Hypertension history but now with hypotension Hypotension likely secondary to septic shock A/P: On D5-1/2NS+20mEqKCl@100cc/hr Monitor BP, IVF prn if becomes hypotensive or if map <65 Endocrinology: DKA - resolved A/P: Anion gap closed On Levemir 31 units @ hs and insult 10units TID/AC hmga1c 10.3 F.E.N. Fluids: D5 1/2 NS 20MEQ KCL @ 100cc/hr Electrolytes: Monitor daily, Hyponatrema @133 today, will add NS to IVF Nutrition: low sodium/diabetic diet Prophylaxis: DVT: On Lovenox 60mg BID GI: Zantac 150mg BID Disposition: Requires ICU monitoring. Full Code. Visit type - Emergency Visit Emergency Visit: Yes ED Registration Date: 06/18/17 Care time: The patient presented to the Emergency Department on the above date and was hospitalized for further evaluation of their emergent condition. - New Patient This patient is new to me today: Yes Date on this admission: 06/20/17 - Critical Care Critical Care patient: Yes Total Critical Care Time (in minutes): 60 Critical Care Statement: The care of this patient involved high complexity decision making to prevent further life threatening deterioration of the patient 's condition and/or to evalute & treat vital organ system(s) failure or risk of failure. - Discharge Referral Referred to [facility] Med [facility].: No
[2017-06-20] MEDS ORDERED: D5-NS + 20 MEQ KCL - 1,000 ML IV SCH (14:30)
--- NOTE | 2017-06-20 14:54 | PN ---
Teaching Attending Note Name of Resident: Nelli Merrill ATTENDING PHYSICIAN STATEMENT I saw and evaluated the patient. I reviewed the resident's note and discussed the case with the resident. I agree with the resident's findings and plan as documented. SUBJECTIVE: Patient seen and examined in the ICU. Awake and alert. Denies CP or SOB. BP intermittently marginal, but is asymptomatic. Troponin still noted to be elevated. Intake & Output 06/17/17 06/18/17 06/19/17 06/20/17 23:59 23:59 23:59 23:59 Intake Total 2021 1777 1145 Balance 2021 1777 114 Weight 140 lb 1.6 oz 139 lb 7 oz 142 lb 13.753 oz Last Vital Signs Temp Pulse Resp BP Pulse Ox 98.3 F 92 H 25 H 100/59 98 06/20/17 14:00 06/20/17 14:00 06/20/17 14:00 06/20/17 14:00 06/20/17 08:00 Active Medications Acetaminophen (Tylenol -) 650 mg PO Q6H PRN PRN Reason: FEVER OR PAIN Last Admin: 06/19/17 06:54 Dose: 650 mg Aspirin (Asa -) 81 mg PO DAILY [facility] Last Admin: 06/20/17 09:43 Dose: 81 mg Atorvastatin Calcium (Lipitor -) 20 mg PO HS [facility] Chlorhexidine Gluconate (Hibiclens For Decolonization -) 1 applic TP HS [facility] Last Admin: 06/19/17 22:02 Dose: 1 applic Clopidogrel Bisulfate (Plavix -) 75 mg PO DAILY [facility] Last Admin: 06/20/17 09:43 Dose: 75 mg Enoxaparin Sodium (Lovenox -) 60 mg SQ BID@0600,1800 [facility] Last Admin: 06/20/17 06:43 Dose: 60 mg Cefepime HCl 1 gm/ Dextrose 100 mls @ 200 mls/hr IVPB Q8H-IV [facility] Last Admin: 06/20/17 09:44 Dose: 200 mls/hr Dextrose/Sodium Chloride (Dextrose 5%-Normal Saline+20 Meq Kcl -) 1,000 mls @ 100 mls/hr IV ASDIR [facility] Last Admin: 06/20/17 14:30 Dose: 100 mls/hr Insulin Aspart (Novolog Vial) 10 units SQ TIDAC [facility] PRN Reason: Protocol Last Admin: 06/20/17 11:00 Dose: Not Given Insulin Detemir (Levemir Vial) 31 units SQ HS [facility] Last Admin: 06/19/17 22:02 Dose: 31 units Mupirocin (Bactroban Ointment (For Decolonization) -) 1 applic NS BID [facility] Stop: 06/23/17 21:59 Last Admin: 06/20/17 09:44 Dose: 1 applic Ranitidine HCl (Zantac -) 150 mg PO BID [facility] Sodium Chloride (Normal Saline -) 550 ml IV Q20M PRN PRN Reason: MAP<65mm Hg OR SBP <90 Last Admin: 06/18/17 16:27 Dose: 550 ml EXAM: HEENT: (-) Pallor, (-) Icterus PULM: clear, no wheeze CV: S1S2 regular ABD; soft, NT, ND, +BS EXT: cool, no edema, pulses present x 4 Derm: no rash NEURO: Non-focal Laboratory Results - last 24 hr 06/19/17 06/19/17 06/19/17 05:20 14:30 14:30 WBC 5.3 RBC 3.38 L Hgb 10.0 L D Hct 28.3 L D MCV 83.9 MCH 29.5 MCHC 35.1 RDW 13.8 Plt Count 175 D MPV 8.0 Neutrophils % 86.5 H Lymphocytes % 5.5 L D Monocytes % 7.0 Eosinophils % 0.7 D Basophils % 0.3 Sodium Potassium Chloride Carbon Dioxide Anion Gap BUN Creatinine Creat Clearance w eGFR POC Glucometer Random Glucose Hemoglobin A1c % 10.3 H D Calcium Total Bilirubin AST ALT Alkaline Phosphatase Troponin I 2.14 H* Total Protein Albumin 06/19/17 06/19/17 06/20/17 16:53 21:48 03:12 WBC RBC Hgb Hct MCV MCH MCHC RDW Plt Count MPV Neutrophils % Lymphocytes % Monocytes % Eosinophils % Basophils % Sodium Potassium Chloride Carbon Dioxide Anion Gap BUN Creatinine Creat Clearance w eGFR POC Glucometer 263.96086 285.24780 240.26571 Random Glucose Hemoglobin A1c % Calcium Total Bilirubin AST ALT Alkaline Phosphatase Troponin I Total Protein Albumin 06/20/17 06/20/17 06/20/17 05:15 06:00 08:50 WBC 6.8 RBC 3.42 L Hgb 10.0 L Hct 28.3 L MCV 83.0 MCH 29.4 MCHC 35.4 RDW 13.5 Plt Count 248 D MPV 7.9 Neutrophils % 89.9 H Lymphocytes % 3.9 L D Monocytes % 5.6 Eosinophils % 0.4 Basophils % 0.2 Sodium 133 L Potassium 4.0 Chloride 104 Carbon Dioxide 18 L Anion Gap 11 BUN 16 D Creatinine 0.7 Creat Clearance w eGFR > 60 POC Glucometer Random Glucose 294 H D Hemoglobin A1c % Calcium 8.1 L Total Bilirubin 0.4 AST 20 D ALT 19 D Alkaline Phosphatase 85 D Troponin I 3.23 H* Total Protein 4.5 L Albumin 2.1 L IMP: DKA (+) Troponin / NSTEMI IDDM HPL CAD s/p stents x 4 UTI / Bacteremia / Sepsis Hypotension IVF Glycemic control O2 as needed ABX per ID Replete lytes ASA IV Heparin For possible cardiac catherization Dr Fuller Critical Care Total Critical Care Time (in minutes): 35 Critical Care Statement: The care of this patient involved high complexity decision making to prevent further life threatening deterioration of the patient 's condition and/or to evalute & treat vital organ system(s) failure or risk of failure.
--- NOTE | 2017-06-20 15:34 | PN ---
Physical Exam: SUBJECTIVE: Patient seen and examined at bed side this morning. Overnight was agitated and given Halodol. Since morning she woke up confused, wanted to get up and take care of her dogs. OBJECTIVE: Vital Signs Period Temp Pulse Resp BP Sys/Barrera Pulse Ox Last 24 Hr 97.8 F-98.9 F 85-127 17-27 89-132/51-81 95-98 GENERAL: The patient is drowsy, confused, no acute distress. HEAD: Normal with no signs of trauma. EYES: EOM intact, no pallor or icterus. ENT: Ears normal,moist mucous membranes. NECK: Supple. LUNGS: Breath sounds equal, clear to auscultation bilaterally, no wheezes, no crackles, no accessory muscle use. HEART: Regular rate and rhythm, S1, S2 without murmur, rub or gallop. ABDOMEN: Soft, nontender, nondistended, normoactive bowel sounds, no guarding, no rebound, no hepatosplenomegaly, no masses. EXTREMITIES: 2+ pulses, warm, well-perfused, no edema. NEUROLOGICAL: No facial droop, weak to perform power, reflexes intact, Cranial nerves II through XII grossly intact. Normal speech, gait not observed. PSYCH: Normal mood, normal affect. SKIN: Warm, dry, normal turgor, no rashes or lesions noted Laboratory Results - last 24 hr 06/19/17 06/19/17 06/19/17 05:20 14:30 14:30 WBC 5.3 RBC 3.38 L Hgb 10.0 L D Hct 28.3 L D MCV 83.9 MCH 29.5 MCHC 35.1 RDW 13.8 Plt Count 175 D MPV 8.0 Neutrophils % 86.5 H Lymphocytes % 5.5 L D Monocytes % 7.0 Eosinophils % 0.7 D Basophils % 0.3 Sodium Potassium Chloride Carbon Dioxide Anion Gap BUN Creatinine Creat Clearance w eGFR POC Glucometer Random Glucose Hemoglobin A1c % 10.3 H D Calcium Total Bilirubin AST ALT Alkaline Phosphatase Troponin I 2.14 H* Total Protein Albumin 06/19/17 06/19/17 06/20/17 16:53 21:48 03:12 WBC RBC Hgb Hct MCV MCH MCHC RDW Plt Count MPV Neutrophils % Lymphocytes % Monocytes % Eosinophils % Basophils % Sodium Potassium Chloride Carbon Dioxide Anion Gap BUN Creatinine Creat Clearance w eGFR POC Glucometer [phone] [phone] Random Glucose Hemoglobin A1c % Calcium Total Bilirubin AST ALT Alkaline Phosphatase Troponin I Total Protein Albumin 06/20/17 06/20/17 06/20/17 05:15 06:00 08:50 WBC 6.8 RBC 3.42 L Hgb 10.0 L Hct 28.3 L MCV 83.0 MCH 29.4 MCHC 35.4 RDW 13.5 Plt Count 248 D MPV 7.9 Neutrophils % 89.9 H Lymphocytes % 3.9 L D Monocytes % 5.6 Eosinophils % 0.4 Basophils % 0.2 Sodium 133 L Potassium 4.0 Chloride 104 Carbon Dioxide 18 L Anion Gap 11 BUN 16 D Creatinine 0.7 Creat Clearance w eGFR > 60 POC Glucometer Random Glucose 294 H D Hemoglobin A1c % Calcium 8.1 L Total Bilirubin 0.4 AST 20 D ALT 19 D Alkaline Phosphatase 85 D Troponin I 3.23 H* Total Protein 4.5 L Albumin 2.1 L Active Medications Generic Name Dose Route Start Last Admin Trade Name Freq PRN Reason Stop Dose Admin Acetaminophen 650 mg 06/18/17 17:53 06/19/17 06:54 Tylenol - PO 650 mg Q6H PRN Administration FEVER OR PAIN Aspirin 81 mg 06/19/17 17:45 06/20/17 09:43 Asa - PO 81 mg DAILY [facility] Administration Atorvastatin Calcium 20 mg 06/20/17 22:00 Lipitor - PO HS [facility] Chlorhexidine Gluconate 1 applic 06/18/17 22:00 06/19/17 22:02 Hibiclens For Decolonization - TP 1 applic HS [facility] Administration Clopidogrel Bisulfate 75 mg 06/19/17 17:45 06/20/17 09:43 Plavix - PO 75 mg DAILY [facility] Administration Enoxaparin Sodium 60 mg 06/19/17 18:00 06/20/17 06:43 Lovenox - SQ 60 mg BID@0600,1800 [facility] Administration Cefepime HCl 1 gm/ Dextrose 100 mls @ 200 mls/hr 06/19/17 10:00 06/20/17 09:44 IVPB 200 mls/hr Q8H-IV [facility] Administration Dextrose/Sodium Chloride 1,000 mls @ 100 mls/hr 06/20/17 14:30 06/20/17 14:30 Dextrose 5%-Normal Saline+20 Meq Kcl - IV 100 mls/hr ASDIR [facility] Administration Insulin Aspart 10 units 06/19/17 07:00 06/20/17 11:00 Novolog Vial SQ Not Given TIDAC [facility] Protocol Insulin Detemir 31 units 06/19/17 22:00 06/19/17 22:02 Levemir Vial SQ 31 units HS [facility] Administration Mupirocin 1 applic 06/18/17 22:00 06/20/17 09:44 Bactroban Ointment (For Decolonization) - NS 06/23/17 21:59 1 applic BID [facility] Administration Ranitidine HCl 150 mg 06/20/17 22:00 Zantac - PO BID [facility] Sodium Chloride 550 ml 06/18/17 15:26 06/18/17 16:27 Normal Saline - IV 550 ml Q20M PRN Administration MAP<65mm Hg OR SBP <90 ASSESSMENT/PLAN: Patient is a 71 year old woman with h/o HTN and DM who presents with septic shock, UTI, DKA and NSTEMI. Severe sepsis/Bacteremia likely secondary to Urinary Tract Infection Came in with fever of 105. 1 F, UA WBC of 132 IV fluids, IV Cefepime 1gm Q8H, confirmed with patient she doesn't have allergy to cephalosporins Recently had UTI- E.coli pansensitive Urine culture pending, to change abx as per c/s Blood culture positive Neurology AMS likely secondary to sepsis Fall precautions Cardiology NSTEMI vs Demand ischemia Troponins rising 3.64->3.29->2.37--->3.23---> Pending Lovenox 60mg BID, likely needs a cath, plan is to transfer, as per cardiology Echo worsened as compared to the past. Cardiology consult appreciated Hypotension Continue D5-1/2NS+20mEqKCl@75cc/hr Endocrinology DKA now resolved, AG closed. Levemir 31 U HS and INsulin 10U TIDAC HbA1c 10.3 FEN IV D5-1/2NS+20mEqKCl@75cc/hr Electrolytes to be repeated in am Diabetic diet Prophylaxis For DVT: On Heparin 5000 IU TID For GI: Not indicated Illness, Investigation and Plan of care explained to the patient. She verbalized understanding. Case seen and discussed with Dr. Fuller. Visit type - Emergency Visit Emergency Visit: Yes ED Registration Date: 06/18/17 Care time: The patient presented to the Emergency Department on the above date and was hospitalized for further evaluation of their emergent condition. - New Patient This patient is new to me today: No - Critical Care Critical Care patient: Yes Total Critical Care Time (in minutes): 35 Critical Care Statement: The care of this patient involved high complexity decision making to prevent further life threatening deterioration of the patient 's condition and/or to evalute & treat vital organ system(s) failure or risk of failure.
[2017-06-20] MEDS ORDERED: SODIUM CHLORIDE 1,000 ML IV SCH (16:00)
[2017-06-20] MEDS: ATORVASTATIN CA 20 MG TABLET (FP) PO SCH (22:49)
[2017-06-20] MEDS: RANITIDINE HCL 150 MG TABLET (FP) PO SCH (22:49)
[2017-06-20] MEDS: CHLORHEXIDINE GLUCONATE 4% CLEANSER FOR DECOLONIZATION TP SCH (22:49)
[2017-06-20] MEDS: INSULIN DETEMIR 100 UNITS/ML MDV SQ SCH (22:54)
[2017-06-21] MEDS ORDERED: QUEtiapine FUMARATE 25 MG TABLET (FP) PO ONE ×2 (00:30→22:37)
[2017-06-21] MEDS ORDERED: PT OWN MED DRAWER 7, Y5N ONE (01:49)
[2017-06-21] MEDS: CEFEPIME 1 GM in DEXTROSE 5%-WATER 100 ML IVPB SCH (02:00)
[2017-06-21 06:00] LABS: MCH 29.3 pg (25.7-33.7); MCHC 35.2 g/dl (32.0-36.0); MEAN CELL VOLUME 83.4 fl (80-96); MEAN PLT VOLUME 7.5 fl (7.5-11.1); PLATELET COUNT 217 K/MM3 (134-434); RDW 13.9 % (11.6-15.6); WHITE BLOOD COUNT 5.9 K/mm3 (4.0-10.0)
[2017-06-21] MEDS: ENOXAPARIN NA (PORCINE) 60 MG/0.6 ML DISP.SYRIN SQ SCH ×2 (06:01→19:01)
[2017-06-21] MEDS ORDERED: HEMOQUE CONTROL SOLUTION ONE (06:05)
[2017-06-21] MEDS: INSULIN (NOVOLOG) ASPART 100 UNITS/ML 10ML VIAL SQ SCH ×3 (06:12→16:57)
[2017-06-21 06:21] LABS: ALBUMIN 1.9 g/dl (3.4-5.0); ANION GAP 6 (8-16); BILIRUBIN,TOTAL 0.3 mg/dL (0.2-1.0); CALCIUM 7.6 mg/dL (8.5-10.1); CO2 23 mmol/L (21-32); CREATININE 0.4 mg/dL (0.55-1.02); GLUCOSE,RANDOM 171 mg/dL (74-106); MAGNESIUM 1.6 mg/dL (1.8-2.4); PHOSPHOROUS 1.5 mg/dL (2.5-4.9); SGOT/AST 14 U/L (15-37); SGPT/ALT 14 U/L (12-78); TOT PROT 4.2 g/dl (6.4-8.2)
[2017-06-21 06:22] LABS: ALK PHOS 75 U/L (45-117)
--- NOTE | 2017-06-21 07:04 | PN ---
Progress Note, Physician Chief Complaint: ID Cefepime Remains stable on antibiotic Confused afebrile - Current Medication List Current Medications: Active Medications Acetaminophen (Tylenol -) 650 mg PO Q6H PRN PRN Reason: FEVER OR PAIN Last Admin: 06/19/17 06:54 Dose: 650 mg Aspirin (Asa -) 81 mg PO DAILY [facility] Last Admin: 06/20/17 09:43 Dose: 81 mg Atorvastatin Calcium (Lipitor -) 20 mg PO HS [facility] Last Admin: 06/20/17 22:49 Dose: 20 mg Chlorhexidine Gluconate (Hibiclens For Decolonization -) 1 applic TP HS [facility] Last Admin: 06/20/17 22:49 Dose: 1 applic Clopidogrel Bisulfate (Plavix -) 75 mg PO DAILY [facility] Last Admin: 06/20/17 09:43 Dose: 75 mg Enoxaparin Sodium (Lovenox -) 60 mg SQ BID@0600,1800 [facility] Last Admin: 06/21/17 06:01 Dose: 60 mg Cefepime HCl 1 gm/ Dextrose 100 mls @ 200 mls/hr IVPB Q8H-IV [facility] Last Admin: 06/21/17 02:00 Dose: 200 mls/hr Sodium Chloride (Normal Saline -) 1,000 mls @ 83 mls/hr IV ASDIR [facility] Last Admin: 06/20/17 15:58 Dose: 83 mls/hr Insulin Aspart (Novolog Vial) 10 units SQ TIDAC [facility] PRN Reason: Protocol Last Admin: 06/21/17 06:12 Dose: Not Given Insulin Detemir (Levemir Vial) 31 units SQ [facility] Last Admin: 06/20/17 22:54 Dose: Not Given Mupirocin (Bactroban Ointment (For Decolonization) -) 1 applic NS BID [facility] Stop: 06/23/17 21:59 Last Admin: 06/20/17 22:49 Dose: 1 applic Ranitidine HCl (Zantac -) 150 mg PO BID [facility] Last Admin: 06/20/17 22:49 Dose: 150 mg Sodium Chloride (Normal Saline -) 550 ml IV Q20M PRN PRN Reason: MAP<65mm Hg OR SBP <90 Last Admin: 06/18/17 16:27 Dose: 550 ml - Objective Vital Signs: Vital Signs Temperature 99.2 F 06/21/17 02:00 Pulse Rate 100 H 08/11/17 04:00 Respiratory Rate 14 06/21/17 04:00 Blood Pressure 114/63 06/21/17 04:00 O2 Sat by Pulse Oximetry (%) 100 06/20/17 19:36 Constitutional: Yes: Well Nourished, No Distress Neck: Yes: WNL, Supple Cardiovascular: Yes: S1, S2 Respiratory: Yes: WNL, Regular, CTA Bilaterally Gastrointestinal: Yes: WNL, Normal Bowel Sounds, Soft. No: Tenderness, Tenderness, Epigastrium Edema: No Labs: CBC, BMP 06/21/17 05:10 06/21/17 05:10 INR, PTT INR 1.28 (0.82-1.09) H 06/18/17 15:30 Problem List - Problems (1) Diabetic ketoacidosis Code(s): E13.10 - OTH DIABETES MELLITUS WITH KETOACIDOSIS WITHOUT COMA Qualifiers: Diabetes mellitus type: other specified (including AJAY) Diabetes mellitus complication detail: without coma Qualified Code(s): E13.10 - Other specified diabetes mellitus with ketoacidosis without coma (2) Elevated troponin Code(s): R74.8 - ABNORMAL LEVELS OF OTHER SERUM ENZYMES (3) Sepsis Code(s): A41.9 - SEPSIS, UNSPECIFIED ORGANISM (4) Gram-negative bacteremia Code(s): R78.81 - BACTEREMIA Assessment/Plan Microbiology 06/18/17 15:30 Blood - Peripheral Venous Blood Culture - Final Escherichia Coli 06/18/17 15:40 Blood - Peripheral Venous Blood Culture - Preliminary Gram Negative Cliff 06/18/17 15:30 Urine - Urine - Catheterized Urine Culture - Preliminary Non Lactose Fermenting Gnb Laboratory Tests 06/21/17 06/21/17 05:10 05:10 WBC 5.9 Hgb 9.3 L Hct 26.4 L Plt Count 217 BUN 8 D Assessment Gram neg sepsis E Coli bacteremia UTI Organism pansensitive does not need Cefepime Plan Switch to Ceftriaxone 1 gram daily and can ultimately finish treatment with oral quinolone total 14 days duration Kade ANSARI
[2017-06-21] MEDS: ASPIRIN 81 MG CHEWABLE TABLETS PO SCH (09:06)
[2017-06-21] MEDS: CEFTRIAXONE 50 ML IVPB SCH (09:06)
[2017-06-21] MEDS: RANITIDINE HCL 150 MG TABLET (FP) PO SCH ×2 (09:06→22:20)
[2017-06-21] MEDS: CLOPIDOGREL BISULFATE 75 MG TABLET (FP) PO SCH (09:06)
[2017-06-21] MEDS: MUPIROCIN 2% TOPICAL OINTMENT FOR DECOLONIZATION NS SCH ×2 (09:07→22:23)
[2017-06-21 09:53] LABS: TROPONIN I 1.91 ng/ml (0.00-0.05)
[2017-06-21] MEDS ORDERED: MAGNESIUM SULF 50% (8.12 MEQ/2 ML-1 GM VIAL) IVPB ONE (10:55)
--- NOTE | 2017-06-21 10:59 | PN ---
Physical Exam: SUBJECTIVE: Patient seen and examined in the ICU. She denies any chest pain or discomfort. Asking to go home and refusing further cardiac workup. OBJECTIVE: Psych consult to evaluate for mental status and capacity to make her own decisions Tropnins downtrending to 1.91 Breathing rate between 27-33, on 2 liters of nasal cannula, lungs diminished, IVF rate decreased BP improved Now on Ceftriaxone as per ID Vital Signs Period Temp Pulse Resp BP Sys/Barrera Pulse Ox Last 24 Hr 97.7 F-99.2 F 84-105 14-31 91-116/50-66 100 GENERAL: The patient is awake, alert, and fully oriented during my exam, no overnight agitation reported HEAD: Normal with no signs of trauma. EYES: PERRL, extraocular movements intact, sclera anicteric, conjunctiva clear. No ptosis. ENT: Ears normal, nares patent, oropharynx clear without exudates, moist mucous membranes. NECK: Trachea midline, full range of motion, supple. LUNGS: Breath sounds equal, clear to auscultation bilaterally, no wheezes HEART: Regular rate and rhythm, S1, S2 without murmur, rub or gallop. ABDOMEN: Soft, nontender, nondistended, normoactive bowel sounds, no guarding, no rebound, no hepatosplenomegaly, no masses. EXTREMITIES: 2+ pulses, warm, well-perfused, no edema. NEUROLOGICAL: Normal speech, gait not observed. PSYCH: Normal mood, normal affect. SKIN: Warm, dry, normal turgor, no rashes or lesions noted Laboratory Results - last 24 hr 06/20/17 06/20/17 06/20/17 11:50 15:30 16:47 WBC RBC Hgb Hct MCV MCH MCHC RDW Plt Count MPV Sodium Potassium Chloride Carbon Dioxide Anion Gap BUN Creatinine Creat Clearance w eGFR POC Glucometer [phone] Random Glucose Calcium Phosphorus Magnesium Total Bilirubin AST ALT Alkaline Phosphatase Troponin I 2.64 H* Total Protein Albumin Triglycerides Cholesterol Total LDL Cholesterol HDL Cholesterol 06/20/17 06/21/17 06/21/17 22:47 05:10 05:10 WBC 5.9 RBC 3.17 L Hgb 9.3 L Hct 26.4 L MCV 83.4 MCH 29.3 MCHC 35.2 RDW 13.9 Plt Count 217 MPV 7.5 Sodium 139 Potassium 3.5 Chloride 110 H Carbon Dioxide 23 D Anion Gap 6 L BUN 8 D Creatinine 0.4 L D Creat Clearance w eGFR > 60 POC Glucometer [phone] Random Glucose 171 H D Calcium 7.6 L Phosphorus 1.5 L Magnesium 1.6 L D Total Bilirubin 0.3 D AST 14 L D ALT 14 D Alkaline Phosphatase 75 Troponin I 1.91 H* Total Protein 4.2 L Albumin 1.9 L Triglycerides Cancelled Cholesterol Cancelled Total LDL Cholesterol Cancelled HDL Cholesterol Cancelled 06/21/17 06/21/17 05:10 06:12 WBC RBC Hgb Hct MCV MCH MCHC RDW Plt Count MPV Sodium Potassium Chloride Carbon Dioxide Anion Gap BUN Creatinine Creat Clearance w eGFR POC Glucometer [phone] Random Glucose Calcium Phosphorus Magnesium Total Bilirubin AST ALT Alkaline Phosphatase Troponin I Cancelled Total Protein Albumin Triglycerides Cholesterol Total LDL Cholesterol HDL Cholesterol Active Medications Generic Name Dose Route Start Last Admin Trade Name Freq PRN Reason Stop Dose Admin Acetaminophen 650 mg 06/18/17 17:53 06/19/17 06:54 Tylenol - PO 650 mg Q6H PRN Administration FEVER OR PAIN Aspirin 81 mg 06/19/17 17:45 06/21/17 09:06 Asa - PO 81 mg DAILY [facility] Administration Atorvastatin Calcium 20 mg 06/20/17 22:00 06/20/17 22:49 Lipitor - PO 20 mg HS [facility] Administration Chlorhexidine Gluconate 1 applic 06/18/17 22:00 06/20/17 22:49 Hibiclens For Decolonization - TP 1 applic HS [facility] Administration Clopidogrel Bisulfate 75 mg 06/19/17 17:45 06/21/17 09:06 Plavix - PO 75 mg DAILY [facility] Administration Enoxaparin Sodium 60 mg 06/19/17 18:00 06/21/17 06:01 Lovenox - SQ 60 mg BID@0600,1800 [facility] Administration Ceftriaxone Sodium 50 mls @ 100 mls/hr 06/21/17 10:00 06/21/17 09:06 Rocephin 1gm Ivpb (Pre-Docked) IVPB 100 mls/hr DAILY [facility] Administration Insulin Aspart 10 units 06/19/17 07:00 06/21/17 06:12 Novolog Vial SQ Not Given TIDAC [facility] Protocol Insulin Detemir 31 units 06/19/17 22:00 06/20/17 22:54 Levemir Vial SQ Not Given HS [facility] Magnesium Sulfate 2 gm 06/21/17 10:55 Magnesium Sulfate IVPB 06/21/17 10:56 ONCE ONE Mupirocin 1 applic 06/18/17 22:00 06/21/17 09:07 Bactroban Ointment (For Decolonization) - NS 06/23/17 21:59 1 applic BID [facility] Administration Potassium Phos/Sodium Phos 1 packet 06/21/17 11:00 Phos-Nak Packet - PO BID [facility] Ranitidine HCl 150 mg 06/20/17 22:00 06/21/17 09:06 Zantac - PO 150 mg BID [facility] Administration Sodium Chloride 550 ml 06/18/17 15:26 06/18/17 16:27 Normal Saline - IV 550 ml Q20M PRN Administration MAP<65mm Hg OR SBP <90 ASSESSMENT/PLAN: Mrs. Paul is a 71 year old female with a significant past medical history of hypertension, diabetes mellitus and CABG. She presented to the ER on 06/18/2017 with high blood sugar and confusion. She was found to be in septic shock on admission likely secondary to a UTI. She also had DKA with an elevated anion gap. Her troponins peaked at 3.64, but now at 1.91. ID: Severe Sepsis/Bacteremia - acute Assessment/Plan: On admission had leukocytosis (12.2), tachycardia (hr 130s), was febrile (105.7F), UA WBC of 132 and had altered mental status. Her WBC is now within normal limits, hypotension improving. Her mental status is close to her baseline, will ask psyche to evaluate for decision making capacity Switched to Ceftriaxone for gram negative sepsis/ecoli bacteremia/UTI Cefepime discontinued Repeat blood and urine cultures pending ID following Neurology: Metabolic Encephalopathy - improving A/P: metabolic encephalopathy likely secondary to sepsis, UTI and DKA She is alert and oriented on my exam, psyche asked to evaluate capacity for decision making Sepsis/UTI continue antibiotics as per ID DKA now resolved, s/p insulin drip and IVF fluids Monitor mental status Cardiology: Elevated troponins/NSTEMI vs Demand ischemia/ACS A/P: Troponins peaked at 3.64, now 1.91 Denies chest pain or shortness of breath Lovenox 60mg BID Cardiology following Hypertension history but now with hypotension Hypotension likely secondary to septic shock A/P: On D5-1/2NS+20mEqKCl@100cc/hr Monitor BP, IVF prn if becomes hypotensive or if map <65 Endocrinology: DKA - resolved A/P: Anion gap closed On Levemir 31 units @ hs and insult 10 units TID/AC hmga1c 10.3 F.E.N. Fluids: NS @ 42cc/hr Electrolytes: Magnesium 1.6: Magnesium 2 gram IV ordered Low phosphoros 1.5: Phos emilia x BID Nutrition: low sodium/diabetic diet Prophylaxis: DVT: On Lovenox 60mg BID GI: Zantac 150mg BID Disposition: Requires ICU monitoring. Full Code. Visit type - Emergency Visit Emergency Visit: Yes ED Registration Date: 06/18/17 Care time: The patient presented to the Emergency Department on the above date and was hospitalized for further evaluation of their emergent condition. - New Patient This patient is new to me today: No - Critical Care Critical Care patient: Yes Total Critical Care Time (in minutes): 60 Critical Care Statement: The care of this patient involved high complexity decision making to prevent further life threatening deterioration of the patient 's condition and/or to evaluate & treat vital organ system(s) failure or risk of failure. - Discharge Referral Referred to [facility] No
[2017-06-21] MEDS: SODIUM CHLORIDE 1,000 ML IV SCH (11:00)
--- NOTE | 2017-06-21 11:40 | PN ---
Physical Exam: SUBJECTIVE: Patient seen and examined this morning while laying in bed. Pt denies any overnight complaints including nausea, vomiting, fever, chills, SOB or chest pain. Pt oriented to person, place, and year; cannot recall month, season or date. Discussed with pt the plan for her to receive cardiac care including catheterization at another facility. Pt is in agreement. Pt has no other acute issues at this time. OBJECTIVE: Vital Signs Period Temp Pulse Resp BP Sys/Barrera Pulse Ox Last 24 Hr 97.7 F-99.2 F 84-105 14-31 91-116/50-66 100 GENERAL: The patient is awake, alert, AAO x2, in no acute distress. HEAD: Normal with no signs of trauma. EYES: sclera anicteric, conjunctiva clear. No ptosis. NECK: Trachea midline LUNGS: Breath sounds equal, clear to auscultation bilaterally, no wheezes, no crackles, no accessory muscle use. HEART: Regular rate and rhythm, S1, S2 without murmur, rub or gallop. ABDOMEN: Soft, nontender, nondistended, normoactive bowel sounds, no guarding, no rebound, no hepatosplenomegaly, no masses. EXTREMITIES: 2+ radial pulses b/l, warm, well-perfused, no edema. NEUROLOGICAL: Cranial nerves II through XII grossly intact. Normal speech, gait not observed. PSYCH: Normal mood, normal affect. SKIN: Warm, dry, normal turgor, no rashes or lesions noted Laboratory Results - last 24 hr 06/20/17 06/20/17 06/20/17 11:50 15:30 16:47 WBC RBC Hgb Hct MCV MCH MCHC RDW Plt Count MPV Sodium Potassium Chloride Carbon Dioxide Anion Gap BUN Creatinine Creat Clearance w eGFR POC Glucometer 165.32740 195.96370 Random Glucose Calcium Phosphorus Magnesium Total Bilirubin AST ALT Alkaline Phosphatase Troponin I 2.64 H* Total Protein Albumin Triglycerides Cholesterol Total LDL Cholesterol HDL Cholesterol 06/20/17 06/21/17 06/21/17 22:47 05:10 05:10 WBC 5.9 RBC 3.17 L Hgb 9.3 L Hct 26.4 L MCV 83.4 MCH 29.3 MCHC 35.2 RDW 13.9 Plt Count 217 MPV 7.5 Sodium 139 Potassium 3.5 Chloride 110 H Carbon Dioxide 23 D Anion Gap 6 L BUN 8 D Creatinine 0.4 L D Creat Clearance w eGFR > 60 POC Glucometer [phone] Random Glucose 171 H D Calcium 7.6 L Phosphorus 1.5 L Magnesium 1.6 L D Total Bilirubin 0.3 D AST 14 L D ALT 14 D Alkaline Phosphatase 75 Troponin I 1.91 H* Total Protein 4.2 L Albumin 1.9 L Triglycerides Cancelled Cholesterol Cancelled Total LDL Cholesterol Cancelled HDL Cholesterol Cancelled 06/21/17 06/21/17 05:10 06:12 WBC RBC Hgb Hct MCV MCH MCHC RDW Plt Count MPV Sodium Potassium Chloride Carbon Dioxide Anion Gap BUN Creatinine Creat Clearance w eGFR POC Glucometer [phone] Random Glucose Calcium Phosphorus Magnesium Total Bilirubin AST ALT Alkaline Phosphatase Troponin I Cancelled Total Protein Albumin Triglycerides Cholesterol Total LDL Cholesterol HDL Cholesterol Active Medications Generic Name Dose Route Start Last Admin Trade Name Freq PRN Reason Stop Dose Admin Acetaminophen 650 mg 06/18/17 17:53 06/19/17 06:54 Tylenol - PO 650 mg Q6H PRN Administration FEVER OR PAIN Aspirin 81 mg 06/19/17 17:45 06/21/17 09:06 Asa - PO 81 mg DAILY [facility] Administration Atorvastatin Calcium 20 mg 06/20/17 22:00 06/20/17 22:49 Lipitor - PO 20 mg HS [facility] Administration Chlorhexidine Gluconate 1 applic 06/18/17 22:00 06/20/17 22:49 Hibiclens For Decolonization - TP 1 applic HS [facility] Administration Clopidogrel Bisulfate 75 mg 06/19/17 17:45 06/21/17 09:06 Plavix - PO 75 mg DAILY [facility] Administration Enoxaparin Sodium 60 mg 06/19/17 18:00 06/21/17 06:01 Lovenox - SQ 60 mg BID@0600,1800 [facility] Administration Ceftriaxone Sodium 50 mls @ 100 mls/hr 06/21/17 10:00 06/21/17 09:06 Rocephin 1gm Ivpb (Pre-Docked) IVPB 100 mls/hr DAILY [facility] Administration Sodium Chloride 1,000 mls @ 42 mls/hr 06/21/17 10:58 Normal Saline - IV ASDIR [facility] Insulin Aspart 10 units 06/19/17 07:00 06/21/17 06:12 Novolog Vial SQ Not Given TIDAC [facility] Protocol Insulin Detemir 31 units 06/19/17 22:00 06/20/17 22:54 Levemir Vial SQ Not Given HS [facility] Magnesium Sulfate 2 gm 06/21/17 10:55 Magnesium Sulfate IVPB 06/21/17 10:56 ONCE ONE Mupirocin 1 applic 06/18/17 22:00 06/21/17 09:07 Bactroban Ointment (For Decolonization) - NS 06/23/17 21:59 1 applic BID [facility] Administration Potassium Phos/Sodium Phos 1 packet 06/21/17 11:00 Phos-Nak Packet - PO BID [facility] Ranitidine HCl 150 mg 06/20/17 22:00 06/21/17 09:06 Zantac - PO 150 mg BID [facility] Administration Sodium Chloride 550 ml 06/18/17 15:26 06/18/17 16:27 Normal Saline - IV 550 ml Q20M PRN Administration MAP<65mm Hg OR SBP <90 ASSESSMENT/PLAN: 71 y/o female pmhx IDDM, CAD s/p stents, and prior admissions for DKA admitted 06/18/17 for DKA and sepsis 2/2 UTI complicated by elevated troponins vs NSTEMI. Cardiovascular: Hx CAD s/p stents. Follows with Dr. Quinones -Persistent elevated troponins this admission. Values since 06/19/17: 2.14>3.23> 2.64 and 1.91 today -Cardiology following; appreciate recs for transfer to outside facility for cardiac cath -Continue Lovenox 60mg SQ BID -Continue ASA, Plavix, Lipitor -BP stable at 114/63 today -Pt denies chest pain or SOB ID: UTI complicated by sepsis -Afebrile, no leukocytosis -Blood and urine cx + for pansensitive E. coli -Blood cx from 06/20/17 no growth to date; await urine cx results -Per ID recs will d/c Cefepime and start Ceftriaxone IV 1gm with transition to oral fluoroquinolone -Appreciate ID recs Endocrine: Hx IDDM -DKA resolved, AG closed -Continue Novolog 10U SQ TIDAC, Levemir 31U SQ HS -HgbA1c 10.3 Neuro: -AAO x2; unsure where pt's baseline status is -Hx of agitation during this admission -No agitation over past 24hrs FEN: -NS @ 42ml/hr -Repleted K+ and Mg+ -Diabetic diet Prophylaxis: -Lovenox SQ Dispo: Stable for transfer to outside hospital for cardiac cath
--- NOTE | 2017-06-21 12:35 | PN ---
Teaching Attending Note Name of Resident: Smooth Buckley ATTENDING PHYSICIAN STATEMENT I saw and evaluated the patient. I reviewed the resident's note and discussed the case with the resident. I agree with the resident's findings and plan as documented. SUBJECTIVE: Patient seen and examined in the ICU. Awake and alert. Denies CP or SOB. Troponin downtrending. Intake & Output 06/18/17 06/19/17 06/20/17 06/21/17 23:59 23:59 23:59 23:59 Intake Total 2021 1778 2306.5 1812 Balance 2021 1778 2306.5 1812 Weight 140 lb 1.6 oz 139 lb 7 oz 142 lb 13.753 oz 140 lb 14.006 oz Last Vital Signs Temp Pulse Resp BP Pulse Ox 97.7 F 85 18 107/66 99 06/21/17 10:00 06/21/17 12:00 06/21/17 12:00 06/21/17 12:00 06/21/17 09:00 Active Medications Acetaminophen (Tylenol -) 650 mg PO Q6H PRN PRN Reason: FEVER OR PAIN Last Admin: 06/19/17 06:54 Dose: 650 mg Aspirin (Asa -) 81 mg PO DAILY [facility] Last Admin: 06/21/17 09:06 Dose: 81 mg Atorvastatin Calcium (Lipitor -) 20 mg PO HS [facility] Last Admin: 06/20/17 22:49 Dose: 20 mg Chlorhexidine Gluconate (Hibiclens For Decolonization -) 1 applic TP [facility] Last Admin: 06/20/17 22:49 Dose: 1 applic Clopidogrel Bisulfate (Plavix -) 75 mg PO DAILY [facility] Last Admin: 06/21/17 09:06 Dose: 75 mg Enoxaparin Sodium (Lovenox -) 60 mg SQ BID@0600,1800 [facility] Last Admin: 06/21/17 06:01 Dose: 60 mg Ceftriaxone Sodium (Rocephin 1gm Ivpb (Pre-Docked)) 50 mls @ 100 mls/hr IVPB DAILY [facility] Last Admin: 06/21/17 09:06 Dose: 100 mls/hr Sodium Chloride (Normal Saline -) 1,000 mls @ 42 mls/hr IV ASDIR [facility] Last Admin: 06/21/17 11:00 Dose: 42 mls/hr Insulin Aspart (Novolog Vial) 10 units SQ TIDAC [facility] PRN Reason: Protocol Last Admin: 06/21/17 11:55 Dose: 10 units Insulin Detemir (Levemir Vial) 31 units SQ HS [facility] Last Admin: 06/20/17 22:54 Dose: Not Given Mupirocin (Bactroban Ointment (For Decolonization) -) 1 applic NS BID [facility] Stop: 06/23/17 21:59 Last Admin: 06/21/17 09:07 Dose: 1 applic Potassium Phos/Sodium Phos (Phos-Nak Packet -) 1 packet PO BID [facility] Ranitidine HCl (Zantac -) 150 mg PO BID [facility] Last Admin: 06/21/17 09:06 Dose: 150 mg Sodium Chloride (Normal Saline -) 550 ml IV Q20M PRN PRN Reason: MAP<65mm Hg OR SBP <90 Last Admin: 06/18/17 16:27 Dose: 550 ml EXAM: HEENT: (-) Pallor, (-) Icterus PULM: clear, no wheeze CV: S1S2 regular ABD; soft, NT, ND, +BS EXT: cool, no edema, pulses present x 4 Derm: no rash NEURO: Non-focal Laboratory Results - last 24 hr 06/20/17 06/20/17 06/20/17 11:50 15:30 16:47 WBC RBC Hgb Hct MCV MCH MCHC RDW Plt Count MPV Sodium Potassium Chloride Carbon Dioxide Anion Gap BUN Creatinine Creat Clearance w eGFR POC Glucometer 165.08466 195.15757 Random Glucose Calcium Phosphorus Magnesium Total Bilirubin AST ALT Alkaline Phosphatase Troponin I 2.64 H* Total Protein Albumin Triglycerides Cholesterol Total LDL Cholesterol HDL Cholesterol 06/20/17 06/21/17 06/21/17 22:47 05:10 05:10 WBC 5.9 RBC 3.17 L Hgb 9.3 L Hct 26.4 L MCV 83.4 MCH 29.3 MCHC 35.2 RDW 13.9 Plt Count 217 MPV 7.5 Sodium 139 Potassium 3.5 Chloride 110 H Carbon Dioxide 23 D Anion Gap 6 L BUN 8 D Creatinine 0.4 L D Creat Clearance w eGFR > 60 POC Glucometer 180.13778 Random Glucose 171 H D Calcium 7.6 L Phosphorus 1.5 L Magnesium 1.6 L D Total Bilirubin 0.3 D AST 14 L D ALT 14 D Alkaline Phosphatase 75 Troponin I 1.91 H* Total Protein 4.2 L Albumin 1.9 L Triglycerides Cancelled Cholesterol Cancelled Total LDL Cholesterol Cancelled HDL Cholesterol Cancelled 06/21/17 06/21/17 05:10 06:12 WBC RBC Hgb Hct MCV MCH MCHC RDW Plt Count MPV Sodium Potassium Chloride Carbon Dioxide Anion Gap BUN Creatinine Creat Clearance w eGFR POC Glucometer [phone] Random Glucose Calcium Phosphorus Magnesium Total Bilirubin AST ALT Alkaline Phosphatase Troponin I Cancelled Total Protein Albumin Triglycerides Cholesterol Total LDL Cholesterol HDL Cholesterol IMP: DKA (+) Troponin / NSTEMI IDDM HPL CAD s/p stents x 4 UTI / Bacteremia / Sepsis Hypotension IVF Glycemic control O2 as needed ABX per ID Replete lytes ASA IV Heparin For possible cardiac catherization Dr Fuller Critical Care Total Critical Care Time (in minutes): 35 Critical Care Statement: The care of this patient involved high complexity decision making to prevent further life threatening deterioration of the patient 's condition and/or to evalute & treat vital organ system(s) failure or risk of failure.
[2017-06-21] MEDS: NAPH,MB-DB/K PH,MBDB POWDER PACKET PO SCH ×2 (13:00→22:23)
[2017-06-21] MEDS ORDERED: POTASSIUM CHLORIDE TABS 20 MEQ TABLET.ER (FP) PO ONE (14:45)
--- NOTE | 2017-06-21 19:10 | PN ---
Progress Note, Physician Chief Complaint: Pt is alert; denies chest pain or dyspnea. History of Present Illness: 71F w/ hx of IDDM, HLD, CAD ?s/p 4 stents; and CABG (?2002) presenting from home after pt's brother called EMS due to her altered mental status. Per the pt' s niece, the pt was in her USOH 2 days ago. She reports that the pt lives alone , and the pt called her brother today who noticed that she wasn't speaking coherently. So, the brother called EMS to bring her in. The pt was found altered with feculent material around her face. Due to the patient's AMS, further history was unable to be elicited. Of note, the pt presented to [facility] in 02/2017 for a UTI, treated with levaquin. - Current Medication List Current Medications: Active Medications Acetaminophen (Tylenol -) 650 mg PO Q6H PRN PRN Reason: FEVER OR PAIN Last Admin: 06/19/17 06:54 Dose: 650 mg Aspirin (Asa -) 81 mg PO DAILY [facility] Last Admin: 06/21/17 09:06 Dose: 81 mg Atorvastatin Calcium (Lipitor -) 20 mg PO HS [facility] Last Admin: 06/20/17 22:49 Dose: 20 mg Chlorhexidine Gluconate (Hibiclens For Decolonization -) 1 applic TP [facility] Last Admin: 06/20/17 22:49 Dose: 1 applic Clopidogrel Bisulfate (Plavix -) 75 mg PO DAILY [facility] Last Admin: 06/21/17 09:06 Dose: 75 mg Ceftriaxone Sodium (Rocephin 1gm Ivpb (Pre-Docked)) 50 mls @ 100 mls/hr IVPB DAILY [facility] Last Admin: 06/21/17 09:06 Dose: 100 mls/hr Sodium Chloride (Normal Saline -) 1,000 mls @ 42 mls/hr IV ASDIR [facility] Last Admin: 06/21/17 11:00 Dose: 42 mls/hr Insulin Aspart (Novolog Vial) 10 units SQ TIDAC [facility] PRN Reason: Protocol Last Admin: 06/21/17 16:57 Dose: 10 units Insulin Detemir (Levemir Vial) 31 units SQ HS [facility] Last Admin: 06/20/17 22:54 Dose: Not Given Mupirocin (Bactroban Ointment (For Decolonization) -) 1 applic NS BID [facility] Stop: 06/23/17 21:59 Last Admin: 06/21/17 09:07 Dose: 1 applic Potassium Phos/Sodium Phos (Phos-Nak Packet -) 1 packet PO BID [facility] Last Admin: 06/21/17 13:00 Dose: 1 packet Ranitidine HCl (Zantac -) 150 mg PO BID [facility] Last Admin: 06/21/17 09:06 Dose: 150 mg Sodium Chloride (Normal Saline -) 550 ml IV Q20M PRN PRN Reason: MAP<65mm Hg OR SBP <90 Last Admin: 06/18/17 16:27 Dose: 550 ml - Objective Vital Signs: Vital Signs Temperature 98.5 F 06/21/17 17:13 Pulse Rate 83 06/21/17 17:13 Respiratory Rate 27 H 06/21/17 17:13 Blood Pressure 100/60 06/21/17 17:13 O2 Sat by Pulse Oximetry (%) 99 06/21/17 09:00 Constitutional: Yes: Anxious Eyes: Yes: WNL HENT: Yes: WNL Neck: Yes: WNL Cardiovascular: Yes: Regular Rate and Rhythm Respiratory: Yes: WNL Gastrointestinal: Yes: Soft ...Rectal Exam: Yes: Deferred Genitourinary: No: Anuria Labs: CBC, BMP 06/21/17 05:10 06/21/17 05:10 INR, PTT INR 1.28 (0.82-1.09) H 06/18/17 15:30 Problem List - Problems (1) Confusion and disorientation Assessment/Plan: I spoke with her niece, Lottie. She says "she only listens to me". CABG was done in about 2002. She has frequent DKA and UTis. She has apparently had psychiatric Jemichelle will speak with pt about the need for her to undergo a coronary angiogram. If she agrees, this will be arranged on Saturday. Code(s): F99 - MENTAL DISORDER, NOT OTHERWISE SPECIFIED (2) Hx of CABG Code(s): Z95.1 - PRESENCE OF AORTOCORONARY BYPASS GRAFT (3) Diabetes Assessment/Plan: uncontrolled for some time (HGBA1C > 10). Code(s): E11.9 - TYPE 2 DIABETES MELLITUS WITHOUT COMPLICATIONS (4) Dehydration Code(s): E86.0 - DEHYDRATION (5) NSTEMI (non-ST elevated myocardial infarction) Code(s): I21.4 - NON-ST ELEVATION (NSTEMI) MYOCARDIAL INFARCTION (6) [place] cardiac risk >20% in next 10 years Code(s): Z91.89 - OTH PERSONAL RISK FACTORS, NOT ELSEWHERE CLASSIFIED (7) Anemia Assessment/Plan: bacteremia; anemia. Antibiotics changed. Code(s): D64.9 - ANEMIA, UNSPECIFIED
[2017-06-21] MEDS ORDERED: INSULIN DETEMIR 100 UNITS/ML MDV SQ SCH (22:05)
[2017-06-21] MEDS: ATORVASTATIN CA 20 MG TABLET (FP) PO SCH (22:20)
[2017-06-21] MEDS: CHLORHEXIDINE GLUCONATE 4% CLEANSER FOR DECOLONIZATION TP SCH (22:23)
[2017-06-21] MEDS: INSULIN DETEMIR 100 UNITS/ML MDV SQ SCH (22:28)
[2017-06-21] MEDS ORDERED: NOREPINEPHRINE BITARTRATE 4 MG/4 ML ML IV ONE (23:52)
[2017-06-22 06:18] LABS: MCH 29.6 pg (25.7-33.7); MCHC 35.1 g/dl (32.0-36.0); MEAN CELL VOLUME 84.2 fl (80-96); MEAN PLT VOLUME 7.4 fl (7.5-11.1); PLATELET COUNT 275 K/MM3 (134-434); RDW 13.8 % (11.6-15.6); WHITE BLOOD COUNT 6.2 K/mm3 (4.0-10.0)
[2017-06-22] MEDS: INSULIN (NOVOLOG) ASPART 100 UNITS/ML 10ML VIAL SQ SCH ×3 (06:49→16:55)
[2017-06-22 06:51] LABS: ALBUMIN 2.1 g/dl (3.4-5.0); ANION GAP 8 (8-16); BILIRUBIN,TOTAL 0.3 mg/dL (0.2-1.0); CALCIUM 7.8 mg/dL (8.5-10.1); CO2 25 mmol/L (21-32); CREATININE 0.4 mg/dL (0.55-1.02); GLUCOSE,RANDOM 98 mg/dL (74-106); MAGNESIUM 2.1 mg/dL (1.8-2.4); SGOT/AST 13 U/L (15-37); SGPT/ALT 15 U/L (12-78); TOT PROT 4.6 g/dl (6.4-8.2)
[2017-06-22 07:05] LABS: ALK PHOS 85 U/L (45-117); CPK 31 IU/L (26-192)
[2017-06-22 07:40] LABS: TROPONIN I 0.91 ng/ml (0.00-0.05)
[2017-06-22] MEDS ORDERED: POTASSIUM PHOSPHATE 30 MM in SODIUM CHLORIDE 250 ML IVPB ONE (09:35)
--- NOTE | 2017-06-22 09:35 | PN ---
Progress Note (short form) - Note Progress Note: Patient seen and examined in the ICU. Awake and alert. No acute events overnight. Denies CP or SOB. Troponin downtrending. Intake & Output 06/19/17 06/20/17 06/21/17 06/22/17 23:59 23:59 23:59 23:59 Intake Total 1778 2306.5 2300 336 Balance 1778 2306.5 2300 336 Weight 139 lb 7 oz 142 lb 13.753 oz 140 lb 14.006 oz 142 lb 8 oz Last Vital Signs Temp Pulse Resp BP Pulse Ox 98.3 F 90 26 H 130/66 99 06/22/17 06:00 06/22/17 08:00 06/22/17 08:28 06/22/17 08:00 06/22/17 08:28 Active Medications Acetaminophen (Tylenol -) 650 mg PO Q6H PRN PRN Reason: FEVER OR PAIN Last Admin: 06/19/17 06:54 Dose: 650 mg Aspirin (Asa -) 81 mg PO DAILY [facility] Last Admin: 06/21/17 09:06 Dose: 81 mg Atorvastatin Calcium (Lipitor -) 20 mg PO HS [facility] Last Admin: 06/21/17 22:20 Dose: 20 mg Chlorhexidine Gluconate (Hibiclens For Decolonization -) 1 applic TP HS [facility] Last Admin: 06/21/17 22:23 Dose: 1 applic Clopidogrel Bisulfate (Plavix -) 75 mg PO DAILY [facility] Last Admin: 06/21/17 09:06 Dose: 75 mg Ceftriaxone Sodium (Rocephin 1gm Ivpb (Pre-Docked)) 50 mls @ 100 mls/hr IVPB DAILY [facility] Last Admin: 06/21/17 09:06 Dose: 100 mls/hr Sodium Chloride (Normal Saline -) 1,000 mls @ 42 mls/hr IV ASDIR [facility] Last Admin: 06/21/17 11:00 Dose: 42 mls/hr Insulin Aspart (Novolog Vial) 10 units SQ TIDAC [facility] PRN Reason: Protocol Last Admin: 06/22/17 06:49 Dose: Not Given Insulin Detemir (Levemir Vial) 20 units SQ HS [facility] Last Admin: 06/21/17 22:28 Dose: 20 units Mupirocin (Bactroban Ointment (For Decolonization) -) 1 applic NS BID [facility] Stop: 06/23/17 21:59 Last Admin: 06/21/17 22:23 Dose: 1 applic Potassium Phos/Sodium Phos (Phos-Nak Packet -) 1 packet PO BID [facility] Last Admin: 06/21/17 22:23 Dose: 1 packet Ranitidine HCl (Zantac -) 150 mg PO BID [facility] Last Admin: 06/21/17 22:20 Dose: 150 mg Sodium Chloride (Normal Saline -) 550 ml IV Q20M PRN PRN Reason: MAP<65mm Hg OR SBP <90 Last Admin: 06/18/17 16:27 Dose: 550 ml EXAM: HEENT: (-) Pallor, (-) Icterus PULM: clear, no wheeze CV: S1S2 regular ABD; soft, NT, ND, +BS EXT: cool, no edema, pulses present x 4 Derm: no rash NEURO: Non-focal Laboratory Results - last 24 hr 06/21/17 06/21/17 06/21/17 05:10 11:37 16:30 WBC RBC Hgb Hct MCV MCH MCHC RDW Plt Count MPV Sodium 139 Potassium 3.5 Chloride 110 H Carbon Dioxide 23 D Anion Gap 6 L BUN 8 D Creatinine 0.4 L D Creat Clearance w eGFR > 60 POC Glucometer 260.87914 224.21002 Random Glucose 171 H D Calcium 7.6 L Phosphorus 1.5 L Magnesium 1.6 L D Total Bilirubin 0.3 D AST 14 L D ALT 14 D Alkaline Phosphatase 75 Creatine Kinase Troponin I 1.91 H* Total Protein 4.2 L Albumin 1.9 L Triglycerides Cancelled Cholesterol Cancelled Total LDL Cholesterol Cancelled HDL Cholesterol Cancelled 06/21/17 06/22/17 06/22/17 22:00 05:35 05:35 WBC 6.2 RBC 3.58 L Hgb 10.6 L D Hct 30.2 L MCV 84.2 MCH 29.6 MCHC 35.1 RDW 13.8 Plt Count 275 D MPV 7.4 L Sodium 141 Potassium 3.9 Chloride 108 H Carbon Dioxide 25 Anion Gap 8 BUN 6 L D Creatinine 0.4 L Creat Clearance w eGFR > 60 POC Glucometer 151.96651 Random Glucose 98 D Calcium 7.8 L Phosphorus 2.0 L D Magnesium 2.1 D Total Bilirubin 0.3 AST 13 L ALT 15 Alkaline Phosphatase 85 Creatine Kinase 31 Troponin I 0.91 H* Total Protein 4.6 L Albumin 2.1 L Triglycerides Cholesterol Total LDL Cholesterol HDL Cholesterol 06/22/17 06:48 WBC RBC Hgb Hct MCV MCH MCHC RDW Plt Count MPV Sodium Potassium Chloride Carbon Dioxide Anion Gap BUN Creatinine Creat Clearance w eGFR POC Glucometer [phone] Random Glucose Calcium Phosphorus Magnesium Total Bilirubin AST ALT Alkaline Phosphatase Creatine Kinase Troponin I Total Protein Albumin Triglycerides Cholesterol Total LDL Cholesterol HDL Cholesterol IMP: DKA (+) Troponin / NSTEMI IDDM HPL CAD s/p stents x 4 UTI / Bacteremia / Sepsis Hypotension IVF Glycemic control O2 as needed ABX per ID Replete lytes ASA IV Heparin For possible cardiac catherization Cardiac Telemetry monitoring Dr Fuller Critical Care Total Critical Care Time (in minutes): 35 Critical Care Statement: The care of this patient involved high complexity decision making to prevent further life threatening deterioration of the patient 's condition and/or to evalute & treat vital organ system(s) failure or risk of failure.
[2017-06-22] MEDS: CLOPIDOGREL BISULFATE 75 MG TABLET (FP) PO SCH (09:49)
[2017-06-22] MEDS: RANITIDINE HCL 150 MG TABLET (FP) PO SCH ×2 (09:49→22:43)
[2017-06-22] MEDS: ASPIRIN 81 MG CHEWABLE TABLETS PO SCH (09:49)
[2017-06-22] MEDS: NAPH,MB-DB/K PH,MBDB POWDER PACKET PO SCH ×2 (09:50→22:43)
[2017-06-22] MEDS: MUPIROCIN 2% TOPICAL OINTMENT FOR DECOLONIZATION NS SCH ×2 (09:50→22:44)
[2017-06-22] MEDS: CEFTRIAXONE 50 ML IVPB SCH (09:51)
--- NOTE | 2017-06-22 09:57 | PN ---
Progress Note, Physician Chief Complaint: Coverage for [facility], mental status improved. Today is the 1st time I am seeing her. History of Present Illness: She denies chest pain TELE: NSR - Current Medication List Current Medications: Active Medications Acetaminophen (Tylenol -) 650 mg PO Q6H PRN PRN Reason: FEVER OR PAIN Last Admin: 06/19/17 06:54 Dose: 650 mg Aspirin (Asa -) 81 mg PO DAILY [facility] Last Admin: 06/22/17 09:49 Dose: 81 mg Atorvastatin Calcium (Lipitor -) 20 mg PO [facility] Last Admin: 06/21/17 22:20 Dose: 20 mg Chlorhexidine Gluconate (Hibiclens For Decolonization -) 1 applic TP [facility] Last Admin: 06/21/17 22:23 Dose: 1 applic Clopidogrel Bisulfate (Plavix -) 75 mg PO DAILY [facility] Last Admin: 06/22/17 09:49 Dose: 75 mg Ceftriaxone Sodium (Rocephin 1gm Ivpb (Pre-Docked)) 50 mls @ 100 mls/hr IVPB DAILY [facility] Last Admin: 06/22/17 09:51 Dose: 100 mls/hr Sodium Chloride (Normal Saline -) 1,000 mls @ 42 mls/hr IV ASDIR [facility] Last Admin: 06/21/17 11:00 Dose: 42 mls/hr Potassium Phosphate 30 mm/ (Sodium Chloride) 260 mls @ 62.5 mls/hr IVPB ONCE ONE Stop: 06/22/17 13:44 Insulin Aspart (Novolog Vial) 10 units SQ TIDAC [facility] PRN Reason: Protocol Last Admin: 06/22/17 06:49 Dose: Not Given Insulin Detemir (Levemir Vial) 20 units SQ [facility] Last Admin: 06/21/17 22:28 Dose: 20 units Mupirocin (Bactroban Ointment (For Decolonization) -) 1 applic NS BID [facility] Stop: 06/23/17 21:59 Last Admin: 06/22/17 09:50 Dose: 1 applic Potassium Phos/Sodium Phos (Phos-Nak Packet -) 1 packet PO BID [facility] Last Admin: 06/22/17 09:50 Dose: 1 packet Ranitidine HCl (Zantac -) 150 mg PO BID [facility] Last Admin: 06/22/17 09:49 Dose: 150 mg Sodium Chloride (Normal Saline -) 550 ml IV Q20M PRN PRN Reason: MAP<65mm Hg OR SBP <90 Last Admin: 06/18/17 16:27 Dose: 550 ml - Objective Vital Signs: Vital Signs Temperature 98.3 F 06/22/17 06:00 Pulse Rate 90 06/22/17 08:00 Respiratory Rate 26 H 06/22/17 08:28 Blood Pressure 130/66 06/22/17 08:00 O2 Sat by Pulse Oximetry (%) 99 06/22/17 08:28 Constitutional: Yes: No Distress Eyes: Yes: Conjunctiva Clear Cardiovascular: Yes: Regular Rate and Rhythm Respiratory: Yes: Other (decreased breath sounds bases.) Gastrointestinal: Yes: Soft Edema: No (venodyne boots) Neurological: Yes: Alert, Oriented ...Motor Strength: WNL Labs: CBC, BMP 06/22/17 05:35 06/22/17 05:35 INR, PTT INR 1.28 (0.82-1.09) H 06/18/17 15:30 Microbiology 06/18/17 15:30 Urine - Urine - Catheterized Urine Culture - Final Escherichia Coli 06/18/17 15:30 Blood - Peripheral Venous Blood Culture - Final Escherichia Coli 06/20/17 09:00 Blood - Peripheral Venous Blood Culture - Preliminary NO GROWTH OBTAINED AFTER 48 HOURS, INCUBATION TO CONTINUE FOR 3 DAYS. 06/20/17 08:50 Blood - Peripheral Venous Blood Culture - Preliminary NO GROWTH OBTAINED AFTER 48 HOURS, INCUBATION TO CONTINUE FOR 3 DAYS. 06/18/17 15:40 Blood - Peripheral Venous Blood Culture - Preliminary Gram Negative [facility] Tests 06/18/17 06/18/17 06/19/17 15:30 18:02 00:10 WBC Hgb Plt Count Sodium Potassium BUN Creatinine Creatine Kinase 52 112 147 Troponin I 3.29 H* 06/19/17 06/19/17 06/20/17 05:20 14:30 08:50 WBC Hgb Plt Count Sodium Potassium BUN Creatinine Creatine Kinase 225 H Troponin I 2.37 H* 2.14 H* 3.23 H* 06/20/17 06/21/17 06/22/17 15:30 05:10 05:35 WBC 6.2 Hgb 10.6 L D Plt Count 275 D Sodium Potassium BUN Creatinine Creatine Kinase Troponin I 2.64 H* 1.91 H* 06/22/17 05:35 WBC Hgb Plt Count Sodium 141 Potassium 3.9 BUN 6 L D Creatinine 0.4 L Creatine Kinase 31 Troponin I - ....Imaging EKG: Image Reviewed Assessment/Plan IMP: Urosepsis secondary to UTI, improved DKA, resolved CAD s/p CABG, PCI w/ NSTEMI this admission REC: Hemodynamically stable in NSR, chest pain free. Cont. ASA and Plavix Telemetry Awaiting final decision from patient and family re cath. If agrees, then plan tx to [place]. Need echo report. Dr. Padilla, coverage for [facility].
--- NOTE | 2017-06-22 10:37 | PN ---
Progress Note, Physician History of Present Illness: Awake, alert Less confused per nurse No complaints Denies dysuria or suprapubic pain No fever/ chills - Current Medication List Current Medications: Active Medications Acetaminophen (Tylenol -) 650 mg PO Q6H PRN PRN Reason: FEVER OR PAIN Last Admin: 06/19/17 06:54 Dose: 650 mg Aspirin (Asa -) 81 mg PO DAILY [facility] Last Admin: 06/22/17 09:49 Dose: 81 mg Atorvastatin Calcium (Lipitor -) 20 mg PO HS [facility] Last Admin: 06/21/17 22:20 Dose: 20 mg Chlorhexidine Gluconate (Hibiclens For Decolonization -) 1 applic TP [facility] Last Admin: 06/21/17 22:23 Dose: 1 applic Clopidogrel Bisulfate (Plavix -) 75 mg PO DAILY [facility] Last Admin: 06/22/17 09:49 Dose: 75 mg Ceftriaxone Sodium (Rocephin 1gm Ivpb (Pre-Docked)) 50 mls @ 100 mls/hr IVPB DAILY [facility] Last Admin: 06/22/17 09:51 Dose: 100 mls/hr Sodium Chloride (Normal Saline -) 1,000 mls @ 42 mls/hr IV ASDIR [facility] Last Admin: 06/21/17 11:00 Dose: 42 mls/hr Potassium Phosphate 30 mm/ (Sodium Chloride) 260 mls @ 62.5 mls/hr IVPB ONCE ONE Stop: 06/22/17 13:44 Insulin Aspart (Novolog Vial) 10 units SQ TIDAC [facility] PRN Reason: Protocol Last Admin: 06/22/17 06:49 Dose: Not Given Insulin Detemir (Levemir Vial) 20 units SQ [facility] Last Admin: 06/21/17 22:28 Dose: 20 units Mupirocin (Bactroban Ointment (For Decolonization) -) 1 applic NS BID [facility] Stop: 06/23/17 21:59 Last Admin: 06/22/17 09:50 Dose: 1 applic Potassium Phos/Sodium Phos (Phos-Nak Packet -) 1 packet PO BID [facility] Last Admin: 06/22/17 09:50 Dose: 1 packet Ranitidine HCl (Zantac -) 150 mg PO BID [facility] Last Admin: 06/22/17 09:49 Dose: 150 mg Sodium Chloride (Normal Saline -) 550 ml IV Q20M PRN PRN Reason: MAP<65mm Hg OR SBP <90 Last Admin: 06/18/17 16:27 Dose: 550 ml - Objective Vital Signs: Vital Signs Temperature 98.3 F 06/22/17 06:00 Pulse Rate 90 06/22/17 08:00 Respiratory Rate 26 H 06/22/17 08:28 Blood Pressure 130/66 06/22/17 08:00 O2 Sat by Pulse Oximetry (%) 99 06/22/17 08:28 Constitutional: Yes: No Distress Eyes: Yes: Conjunctiva Clear Cardiovascular: Yes: Regular Rate and Rhythm, S1, S2 Respiratory: Yes: CTA Bilaterally Gastrointestinal: Yes: Normal Bowel Sounds, Soft, Abdomen, Obese. No: Tenderness Edema: No Labs: CBC, BMP 06/22/17 05:35 06/22/17 05:35 INR, PTT INR 1.28 (0.82-1.09) H 06/18/17 15:30 Assessment/Plan E coli bacteremia/ sepsis secondary to Toxic metabolic encephalopathy- improved DKA Clinically improved Continue ceftriaxone
[2017-06-22] MEDS: SODIUM CHLORIDE 1,000 ML IV SCH (12:00)
--- NOTE | 2017-06-22 15:24 | PN ---
Physical Exam: SUBJECTIVE: Patient seen and examined at the bedside. She is sitting up eating her lunch. She denies any discomfort or pain. OBJECTIVE: Agreeing with cardiac cath and transfer on Saturday Tolerating room air, slight dyspnea at rest but much improved Vital Signs Period Temp Pulse Resp BP Sys/Barrera Pulse Ox Last 24 Hr 98.3 F-98.5 F 83-98 22-29 90-130/51-74 96-99 GENERAL: The patient is awake, alert, and fully oriented during my exam, appears to be back to her baseline. She is in agreement for a cardiac cath on Saturday. No overnight agitation reported HEAD: Normal with no signs of trauma. EYES: PERRL, extraocular movements intact, sclera anicteric, conjunctiva clear. No ptosis. ENT: Ears normal, nares patent, oropharynx clear without exudates, moist mucous membranes. NECK: Trachea midline, full range of motion, supple. LUNGS: Breath sounds equal, clear to auscultation bilaterally, no wheezes HEART: Regular rate and rhythm, S1, S2 without murmur, rub or gallop. ABDOMEN: Soft, nontender, nondistended, normoactive bowel sounds, no guarding, no rebound, no hepatosplenomegaly, no masses. EXTREMITIES: 2+ pulses, warm, well-perfused, no edema. NEUROLOGICAL: Normal speech, gait not observed. PSYCH: Normal mood, normal affect. SKIN: Warm, dry, normal turgor, no rashes or lesions noted Laboratory Results - last 24 hr 06/21/17 06/21/17 06/21/17 11:37 16:30 22:00 WBC RBC Hgb Hct MCV MCH MCHC RDW Plt Count MPV Sodium Potassium Chloride Carbon Dioxide Anion Gap BUN Creatinine Creat Clearance w eGFR POC Glucometer [phone] [phone] Random Glucose Calcium Phosphorus Magnesium Total Bilirubin AST ALT Alkaline Phosphatase Creatine Kinase Troponin I Total Protein Albumin 06/22/17 06/22/17 06/22/17 05:35 05:35 06:48 WBC 6.2 RBC 3.58 L Hgb 10.6 L D Hct 30.2 L MCV 84.2 MCH 29.6 MCHC 35.1 RDW 13.8 Plt Count 275 D MPV 7.4 L Sodium 141 Potassium 3.9 Chloride 108 H Carbon Dioxide 25 Anion Gap 8 BUN 6 L D Creatinine 0.4 L Creat Clearance w eGFR > 60 POC Glucometer [phone] Random Glucose 98 D Calcium 7.8 L Phosphorus 2.0 L D Magnesium 2.1 D Total Bilirubin 0.3 AST 13 L ALT 15 Alkaline Phosphatase 85 Creatine Kinase 31 Troponin I 0.91 H* Total Protein 4.6 L Albumin 2.1 L Active Medications Generic Name Dose Route Start Last Admin Trade Name Freq PRN Reason Stop Dose Admin Acetaminophen 650 mg 06/18/17 17:53 06/19/17 06:54 Tylenol - PO 650 mg Q6H PRN Administration FEVER OR PAIN Aspirin 81 mg 06/19/17 17:45 06/22/17 09:49 Asa - PO 81 mg DAILY [facility] Administration Atorvastatin Calcium 20 mg 06/20/17 22:00 06/21/17 22:20 Lipitor - PO 20 mg HS [facility] Administration Chlorhexidine Gluconate 1 applic 06/18/17 22:00 06/21/17 22:23 Hibiclens For Decolonization - TP 1 applic HS [facility] Administration Clopidogrel Bisulfate 75 mg 06/19/17 17:45 06/22/17 09:49 Plavix - PO 75 mg DAILY [facility] Administration Ceftriaxone Sodium 50 mls @ 100 mls/hr 06/21/17 10:00 06/22/17 09:51 Rocephin 1gm Ivpb (Pre-Docked) IVPB 100 mls/hr DAILY [facility] Administration Sodium Chloride 1,000 mls @ 42 mls/hr 06/21/17 10:58 06/22/17 12:00 Normal Saline - IV 42 mls/hr ASDIR [facility] Administration Insulin Aspart 10 units 06/19/17 07:00 06/22/17 12:39 Novolog Vial SQ Not Given TIDAC [facility] Protocol Insulin Detemir 20 units 06/21/17 22:30 06/21/17 22:28 Levemir Vial SQ 20 units HS [facility] Administration Mupirocin 1 applic 06/18/17 22:00 06/22/17 09:50 Bactroban Ointment (For Decolonization) - NS 06/23/17 21:59 1 applic BID [facility] Administration Potassium Phos/Sodium Phos 1 packet 06/21/17 12:15 06/22/17 09:50 Phos-Nak Packet - PO 1 packet BID [facility] Administration Ranitidine HCl 150 mg 06/20/17 22:00 08/12/17 09:49 Zantac - PO 150 mg BID [facility] Administration Sodium Chloride 550 ml 06/18/17 15:26 06/18/17 16:27 Normal Saline - IV 550 ml Q20M PRN Administration MAP<65mm Hg OR SBP <90 ASSESSMENT/PLAN: Mrs. Paul is a 71 year old female with a significant past medical history of hypertension, diabetes mellitus and CABG. She presented to the ER on 06/18/2017 with high blood sugar and confusion. She was found to be in septic shock on admission likely secondary to a UTI. She also had DKA with an elevated anion gap. Her troponins peaked at 3.64, but now at 0.91. ID: Severe Sepsis/Bacteremia - improving Assessment/Plan: On admission had leukocytosis (12.2), tachycardia (hr 130s), was febrile (105.7F), UA WBC of 132 and had altered mental status. Her WBC is now within normal limits, BP now stable Switched to Ceftriaxone for gram negative sepsis/ecoli bacteremia/UTI, Cefepime discontinued Repeat blood and urine cultures ngtd ID following Neurology: Metabolic Encephalopathy - resolving A/P: metabolic encephalopathy likely secondary to sepsis, UTI and DKA She is alert and oriented on my exam, answering all questions appropriately Monitor mental status Cardiology: Elevated troponins/NSTEMI vs Demand ischemia/ACS A/P: Troponins peaked at 3.64, now trending down to 0.91 Denies chest pain or shortness of breath Lovenox 60mg BID, Cardiology following For transfer to [place] on Saturday for cardiac cath once family and pt agrees Hypertension history: A/P: IVF prn if becomes hypotensive or if map <65 Endocrinology: DKA - resolved A/P: Anion gap closed On Levemir 30 units @ hs and Novolog 10 units TID/AC hmga1c 10.3 F.E.N. Fluids: d/c ivf, tolerating PO Electrolytes: Magnesium 2.1, Phos 2.0: given phos IV Nutrition: low sodium/diabetic diet Prophylaxis: DVT: SCDs GI: Zantac 150mg BID Disposition: Requires ICU monitoring. Full Code. Visit type - Emergency Visit Emergency Visit: Yes ED Registration Date: 06/18/17 Care time: The patient presented to the Emergency Department on the above date and was hospitalized for further evaluation of their emergent condition. - New Patient This patient is new to me today: No - Critical Care Critical Care patient: Yes Total Critical Care Time (in minutes): 60 Critical Care Statement: The care of this patient involved high complexity decision making to prevent further life threatening deterioration of the patient 's condition and/or to evaluate & treat vital organ system(s) failure or risk of failure. - Discharge Referral Referred to [facility] Med [facility] No
[2017-06-22] MEDS: ATORVASTATIN CA 20 MG TABLET (FP) PO SCH (22:43)
[2017-06-22] MEDS: INSULIN DETEMIR 100 UNITS/ML MDV SQ SCH (22:44)
[2017-06-22] MEDS: CHLORHEXIDINE GLUCONATE 4% CLEANSER FOR DECOLONIZATION TP SCH (22:44)
[2017-06-23 06:29] LABS: MCH 29.5 pg (25.7-33.7); MCHC 34.9 g/dl (32.0-36.0); MEAN CELL VOLUME 84.4 fl (80-96); MEAN PLT VOLUME 7.3 fl (7.5-11.1); PLATELET COUNT 280 K/MM3 (134-434); RDW 13.7 % (11.6-15.6); WHITE BLOOD COUNT 6.2 K/mm3 (4.0-10.0)
[2017-06-23] MEDS: INSULIN (NOVOLOG) ASPART 100 UNITS/ML 10ML VIAL SQ SCH ×3 (07:00→17:28)
[2017-06-23 07:03] LABS: ANION GAP 9 (8-16); CALCIUM 7.7 mg/dL (8.5-10.1); CO2 27 mmol/L (21-32); CREATININE 0.4 mg/dL (0.55-1.02); GLUCOSE,RANDOM 82 mg/dL (74-106); MAGNESIUM 1.9 mg/dL (1.8-2.4); SGOT/AST 11 U/L (15-37); SGPT/ALT 15 U/L (12-78)
[2017-06-23 07:06] LABS: ALK PHOS 82 U/L (45-117); BILIRUBIN,TOTAL 0.5 mg/dL (0.2-1.0); TOT PROT 4.3 g/dl (6.4-8.2)
--- NOTE | 2017-06-23 08:07 | PN ---
Progress Note, Physician Chief Complaint: no distress TELE: NSR - Current Medication List Current Medications: Active Medications Acetaminophen (Tylenol -) 650 mg PO Q6H PRN PRN Reason: FEVER OR PAIN Last Admin: 06/19/17 06:54 Dose: 650 mg Aspirin (Asa -) 81 mg PO DAILY [facility] Last Admin: 06/22/17 09:49 Dose: 81 mg Atorvastatin Calcium (Lipitor -) 20 mg PO HS [facility] Last Admin: 06/22/17 22:43 Dose: 20 mg Chlorhexidine Gluconate (Hibiclens For Decolonization -) 1 applic TP HS [facility] Last Admin: 06/22/17 22:44 Dose: 1 applic Clopidogrel Bisulfate (Plavix -) 75 mg PO DAILY [facility] Last Admin: 06/22/17 09:49 Dose: 75 mg Ceftriaxone Sodium (Rocephin 1gm Ivpb (Pre-Docked)) 50 mls @ 100 mls/hr IVPB DAILY [facility] Last Admin: 06/22/17 09:51 Dose: 100 mls/hr Sodium Chloride (Normal Saline -) 1,000 mls @ 42 mls/hr IV ASDIR [facility] Last Admin: 06/22/17 12:00 Dose: 42 mls/hr Insulin Aspart (Novolog Vial) 10 units SQ TIDAC [facility] PRN Reason: Protocol Last Admin: 06/22/17 16:55 Dose: 10 units Insulin Detemir (Levemir Vial) 20 units SQ [facility] Last Admin: 06/22/17 22:44 Dose: 20 units Mupirocin (Bactroban Ointment (For Decolonization) -) 1 applic NS BID [facility] Stop: 06/23/17 21:59 Last Admin: 06/22/17 22:44 Dose: 1 applic Potassium Phos/Sodium Phos (Phos-Nak Packet -) 1 packet PO BID [facility] Last Admin: 06/22/17 22:43 Dose: 1 packet Ranitidine HCl (Zantac -) 150 mg PO BID [facility] Last Admin: 06/22/17 22:43 Dose: 150 mg Sodium Chloride (Normal Saline -) 550 ml IV Q20M PRN PRN Reason: MAP<65mm Hg OR SBP <90 Last Admin: 06/18/17 16:27 Dose: 550 ml - Objective Vital Signs: Vital Signs Temperature 98.4 F 06/23/17 02:00 Pulse Rate 85 06/23/17 02:00 Respiratory Rate 26 H 06/23/17 02:00 Blood Pressure 126/75 06/23/17 02:00 O2 Sat by Pulse Oximetry (%) 96 06/22/17 21:00 Constitutional: Yes: No Distress Cardiovascular: Yes: Regular Rate and Rhythm Respiratory: Yes: CTA Bilaterally Gastrointestinal: Yes: Soft Edema: No Neurological: Yes: Alert, Oriented Labs: CBC, BMP 06/23/17 05:35 06/23/17 05:35 INR, PTT INR 1.28 (0.82-1.09) H 06/18/17 15:30 Laboratory Tests 06/23/17 06/23/17 05:35 05:35 WBC 6.2 Hgb 10.6 L Sodium 143 Potassium 3.8 Creatinine 0.4 L - ....Imaging EKG: Image Reviewed Assessment/Plan IMP: Urosepsis secondary to UTI, improved DKA, resolved CAD s/p CABG, PCI w/ NSTEMI this admission REC: Hemodynamically stable in NSR, remains chest pain free. Cont. ASA and Plavix Telemetry Awaiting final decision from patient and family re cath. If agrees, then plan tx to [place]. Need echo report. Dr. Padilla, coverage for [facility].
[2017-06-23] MEDS ORDERED: PT OWN MED DRAWER 7, Y5N ONE (09:47)
--- NOTE | 2017-06-23 09:56 | PN ---
Progress Note (short form) - Note Progress Note: Patient seen and examined in the ICU. Awake and alert. No acute events overnight. Denies CP or SOB. Intake & Output 06/20/17 06/21/17 06/22/17 06/23/17 23:59 23:59 23:59 23:59 Intake Total 2306.5 2300 1712 396 Balance 2306.5 2300 1712 396 Weight 142 lb 13.753 oz 140 lb 14.006 oz 142 lb 8 oz 146 lb 1.6 oz Last Vital Signs Temp Pulse Resp BP Pulse Ox 98.3 F 105 H 23 132/68 96 06/23/17 06:30 06/23/17 06:30 06/23/17 06:30 06/23/17 06:30 06/22/17 21:00 Active Medications Acetaminophen (Tylenol -) 650 mg PO Q6H PRN PRN Reason: FEVER OR PAIN Last Admin: 06/19/17 06:54 Dose: 650 mg Aspirin (Asa -) 81 mg PO DAILY [facility] Last Admin: 06/22/17 09:49 Dose: 81 mg Atorvastatin Calcium (Lipitor -) 20 mg PO HS [facility] Last Admin: 06/22/17 22:43 Dose: 20 mg Chlorhexidine Gluconate (Hibiclens For Decolonization -) 1 applic TP HS [facility] Last Admin: 06/22/17 22:44 Dose: 1 applic Clopidogrel Bisulfate (Plavix -) 75 mg PO DAILY [facility] Last Admin: 06/22/17 09:49 Dose: 75 mg Ceftriaxone Sodium (Rocephin 1gm Ivpb (Pre-Docked)) 50 mls @ 100 mls/hr IVPB DAILY [facility] Last Admin: 06/22/17 09:51 Dose: 100 mls/hr Sodium Chloride (Normal Saline -) 1,000 mls @ 42 mls/hr IV ASDIR [facility] Last Admin: 06/22/17 12:00 Dose: 42 mls/hr Insulin Aspart (Novolog Vial) 10 units SQ TIDAC [facility] PRN Reason: Protocol Last Admin: 06/23/17 07:00 Dose: Not Given Insulin Detemir (Levemir Vial) 20 units SQ HS [facility] Last Admin: 06/22/17 22:44 Dose: 20 units Mupirocin (Bactroban Ointment (For Decolonization) -) 1 applic NS BID [facility] Stop: 06/23/17 21:59 Last Admin: 06/22/17 22:44 Dose: 1 applic Potassium Phos/Sodium Phos (Phos-Nak Packet -) 1 packet PO BID [facility] Last Admin: 06/22/17 22:43 Dose: 1 packet Ranitidine HCl (Zantac -) 150 mg PO BID [facility] Last Admin: 06/22/17 22:43 Dose: 150 mg Sodium Chloride (Normal Saline -) 550 ml IV Q20M PRN PRN Reason: MAP<65mm Hg OR SBP <90 Last Admin: 06/18/17 16:27 Dose: 550 ml EXAM: HEENT: (-) Pallor, (-) Icterus PULM: clear, no wheeze CV: S1S2 regular ABD; soft, NT, ND, +BS EXT: cool, no edema, pulses present x 4 Derm: no rash NEURO: Non-focal Laboratory Results - last 24 hr 06/22/17 06/22/17 06/23/17 12:34 16:26 05:35 WBC 6.2 RBC 3.58 L Hgb 10.6 L Hct 30.2 L MCV 84.4 MCH 29.5 MCHC 34.9 RDW 13.7 Plt Count 280 MPV 7.3 L Neutrophils % Y Lymphocytes % Y Sodium Potassium Chloride Carbon Dioxide Anion Gap BUN Creatinine Creat Clearance w eGFR POC Glucometer 181.42269 [phone] Random Glucose Calcium Magnesium Total Bilirubin AST ALT Alkaline Phosphatase Total Protein Albumin 06/23/17 06/23/17 05:35 06:54 WBC RBC Hgb Hct MCV MCH MCHC RDW Plt Count MPV Neutrophils % Lymphocytes % Sodium 143 Potassium 3.8 Chloride 107 Carbon Dioxide 27 Anion Gap 9 BUN 4 L D Creatinine 0.4 L Creat Clearance w eGFR > 60 POC Glucometer 119.50502 Random Glucose 82 Calcium 7.7 L Magnesium 1.9 Total Bilirubin 0.5 D AST 11 L ALT 15 Alkaline Phosphatase 82 Total Protein 4.3 L Albumin 2.0 L IMP: DKA (+) Troponin / NSTEMI IDDM HPL CAD s/p stents x 4 UTI / Bacteremia / Sepsis Hypotension IVF Glycemic control O2 as needed ABX per ID Replete lytes ASA IV Heparin For possible cardiac catherization Cardiac Telemetry monitoring Dr Fuller Critical Care Total Critical Care Time (in minutes): 35 Critical Care Statement: The care of this patient involved high complexity decision making to prevent further life threatening deterioration of the patient 's condition and/or to evalute & treat vital organ system(s) failure or risk of failure.
[2017-06-23] MEDS: CLOPIDOGREL BISULFATE 75 MG TABLET (FP) PO SCH (10:04)
[2017-06-23] MEDS: ASPIRIN 81 MG CHEWABLE TABLETS PO SCH (10:04)
[2017-06-23] MEDS: NAPH,MB-DB/K PH,MBDB POWDER PACKET PO SCH ×2 (10:05→22:30)
[2017-06-23] MEDS: RANITIDINE HCL 150 MG TABLET (FP) PO SCH ×2 (10:05→22:14)
[2017-06-23] MEDS: CEFTRIAXONE 50 ML IVPB SCH (10:10)
[2017-06-23] MEDS: MUPIROCIN 2% TOPICAL OINTMENT FOR DECOLONIZATION NS SCH (10:11)
--- NOTE | 2017-06-23 10:24 | PN ---
Progress Note, Physician History of Present Illness: Awake, alert Offers no complaints Episodes of N/V No c/o abdominal pain Denies dysuria/ hematuria No suprapubic or flank pain No fever/ chills Afebrile WBC WNL - Current Medication List Current Medications: Active Medications Acetaminophen (Tylenol -) 650 mg PO Q6H PRN PRN Reason: FEVER OR PAIN Last Admin: 06/19/17 06:54 Dose: 650 mg Aspirin (Asa -) 81 mg PO DAILY [facility] Last Admin: 06/23/17 10:04 Dose: 81 mg Atorvastatin Calcium (Lipitor -) 20 mg PO HS [facility] Last Admin: 06/22/17 22:43 Dose: 20 mg Chlorhexidine Gluconate (Hibiclens For Decolonization -) 1 applic TP [facility] Last Admin: 06/22/17 22:44 Dose: 1 applic Clopidogrel Bisulfate (Plavix -) 75 mg PO DAILY [facility] Last Admin: 06/23/17 10:04 Dose: 75 mg Ceftriaxone Sodium (Rocephin 1gm Ivpb (Pre-Docked)) 50 mls @ 100 mls/hr IVPB DAILY [facility] Last Admin: 06/23/17 10:10 Dose: 100 mls/hr Sodium Chloride (Normal Saline -) 1,000 mls @ 42 mls/hr IV ASDIR [facility] Last Admin: 06/22/17 12:00 Dose: 42 mls/hr Insulin Aspart (Novolog Vial) 10 units SQ TIDAC [facility] PRN Reason: Protocol Last Admin: 06/23/17 07:00 Dose: Not Given Insulin Detemir (Levemir Vial) 20 units SQ [facility] Last Admin: 06/22/17 22:44 Dose: 20 units Mupirocin (Bactroban Ointment (For Decolonization) -) 1 applic NS BID [facility] Stop: 06/23/17 21:59 Last Admin: 06/23/17 10:11 Dose: 1 applic Potassium Phos/Sodium Phos (Phos-Nak Packet -) 1 packet PO BID [facility] Last Admin: 06/23/17 10:05 Dose: 1 packet Ranitidine HCl (Zantac -) 150 mg PO BID [facility] Last Admin: 06/23/17 10:05 Dose: 150 mg Sodium Chloride (Normal Saline -) 550 ml IV Q20M PRN PRN Reason: MAP<65mm Hg OR SBP <90 Last Admin: 06/18/17 16:27 Dose: 550 ml - Objective Vital Signs: Vital Signs Temperature 98.3 F 06/23/17 06:30 Pulse Rate 105 H 06/23/17 06:30 Respiratory Rate 23 06/23/17 06:30 Blood Pressure 132/68 06/23/17 06:30 O2 Sat by Pulse Oximetry (%) 96 06/22/17 21:00 Constitutional: Yes: No Distress Eyes: Yes: Conjunctiva Clear Cardiovascular: Yes: Regular Rate and Rhythm, S1, S2 Respiratory: Yes: CTA Bilaterally Gastrointestinal: Yes: Normal Bowel Sounds, Soft. No: Tenderness Edema: No Labs: CBC, BMP 06/23/17 05:35 06/23/17 05:35 INR, PTT INR 1.28 (0.82-1.09) H 06/18/17 15:30 Assessment/Plan E coli bacteremia/ sepsis secondary to Toxic metabolic encephalopathy- improved DKA Clinically improved Continue ceftriaxone Day # 5 antibiotics To complete 14d total IV/po
[2017-06-23 11:07] LABS: PLATELET ESTIMATE ADEQUATE (NORMAL)
--- NOTE | 2017-06-23 15:34 | PN ---
Physical Exam: SUBJECTIVE: Patient seen and examined in the ICU. Denies chest pain or discomfort. OBJECTIVE: Dyspnea at rest Cardiac cath transfer anticipated for tomorrow Vital Signs Period Temp Pulse Resp BP Sys/Barrera Pulse Ox Last 24 Hr 98.2 F-98.5 F 83-125 16-30 95-154/62-89 96-97 GENERAL: The patient is awake, alert, and fully oriented during my exam, appears to be back to her baseline. She is in agreement for a cardiac cath on Saturday. No overnight agitation reported HEAD: Normal with no signs of trauma. EYES: PERRL, extraocular movements intact, sclera anicteric, conjunctiva clear. No ptosis. ENT: Ears normal, nares patent, oropharynx clear without exudates, moist mucous membranes. NECK: Trachea midline, full range of motion, supple. LUNGS: Breath sounds equal, clear to auscultation bilaterally, no wheezes HEART: Regular rate and rhythm, S1, S2 without murmur, rub or gallop. ABDOMEN: Soft, nontender, nondistended, normoactive bowel sounds, no guarding, no rebound, no hepatosplenomegaly, no masses. EXTREMITIES: 2+ pulses, warm, well-perfused, no edema. NEUROLOGICAL: Normal speech, gait not observed. PSYCH: Normal mood, normal affect. SKIN: Warm, dry, normal turgor, no rashes or lesions noted Laboratory Results - last 24 hr 06/22/17 06/22/17 06/23/17 12:34 16:26 05:35 WBC 6.2 RBC 3.58 L Hgb 10.6 L Hct 30.2 L MCV 84.4 MCH 29.5 MCHC 34.9 RDW 13.7 Plt Count 280 MPV 7.3 L Neutrophils % 79.0 Lymphocytes % 15.0 D Monocytes % 2.0 L Eosinophils % 4.0 D Differential Comment Manual diff done Platelet Estimate Adequate Sodium Potassium Chloride Carbon Dioxide Anion Gap BUN Creatinine Creat Clearance w eGFR POC Glucometer 181.75555 251.58551 Random Glucose Calcium Magnesium Total Bilirubin AST ALT Alkaline Phosphatase Total Protein Albumin 06/23/17 06/23/17 05:35 06:54 WBC RBC Hgb Hct MCV MCH MCHC RDW Plt Count MPV Neutrophils % Lymphocytes % Monocytes % Eosinophils % Differential Comment Platelet Estimate Sodium 143 Potassium 3.8 Chloride 107 Carbon Dioxide 27 Anion Gap 9 BUN 4 L D Creatinine 0.4 L Creat Clearance w eGFR > 60 POC Glucometer 119.55423 Random Glucose 82 Calcium 7.7 L Magnesium 1.9 Total Bilirubin 0.5 D AST 11 L ALT 15 Alkaline Phosphatase 82 Total Protein 4.3 L Albumin 2.0 L Active Medications Generic Name Dose Route Start Last Admin Trade Name Freq PRN Reason Stop Dose Admin Acetaminophen 650 mg 06/18/17 17:53 06/19/17 06:54 Tylenol - PO 650 mg Q6H PRN Administration FEVER OR PAIN Aspirin 81 mg 06/19/17 17:45 06/23/17 10:04 Asa - PO 81 mg DAILY [facility] Administration Atorvastatin Calcium 20 mg 06/20/17 22:00 06/22/17 22:43 Lipitor - PO 20 mg HS [facility] Administration Chlorhexidine Gluconate 1 applic 06/18/17 22:00 06/22/17 22:44 Hibiclens For Decolonization - TP 1 applic HS [facility] Administration Clopidogrel Bisulfate 75 mg 06/19/17 17:45 06/23/17 10:04 Plavix - PO 75 mg DAILY [facility] Administration Ceftriaxone Sodium 50 mls @ 100 mls/hr 06/21/17 10:00 06/23/17 10:10 Rocephin 1gm Ivpb (Pre-Docked) IVPB 100 mls/hr DAILY [facility] Administration Sodium Chloride 1,000 mls @ 42 mls/hr 06/21/17 10:58 06/22/17 12:00 Normal Saline - IV 42 mls/hr ASDIR [facility] Administration Insulin Aspart 10 units 06/19/17 07:00 06/23/17 12:10 Novolog Vial SQ Not Given TIDAC [facility] Protocol Insulin Detemir 20 units 06/21/17 22:30 06/22/17 22:44 Levemir Vial SQ 20 units HS [facility] Administration Mupirocin 1 applic 06/18/17 22:00 06/23/17 10:11 Bactroban Ointment (For Decolonization) - NS 06/23/17 21:59 1 applic BID [facility] Administration Potassium Phos/Sodium Phos 1 packet 06/21/17 12:15 06/23/17 10:05 Phos-Nak Packet - PO 1 packet BID [facility] Administration Ranitidine HCl 150 mg 06/20/17 22:00 06/23/17 10:05 Zantac - PO 150 mg BID [facility] Administration Sodium Chloride 550 ml 06/18/17 15:26 06/18/17 16:27 Normal Saline - IV 550 ml Q20M PRN Administration MAP<65mm Hg OR SBP <90 ASSESSMENT/PLAN: Mrs. Paul is a 71 year old female with a significant past medical history of hypertension, diabetes mellitus and CABG. She presented to the ER on 06/18/2017 with high blood sugar and confusion. She was found to be in septic shock on admission likely secondary to a UTI. She also had DKA with an elevated anion gap. Her troponins peaked at 3.64, but now at 0.91. ID: Severe Sepsis/Bacteremia - improving Assessment/Plan: On admission had leukocytosis (12.2), tachycardia (hr 130s), was febrile (105.7F), UA WBC of 132 and had altered mental status. Her WBC is now within normal limits, BP low stable Switched to Ceftriaxone for gram negative sepsis/ecoli bacteremia/UTI, Cefepime discontinued ID following Neurology: Metabolic Encephalopathy - resolving A/P: metabolic encephalopathy likely secondary to sepsis, UTI and DKA She is alert and oriented on my exam, answering all questions appropriately Monitor mental status Cardiology: Elevated troponins/NSTEMI vs Demand ischemia/ACS A/P: Troponins peaked at 3.64, now trending down to 0.91 Denies chest pain or shortness of breath For transfer to [place] on Saturday for cardiac cath once family and pt finalize decision Hypertension history: A/P: IVF prn if becomes hypotensive or if map <65 BP low stable Endocrinology: DKA - resolved A/P: Anion gap closed On Levemir 30 units @ hs and Novolog 10 units TID/AC hmga1c 10.3 F.E.N. Fluids: d/c ivf, tolerating PO Electrolytes: monitor with bmp Nutrition: low sodium/diabetic diet Prophylaxis: DVT: SCDs GI: Zantac 150mg BID Disposition: Requires ICU monitoring, for transfer to [place] for cardiac cath. Full Code. Visit type - Emergency Visit Emergency Visit: Yes ED Registration Date: 06/18/17 Care time: The patient presented to the Emergency Department on the above date and was hospitalized for further evaluation of their emergent condition. - New Patient This patient is new to me today: No - Critical Care Critical Care patient: Yes Total Critical Care Time (in minutes): 35 Critical Care Statement: The care of this patient involved high complexity decision making to prevent further life threatening deterioration of the patient 's condition and/or to evaluate & treat vital organ system(s) failure or risk of failure.
--- NOTE | 2017-06-23 15:52 | CON.PSY ---
Psychiatry Consult Chief Complaint: I am ok, I have heart problems. - Previous Psychiatric Treatment Outpatient: None Inpatient: None - Previous Substance Abuse Treatment Outpatient: None Inpatient: None - Current Medications Current Medications: Active Medications Acetaminophen (Tylenol -) 650 mg PO Q6H PRN PRN Reason: FEVER OR PAIN Last Admin: 06/19/17 06:54 Dose: 650 mg Aspirin (Asa -) 81 mg PO DAILY [facility] Last Admin: 06/23/17 10:04 Dose: 81 mg Atorvastatin Calcium (Lipitor -) 20 mg PO HS [facility] Last Admin: 06/22/17 22:43 Dose: 20 mg Chlorhexidine Gluconate (Hibiclens For Decolonization -) 1 applic TP HS [facility] Last Admin: 06/22/17 22:44 Dose: 1 applic Clopidogrel Bisulfate (Plavix -) 75 mg PO DAILY [facility] Last Admin: 06/23/17 10:04 Dose: 75 mg Ceftriaxone Sodium (Rocephin 1gm Ivpb (Pre-Docked)) 50 mls @ 100 mls/hr IVPB DAILY [facility] Last Admin: 06/23/17 10:10 Dose: 100 mls/hr Sodium Chloride (Normal Saline -) 1,000 mls @ 42 mls/hr IV ASDIR [facility] Last Admin: 06/22/17 12:00 Dose: 42 mls/hr Insulin Aspart (Novolog Vial) 10 units SQ TIDAC [facility] PRN Reason: Protocol Last Admin: 06/23/17 12:10 Dose: Not Given Insulin Detemir (Levemir Vial) 20 units SQ HS [facility] Last Admin: 06/22/17 22:44 Dose: 20 units Mupirocin (Bactroban Ointment (For Decolonization) -) 1 applic NS BID [facility] Stop: 06/23/17 21:59 Last Admin: 06/23/17 10:11 Dose: 1 applic Potassium Phos/Sodium Phos (Phos-Nak Packet -) 1 packet PO BID [facility] Last Admin: 06/23/17 10:05 Dose: 1 packet Ranitidine HCl (Zantac -) 150 mg PO BID [facility] Last Admin: 06/23/17 10:05 Dose: 150 mg Sodium Chloride (Normal Saline -) 550 ml IV Q20M PRN PRN Reason: MAP<65mm Hg OR SBP <90 Last Admin: 06/18/17 16:27 Dose: 550 ml - Allergies Allergies: Allergies Allergy/AdvReac Type Severity Reaction Status Date / Time apple [Apple] Allergy Verified 06/18/17 15:33 peach [Vance] Allergy Verified 06/18/17 15:33 Penicillins Allergy Verified 06/18/17 15:33 - Current Living Status Usual Living Arrangement: Alone - Current Mental Status Evaluation Appearance: Disheveled Attitude: Guarded - Affect Affect: Constrictive Appropriateness: Appropriate to Content - Mood Mood: Euthymic - Speech/Language Expressive: Coherent - Psychomotor Activity Psychomotor Activity: Slowed - Thought Process Thought Process: Circumstantial - Thought Content Hallucinations: Absent Delusions: Absent - Self Perception Self Perception: No Impairment - Cognition Attention: Alert Orientation: Person, Place Memory, Short Term: 2/3 Memory, Remote with Promptin/3 - Concentration Serial Sevens Intact: No Simple Calculations Intact: No - Abstraction Proverb Interpretation: Impaired Judgement: Intact - Insight Insight: Intact - Impulse Control Impulse Control: Minimally Impaired - Suicidal Ideation Suicidal Ideation: No - Homicidal Ideation Homicidal Ideation: No Assessment/Plan 1) Patient do not have any acute Psych problems at this time. 2) Confusion appears to be gradually dissipating. 3) patient has the functional capacity to make decisions at this time regarding her Health.
[2017-06-23] MEDS: INSULIN DETEMIR 100 UNITS/ML MDV SQ SCH (22:14)
[2017-06-23] MEDS: ATORVASTATIN CA 20 MG TABLET (FP) PO SCH (22:14)
[2017-06-23] MEDS: CHLORHEXIDINE GLUCONATE 4% CLEANSER FOR DECOLONIZATION TP SCH (22:15)
[2017-06-23] MEDS: SODIUM CHLORIDE 1,000 ML IV SCH (22:15)
[2017-06-24] MEDS: INSULIN (NOVOLOG) ASPART 100 UNITS/ML 10ML VIAL SQ SCH (06:41)
[2017-06-24 06:53] LABS: BASOPHIL 0.3 % (0-2.0); EOSINOPHIL 1.4 % (0-4.5); MCH 28.8 pg (25.7-33.7); MCHC 34.6 g/dl (32.0-36.0); MEAN CELL VOLUME 83.4 fl (80-96); MEAN PLT VOLUME 6.8 fl (7.5-11.1); NEUTROPHILS 79.9 % (42.8-82.8); PLATELET COUNT 260 K/MM3 (134-434); RDW 13.8 % (11.6-15.6); WHITE BLOOD COUNT 6.8 K/mm3 (4.0-10.0)
[2017-06-24 07:24] LABS: ALBUMIN 1.9 g/dl (3.4-5.0); ALK PHOS 73 U/L (45-117); ANION GAP 8 (8-16); BILIRUBIN,TOTAL 0.3 mg/dL (0.2-1.0); CALCIUM 7.6 mg/dL (8.5-10.1); CO2 27 mmol/L (21-32); CREATININE 0.3 mg/dL (0.55-1.02); GLUCOSE,RANDOM 99 mg/dL (74-106); MAGNESIUM 1.9 mg/dL (1.8-2.4); PHOSPHOROUS 2.6 mg/dL (2.5-4.9); SGOT/AST 8 U/L (15-37); SGPT/ALT 12 U/L (12-78); TOT PROT 4.2 g/dl (6.4-8.2)
[2017-06-24] MEDS ORDERED: ACETAMINOPHEN 325 MG TABLET (FP) PO PRN (07:47)
[2017-06-24] MEDS ORDERED: SODIUM CHLORIDE 1,000 ML IV SCH (07:47)
--- NOTE | 2017-06-24 08:39 | PN ---
Progress Note, Physician Chief Complaint: ID Ceftriaxone day 6 therapy sepsis Stable confused alert - Current Medication List Current Medications: Active Medications Acetaminophen (Tylenol -) 650 mg PO Q6H PRN PRN Reason: FEVER OR PAIN Aspirin (Asa -) 81 mg PO DAILY [facility] Atorvastatin Calcium (Lipitor -) 20 mg PO HS [facility] Clopidogrel Bisulfate (Plavix -) 75 mg PO DAILY [facility] Ceftriaxone Sodium (Rocephin 1gm Ivpb (Pre-Docked)) 50 mls @ 100 mls/hr IVPB DAILY [facility] Sodium Chloride (Normal Saline -) 1,000 mls @ 42 mls/hr IV ASDIR [facility] Insulin Aspart (Novolog Vial) 10 units SQ TIDAC [facility] PRN Reason: Protocol Insulin Detemir (Levemir Vial) 20 units SQ HS [facility] Last Admin: 06/23/17 22:14 Dose: 20 units Potassium Phos/Sodium Phos (Phos-Nak Packet -) 1 packet PO BID [facility] Ranitidine HCl (Zantac -) 150 mg PO BID [facility] - Objective Vital Signs: Vital Signs Temperature 98.2 F 06/24/17 06:00 Pulse Rate 81 06/24/17 06:00 Respiratory Rate 24 06/24/17 06:00 Blood Pressure 117/58 06/24/17 06:00 O2 Sat by Pulse Oximetry (%) 97 06/23/17 21:00 Constitutional: Yes: Well Nourished, No Distress Neck: Yes: WNL, Supple Cardiovascular: Yes: Regular Rate and Rhythm, S1, S2. No: Murmur Respiratory: Yes: WNL, Regular, CTA Bilaterally Gastrointestinal: Yes: WNL, Normal Bowel Sounds, Soft. No: Tenderness Labs: CBC, BMP 06/24/17 05:35 06/24/17 05:35 INR, PTT INR 1.28 (0.82-1.09) H 06/18/17 15:30 Problem List - Problems (1) Diabetic ketoacidosis Code(s): E13.10 - OTH DIABETES MELLITUS WITH KETOACIDOSIS WITHOUT COMA Qualifiers: Diabetes mellitus type: other specified (including AJAY) Diabetes mellitus complication detail: without coma Qualified Code(s): E13.10 - Other specified diabetes mellitus with ketoacidosis without coma (2) Elevated troponin Code(s): R74.8 - ABNORMAL LEVELS OF OTHER SERUM ENZYMES (3) Sepsis Code(s): A41.9 - SEPSIS, UNSPECIFIED ORGANISM (4) Gram-negative bacteremia Code(s): R78.81 - BACTEREMIA Assessment/Plan Microbiology 06/18/17 15:30 Urine - Urine - Catheterized Urine Culture - Final Escherichia Coli 06/18/17 15:30 Blood - Peripheral Venous Blood Culture - Final Escherichia Coli 06/18/17 15:40 Blood - Peripheral Venous Blood Culture - Preliminary Gram Negative [facility] Tests 06/24/17 06/24/17 05:35 05:35 WBC 6.8 Plt Count 260 BUN 6 L D Creatinine 0.3 L D Assessment E Coli sepsis pansensitive URinary source bacteremia Plan Could be switched to oral quinolone for duration of therapy another 7 days total Kindly recall with any questions Kade ANSARI
--- NOTE | 2017-06-24 09:28 | PN ---
Progress Note, Physician Chief Complaint: Pt is alert; denies chest pain or dyspnea. States she agrees for coronary angiogram. 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 Per the pt's niece, the pt was in her USOH 2 days ago. She reports that the pt lives alone, and the pt called her brother today who noticed that she wasn't speaking coherently. So, the brother called EMS to bring her in. The pt was found altered with feculent material around her face. Due to the patient's AMS, further history was unable to be elicited. Of note, the pt presented to [facility] in 02/2017 for a UTI, treated with levaquin. - Current Medication List Current Medications: Active Medications Acetaminophen (Tylenol -) 650 mg PO Q6H PRN PRN Reason: FEVER OR PAIN Aspirin (Asa -) 81 mg PO DAILY [facility] Atorvastatin Calcium (Lipitor -) 20 mg PO HS [facility] Clopidogrel Bisulfate (Plavix -) 75 mg PO DAILY [facility] Ceftriaxone Sodium (Rocephin 1gm Ivpb (Pre-Docked)) 50 mls @ 100 mls/hr IVPB DAILY [facility] Sodium Chloride (Normal Saline -) 1,000 mls @ 42 mls/hr IV ASDIR [facility] Insulin Aspart (Novolog Vial) 10 units SQ TIDAC [facility] PRN Reason: Protocol Insulin Detemir (Levemir Vial) 20 units SQ HS [facility] Last Admin: 06/23/17 22:14 Dose: 20 units Potassium Phos/Sodium Phos (Phos-Nak Packet -) 1 packet PO BID [facility] Ranitidine HCl (Zantac -) 150 mg PO BID [facility] - Objective Vital Signs: Vital Signs Temperature 98.2 F 06/24/17 06:00 Pulse Rate 81 06/24/17 06:00 Respiratory Rate 24 06/24/17 06:00 Blood Pressure 117/58 06/24/17 06:00 O2 Sat by Pulse Oximetry (%) 97 06/23/17 21:00 Constitutional: Yes: Calm Eyes: Yes: WNL HENT: Yes: WNL Neck: Yes: WNL Cardiovascular: Yes: Regular Rate and Rhythm Respiratory: Yes: Regular Gastrointestinal: Yes: Normal Bowel Sounds, Soft ...Rectal Exam: Yes: Deferred Genitourinary: No: Anuria Breast(s): Yes: WNL Musculoskeletal: Yes: Muscle Weakness Extremities: Yes: WNL Edema: No Peripheral Pulses WNL: Yes Integumentary: Yes: WNL Wound/Incision: Yes: Clean/Dry Neurological: Yes: WNL Psychiatric: Yes: WNL Labs: CBC, BMP 06/24/17 05:35 06/24/17 05:35 INR, PTT INR 1.28 (0.82-1.09) H 06/18/17 15:30 Abnormal Lab Results 06/24/17 06/24/17 05:35 05:35 RBC 3.30 L Hgb 9.5 L D Hct 27.5 L MPV 6.8 L BUN 6 L D Creatinine 0.3 L D Calcium 7.6 L AST 8 L D Total Protein 4.2 L Albumin 1.9 L - ....Imaging Other: Image Reviewed (telemetry: NSR; no arrhythmias) Problem List - Problems (1) Confusion and disorientation Assessment/Plan: Seen by psychiatrist; competent to make decisions for herself. Code(s): F99 - MENTAL DISORDER, NOT OTHERWISE SPECIFIED (2) Diabetes Assessment/Plan: uncontrolled for some time (HGBA1C > 10). Code(s): E11.9 - TYPE 2 DIABETES MELLITUS WITHOUT COMPLICATIONS (3) NSTEMI (non-ST elevated myocardial infarction) Assessment/Plan: Pt agrees to undergo coronary angiogram. [facility] transfer to [facility]. Code(s): I21.4 - NON-ST ELEVATION (NSTEMI) MYOCARDIAL INFARCTION (4) [place] cardiac risk >20% in next 10 years Code(s): Z91.89 - OTH PERSONAL RISK FACTORS, NOT ELSEWHERE CLASSIFIED (5) Anemia Assessment/Plan: bacteremia; anemia. Antibiotics changed. Code(s): D64.9 - ANEMIA, UNSPECIFIED
[2017-06-24] MEDS ORDERED: ASPIRIN 81 MG CHEWABLE TABLETS PO SCH (10:00)
[2017-06-24] MEDS ORDERED: NAPH,MB-DB/K PH,MBDB POWDER PACKET PO SCH (10:00)
[2017-06-24] MEDS ORDERED: RANITIDINE HCL 150 MG TABLET (FP) PO SCH (10:00)
[2017-06-24] MEDS ORDERED: CEFTRIAXONE 50 ML IVPB SCH (10:00)
[2017-06-24] MEDS ORDERED: CLOPIDOGREL BISULFATE 75 MG TABLET (FP) PO SCH (10:00)
[2017-06-24] MEDS ORDERED: INSULIN (NOVOLOG) ASPART 100 UNITS/ML 10ML VIAL SQ SCH (11:00)
--- NOTE | 2017-06-24 12:02 | PN ---
Physical Exam: SUBJECTIVE: Patient seen and examined OBJECTIVE: Vital Signs Period Temp Pulse Resp BP Sys/Barrera Pulse Ox Last 24 Hr 98.2 F-98.4 F 80-104 24-34 95-124/48-73 97 GENERAL: The patient is awake, alert, and fully oriented, in no acute distress. HEAD: Normal with no signs of trauma. EYES: PERRL, extraocular movements intact, sclera anicteric, conjunctiva clear. No ptosis. ENT: Ears normal, nares patent, oropharynx clear without exudates, moist mucous membranes. NECK: Trachea midline, full range of motion, supple. LUNGS: Breath sounds equal, clear to auscultation bilaterally, no wheezes, no crackles, no accessory muscle use. HEART: Regular rate and rhythm, S1, S2 without murmur, rub or gallop. ABDOMEN: Soft, nontender, nondistended, normoactive bowel sounds, no guarding, no rebound, no hepatosplenomegaly, no masses. EXTREMITIES: 2+ pulses, warm, well-perfused, no edema. NEUROLOGICAL: Cranial nerves II through XII grossly intact. Normal speech, gait not observed. PSYCH: Normal mood, normal affect. SKIN: Warm, dry, normal turgor, no rashes or lesions noted Laboratory Results - last 24 hr 06/23/17 06/23/17 06/24/17 12:08 17:15 05:35 WBC 6.8 RBC 3.30 L Hgb 9.5 L D Hct 27.5 L MCV 83.4 MCH 28.8 MCHC 34.6 RDW 13.8 Plt Count 260 MPV 6.8 L Neutrophils % 79.9 Lymphocytes % 10.6 D Monocytes % 7.8 D Eosinophils % 1.4 Basophils % 0.3 Sodium Potassium Chloride Carbon Dioxide Anion Gap BUN Creatinine Creat Clearance w eGFR POC Glucometer 172.16357 173.28315 Random Glucose Calcium Phosphorus Magnesium Total Bilirubin AST ALT Alkaline Phosphatase Total Protein Albumin 06/24/17 06/24/17 05:35 11:44 WBC RBC Hgb Hct MCV MCH MCHC RDW Plt Count MPV Neutrophils % Lymphocytes % Monocytes % Eosinophils % Basophils % Sodium 139 Potassium 4.0 Chloride 104 Carbon Dioxide 27 Anion Gap 8 BUN 6 L D Creatinine 0.3 L D Creat Clearance w eGFR > 60 POC Glucometer [phone] Random Glucose 99 D Calcium 7.6 L Phosphorus 2.6 D Magnesium 1.9 Total Bilirubin 0.3 D AST 8 L D ALT 12 Alkaline Phosphatase 73 Total Protein 4.2 L Albumin 1.9 L Active Medications Generic Name Dose Route Start Last Admin Trade Name Raulito PRN Reason Stop Dose Admin Acetaminophen 650 mg 06/24/17 07:47 Tylenol - PO Q6H PRN FEVER OR PAIN Aspirin 81 mg 06/24/17 10:00 06/24/17 10:35 Asa - PO 81 mg DAILY [facility] Administration Atorvastatin Calcium 20 mg 06/24/17 22:00 Lipitor - PO HS [facility] Clopidogrel Bisulfate 75 mg 06/24/17 10:00 06/24/17 10:37 Plavix - PO 75 mg DAILY [facility] Administration Ceftriaxone Sodium 50 mls @ 100 mls/hr 06/24/17 10:00 06/24/17 10:33 Rocephin 1gm Ivpb (Pre-Docked) IVPB 100 mls/hr DAILY [facility] Administration Sodium Chloride 1,000 mls @ 42 mls/hr 06/24/17 07:47 Normal Saline - IV ASDIR [facility] Insulin Aspart 10 units 06/24/17 11:00 Novolog Vial SQ TIDAC [facility] Protocol Insulin Detemir 20 units 06/21/17 22:30 06/23/17 22:14 Levemir Vial SQ 20 units HS [facility] Administration Potassium Phos/Sodium Phos 1 packet 06/24/17 10:00 06/24/17 10:32 Phos-Nak Packet - PO 1 packet BID [facility] Administration Ranitidine HCl 150 mg 06/24/17 10:00 06/24/17 10:32 Zantac - PO 150 mg BID [facility] Administration ASSESSMENT/PLAN:
--- NOTE | 2017-06-24 12:03 | DS ---
Physical Exam: SUBJECTIVE: Patient seen and examined in the ICU. She is in agreement with the transfer to cardiac laborer syrup machine today. OBJECTIVE: Patient seen by psyche. As per psyche, patient has capacity to maker her own decisions. She alert and oriented, no confusion noted. Still having intermittent episodes of shortness of breath at rest requiring supplemental oxygen. Vital Signs Period Temp Pulse Resp BP Sys/Barrera Pulse Ox Last 24 Hr 98.2 F-98.4 F 80-104 24-34 95-124/48-73 97 PHYSICAL EXAM GENERAL: The patient is awake, alert, and fully oriented during my exam, appears to be back to her baseline. She is in agreement for a cardiac cath on Saturday. No overnight agitation reported HEAD: Normal with no signs of trauma. EYES: PERRL, extraocular movements intact, sclera anicteric, conjunctiva clear. No ptosis. ENT: Ears normal, nares patent, oropharynx clear without exudates, moist mucous membranes. NECK: Trachea midline, full range of motion, supple. LUNGS: Breath sounds equal, clear to auscultation bilaterally, no wheezes HEART: Regular rate and rhythm, S1, S2 without murmur, rub or gallop. ABDOMEN: Soft, nontender, nondistended, normoactive bowel sounds, no guarding, no rebound, no hepatosplenomegaly, no masses. EXTREMITIES: 2+ pulses, warm, well-perfused, no edema. NEUROLOGICAL: Normal speech, gait not observed. PSYCH: Normal mood, normal affect. SKIN: Warm, dry, normal turgor, no rashes or lesions noted LABS Laboratory Results - last 24 hr 06/23/17 06/23/17 06/24/17 12:08 17:15 05:35 WBC 6.8 RBC 3.30 L Hgb 9.5 L D Hct 27.5 L MCV 83.4 MCH 28.8 MCHC 34.6 RDW 13.8 Plt Count 260 MPV 6.8 L Neutrophils % 79.9 Lymphocytes % 10.6 D Monocytes % 7.8 D Eosinophils % 1.4 Basophils % 0.3 Sodium Potassium Chloride Carbon Dioxide Anion Gap BUN Creatinine Creat Clearance w eGFR POC Glucometer [phone] Random Glucose Calcium Phosphorus Magnesium Total Bilirubin AST ALT Alkaline Phosphatase Total Protein Albumin 06/24/17 06/24/17 05:35 11:44 WBC RBC Hgb Hct MCV MCH MCHC RDW Plt Count MPV Neutrophils % Lymphocytes % Monocytes % Eosinophils % Basophils % Sodium 139 Potassium 4.0 Chloride 104 Carbon Dioxide 27 Anion Gap 8 BUN 6 L D Creatinine 0.3 L D Creat Clearance w eGFR > 60 POC Glucometer [phone] Random Glucose 99 D Calcium 7.6 L Phosphorus 2.6 D Magnesium 1.9 Total Bilirubin 0.3 D AST 8 L D ALT 12 Alkaline Phosphatase 73 Total Protein 4.2 L Albumin 1.9 L HOSPITAL COURSE: Date of Admission:06/18/17 Date of Discharge: 06/24/17 ASSESSMENT/PLAN: Mrs. Paul is a 71 year old female with a significant past medical history of hypertension, diabetes mellitus and CABG. She presented to the ER on 06/18/2017 with high blood sugar and confusion. She was found to be in septic shock on admission likely secondary to a UTI. She also had DKA with an elevated anion gap. Her troponins peaked at 3.64, but trended down to 0.91. ID: Severe Sepsis/Bacteremia - improving Assessment/Plan: On admission had leukocytosis (12.2), tachycardia (hr 130s), was febrile (105.7F), UA WBC of 132 and had altered mental status. Her WBC is now within normal limits, BP low stable Cefepime d/cd, started on Levaquin 500mg for 7 more days (06/25 to 07/01) ID notes reviewed Neurology: Metabolic Encephalopathy - resolved A/P: Acute metabolic encephalopathy likely secondary to sepsis, UTI and DKA As per psyche, patient has capacity to maker her own decisions. Cardiology: Elevated troponins/NSTEMI vs Demand ischemia/ACS A/P: Troponins peaked at 3.64, trended down to 0.91 Still having intermittent episodes of shortness of breath at rest, supplemental oxygen 2 liter as needed For transfer to [place] today Hypertension - chronic A/P: BP at goal Endocrinology: DKA - resolved A/P: Anion gap closed On Levemir 20 units @ hs and Novolog 10 units TID/AC [id number] 10.3 Disposition: Requires ICU monitoring, for transfer to [place] for cardiac cath. Full Code. Minutes to complete discharge: 60 Discharge Summary Reason For Visit: DIABETIC KETOACIDOSIS Current Active Problems Anemia (Acute) DVT prophylaxis (Acute) Diabetes (Acute) Diabetic ketoacidosis (Acute) [place] cardiac risk >20% in next 10 years (Acute) Gram-negative bacteremia (Acute) NSTEMI (non-ST elevated myocardial infarction) (Acute) Sepsis (Acute) Condition: Guarded - Instructions Diet, Activity, Other Instructions: Mrs. Paul: You will be transferred to a cardiac laborer syrup machine at [facility] to undergo coronary angiogram. Please continue the Levaquin 500mg daily for 7 more days from 06/25 to 07/02. New medications have been called into your pharmacy: New medications: Levaquin 500mg daily from 06/25 to 07/02 Lipitor 20mg at bedtime Plavix 75mg daily Continue your home medications. Please follow up with your physician and pay station attendant after your are discharged. [facility] [phone] Disposition: TRANSFER ACUTE CARE/OTHER HOSP - Home Medications Comprehensive Discharge Medication List: Ambulatory Orders Aspirin [ASA -] 81 mg PO DAILY 09/03/14 Escitalopram Oxalate [Lexapro -] 30 mg PO DAILY 12/29/16 Insulin Aspart [Novolog Flexpen] 8 unit SQ TID #7 insuln.pen 01/02/17 This patient is new to me today: No Emergency Visit: Yes ED Registration Date: 06/18/17 Care time: The patient presented to the Emergency Department on the above date and was hospitalized for further evaluation of their emergent condition. Critical Care patient: Yes Total Critical Care Time (in minutes): 60 Critical Care Statement: The care of this patient involved high complexity decision making to prevent further life threatening deterioration of the patient 's condition and/or to evaluate & treat vital organ system(s) failure or risk of failure. - Discharge Referral Referred to [facility] Med [facility].: No
[2017-06-24 12:35] VITALS: BP 131/84; PULSE 88; TEMP 98.7
[2017-06-24] MEDS ORDERED: ATORVASTATIN CA 20 MG TABLET (FP) PO SCH (22:00)
[2017-06-25] MEDS ORDERED: LEVOFLOXACIN 750 MG TABLET PO SCH (06:00)
== END 2017-06-24 14:29 | disposition short-term general hospital (02) | DRG 871 ==
LOC: JER 15:07 → JERBED 17:51 → JICU 20:04 → J2W 06-24 00:18
PROVIDERS: ADMIT Internal Medicine; ATTEND Nurse Practitioner Family
DX: A41.51 Sepsis due to Escherichia coli [E. coli] (principal); E13.10 Other specified diabetes mellitus with ketoacidosis without coma; R65.21 Severe sepsis with septic shock; I21.4 Non-ST elevation (NSTEMI) myocardial infarction; G93.41 Metabolic encephalopathy; N39.0 Urinary tract infection, site not specified; E87.1 Hypo-osmolality and hyponatremia; Z88.0 Allergy status to penicillin; Z79.4 Long term (current) use of insulin; I10 Essential (primary) hypertension; I25.2 Old myocardial infarction; I25.10 Atherosclerotic heart disease of native coronary artery without angina pectoris; Z95.5 Presence of coronary angioplasty implant and graft; Z95.1 Presence of aortocoronary bypass graft; E78.00 Pure hypercholesterolemia, unspecified; E86.0 Dehydration; I95.89 Other hypotension; D64.9 Anemia, unspecified
CPT/HCPCS: 36415; 71010-TC; 80048; 80053; 80061; 81003; 81015; 82009; 82553; 82803; 83036; 83605; 83721; 83735; 84100; 84443; 84484; 85025; 85027; 85610; 85730; 86850; 86900; 86901; 87040; 87086; 87186; 93005; 93010; 93306-TC; 99285-25; J1644

== ENCOUNTER 2017-08-28 09:46 | Inpatient (IN) | payer OTHER, BC ==
[2017-08-28] MEDS ORDERED: ONDANSETRON 4 MG/2 ML VIAL IVPB ONE (10:53)
[2017-08-28] MEDS ORDERED: SODIUM CHLORIDE 1,000 ML IV STA ×2 (10:53→12:44)
[2017-08-28] MEDS ORDERED: FAMOTIDINE 20 MG/50 ML IVPB 50 ML IVPB ONE ×2 (10:53→11:07)
[2017-08-28] MEDS ORDERED: ONDANSETRON 4 MG/2 ML VIAL ONE (11:07)
[2017-08-28 11:45] LABS: BASOPHIL 0.1 % (0-2.0); EOSINOPHIL 0.1 % (0-4.5); MCHC 33.6 g/dl (32.0-36.0); MEAN CELL VOLUME 86.5 fl (80-96); MEAN PLT VOLUME 6.8 fl (7.5-11.1); NEUTROPHILS 89.2 % (42.8-82.8); PLATELET COUNT 235 K/MM3 (134-434); RDW 14.2 % (11.6-15.6); WHITE BLOOD COUNT 6.9 K/mm3 (4.0-10.0)
--- NOTE | 2017-08-28 11:48 | PDOC ---
History of Present Illness - General Chief Complaint: Nausea/Vomiting Stated Complaint: FALL Time Seen by Provider: 08/28/17 10:52 - History of Present Illness Initial Comments: 08/28/17 11:44 "The patient is a 71 year old female, with a significant past medical history of diabetes, DKA, hyperlipidemia, CAD( s/p 4 stents), CABG, NSTEMI, and frequent falls, who presents to the emergency department complaining of nausea and vomiting since this morning. The patient reports she began to vomit after drinking a glass of water earlier this morning. Patient reports multiple episodes of nonbloody/nonbilious vomiting. She denies any associated abdominal pain, diarrhea, or constipation. She denies any fever, chills, sore throat, or dizziness. She denies any chest pain, shortness of breath, diaphoresis, or palpitations. She denies any dysuria, hematuria, frequency, or urgency. She denies any recent travel or sick contacts. Patient also reports right elbow pain s/p mechanical fall while taking out the trash 3 weeks ago, and landing on her car. She denies any head trauma, changes in vision, LOC, or weakness. Allergies: Penicillins Past Surgical History: CABG, Cardiac stents X4, Left hip fx repair Social History: Non smoker. No ETOH or recreational drug use. PCP: Dr. Gilmore " Past History - Past Medical History Allergies/Adverse Reactions: Allergies Allergy/AdvReac Type Severity Reaction Status Date / Time apple [Apple] Allergy Verified 08/28/17 10:23 peach [[place]] Allergy Verified 08/28/17 10:23 Penicillins Allergy Verified 08/28/17 10:23 Home Medications: Ambulatory Orders Aspirin [ASA -] 81 mg PO DAILY 09/03/14 Escitalopram Oxalate [Lexapro -] 30 mg PO DAILY 12/29/16 Acetaminophen [Tylenol .Regular Strength -] 650 mg PO Q6H PRN #0 tablet Atorvastatin Ca [Lipitor] 20 mg PO HS #30 tablet 06/24/17 Clopidogrel Bisulfate [Plavix -] 75 mg PO DAILY #0 tablet 06/24/17 Clopidogrel Bisulfate [Plavix -] 75 mg PO DAILY #30 tablet 06/24/17 Insulin (Levemir) [Levemir Vial] 20 units SQ HS ml 06/24/17 Insulin (Novolog) [Novolog -] 10 units SQ TIDAC units 06/24/17 Levofloxacin [Levaquin] 500 mg PO DAILY #7 tab 06/24/17 Ranitidine [Zantac -] 150 mg PO BID tablet 06/24/17 Anemia: No Asthma: No Cancer: No Cardiac Disorders: Yes (CAD, CABG) CVA: No COPD: No Dementia: No Diabetes: Yes GI Disorders: No Disorders: No HTN: Yes Hypercholesterolemia: Yes Liver Disease: No Seizures: No Thyroid Disease: No - Surgical History Cardiac Surgery: Yes (QUADRUPLE BYPASS) Orthopedic Surgery: Yes (left hip fracture repair) - Reproductive History Cervical CA: No Dysfunctional Uterine Bleeding: No Ectopic : No Endometrial CA: No Polycystic Ovaries: No Therapeutic (s) & number: No Tubal Ligation: No - Immunization History Immunization Up to Date: Yes - Suicide/Smoking/Psychosocial Hx Smoking History: Unknown if ever smoked Have you smoked in the past 12 months: No Hx Alcohol Use: No Drug/Substance Use Hx: No Substance Use Type: None Hx Substance Use Treatment: No Review of Systems - Review of Systems Comments:: 08/28/17 11:45 "GENERAL/CONSTITUTIONAL: No fever or chills. No weakness. HEAD, EYES, EARS, NOSE AND THROAT: No change in vision. No ear pain or discharge. No sore throat. CARDIOVASCULAR: No chest pain or shortness of breath. RESPIRATORY: No cough, wheezing, or hemoptysis. GASTROINTESTINAL: Yes nausea, vomiting. No abdominal pain, diarrhea or constipation. GENITOURINARY: No dysuria, frequency, or change in urination. MUSCULOSKELETAL: Yes right elbow pain. No other joint or muscle swelling or pain. No neck or back pain. SKIN: No rash NEUROLOGIC: No headache, vertigo, loss of consciousness, or change in strength/ sensation. ENDOCRINE: No increased thirst. No abnormal weight change. HEMATOLOGIC/LYMPHATIC: No anemia, easy bleeding, or history of blood clots. ALLERGIC/IMMUNOLOGIC: No hives or skin allergy." *Physical Exam - Vital Signs Last Vital Signs Temp Pulse Resp BP Pulse Ox 97.4 F L 91 H 20 135/74 98 08/28/17 10:00 08/28/17 10:00 08/28/17 10:00 08/28/17 10:00 08/28/17 10:00 - Physical Exam Comments: 08/28/17 11:45 "GENERAL: Awake, alert, and fully oriented, in no acute distress HEAD: No signs of trauma EYES: PERRLA, EOMI, sclera anicteric, conjunctiva clear ENT: Auricles normal inspection, hearing grossly normal, nares patent, oropharynx clear without exudates. Moist mucosa NECK: Nontender, no stepoffs, Normal ROM, supple, no lymphadenopathy, JVD, or masses LUNGS: Breath sounds equal, clear to auscultation bilaterally. No wheezes, and no crackles HEART: Regular rate and rhythm, normal S1 and S2, no murmurs, rubs or gallops ABDOMEN: Soft, nontender, normoactive bowel sounds. No guarding, no rebound. No masses EXTREMITIES: R elbow with small effusion, no obvious deformity, no lacerations/ abrasions/ecchymosis, Normal range of motion, no edema. No clubbing or cyanosis. No cords, erythema, or tenderness NEUROLOGICAL: Cranial nerves II through XII intact. 5/5 strength and sensation in all extremities, Normal speech, normal gait SKIN: Warm, Dry, normal turgor, no rashes or lesions noted. " Heart Score/ECG Review - ECG Impressions Comment:: 08/28/17 11:46 NSR, no MORRO/STDs, no TWIs, intervals wnl, L axis deviation ED Treatment Course - LABORATORY CBC & Chemistry Diagram: 08/28/17 11:20 08/28/17 11:20 Medical Decision Making - Critical Care Time Total Critical Care Time (minutes): 30 Critical Care Statement: The care of this patient involved high complexity decision making to prevent further life threatening deterioration of the patient 's condition and/or to evaluate & treat vital organ system(s) failure or risk of failure. - Medical Decision Making 08/28/17 11:46 71 F with N/V this morning. Pt with benign exam. However, pt is diabetic with h/ o DKA, so will check electrolytes, ketones, VBG. Pt also with h/o CAD with CABG. Although she is not complaining of CP/SOB, will r/o ACS as N/V may be anginal equivalent in a 71 yo F. - Labs, trop, VBG, acetone - UA, CXR - IVF, zofran - XR L elbow 08/28/17 13:35 Pt with + serum ketones, glucose >500, AG 19. Pt started on IVF and insulin gtt for DKA Will admit to ICU. 08/28/17 13:43 Dr. Hillman accepted pt to ICU. Will page hospitalist for admission. 08/28/17 13:52 Pt admitted to hospitalist for DKA. XR shows supracondylar fx of R elbow. Pt placed in sling. Will need ortho eval during admission. Case discussed in detail with admitting physician including history, physical exam and ancillary studies. Admitting physician has assumed care for the patient and will follow all pending diagnostics and complete the evaluation and treatment. *DC/Admit/Observation/Transfer Diagnosis at time of Disposition: Diabetic ketoacidosis - Discharge Dispostion Admit: Yes - Referrals Referrals: Gemini Gilmore MD [Primary Care Provider] - - Attestations Physician Attestion: 08/28/17 13:53 I, Dr. Stefano Lopez MD, attest that this document has been prepared under my direction and personally reviewed by me in its entirety. I further attest, that it accurately reflects all work, treatment, procedures and medical decision -making performed by me.
[2017-08-28 12:09] LABS: SGOT/AST 19 U/L (15-37)
[2017-08-28 12:10] LABS: CPK 110 IU/L (26-192)
[2017-08-28 12:11] LABS: TROPONIN I < 0.02 ng/ml (0.00-0.05)
[2017-08-28 12:46] LABS: ALBUMIN 3.5 g/dl (3.4-5.0); ALK PHOS 133 U/L (45-117); ANION GAP 19 (8-16); BILIRUBIN,TOTAL 0.8 mg/dL (0.2-1.0); CALCIUM 9.6 mg/dL (8.5-10.1); CO2 18 mmol/L (21-32); SGPT/ALT 20 U/L (12-78)
[2017-08-28 12:55] LABS: GLUCOSE,RANDOM 506 mg/dL (74-106)
[2017-08-28 13:04] LABS: ACETONE SERUM POSITIVE MODERATE 2+ (NEGATIVE)
[2017-08-28] MEDS ORDERED: INSULIN REGULAR 100 UNITS in SODIUM CHLORIDE 99 ML IVPB SCH ×4 (13:15→19:22)
--- NOTE | 2017-08-28 14:50 | HP ---
CHIEF COMPLAINT: vomiting PCP: Dr. Gilmore HISTORY OF PRESENT ILLNESS: 71 yr old woman with IDDM II, CAD s/p stents and CABG bibems by nephew due to vomiting and generalized weakness. Since Saturday she has been having intermittent nonbilous nonbloody vomiting since saturday preventing her from eating and drinking. she has not been able to check her BGMs for the past few days. 3 weeks ago she feel on her right elbow while taking the trash out, she says it was mechanical due to her improperly placed shoes. denies head trauma or syncope. since then she has been having limited mobility and pain with movement in her right arm. as per ED nurse, patient was very malodorous at admission and covered in multiple layers of urine requiring several washings to clean. ER course was notable for: (1) elbow xray with supradocondylar fracture (2) insulin drip (3) 2 L NS, hernandez inserted Recent Travel: none PAST MEDICAL HISTORY: CAD s/p stents, says 2 months ago 06/19/2017 hba1c: 10 06/24/2017 echo: reduced LV and RV systolic function PAST SURGICAL HISTORY: CABG, says 2 months ago Social History: Smoking: denies Alcohol: denies Drugs: denies Family History: denies fmx of dm, htn, cancer, rheumatological disorders Allergies apple [Apple] Allergy (Verified 08/28/17 10:23) peach [[place]] Allergy (Verified 08/28/17 10:23) Penicillins Allergy (Verified 08/28/17 10:23) - taken a long time ago, does not recall what exactly happened CONSTITUTIONAL: Present: unintentional weight change - loss, poor appetite Absent: fever, chills, diaphoresis, generalized weakness, malaise HEENT: Present: difficulty swallowing due to vomiting Absent: rhinorrhea, nasal congestion, throat pain, throat swelling, mouth swelling, ear pain, eye pain, visual changes CARDIOVASCULAR: Absent: chest pain, syncope, palpitations, irregular heart rate, lightheadedness , peripheral edema RESPIRATORY: Absent: cough, shortness of breath, dyspnea with exertion, orthopnea, wheezing, stridor, hemoptysis GASTROINTESTINAL: Present: vomiting Absent: abdominal pain, abdominal distension, nausea, diarrhea, constipation, melena, hematochezia GENITOURINARY: Present: frequency, Absent: dysuria, urgency, hesitancy, hematuria, flank pain, genital pain MUSCULOSKELETAL: Present: joint swelling - right elbow Absent: myalgia, arthralgia, back pain, neck pain SKIN: Present: rash Absent: , itching, pallor HEMATOLOGIC/IMMUNOLOGIC: Absent: easy bleeding, easy bruising, lymphadenopathy, frequent infections ENDOCRINE: Absent: unexplained weight gain, unexplained weight loss, heat intolerance, cold intolerance NEUROLOGIC: Absent: headache, focal weakness or paresthesias, dizziness, unsteady gait, seizure, mental status changes, bladder or bowel incontinence PSYCHIATRIC: Absent: anxiety, depression, suicidal or homicidal ideation, hallucinations. PHYSICAL EXAMINATION GENERAL: Awake, alert, and oriented to person, not to place/year: 1969, month: may, president:diane, in no acute distress. HEAD: Normal with no signs of trauma. EYES: Pupils equal, round and reactive to light, extraocular movements intact, sclera anicteric, conjunctiva clear. No lid lag. EARS, NOSE, THROAT: oropharynx clear without exudates. missing dentition in upper palate, no oral lesions or thrush. Moist mucous membranes. NECK: Normal range of motion, supple without lymphadenopathy, JVD, or masses. LUNGS: Breath sounds equal, clear to auscultation bilaterally. quiet at bases. No wheezes, and no crackles. No accessory muscle use. HEART: Regular rate and rhythm, normal S1 and S2. with systolic murmur. ABDOMEN: Soft, nontender, not distended, normoactive bowel sounds, no guarding, no rebound, no masses. erythematous lower abdomen under pannus with skin demuted on the right side. MUSCULOSKELETAL: decreased range of motion at b/l hip on extension. decreased rom with abduction on left shoulder, decreased rom in all directions at right elbow and shoulder due to pain. ttp at right elbow. UPPER EXTREMITIES: 2+ radial pulses, warm, well-perfused. No cyanosis. No clubbing. right elbow swelling. LOWER EXTREMITIES: 2+ dp pulses, warm, well-perfused. No calf tenderness. No peripheral edema. appears to be red bruising over left knee - no swelling no blue/black appearance, not ttp. NEUROLOGICAL: Cranial nerves II-XII intact. Normal speech. facial symmetry. sensation intact over b/l ue from shoulders to fingers. 3/5 handgrip in right, 5 /5 handgrip on left. 3/5 hip extension b/l. sensation intact in b/l lower legs anterior and soles of feet. PSYCHIATRIC: Cooperative. Good eye contact. Appropriate mood and affect. SKIN: Warm, dry, decreased turgor, contact dermatitis lower abdomen. Hernandez in place ASSESSMENT/PLAN: 71 yr old woman with uncontrolled IDDM II presents with vomiting found to have DKA admitted to the ICU for further management. - corrected sodium 140 #DKA - hyperglycemia, acetone, low bicarb, ucx pending, pt is afebrile, low suspicion for infectious cause, likely due to medication noncompliance - insulin drip, continue drip until anion gap is closed - bgms q1hr, switch to d5-1/2ns if BGM <250and gap still open - bmp q4hr, add potassium to IVF if below <5.3 - NS @100cc/hr, repeat examination to prevent fluid overload as patient has rv and lv systolic dysfunction - start levemir once gap is closed #high anion metabolic acidosis (21 with corrected albumin) - likely due to DKA #supracondylar fracture due to mechanical fall - immbolizer - pain control, start with tylenol and titrate to control - dr. pederson consulted for further evaluation, he will see her tomorrow, as there is no acute intervention at this time #Diet: will advance once gap is closed, diabetic low sodium #DVT: lovenox Visit type - Emergency Visit Emergency Visit: Yes ED Registration Date: 08/28/17 Care time: The patient presented to the Emergency Department on the above date and was hospitalized for further evaluation of their emergent condition. - New Patient This patient is new to me today: Yes Date on this admission: 08/28/17 - Critical Care Critical Care patient: Yes Total Critical Care Time (in minutes): 37 Critical Care Statement: The care of this patient involved high complexity decision making to prevent further life threatening deterioration of the patient 's condition and/or to evaluate & treat vital organ system(s) failure or risk of failure.
--- NOTE | 2017-08-28 15:39 | PN ---
Teaching Attending Note ATTENDING PHYSICIAN STATEMENT I saw and evaluated the patient. I reviewed the resident's note and discussed the case with the resident. I agree with the resident's findings and plan as documented. SUBJECTIVE: Pt seen and examined in the ICU. Briefly, 71yo female with h/o IDDM, CAD s/p stents who presents with generalized weakness, nausea and vomiting. Found to be hyperglycemic with an elevated anion gap. Pt poor historian, combative, unable to provide reliable history at this time. Unclear if she was taking her insulin at home. Described on presentation to be very disheveled and malodorous. Placed on insulin gtt, given IVF and transferred to the ICU for further monitoring. OBJECTIVE: Last Vital Signs Temp Pulse Resp BP Pulse Ox 97.4 F L 91 H 20 135/74 98 08/28/17 10:00 08/28/17 10:00 08/28/17 10:00 08/28/17 10:00 08/28/17 10:00 Intake & Output 08/25/17 08/26/17 08/27/17 08/28/17 23:59 23:59 23:59 23:59 Weight 130 lb Gen: confused, agitated Heart: RRR Lung: decreased breath sounds at the bases Abd: soft, nontender Ext: no edema CBC, BMP 08/28/17 11:20 08/28/17 11:20 Active Medications Insulin Human Regular 100 (units/ Sodium Chloride) 100 mls @ 5.89 mls/hr IVPB TITR KHANH; 0.1 UNITS/KG/HR PRN Reason: Protocol Last Admin: 08/28/17 13:33 Dose: 5.89 mls/hr ASSESSMENT AND PLAN: Diabetic Ketoacidosis Hypovolemia/Dehydration Acute Kidney Injury Pseudohyponatremia CAD LV Systolic Dysfunction - IVF resuscitation - insulin gtt until anion gap closed - monitor BGM q1h, BMP q4h while on insulin gtt - if BGM <250 while on insulin gtt, add D5 to IVF - if K <4.5 while on insulin gtt, add KCl to IVF - monitor urine output, creatinine - send UA, UCx - DVT prophylaxis - will likely need placement when ready for discharge - ICU monitoring while requiring insulin gtt Thank you for this consult Titi Hillman MD critical care time spent in reviewing chart, evaluating patient and formulating plan 35 min
[2017-08-28 15:45] LABS: URINE APPEARANCE SLCLOUDY; URINE BILIRUBIN NEGATIVE (NEGATIVE); URINE BLOOD 2+ (NEGATIVE); URINE COLOR LTYELLOW; URINE GLUCOSE (UA) 3+ (NEGATIVE); URINE KETONE 2+ (NEGATIVE); URINE NITRITE NEGATIVE (NEGATIVE); URINE PROTEIN NEGATIVE (NEGATIVE); URINE UROBILINOGEN NEGATIVE mg/dL (0.2-1.0)
[2017-08-28 15:57] VITALS: BMI 26.5
[2017-08-28 15:59] LABS: URINE BACTERIA FEW /hpf (NONE SEEN); URINE WBC 17 /hpf (3-5)
[2017-08-28] MEDS ORDERED: DEXTROSE 5%-0.45% SALINE 1,000 ML IV SCH (16:30)
--- NOTE | 2017-08-28 16:41 | HP ---
CHIEF COMPLAINT: 2 days of vomiting. PCP: Gemini Cowart HISTORY OF PRESENT ILLNESS: Patient is a 71 Year old while female with PMH of IDDMII, DKA, HTN, HLD, CAD, s/ p CABGX4 who presented to the hospital today by her brother due to 2 days history of vomiting, non bloody , watery. She claims she has not been well for the last few weeks, and has been only on fluids for the last 2 days and she vomit what ever she drink. She denies any fever, chills, N/D/C. She reports abdominal pain local non radiated in med lower quadrant. She denies any dysuria,hematuria, frequency urgency. She reports nocturnuria X3-4 times at night with polyuria during the day. She denies any headache light headedness, dizziness,blurry vision, CP, SOB , palpitation. She has not been out of her house for the last few weeks. she is very depressed since her 4 years ago. She has a history of multiple falls due to imbalance , recent one 3 weeks ago with right elbow trauma and enlargement. She denies any sick contact or recent travel but she reports loosing weight. as per ED nurse, patient was very malodorous at admission and covered in multiple layers of urine requiring several washings to clean. She d ER course was notable for: (1) IV fluids (2) BMP : 130, 5.5, 93, 18,41, 1,506 (3) R elbow xray : suprachondylar distal humerus fracture. (4) UA : +3 ketones,+3 blood and +3 nitrite. Recent Travel: none PAST MEDICAL HISTORY: CAD s/p stents, says 2 months ago 06/19/2017 hgbA1c: 10.3 06/24/2017 echo: reduced LV and RV systolic function HTN, HLD, DKA, UTI. PAST SURGICAL HISTORY: CABGX4 , 4 years ago. Left hip Fx repair. Social History: Smoking:none Alcohol:none Drugs: none Family History: Father had DM,Bladder cancer. Mother healthy at age of 90. Allergies apple [Apple] Allergy (Verified 08/28/17 10:23) peach [[place]] Allergy (Verified 08/28/17 10:23) Penicillins Allergy (Verified 08/28/17 10:23) HOME MEDICATIONS: Home Medications Medication Instructions Recorded Aspirin [ASA -] 81 mg PO DAILY 09/03/14 Escitalopram Oxalate [Lexapro -] 30 mg PO DAILY 12/29/16 Acetaminophen [Tylenol .Regular 650 mg PO Q6H PRN #0 tablet 06/24/17 Strength -] Atorvastatin Ca [Lipitor] 20 mg PO HS #30 tablet 06/24/17 Clopidogrel Bisulfate [Plavix -] 75 mg PO DAILY #30 tablet 06/24/17 Ranitidine [Zantac -] 150 mg PO BID tablet 06/24/17 Insulin (Novolog 70/30) [Novolog 14 units SQ BID 08/28/17 Mix 70/30 Flexpen -] Lisinopril [Zestril] 2.5 mg PO DAILY 08/28/17 Metoprolol Succinate [Toprol Xl] 25 mg PO DAILY 08/28/17 REVIEW OF SYSTEMS CONSTITUTIONAL: Absent: fever, chills, diaphoresis, generalized weakness, malaise, loss of appetite, weight change HEENT: Absent: rhinorrhea, nasal congestion, throat pain, throat swelling, difficulty swallowing, mouth swelling, ear pain, eye pain, visual changes CARDIOVASCULAR: Absent: chest pain, syncope, palpitations, irregular heart rate, lightheadedness , peripheral edema RESPIRATORY: Absent: cough, shortness of breath, dyspnea with exertion, orthopnea, wheezing, stridor, hemoptysis GASTROINTESTINAL: Absent:lower med abdominal pain, abdominal distension, nausea, vomiting, diarrhea, constipation, melena, hematochezia GENITOURINARY: Absent: dysuria, frequency, urgency, hesitancy, hematuria, flank pain, genital pain MUSCULOSKELETAL: Absent: myalgia, arthralgia, joint swelling right elbow , back pain, neck pain SKIN: Absent: rash, itching, pallor HEMATOLOGIC/IMMUNOLOGIC: Absent: easy bleeding, easy bruising, lymphadenopathy, frequent infections ENDOCRINE: Absent: unexplained weight gain, unexplained weight loss, heat intolerance, cold intolerance NEUROLOGIC: Absent: headache, focal weakness or paresthesias, dizziness, unsteady gait, seizure, mental status changes, bladder or bowel incontinence PSYCHIATRIC: Absent: anxiety, depression, suicidal or homicidal ideation, hallucinations. PHYSICAL EXAMINATION Vital Signs - 24 hr 08/28/17 08/28/17 15:10 16:08 Temperature 97.5 F L Pulse Rate 89 84 Respiratory 21 22 Rate Blood Pressure 160/67 143/55 O2 Sat by Pulse 89 L Oximetry (%) Intake & Output 08/25/17 08/26/17 08/27/17 08/28/17 23:59 23:59 23:59 23:59 Intake Total 2000 Output Total 1350 Balance 650 Weight 52.9 kg GENERAL: Awake, alert, oriented to person only , in no acute distress. HEAD: Normal with no signs of trauma. EYES: sclera anicteric, conjunctiva clear. EARS, NOSE, THROAT: dry mucous membranes. LUNGS: Breath sounds equal, clear to auscultation bilaterally. No wheezes, and no crackles. No accessory muscle use. HEART: Regular rate and rhythm, normal S1 and S2 with 2/6 systolic murmur RSB, No rub or gallop. ABDOMEN: Soft,non tender, not distended, normoactive bowel sounds, no guarding, no rebound. UPPER EXTREMITIES: warm, well-perfused. No cyanosis. No clubbing. No peripheral edema.enlarged right elbow , tender and sensitive to touch. LOWER EXTREMITIES: warm, well-perfused. No calf tenderness. No peripheral edema. NEUROLOGICAL: Normal speech.gait not observed.facial symmetry. sensation intact over b/l UE from shoulders to fingers. 3/5 handgrip in right, 5/5 handgrip on left. 3/5 hip extension b/l. sensation intact in b/l lower legs anterior and soles of feet. PSYCHIATRIC: non cooperative. Good eye contact. flat mood and affect. SKIN: Warm, dry, no rashes or lesions noted.erythematous lower abdomen under pannus with skin demuted on the right side. Manning in place Laboratory Results - last 24 hr 08/28/17 15:20 Urine Color Ltyellow Urine Appearance Slcloudy Urine pH 5.0 Urine Protein Negative Urine Glucose (UA) 3+ H Urine Ketones 2+ H Urine Blood 2+ H Urine Nitrite Negative Urine Bilirubin Negative Urine Urobilinogen Negative Laboratory Results - last 24 hr 08/28/17 08/28/17 08/28/17 11:15 11:20 11:20 WBC 6.9 RBC 4.70 D Hgb 13.6 D Hct 40.6 D MCV 86.5 MCH 29.0 MCHC 33.6 RDW 14.2 Plt Count 235 MPV 6.8 L Neutrophils % 89.2 H Lymphocytes % 4.6 L D Monocytes % 6.0 Eosinophils % 0.1 D Basophils % 0.1 Sodium Potassium Chloride Carbon Dioxide Anion Gap BUN Creatinine Creat Clearance w eGFR Random Glucose Lactic Acid 1.3 Calcium Phosphorus Magnesium Total Bilirubin AST ALT Alkaline Phosphatase Creatine Kinase 110 Troponin I < 0.02 Total Protein Albumin Lipase Urine Color Urine Appearance Urine pH Ur Specific [place] Urine Protein Urine Glucose (UA) Urine Ketones Urine Blood Urine Nitrite Urine Bilirubin Urine Urobilinogen Ur Leukocyte Esterase Urine RBC Urine WBC Ur Epithelial Cells Urine Bacteria Acetone, Qual 08/28/17 08/28/17 08/28/17 11:20 15:20 16:40 WBC RBC Hgb Hct MCV MCH MCHC RDW Plt Count MPV Neutrophils % Lymphocytes % Monocytes % Eosinophils % Basophils % Sodium 130 L 135 L Potassium 5.5 H D 4.4 Chloride 93 L D 103 D Carbon Dioxide 18 L D 19 L Anion Gap 19 H 13 BUN 41 H D 33 H Creatinine 1.0 D 0.8 Creat Clearance w eGFR 54.66 Random Glucose 506 H* D 200 H D Lactic Acid Calcium 9.6 D 9.0 Phosphorus Magnesium Total Bilirubin 0.8 D AST 19 D ALT 20 D Alkaline Phosphatase 133 H D Creatine Kinase Troponin I Total Protein 7.0 D Albumin 3.5 D Lipase 57 L Urine Color Ltyellow Urine Appearance Slcloudy Urine pH 5.0 Ur Specific [place] 1.010 Urine Protein Negative Urine Glucose (UA) 3+ H Urine Ketones 2+ H Urine Blood 2+ H Urine Nitrite Negative Urine Bilirubin Negative Urine Urobilinogen Negative Ur Leukocyte Esterase Negative Urine RBC None Urine WBC 17 Ur Epithelial Cells Rare Urine Bacteria Few Acetone, Qual Positive moderate 2+ H 08/28/17 16:40 WBC RBC Hgb Hct MCV MCH MCHC RDW Plt Count MPV Neutrophils % Lymphocytes % Monocytes % Eosinophils % Basophils % Sodium Potassium Chloride Carbon Dioxide Anion Gap BUN Creatinine Creat Clearance w eGFR Random Glucose Lactic Acid Calcium Phosphorus 1.8 L D Magnesium 2.3 D Total Bilirubin AST ALT Alkaline Phosphatase Creatine Kinase Troponin I Total Protein Albumin Lipase Urine Color Urine Appearance Urine pH Ur Specific [place] Urine Protein Urine Glucose (UA) Urine Ketones Urine Blood Urine Nitrite Urine Bilirubin Urine Urobilinogen Ur Leukocyte Esterase Urine RBC Urine WBC Ur Epithelial Cells Urine Bacteria Acetone, Qual ASSESSMENT/PLAN: Patient is a 71 Year old female with PMHx of IDDM, DKA, HTN, HLD, CAD(CABG) who presented to the hospital with 2 days history of non bilious non bloody diarrhea , who was found to have DKA at the ED and was admitted to the ICU fir further evaluation and treatment. # DKA, high anion gap metabolic acidosis * IV fluids * insulin GTT till AG closed * CBC, BMP routine * BGM Q 1 hr * NPO , advance to low sodium diet when AG closed * ISS when AG closed * monitor BMP Q 4 hr while insulin gtt * if BGM <250 while on insulin gtt, add D50 to IVF * replenish K if less than 4 while on insulin drip * UA , urine cx * patient education about short term and care home diabetic complication and necessity of compliance. #Pseudohyponatremia, 2/2 DKA * corrected Na 140 * Monitor BMP after IV fluids # Hyperkalemia * K > 5.3 on admission * monitor closely * replenish if less than 4 # Hypovolemia/Dehydration 2/2 low oral intake and vomiting * Monitor BUN/ Cr * Monitor urine out put and input * daily weight * Zofran as needed # vomiting 2/2 DKA * 2 days of vomiting non bloody * Zofran as needed # Suprachonylar fracture R elbow distal humerus * 2/2 mechanical fall 3 weeks ago * Pain control,Tylenol 650 mg po daily * ortho consult, Dr. Castillo # CAD, * stable * LV systolic dysfunction * hld ASA, Plavix possible orthopedic procedure # HTN, * BP 143/55 on admission * Hold home meds (lisinopril 2.5 daily , Metoprolol 25 daily ) # HLD , * Continue Lipitor 20 daily once start feeding # Depression, chronic , resistant * on lexipro 30 daily * pt non compliant will hold for now * consider to consult Psychiatrist # H/O imbalance gait * Consider PT when Stable * Will benefit from AMANDA #Erythema on the abdomen , likely fungal * consider unti fungal after DKA resolved. * keep the area dry and clean of urine or humidity # FEN * IV fluids NS in ED , switch to D5/1/2 NS when glucose less than 250 * pseudo hyponatremia, hyperkalemia , repeat BMP Q2 hr * NPO till close the AG # Proph * DVT: Lovenox 40 SQ daily * GI: no needed # Dispo * Admit to ICU * will likely need placement when ready for discharge Visit type - Emergency Visit Emergency Visit: Yes ED Registration Date: 08/28/17 Care time: The patient presented to the Emergency Department on the above date and was hospitalized for further evaluation of their emergent condition. - New Patient This patient is new to me today: Yes Date on this admission: 08/28/17 - Critical Care Critical Care patient: Yes Total Critical Care Time (in minutes): 50 Critical Care Statement: The care of this patient involved high complexity decision making to prevent further life threatening deterioration of the patient 's condition and/or to evaluate & treat vital organ system(s) failure or risk of failure.
--- NOTE | 2017-08-28 17:19 | PN ---
Teaching Attending Note Name of Resident: Smooth Buckley ATTENDING PHYSICIAN STATEMENT I saw and evaluated the patient. I reviewed the resident's note and discussed the case with the resident. I agree with the resident's findings and plan as documented. [facility]71[facility], DM, hyperlipidemia and long hx of non compliance presented with nausea and vomiting for the past 2 days. as per pt she haad poor appetite for the past month and not eating much. stopped taking her medications or checking BGM. states she does not want to be bothered with "that stuff". admits to mechanical fall 3 weeks ago after tripping while walking to the kitchen and falling on her R side. did not seek medical attention after that. denies any symptoms prior to or after fall other than R arm pain post-fall. denies CP, SOB, fever, chills this is this pt 8th ER visit this year alone and 3rd time being admitted for DKA. her sugars are high on each presentation OBJECTIVE: Last Vital Signs Temp Pulse Resp BP Pulse Ox 88 F L 84 18 143/55 100 08/28/17 16:19 08/28/17 16:08 08/28/17 16:19 08/28/17 16:19 08/28/17 16:56 General NAD HEENT dehydrated CV S1 S2 RRR +murmur Lungs CTA B/L anteriorly Abdomen soft NT/ND Extremities R elbow swollen with healing ecchymosis, tender on manipulation, 1+ pulse in RUE ASSESSMENT AND PLAN: 71[facility], DM, hyperlipidemia and long hx of non compliance presented with nausea and vomiting for the past 2 days and found to be in DKA on arrival 1. DKA- due to non-compliance. Admit to MICU for continuous monitoring. started on insulin ggt. NPO, IVF, insulin ggt. check BGM q1H, labs Q2H until gap closes and bicarb normalizes. discussed with pt need for sugar and diabetes compliance. risks of uncontrolled DM discussed which can lead to blindness, early cardiac disease, kidney failure, sensation loss, infection and amputations 2. Pseudohyponatremia- corrected Na 140 3. Hyperkalemia- K >5.3 monitor closely while on insulin. will not supplement at this time 4. R supracondylar fracture of distal humerus- s/p mechanical fall. immobilizer. consult ortho. pain control 5. CAD s/p stents- will hold asa/plavix at this time as pt is not compliant. possible intervention of elbow. 6. HTN- controlled. hold all medications for now 7. depression- will consider evaluation by psych whom she seen multiple occasions in the past here. was recommended to start lexipro which pt is not compliant with. will reach out to PMD to reach solution as pt has hx of non compliance and really requires frequent outpatient follow up. 8. Dyslipidemia- will re-start statin once diet is advanced 9. DVT ppx- lovenox 10. MICU monitoring The care of this patient involved high complexity decision making to prevent further life threatening deterioration of the patient's condition and/or to evaluate & treat vital organ system(s) failure or risk of failure. 45 minutes
[2017-08-28 17:30] LABS: URINE LEUK ESTERASE Negative (NEGATIVE)
[2017-08-28] MEDS: ENOXAPARIN NA (PORCINE) 40 MG/0.4 ML DISP.SYRIN SQ SCH (17:33)
--- NOTE | 2017-08-28 18:04 | CONSULT ---
Consultation: REQUESTING PROVIDER: Dr. Chapman CONSULT REQUEST: We have been asked to medically evaluate this patient for DKA. HISTORY OF PRESENT ILLNESS: Patient poor historian due to medical condition. Most information obtained from records ED staff and house staff. Patient is a 71 year old female with a PMHx of IDDMII, HTN, HLD, CAD s/p CABG and stents, depression who was brought in by her nephew for weakness, lethargy and non-bilious non-bloody vomiting that started two days ago. Patient on initial presentation to the ICU was very combative and confused and unable to provide proper and reliable history. Patient did however report that she has not checked her BGM's in the last few days and admitted to not taking her insulin in the last couple of days. In the ED patient was found hyperglycemic with a level >500 and labs revealed an elevated anion gap. Insulin drip was given and IV fluids were started. Patient does have a history of several admissions for DKA. REVIEW OF SYSTEMS: CONSTITUTIONAL: Present: generalized weakness Absent: fever, chills, diaphoresis, malaise, loss of appetite, weight change HEENT: Absent: rhinorrhea, nasal congestion, throat pain, throat swelling, difficulty swallowing, mouth swelling, ear pain, eye pain, visual changes CARDIOVASCULAR: Absent: chest pain, syncope, palpitations, irregular heart rate, lightheadedness , peripheral edema RESPIRATORY: Absent: cough, shortness of breath, dyspnea with exertion, orthopnea, wheezing, stridor, hemoptysis GASTROINTESTINAL: Present: nausea, vomiting Absent: abdominal pain, abdominal distension, diarrhea, constipation, melena, hematochezia GENITOURINARY: Present: frequency Absent: dysuria, urgency, hesitancy, hematuria, flank pain, genital pain MUSCULOSKELETAL: Absent: myalgia, arthralgia, joint swelling, back pain, neck pain SKIN: Absent: rash, itching, pallor HEMATOLOGIC/IMMUNOLOGIC: Absent: easy bleeding, easy bruising, lymphadenopathy, frequent infections ENDOCRINE: Absent: unexplained weight gain, unexplained weight loss, heat intolerance, cold intolerance NEUROLOGIC: Absent: headache, focal weakness or paresthesias, dizziness, unsteady gait, seizure, mental status changes, bladder or bowel incontinence PSYCHIATRIC: Absent: anxiety, depression, suicidal or homicidal ideation, hallucinations. PHYSICAL EXAMINATION Vital Signs - 24 hr 08/28/17 08/28/17 08/28/17 15:10 16:08 16:19 Temperature 97.5 F L 88 F L Pulse Rate 89 84 Respiratory 21 22 18 Rate Blood Pressure 160/67 143/55 143/55 O2 Sat by Pulse 89 L Oximetry (%) 08/28/17 08/28/17 16:30 16:56 Temperature Pulse Rate Respiratory Rate Blood Pressure O2 Sat by Pulse 100 100 Oximetry (%) GENERAL: Lethargic, disoriented but in no acute distress HEAD: Normal with no signs of trauma. EYES: Pupils equal, round and reactive to light, extraocular movements intact, sclera anicteric, conjunctiva clear. EARS, NOSE, THROAT: Dry mucous membranes NECK: Normal range of motion, supple without lymphadenopathy, JVD, or masses. LUNGS: Breath sounds equal, clear to auscultation bilaterally. No wheezes, and no crackles. No accessory muscle use. HEART: Regular rate and rhythm, normal S1 and S2 with 2/6 systolic murmur ABDOMEN: Soft, nontender, not distended, normoactive bowel sounds, no guarding, no rebound, no masses. No hepatomegaly or splenomegaly. : Manning in place MUSCULOSKELETAL: Decreased ROM with tenderness upon palpation of right elbow with mild swelling and healing stage ecchymosis. UPPER EXTREMITIES: No peripheral edema. LOWER EXTREMITIES: No calf tenderness. No peripheral edema. NEUROLOGICAL: Facial symmetry, motor strength 5/5 RUE and 3/5 in RUE due to limited ROM of elbow. 5/5 bilateral lower extremity. Sensory intact. CN II- XII intact. SKIN: Warm, dry, decreased turgor, erythema of the lower abdomen Laboratory Results - last 24 hr 08/28/17 15:20 Urine Color Ltyellow Urine Appearance Slcloudy Urine pH 5.0 Urine Protein Negative Urine Glucose (UA) 3+ H Urine Ketones 2+ H Urine Blood 2+ H Urine Nitrite Negative Urine Bilirubin Negative Urine Urobilinogen Negative Active Medications Generic Name Dose Route Start Last Admin Trade Name Freq PRN Reason Stop Dose Admin Chlorhexidine Gluconate 1 applic 08/28/17 22:00 Hibiclens For Decolonization - TP HS KHANH Enoxaparin Sodium 40 mg 08/28/17 16:30 Lovenox - SQ DAILY KHANH Insulin Human Regular 100 100 mls @ 5.89 mls/hr 08/28/17 13:15 08/28/17 13:33 units/ Sodium Chloride IVPB 5.89 mls/hr TITR KHANH Administration Protocol 0.1 UNITS/KG/HR Dextrose/Sodium Chloride 1,000 mls @ 100 mls/hr 08/28/17 16:30 D5-1/2ns - IV ASDIR KHANH Mupirocin 1 applic 08/28/17 22:00 Bactroban Ointment (For Decolonization) - NS 09/02/17 21:59 BID KHANH Nystatin 1 applic 08/28/17 16:30 Nystop Powder - TP DAILY KHANH IMAGES: Right Elbow X-ray (08/28/17): There is a nondisplaced fracture through the supracondylar portion of the distal humerus. The elbow joint remains intact. ASSESSMENT/PLAN: Patient is a 71 year old female with a PMHx of IDDMII (noncompliant to insulin) who presented for nausea, vomiting, and lethargy and was found to be in DKA with elevated anion gap. Patient admitted to ICU for further monitoring and management. Neurology -Lethargic, combative, confused but responsive Endocrinology #DKA -with elevated anion metabolic acidosis -Glucose >250, Bicarb 18, anion gap >12, (+) Ketones in urine -Insulin drip started 0.1 units/kg/hr. Discontinue once anion gap closes and switch to SC -Swtiched IV Fluids to D5-1/2 NS as patient's glucose is now <250 and sodium is within normal range -BGM Q1H and BMP Q2H -Will add Potassium to fluids if <4.0 -NPO Cardiology #CAD s/p stents/CABG -Will hold Plavix and ASA due to possible procedure of right albow #HTN-Controlled -Oral meds on hold and BP stable. Will continue Lisinopril 2.5mg and Metoprolol 25mg when no longer NPO #HLD-Controlled -Will continue Lipitor 20mg daily when no longer NPO Nephrology #Pseudohyponatremia secondary to Hyperglycemia -Corrected 140. Will continue with IV 1/2 NS to correct DKA -Continue to monitor BMP Q2H #Hyperkalemia -level of 5.5, however will continue to monitor and not replete due to insulin drip -Continue BMP Q2H. If potassium below 5.3 will replete Orthopedics #Right Supracondylar Fracture of Distal Humerus -Secondary to mechanical fall -Orthop consult placed -Pain control PRN F/E/N -D5-1/2 NS @100mls/hr -Hyponatremia and hyperkalemia. Will monitor -NPO Prophylaxis -Lovenox 40mg SQ daily -No GI required Disposition -Full code -Once Anion gap closes will discontinue insulin drip. Will remain in ICU overnight Visit type - Emergency Visit Emergency Visit: Yes ED Registration Date: 08/28/17 Care time: The patient presented to the Emergency Department on the above date and was hospitalized for further evaluation of their emergent condition. - New Patient This patient is new to me today: Yes Date on this admission: 08/28/17 - Critical Care Critical Care patient: Yes Total Critical Care Time (in minutes): 45 Critical Care Statement: The care of this patient involved high complexity decision making to prevent further life threatening deterioration of the patient 's condition and/or to evaluate & treat vital organ system(s) failure or risk of failure.
[2017-08-28] MEDS ORDERED: ACETAMINOPHEN 325 MG TABLET (FP) PO PRN (18:44)
[2017-08-28 18:51] LABS: ANION GAP 13 (8-16); CO2 19 mmol/L (21-32); CREATININE 0.8 mg/dL (0.55-1.02); GLUCOSE,RANDOM 200 mg/dL (74-106)
[2017-08-28 18:56] LABS: MAGNESIUM 2.3 mg/dL (1.8-2.4); PHOSPHOROUS 1.8 mg/dL (2.5-4.9)
[2017-08-28] MEDS ORDERED: INSULIN DETEMIR 100 UNITS/ML MDV SQ ONE (19:20)
[2017-08-28] MEDS ORDERED: NAPH,MB-DB/K PH,MBDB POWDER PACKET PO ONE (19:34)
[2017-08-28] MEDS ORDERED: PT OWN MED DRAWER 7, Y5N ONE (21:16)
[2017-08-28] MEDS: D5-1/2NS+10 MEQ KCL - 1,000 ML IV SCH (21:20)
[2017-08-28] MEDS: MUPIROCIN 2% TOPICAL OINTMENT FOR DECOLONIZATION NS SCH (21:22)
[2017-08-28] MEDS: RANITIDINE HCL 150 MG TABLET (FP) PO SCH (21:26)
[2017-08-28] MEDS ORDERED: INSULIN SLIDING SCALE (NOVOLOG) 1 VIAL SQ SCH (22:00)
[2017-08-28] MEDS ORDERED: CHLORHEXIDINE GLUCONATE 4% CLEANSER FOR DECOLONIZATION TP SCH (22:00)
[2017-08-28 22:32] LABS: ANION GAP 12 (8-16); CALCIUM 8.5 mg/dL (8.5-10.1); CO2 18 mmol/L (21-32); CREATININE 0.6 mg/dL (0.55-1.02); GLUCOSE,RANDOM 246 mg/dL (74-106)
[2017-08-28] MEDS: NYSTATIN POWDER 100,000 UNITS/GM - 15 GM TOPICAL POWDER TP SCH (23:07)
[2017-08-29] MEDS: INSULIN SLIDING SCALE (NOVOLOG) 1 VIAL SQ SCH ×4 (02:23→21:24)
[2017-08-29 06:22] LABS: BASOPHIL 0.2 % (0-2.0); EOSINOPHIL 0.5 % (0-4.5); MCH 29.8 pg (25.7-33.7); MCHC 35.4 g/dl (32.0-36.0); MEAN CELL VOLUME 84.1 fl (80-96); MEAN PLT VOLUME 6.8 fl (7.5-11.1); NEUTROPHILS 85.9 % (42.8-82.8); PLATELET COUNT 208 K/MM3 (134-434); RDW 14.1 % (11.6-15.6); WHITE BLOOD COUNT 5.5 K/mm3 (4.0-10.0)
[2017-08-29 06:58] LABS: ANION GAP 12 (8-16); CALCIUM 8.5 mg/dL (8.5-10.1); CO2 24 mmol/L (21-32); CREATININE 0.6 mg/dL (0.55-1.02); GLUCOSE,RANDOM 148 mg/dL (74-106)
--- NOTE | 2017-08-29 07:03 | PN ---
Physical Exam: SUBJECTIVE: Patient seen and examined at bedside. she is confused, had been off insulin drip since 9 pm. OBJECTIVE: Vital Signs Period Temp Pulse Resp BP Sys/Barrera Pulse Ox Last 24 Hr 88 F-99.7 F 80-97 15-22 128-160/51-86 89-100 GENERAL: Awake, alert, oriented to person only , in no acute distress. HEAD: Normal with no signs of trauma. EYES: sclera anicteric, conjunctiva clear. EARS, NOSE, THROAT: dry mucous membranes. LUNGS: Breath sounds equal, clear to auscultation bilaterally. No wheezes, and no crackles. No accessory muscle use. HEART: Regular rate and rhythm, normal S1 and S2 with 2/6 systolic murmur RSB, No rub or gallop. ABDOMEN: Soft,non tender, not distended, normoactive bowel sounds, no guarding, no rebound. UPPER EXTREMITIES: warm, well-perfused. No cyanosis. No clubbing. No peripheral edema.enlarged right elbow , tender and sensitive to touch. LOWER EXTREMITIES: warm, well-perfused. No calf tenderness. No peripheral edema. NEUROLOGICAL: Normal speech.gait not observed.facial symmetry. sensation intact over b/l UE from shoulders to fingers. 3/5 handgrip in right, 5/5 handgrip on left. 3/5 hip extension b/l. sensation intact in b/l lower legs anterior and soles of feet. PSYCHIATRIC: non cooperative. Good eye contact. flat mood and affect. SKIN: Warm, dry, no rashes or lesions noted.erythematous lower abdomen under pannus with skin demuted on the right side. Manning in place Laboratory Results - last 24 hr 08/28/17 08/28/17 08/28/17 15:20 16:40 16:40 WBC RBC Hgb Hct MCV MCH MCHC RDW Plt Count MPV Neutrophils % Lymphocytes % Monocytes % Eosinophils % Basophils % Sodium 135 L Potassium 4.4 Chloride 103 D Carbon Dioxide 19 L Anion Gap 13 BUN 33 H Creatinine 0.8 Random Glucose 200 H D Calcium 9.0 Phosphorus 1.8 L D Magnesium 2.3 D Urine Color Ltyellow Urine Appearance Slcloudy Urine pH 5.0 Ur Specific [place] 1.010 Urine Protein Negative Urine Glucose (UA) 3+ H Urine Ketones 2+ H Urine Blood 2+ H Urine Nitrite Negative Urine Bilirubin Negative Urine Urobilinogen Negative Ur Leukocyte Esterase Negative Urine RBC None Urine WBC 17 Ur Epithelial Cells Rare Urine Bacteria Few 08/28/17 08/29/17 22:00 05:10 WBC 5.5 RBC 4.07 Hgb 12.1 D Hct 34.3 D MCV 84.1 MCH 29.8 MCHC 35.4 RDW 14.1 Plt Count 208 MPV 6.8 L Neutrophils % 85.9 H Lymphocytes % 5.8 L D Monocytes % 7.6 Eosinophils % 0.5 D Basophils % 0.2 Sodium 135 L Potassium 4.1 Chloride 105 Carbon Dioxide 18 L Anion Gap 12 BUN 24 H D Creatinine 0.6 D Random Glucose 246 H D Calcium 8.5 Phosphorus Magnesium Urine Color Urine Appearance Urine pH Ur Specific [place] Urine Protein Urine Glucose (UA) Urine Ketones Urine Blood Urine Nitrite Urine Bilirubin Urine Urobilinogen Ur Leukocyte Esterase Urine RBC Urine WBC Ur Epithelial Cells Urine Bacteria Active Medications Generic Name Dose Route Start Last Admin Trade Name Freq PRN Reason Stop Dose Admin Acetaminophen 650 mg 08/28/17 18:44 Tylenol - PO Q6H PRN FEVER OR PAIN Chlorhexidine Gluconate 1 applic 08/28/17 22:00 08/28/17 21:22 Hibiclens For Decolonization - TP 1 applic HS KHANH Administration Enoxaparin Sodium 40 mg 08/28/17 16:30 08/28/17 17:33 Lovenox - SQ 40 mg DAILY KHANH Administration Potassium Chloride/Dextrose/Sod Cl 1,000 mls @ 100 mls/hr 08/28/17 20:30 21:20 D5-1/2ns+10 Meq Kcl - IV 100 mls/hr ASDIR KHANH Administration Insulin Aspart 1 vial 08/29/17 02:00 08/29/17 06:08 Novolog Vial Sliding Scale - SQ 1 units Q4HPO KHANH Administration Protocol Mupirocin 1 applic 08/28/17 22:00 08/28/17 21:22 Bactroban Ointment (For Decolonization) - NS 09/02/17 21:59 1 applic BID KHANH Administration Nystatin 1 applic 08/28/17 16:30 08/28/17 23:07 Nystop Powder - TP 1 applic DAILY KHANH Administration Ranitidine HCl 150 mg 08/28/17 22:00 08/28/17 21:26 Zantac - PO 150 mg BID KHANH Administration ASSESSMENT/PLAN: Patient is a 71 Year old female with PMHx of IDDM, DKA, HTN, HLD, CAD(CABG) who presented to the hospital with 2 days history of non bilious non bloody diarrhea , who was found to have DKA at the ED and was admitted to the ICU fir further evaluation and treatment. # DKA, high anion gap metabolic acidosis * IV fluids * insulin GTT till AG closed * CBC, BMP routine * BGM Q 1 hr * NPO , advance to low sodium diet when AG closed * ISS when AG closed * monitor BMP Q 4 hr while insulin gtt * if BGM <250 while on insulin gtt, add D50 to IVF * replenish K if less than 4 while on insulin drip * UA , urine cx * patient education about short term and longterm diabetic complication and necessity of compliance. #Acute metabolic encephalopathy- due to AG metabolic acidosis. #Pseudohyponatremia, 2/2 DKA * corrected Na 140 * Monitor BMP after IV fluids # Hyperkalemia * K > 5.3 on admission * monitor closely * replenish if less than 4 # Hypovolemia/Dehydration 2/2 low oral intake and vomiting * Monitor BUN/ Cr * Monitor urine out put and input * daily weight * Zofran as needed # vomiting 2/2 DKA * 2 days of vomiting non bloody * Zofran as needed # Suprachonylar fracture R elbow distal humerus * 2/2 mechanical fall 3 weeks ago * Pain control,Tylenol 650 mg po daily * ortho consult, Dr. Castillo # CAD, * stable * LV systolic dysfunction * hld ASA, Plavix possible orthopedic procedure # HTN, * BP 143/55 on admission * Hold home meds (lisinopril 2.5 daily , Metoprolol 25 daily ) # HLD , * Continue Lipitor 20 daily once start feeding # Depression, chronic , resistant * on lexipro 30 daily * pt non compliant will hold for now * consider to consult Psychiatrist # H/O imbalance gait * Consider PT when Stable * Will benefit from AMANDA #Erythema on the abdomen , likely fungal * consider unti fungal after DKA resolved. * keep the area dry and clean of urine or humidity # FEN * IV fluids NS in ED , switch to D5/1/2 NS when glucose less than 250 * pseudo hyponatremia, hyperkalemia , repeat BMP Q2 hr * NPO till close the AG # Proph * DVT: Lovenox 40 SQ daily * GI: no needed # Dispo * Admit to ICU * will likely need placement when ready for discharge Visit type - Emergency Visit Emergency Visit: Yes ED Registration Date: 08/28/17 Care time: The patient presented to the Emergency Department on the above date and was hospitalized for further evaluation of their emergent condition. - New Patient This patient is new to me today: Yes Date on this admission: 08/30/17 - Critical Care Critical Care patient: Yes Total Critical Care Time (in minutes): 40 Critical Care Statement: The care of this patient involved high complexity decision making to prevent further life threatening deterioration of the patient 's condition and/or to evaluate & treat vital organ system(s) failure or risk of failure.
[2017-08-29 07:27] LABS: PHOSPHOROUS 1.1 mg/dL (2.5-4.9)
[2017-08-29] MEDS: D5-1/2NS+10 MEQ KCL - 1,000 ML IV SCH (07:45)
[2017-08-29] MEDS ORDERED: INSULIN DETEMIR 100 UNITS/ML MDV SQ ONE (08:31)
[2017-08-29] MEDS ORDERED: MAGNESIUM SULF 50% (8.12 MEQ/2 ML-1 GM VIAL) IVPB ONE (09:00)
[2017-08-29] MEDS ORDERED: POTASSIUM PHOSPHATE 30 MM in SODIUM CHLORIDE 250 ML IVPB ONE (09:00)
--- NOTE | 2017-08-29 09:18 | CON.ORTH ---
Consult Reason for Consultation:: right elbow fx - Past Medical History Cardio/Vascular: Yes: CAD, HTN, CT Endocrine: Yes: Diabetes Mellitus - Past Surgical History Past Surgical History: Yes: CABG (? additional stents (pt is unsure)) - Alcohol/Substance Use Hx Alcohol Use: No - Smoking History Smoking history: Unknown if ever smoked Have you smoked in the past 12 months: No - Social History Usual Living Arrangement: Alone Home Medications - Allergies Allergies/Adverse Reactions: Allergies Allergy/AdvReac Type Severity Reaction Status Date / Time apple [Apple] Allergy Verified 08/28/17 10:23 peach [Hall] Allergy Verified 08/28/17 10:23 Penicillins Allergy Verified 08/28/17 10:23 - Home Medications Home Medications: Ambulatory Orders Aspirin [ASA -] 81 mg PO DAILY 09/03/14 Escitalopram Oxalate [Lexapro -] 30 mg PO DAILY 12/29/16 Acetaminophen [Tylenol .Regular Strength -] 650 mg PO Q6H PRN #0 tablet Atorvastatin Ca [Lipitor] 20 mg PO HS #30 tablet 06/24/17 Clopidogrel Bisulfate [Plavix -] 75 mg PO DAILY #30 tablet 06/24/17 Ranitidine [Zantac -] 150 mg PO BID tablet 06/24/17 Insulin (Novolog 70/30) [Novolog Mix 70/30 Flexpen -] 14 units SQ BID 08/28/17 Lisinopril [Zestril] 2.5 mg PO DAILY 08/28/17 Metoprolol Succinate [Toprol Xl] 25 mg PO DAILY 08/28/17 Family Disease History - Family Disease History Family Disease History: Heart Disease: Father Physical Exam for Ortho Vital Signs: Vital Signs Temperature 97.4 F L 08/29/17 02:00 Pulse Rate 72 08/29/17 07:50 Respiratory Rate 18 08/29/17 07:50 Blood Pressure 137/46 08/29/17 07:50 O2 Sat by Pulse Oximetry (%) 100 08/28/17 20:47 Labs: CBC, BMP 08/29/17 05:10 08/29/17 05:10 - Upper Extremity Elbow: Yes: Right, Limited ROM, Pain, Swelling, Tenderness, Other (nvi) Imaging - Results X-ray: Report Reviewed, Image Reviewed Assessment/Plan Patient is a 71 Year old while female with PMH of IDDMII, DKA, HTN, HLD, CAD, s/ p CABGX4 who presented to the hospital today by her brother due to 2 days history of vomiting. s/p fall 3-4 weeks ago? c/o pain in right elbow. Xrays taken and was found to have nondisplaced supracondylar humerus fx. a/p- Right nondisplaced supracondylar humerus fx. Sling for immobilization LUCHO HATCH pain control will follow d/w Dr. Castillo
[2017-08-29] MEDS: MUPIROCIN 2% TOPICAL OINTMENT FOR DECOLONIZATION NS SCH ×2 (09:47→21:23)
[2017-08-29] MEDS: ENOXAPARIN NA (PORCINE) 40 MG/0.4 ML DISP.SYRIN SQ SCH (09:48)
[2017-08-29] MEDS: NYSTATIN POWDER 100,000 UNITS/GM - 15 GM TOPICAL POWDER TP SCH (09:48)
[2017-08-29] MEDS: RANITIDINE HCL 150 MG TABLET (FP) PO SCH ×2 (09:49→21:24)
--- NOTE | 2017-08-29 10:56 | PN ---
Progress Note (short form) - Note Progress Note: Pt seen and examined. She is a 71 yo F, right hand dominant, 3+ weeks s/p fall. PE In NAD RUE in shoulder sling. RUE NVI No deformity, no ecchymosis. Good ROM at the forearm, wrist, fingers. Elbow is stiff in both flexion and extension. Xrays Show a nondisplaced right supracondylar humerus fracture Imp As above, no surgery indicated, acceptable alignment. Rec Sling Can be PWB RUE Should do ROM exercises for the elbow to eliminate stiffness
[2017-08-29] MEDS ORDERED: INSULIN SLIDING SCALE (NOVOLOG) 1 VIAL SQ SCH ×2 (11:00→16:30)
[2017-08-29] MEDS ORDERED: INSULIN REGULAR 100 UNITS in SODIUM CHLORIDE 99 ML IVPB SCH (12:45)
--- NOTE | 2017-08-29 12:55 | PN ---
Teaching Attending Note Name of Resident: Alex Dickerson ATTENDING PHYSICIAN STATEMENT I saw and evaluated the patient. I reviewed the resident's note and discussed the case with the resident. I agree with the resident's findings and plan as documented. SUBJECTIVE: Patient seen and examined in the ICU. Breathing feels. Some fatigue. Seems mildly confused. Denies CP. Intake & Output 08/26/17 08/27/17 08/28/17 08/29/17 23:59 23:59 23:59 23:59 Intake Total 2200 1450 Output Total 2050 1000 Balance 150 450 Weight 116 lb 9.992 oz 117 lb 2 oz Last Vital Signs Temp Pulse Resp BP Pulse Ox 98.2 F 78 18 142/66 100 08/29/17 10:00 08/29/17 10:00 08/29/17 10:00 08/29/17 10:00 08/29/17 09:00 Active Medications Acetaminophen (Tylenol -) 650 mg PO Q6H PRN PRN Reason: FEVER OR PAIN Chlorhexidine Gluconate (Hibiclens For Decolonization -) 1 applic TP HS [facility] Last Admin: 08/28/17 21:22 Dose: 1 applic Enoxaparin Sodium (Lovenox -) 40 mg SQ DAILY [facility] Last Admin: 08/29/17 09:48 Dose: 40 mg Potassium Phosphate 30 mm/ (Sodium Chloride) 260 mls @ 43.333 mls/hr IVPB ONCE ONE Stop: 08/29/17 14:59 Last Admin: 08/29/17 10:36 Dose: 43.333 mls/hr Insulin Human Regular 100 (units/ Sodium Chloride) 100 mls @ 7.43 mls/hr IVPB TITR KHANH; 0.14 UNITS/KG/HR PRN Reason: Protocol Insulin Aspart (Novolog Vial Sliding Scale -) 1 vial SQ ACHS KHANH PRN Reason: Protocol Last Admin: 08/29/17 11:19 Dose: 3 units Mupirocin (Bactroban Ointment (For Decolonization) -) 1 applic NS BID KHANH Stop: 09/02/17 21:59 Last Admin: 08/29/17 09:47 Dose: 1 applic Nystatin (Nystop Powder -) 1 applic TP DAILY [facility] Last Admin: 08/29/17 09:48 Dose: 1 applic Potassium Phos/Sodium Phos (Phos-Nak Packet -) 1 packet PO TID KHANH Ranitidine HCl (Zantac -) 150 mg PO BID [facility] Last Admin: 08/29/17 09:49 Dose: 150 mg Gen: Awake and alert, mildly confused Heart: RRR Lung: decreased breath sounds at the bases Abd: soft, nontender Ext: no edema Laboratory Results - last 24 hr 08/28/17 08/28/17 08/28/17 11:20 15:20 16:12 WBC RBC Hgb Hct MCV MCH MCHC RDW Plt Count MPV Neutrophils % Lymphocytes % Monocytes % Eosinophils % Basophils % Sodium 130 L Potassium 5.5 H D Chloride 93 L D Carbon Dioxide 18 L D Anion Gap 19 H BUN 41 H D Creatinine 1.0 D Creat Clearance w eGFR 54.66 POC Glucometer 210.61940 Random Glucose 506 H* D Calcium 9.6 D Phosphorus Magnesium Total Bilirubin 0.8 D AST 19 D ALT 20 D Alkaline Phosphatase 133 H D Total Protein 7.0 D Albumin 3.5 D Lipase 57 L Urine Color Ltyellow Urine Appearance Slcloudy Urine pH 5.0 Ur Specific [place] 1.010 Urine Protein Negative Urine Glucose (UA) 3+ H Urine Ketones 2+ H Urine Blood 2+ H Urine Nitrite Negative Urine Bilirubin Negative Urine Urobilinogen Negative Ur Leukocyte Esterase Negative Urine RBC None Urine WBC 17 Ur Epithelial Cells Rare Urine Bacteria Few Acetone, Qual Positive moderate 2+ H 08/28/17 08/28/17 08/28/17 16:40 16:40 18:19 WBC RBC Hgb Hct MCV MCH MCHC RDW Plt Count MPV Neutrophils % Lymphocytes % Monocytes % Eosinophils % Basophils % Sodium 135 L Potassium 4.4 Chloride 103 D Carbon Dioxide 19 L Anion Gap 13 BUN 33 H Creatinine 0.8 Creat Clearance w eGFR POC Glucometer 162.09937 Random Glucose 200 H D Calcium 9.0 Phosphorus 1.8 L D Magnesium 2.3 D Total Bilirubin AST ALT Alkaline Phosphatase Total Protein Albumin Lipase Urine Color Urine Appearance Urine pH Ur Specific [place] Urine Protein Urine Glucose (UA) Urine Ketones Urine Blood Urine Nitrite Urine Bilirubin Urine Urobilinogen Ur Leukocyte Esterase Urine RBC Urine WBC Ur Epithelial Cells Urine Bacteria Acetone, Qual 08/28/17 08/28/17 08/28/17 19:10 20:58 22:00 WBC RBC Hgb Hct MCV MCH MCHC RDW Plt Count MPV Neutrophils % Lymphocytes % Monocytes % Eosinophils % Basophils % Sodium 135 L Potassium 4.1 Chloride 105 Carbon Dioxide 18 L Anion Gap 12 BUN 24 H D Creatinine 0.6 D Creat Clearance w eGFR POC Glucometer 162.63879 169.86625 Random Glucose 246 H D Calcium 8.5 Phosphorus Magnesium Total Bilirubin AST ALT Alkaline Phosphatase Total Protein Albumin Lipase Urine Color Urine Appearance Urine pH Ur Specific [place] Urine Protein Urine Glucose (UA) Urine Ketones Urine Blood Urine Nitrite Urine Bilirubin Urine Urobilinogen Ur Leukocyte Esterase Urine RBC Urine WBC Ur Epithelial Cells Urine Bacteria Acetone, Qual 08/29/17 08/29/17 08/29/17 02:12 05:10 05:10 WBC 5.5 RBC 4.07 Hgb 12.1 D Hct 34.3 D MCV 84.1 MCH 29.8 MCHC 35.4 RDW 14.1 Plt Count 208 MPV 6.8 L Neutrophils % 85.9 H Lymphocytes % 5.8 L D Monocytes % 7.6 Eosinophils % 0.5 D Basophils % 0.2 Sodium 138 Potassium 3.5 Chloride 102 Carbon Dioxide 24 D Anion Gap 12 BUN 18 D Creatinine 0.6 Creat Clearance w eGFR POC Glucometer [phone] Random Glucose 148 H D Calcium 8.5 Phosphorus 1.1 L* D Magnesium 2.0 Total Bilirubin AST ALT Alkaline Phosphatase Total Protein Albumin Lipase Urine Color Urine Appearance Urine pH Ur Specific [place] Urine Protein Urine Glucose (UA) Urine Ketones Urine Blood Urine Nitrite Urine Bilirubin Urine Urobilinogen Ur Leukocyte Esterase Urine RBC Urine WBC Ur Epithelial Cells Urine Bacteria Acetone, Qual 08/29/17 08/29/17 06:06 11:09 WBC RBC Hgb Hct MCV MCH MCHC RDW Plt Count MPV Neutrophils % Lymphocytes % Monocytes % Eosinophils % Basophils % Sodium Potassium Chloride Carbon Dioxide Anion Gap BUN Creatinine Creat Clearance w eGFR POC Glucometer 171.20750 259.97217 Random Glucose Calcium Phosphorus Magnesium Total Bilirubin AST ALT Alkaline Phosphatase Total Protein Albumin Lipase Urine Color Urine Appearance Urine pH Ur Specific [place] Urine Protein Urine Glucose (UA) Urine Ketones Urine Blood Urine Nitrite Urine Bilirubin Urine Urobilinogen Ur Leukocyte Esterase Urine RBC Urine WBC Ur Epithelial Cells Urine Bacteria Acetone, Qual ASSESSMENT AND PLAN: Diabetic Ketoacidosis Hypovolemia/Dehydration Acute Kidney Injury Pseudohyponatremia CAD LV Systolic Dysfunction - IVF - Insulin - monitor BGM - Glycemic control - Monitor urine output, creatinine - DVT prophylaxis - Fall precautions Dr Fuller Critical care time spent in reviewing chart, evaluating patient and formulating plan - 36 minutes.
--- NOTE | 2017-08-29 13:02 | EKG ---
Test Reason : Blood Pressure : / mmHG Vent. Rate : 080 BPM Atrial Rate : 080 BPM P-R Int : 150 ms QRS Dur : 076 ms QT Int : 372 ms P-R-T Axes : 027 -30 025 degrees QTc Int : 429 ms POOR DATA QUALITY, INTERPRETATION MAY BE ADVERSELY AFFECTED NORMAL SINUS RHYTHM LEFT AXIS DEVIATION INFERIOR INFARCT (CITED ON OR BEFORE 19-JUN-2017) ABNORMAL ECG WHEN COMPARED WITH ECG OF 19-JUN-2017 11:18, SINUS RHYTHM HAS REPLACED JUNCTIONAL RHYTHM NONSPECIFIC T WAVE ABNORMALITY NO LONGER EVIDENT IN LATERAL LEADS Confirmed by HENOK RUBIN MD ([id number]) on 08/29/2017 1:02:38 PM Referred By: Confirmed By:HENOK RUBIN MD
--- NOTE | 2017-08-29 13:45 | PN ---
Physical Exam: SUBJECTIVE: 71 yo F with h/o of non adherent NIDMII who initially presented for vomiting and lethargy later found to be in DKA w/ elevated anion gap and BS >500. Patient admitted to ICU for further monitoring and management. No events overnight. Anion gap has cleared this AM (12) and BS controlled (148) on sliding scale insulin. No complaints. Denies N/V, fevers/chills, SOB, lightheadedness, chest pain, weakness, abdominal pain, dysuria. Hemodynamically , afebrile, and up in chair resting comfortably. OBJECTIVE: Vital Signs Period Temp Pulse Resp BP Sys/Barrera Pulse Ox Last 24 Hr 88 F-99.7 F 72-97 15-22 102-160/46-86 89-100 GENERAL: The patient is awake, alert, and fully oriented, in no acute distress. HEAD: Normal with no signs of trauma. EYES: sclera anicteric, conjunctiva clear. No ptosis. ENT: Ears normal, nares patent, oropharynx clear without exudates, moist mucous membranes. NECK: Trachea midline, full range of motion, supple. LUNGS: Breath sounds equal, clear to auscultation bilaterally, no wheezes, no crackles, no accessory muscle use. HEART: Regular rate and rhythm, S1, S2 without murmur, rub or gallop. ABDOMEN: Soft, nontender, nondistended, normoactive bowel sounds, no guarding, no rebound, no hepatosplenomegaly, no masses. EXTREMITIES: 2+ pulses, warm, well-perfused, no edema. . PSYCH: Normal mood, normal affect. SKIN: Warm, dry, normal turgor, no rashes or lesions noted Laboratory Results - last 24 hr 08/28/17 08/28/17 08/28/17 15:20 16:12 16:40 WBC RBC Hgb Hct MCV MCH MCHC RDW Plt Count MPV Neutrophils % Lymphocytes % Monocytes % Eosinophils % Basophils % Sodium 135 L Potassium 4.4 Chloride 103 D Carbon Dioxide 19 L Anion Gap 13 BUN 33 H Creatinine 0.8 POC Glucometer 210.66020 Random Glucose 200 H D Calcium 9.0 Phosphorus Magnesium Urine Color Ltyellow Urine Appearance Slcloudy Urine pH 5.0 Ur Specific Calhoun 1.010 Urine Protein Negative Urine Glucose (UA) 3+ H Urine Ketones 2+ H Urine Blood 2+ H Urine Nitrite Negative Urine Bilirubin Negative Urine Urobilinogen Negative Ur Leukocyte Esterase Negative Urine RBC None Urine WBC 17 Ur Epithelial Cells Rare Urine Bacteria Few 08/28/17 08/28/17 08/28/17 16:40 18:19 19:10 WBC RBC Hgb Hct MCV MCH MCHC RDW Plt Count MPV Neutrophils % Lymphocytes % Monocytes % Eosinophils % Basophils % Sodium Potassium Chloride Carbon Dioxide Anion Gap BUN Creatinine POC Glucometer 162.15492 162.91334 Random Glucose Calcium Phosphorus 1.8 L D Magnesium 2.3 D Urine Color Urine Appearance Urine pH Ur Specific Calhoun Urine Protein Urine Glucose (UA) Urine Ketones Urine Blood Urine Nitrite Urine Bilirubin Urine Urobilinogen Ur Leukocyte Esterase Urine RBC Urine WBC Ur Epithelial Cells Urine Bacteria 08/28/17 08/28/17 08/29/17 20:58 22:00 02:12 WBC RBC Hgb Hct MCV MCH MCHC RDW Plt Count MPV Neutrophils % Lymphocytes % Monocytes % Eosinophils % Basophils % Sodium 135 L Potassium 4.1 Chloride 105 Carbon Dioxide 18 L Anion Gap 12 BUN 24 H D Creatinine 0.6 D POC Glucometer 169.88857 287.14353 Random Glucose 246 H D Calcium 8.5 Phosphorus Magnesium Urine Color Urine Appearance Urine pH Ur Specific Calhoun Urine Protein Urine Glucose (UA) Urine Ketones Urine Blood Urine Nitrite Urine Bilirubin Urine Urobilinogen Ur Leukocyte Esterase Urine RBC Urine WBC Ur Epithelial Cells Urine Bacteria 08/29/17 08/29/17 08/29/17 05:10 05:10 06:06 WBC 5.5 RBC 4.07 Hgb 12.1 D Hct 34.3 D MCV 84.1 MCH 29.8 MCHC 35.4 RDW 14.1 Plt Count 208 MPV 6.8 L Neutrophils % 85.9 H Lymphocytes % 5.8 L D Monocytes % 7.6 Eosinophils % 0.5 D Basophils % 0.2 Sodium 138 Potassium 3.5 Chloride 102 Carbon Dioxide 24 D Anion Gap 12 BUN 18 D Creatinine 0.6 POC Glucometer 171.33441 Random Glucose 148 H D Calcium 8.5 Phosphorus 1.1 L* D Magnesium 2.0 Urine Color Urine Appearance Urine pH Ur Specific Calhoun Urine Protein Urine Glucose (UA) Urine Ketones Urine Blood Urine Nitrite Urine Bilirubin Urine Urobilinogen Ur Leukocyte Esterase Urine RBC Urine WBC Ur Epithelial Cells Urine Bacteria 08/29/17 11:09 WBC RBC Hgb Hct MCV MCH MCHC RDW Plt Count MPV Neutrophils % Lymphocytes % Monocytes % Eosinophils % Basophils % Sodium Potassium Chloride Carbon Dioxide Anion Gap BUN Creatinine POC Glucometer 259.63445 Random Glucose Calcium Phosphorus Magnesium Urine Color Urine Appearance Urine pH Ur Specific Calhoun Urine Protein Urine Glucose (UA) Urine Ketones Urine Blood Urine Nitrite Urine Bilirubin Urine Urobilinogen Ur Leukocyte Esterase Urine RBC Urine WBC Ur Epithelial Cells Urine Bacteria Active Medications Generic Name Dose Route Start Last Admin Trade Name Freq PRN Reason Stop Dose Admin Acetaminophen 650 mg 08/28/17 18:44 Tylenol - PO Q6H PRN FEVER OR PAIN Chlorhexidine Gluconate 1 applic 08/28/17 22:00 08/28/17 21:22 Hibiclens For Decolonization - TP 1 applic HS KHANH Administration Enoxaparin Sodium 40 mg 08/28/17 16:30 08/29/17 09:48 Lovenox - SQ 40 mg DAILY KHANH Administration Potassium Phosphate 30 mm/ 260 mls @ 43.333 mls/hr 08/29/17 09:00 08/29/17 10: 36 Sodium Chloride IVPB 08/29/17 14:59 43.333 mls/hr ONCE ONE Administration Insulin Aspart 1 vial 08/29/17 11:00 08/29/17 11:19 Novolog Vial Sliding Scale - SQ 3 units ACHS KHANH Administration Protocol Mupirocin 1 applic 08/28/17 22:00 08/29/17 09:47 Bactroban Ointment (For Decolonization) - NS 09/02/17 21:59 1 applic BID KHANH Administration Nystatin 1 applic 08/28/17 16:30 08/29/17 09:48 Nystop Powder - TP 1 applic DAILY KHANH Administration Potassium Phos/Sodium Phos 1 packet 08/29/17 14:00 08/29/17 13:12 Phos-Nak Packet - PO 1 packet TID KHANH Administration Ranitidine HCl 150 mg 08/28/17 22:00 08/29/17 09:49 Zantac - PO 150 mg BID KHANH Administration ASSESSMENT/PLAN: Patient is a 71 year old female with a PMHx of IDDMII (noncompliant to insulin) who presented for nausea, vomiting, and lethargy and was found to be in DKA with elevated anion gap. Patient admitted to ICU for further monitoring and management. Neurology Initially presented w/lethargy,and agitation. A&Ox3 No focal neuro deficits Plan: - Cont to monitor Cardiology: HTN (stable) [id number] NPO Plan:: -Holding Metoprolol Succinate 25 mg PO -Holding Lisinopril 2.5 mg PO HLD -NPO -Hold Lipitor 20mg PO Endocrinology Diabetic Ketoacidosis: H/o poorly controlled NIDDM Presented altered, nauseous, and lethargic Pt. arrived with Glucose >500, anion gap over 12, Bicarbonate 18, and Ketonuria. Was started on Insulin gtt 0.1 units/kg/hr. Switched to 0.05 U/kg/hr once BS dropped below 250. 10 U Levemir ( 08/28) Swtiched IV Fluids to D5 1/2 NS once glucose dropped below 250. Anion gap closed (12) (08/29) with BS 148 Plan: -BGM Q1H -BMP Q2H -Replete potassium if K+ < 5.3 -NPO -Insulin Aspart sliding scale Renal Pseudohyponatremia: Initially pseudohyponatremic d/t Hyperglycemia Current Na 138, Glu 148 Plan: -Continue BMP Q2H Hyperkalemia (resolved) -Initially K + 5.5. Currently 3.5 Plan: -Replete potassium if K+ < 5.3 -BMP Q2H. Ortho: R Supracondylar Fracture Distal Humerus S/p mechanical fall 3-4 weeks ago. Complains of right elbow pain Xray reveals R nondisplaced supracondylar humerus fx Sling placed Ortho consulted Plan: -Pain control PRN -Cont immobilization with sling -F/u with Dr. Castillo FEN: No IVF, hyponatremia and hyperkalemia, diabetic diet Prophylaxis: Lovenox 40mg SQ QD Dispo: Med/Surg Visit type - Emergency Visit Emergency Visit: Yes ED Registration Date: 08/28/17 Care time: The patient presented to the Emergency Department on the above date and was hospitalized for further evaluation of their emergent condition. - New Patient This patient is new to me today: Yes Date on this admission: 08/29/17 - Critical Care Critical Care patient: Yes Total Critical Care Time (in minutes): 35 Critical Care Statement: The care of this patient involved high complexity decision making to prevent further life threatening deterioration of the patient 's condition and/or to evaluate & treat vital organ system(s) failure or risk of failure.
[2017-08-29 13:59] LABS: ANION GAP 11 (8-16); CALCIUM 8.6 mg/dL (8.5-10.1); CO2 23 mmol/L (21-32); CREATININE 0.5 mg/dL (0.55-1.02); GLUCOSE,RANDOM 203 mg/dL (74-106)
[2017-08-29] MEDS ORDERED: NAPH,MB-DB/K PH,MBDB POWDER PACKET PO SCH ×2 (14:00→22:00)
[2017-08-29] MEDS ORDERED: ACETAMINOPHEN 325 MG TABLET (FP) PO PRN ×2 (14:35→15:40)
--- NOTE | 2017-08-29 16:32 | PN ---
Teaching Attending Note Name of Resident: Smooth Buckley ATTENDING PHYSICIAN STATEMENT I saw and evaluated the patient. I reviewed the resident's note and discussed the case with the resident. I agree with the resident's findings and plan as documented. SUBJECTIVE:nasuea and vomiting resolved. tolerating diet. states she feels well and wants to go home. claims she will be compliant with medications on discharge. denies CP, SOB, fever, chills, N/V/C/D OBJECTIVE: Last Vital Signs Temp Pulse Resp BP Pulse Ox 98.8 F 76 18 165/62 100 08/29/17 14:00 08/29/17 16:00 08/29/17 16:00 08/29/17 16:00 08/29/17 09:00 General NAD CV S1 S2 RRR +murmur Lungs CTA B/L anteriorly Abdomen soft NT/ND Extremities R elbow swollen with healing ecchymosis, tender on manipulation, 1+ pulse in RUE ASSESSMENT AND PLAN: 71yo F wtih PMH CAD s/p 4 stents, DM, hyperlipidemia and long hx of non compliance presented with nausea and vomiting for the past 2 days and found to be in DKA on arrival 1. DKA- due to non-compliance. AG closed yesterday evening. received 10 units of levemir yesterday and again this AM. will cont on once a day levemir dosing to improve compliance. claims she will be compliant wiht medication. indicates that she understands the severity of not taking insulin appropriately. understnads the increased risk of mortality and complications of uncontrolled DM. cont iss and bgm 2. Pseudohyponatremia- resolved 3. Hyperkalemia- resolved 4. Severe hypophosphatemia- Kphos IV and po. will repeat today 5. Acute metabolic encephalopathy- due to AG metabolic acidosis. resolved 4. R supracondylar fracture of distal humerus- s/p mechanical fall. immobilizer. PWB as tolerated. PT. ortho consulted. pain control 5. CAD s/p stents- re-start asa/plavix. 6. HTN- elevated. will re-start medication as needed to optimize control. start metoprolol 7. depression- re-start lexipro. 8. Dyslipidemia- will re-start statin 9. DVT ppx- lovenox 10. stable for transfer to floor The care of this patient involved high complexity decision making to prevent further life threatening deterioration of the patient's condition and/or to evaluate & treat vital organ system(s) failure or risk of failure. 40 minutes ASSESSMENT AND PLAN:
[2017-08-29] MEDS ORDERED: HEMOQUE TEST 1 EACH EACH ONE (16:42)
[2017-08-29] MEDS: METOPROLOL SUCCINATE 25 MG TAB.SR.24H (FP) PO SCH (17:18)
[2017-08-29] MEDS ORDERED: PT OWN MED DRAWER 7, Y5N ONE (21:17)
[2017-08-29] MEDS: NAPH,MB-DB/K PH,MBDB POWDER PACKET PO SCH (21:24)
[2017-08-29] MEDS ORDERED: CHLORHEXIDINE GLUCONATE 4% CLEANSER FOR DECOLONIZATION TP SCH ×2 (22:00)
[2017-08-29] MEDS ORDERED: ATORVASTATIN CA 20 MG TABLET (FP) PO SCH (22:00)
[2017-08-29] MEDS ORDERED: RANITIDINE HCL 150 MG TABLET (FP) PO SCH (22:00)
[2017-08-29] MEDS ORDERED: MUPIROCIN 2% TOPICAL OINTMENT FOR DECOLONIZATION NS SCH (22:00)
[2017-08-30] MEDS: INSULIN SLIDING SCALE (NOVOLOG) 1 VIAL SQ SCH ×4 (06:33→22:05)
[2017-08-30] MEDS: NAPH,MB-DB/K PH,MBDB POWDER PACKET PO SCH ×3 (06:33→21:54)
[2017-08-30 06:41] LABS: ANION GAP 10 (8-16); CALCIUM 7.9 mg/dL (8.5-10.1); CO2 26 mmol/L (21-32); CREATININE 0.5 mg/dL (0.55-1.02); GLUCOSE,RANDOM 251 mg/dL (74-106); PHOSPHOROUS 1.9 mg/dL (2.5-4.9)
[2017-08-30 09:06] LABS: BASOPHIL 0.6 % (0-2.0); EOSINOPHIL 0.8 % (0-4.5); MCH 28.8 pg (25.7-33.7); MCHC 34.6 g/dl (32.0-36.0); MEAN CELL VOLUME 83.3 fl (80-96); MEAN PLT VOLUME 7.1 fl (7.5-11.1); NEUTROPHILS 79.9 % (42.8-82.8); PLATELET COUNT 151 K/MM3 (134-434); RDW 13.9 % (11.6-15.6); WHITE BLOOD COUNT 3.8 K/mm3 (4.0-10.0)
[2017-08-30] MEDS ORDERED: ENOXAPARIN NA (PORCINE) 40 MG/0.4 ML DISP.SYRIN SQ SCH ×2 (10:00)
[2017-08-30] MEDS ORDERED: CLOPIDOGREL BISULFATE 75 MG TABLET (FP) PO SCH (10:00)
[2017-08-30] MEDS ORDERED: ASPIRIN 81 MG CHEWABLE TABLETS PO SCH (10:00)
[2017-08-30] MEDS ORDERED: ESCITALOPRAM OXALATE 10 MG TABLET (FP) PO SCH (10:00)
[2017-08-30] MEDS ORDERED: NYSTATIN POWDER 100,000 UNITS/GM - 15 GM TOPICAL POWDER TP SCH ×2 (10:00)
[2017-08-30] MEDS: METOPROLOL SUCCINATE 25 MG TAB.SR.24H (FP) PO SCH (10:12)
[2017-08-30] MEDS: RANITIDINE HCL 150 MG TABLET (FP) PO SCH ×2 (10:13→21:54)
[2017-08-30] MEDS: MUPIROCIN 2% TOPICAL OINTMENT FOR DECOLONIZATION NS SCH ×2 (10:14→21:29)
--- NOTE | 2017-08-30 10:17 | PN ---
Progress Note (short form) - Note Progress Note: Ortho Pt seen and examined s/p right supracondylar humerus fx sling intact, decr pain, incr rom nvi a/p continue sling gentle rom exercises pain control will follow d/w Dr. Castillo
--- NOTE | 2017-08-30 11:15 | PN ---
Teaching Attending Note Name of Resident: Alex Dickerson ATTENDING PHYSICIAN STATEMENT I saw and evaluated the patient. I reviewed the resident's note and discussed the case with the resident. I agree with the resident's findings and plan as documented. SUBJECTIVE: Patient seen and examined in the ICU. Breathing feels fine. Denies CP. Intake & Output 08/27/17 08/28/17 08/29/17 08/30/17 23:59 23:59 23:59 23:59 Intake Total 2200 1750 300 Output Total 2050 1000 Balance 150 750 300 Weight 116 lb 9.992 oz 117 lb 2 oz 117 lb 2 oz Last Vital Signs Temp Pulse Resp BP Pulse Ox 98.0 F 78 20 123/44 100 08/30/17 10:13 08/30/17 09:56 08/30/17 09:56 08/30/17 09:56 08/30/17 09:55 Active Medications Acetaminophen (Tylenol -) 650 mg PO Q6H PRN PRN Reason: FEVER OR PAIN Last Admin: 08/29/17 17:19 Dose: 650 mg Aspirin (Asa -) 81 mg PO DAILY [facility] Last Admin: 08/30/17 10:12 Dose: 81 mg Atorvastatin Calcium (Lipitor -) 20 mg PO HS [facility] Last Admin: 08/29/17 21:23 Dose: 20 mg Chlorhexidine Gluconate (Hibiclens For Decolonization -) 1 applic TP HS [facility] Last Admin: 08/29/17 21:23 Dose: 1 applic Clopidogrel Bisulfate (Plavix -) 75 mg PO DAILY [facility] Last Admin: 08/30/17 10:13 Dose: 75 mg Escitalopram Oxalate (Lexapro -) 30 mg PO DAILY [facility] Last Admin: 08/30/17 10:13 Dose: 30 mg Insulin Aspart (Novolog Vial Sliding Scale -) 1 vial SQ ACHS KHANH PRN Reason: Protocol Last Admin: 08/30/17 06:33 Dose: 2 units Metoprolol Succinate (Toprol Xl -) 25 mg PO DAILY [facility] Last Admin: 08/30/17 10:12 Dose: 25 mg Mupirocin (Bactroban Ointment (For Decolonization) -) 1 applic NS BID [facility] Stop: 09/02/17 21:59 Last Admin: 08/30/17 10:14 Dose: 1 applic Nystatin (Nystop Powder -) 1 applic TP DAILY [facility] Potassium Phos/Sodium Phos (Phos-Nak Packet -) 1 packet PO TID [facility] Last Admin: 08/30/17 06:33 Dose: 1 packet Ranitidine HCl (Zantac -) 150 mg PO BID [facility] Last Admin: 08/30/17 10:13 Dose: 150 mg Gen: Awake and alert, less confused Heart: RRR Lung: decreased breath sounds at the bases Abd: soft, nontender Ext: no edema Laboratory Results - last 24 hr 08/29/17 08/29/17 08/29/17 11:09 13:00 13:00 WBC RBC Hgb Hct MCV MCH MCHC RDW Plt Count MPV Neutrophils % Lymphocytes % Monocytes % Eosinophils % Basophils % Sodium 134 L Potassium 3.9 Chloride 100 Carbon Dioxide 23 Anion Gap 11 BUN 15 Creatinine 0.5 L POC Glucometer 259.91262 Random Glucose 203 H D Calcium 8.6 Phosphorus 1.9 L D Magnesium 08/29/17 08/30/17 08/30/17 21:21 05:00 05:00 WBC 3.8 L D RBC 3.95 Hgb 11.4 Hct 32.9 MCV 83.3 MCH 28.8 MCHC 34.6 RDW 13.9 Plt Count 151 D MPV 7.1 L Neutrophils % 79.9 Lymphocytes % 10.2 D Monocytes % 8.5 Eosinophils % 0.8 Basophils % 0.6 Sodium 135 L Potassium 3.7 Chloride 99 Carbon Dioxide 26 Anion Gap 10 BUN 15 Creatinine 0.5 L POC Glucometer 130.91893 Random Glucose 251 H D Calcium 7.9 L Phosphorus 1.9 L Magnesium 2.0 08/30/17 05:13 WBC RBC Hgb Hct MCV MCH MCHC RDW Plt Count MPV Neutrophils % Lymphocytes % Monocytes % Eosinophils % Basophils % Sodium Potassium Chloride Carbon Dioxide Anion Gap BUN Creatinine POC Glucometer 216.53314 Random Glucose Calcium Phosphorus Magnesium ASSESSMENT AND PLAN: Diabetic Ketoacidosis Hypovolemia/Dehydration Acute Kidney Injury Pseudohyponatremia CAD LV Systolic Dysfunction - Insulin coverage - monitor BGM - DVT prophylaxis - Fall precautions - Floor Dr Fuller
[2017-08-30] MEDS ORDERED: NAPH,MB-DB/K PH,MBDB POWDER PACKET PO ONE (11:22)
--- NOTE | 2017-08-30 11:43 | PN ---
Physical Exam: SUBJECTIVE: 71 yo F with h/o of non adherent NIDMII who initially presented for vomiting and lethargy later found to be in DKA w/ elevated anion gap and BS >500. Patient admitted to ICU for further monitoring and management. No events overnight. Anion gap remains closed this AM (10) and BS (241) at 0500 , with 2 U insulin SS administered at 0633. No complaints. Denies N/V, fevers/ chills, SOB, lightheadedness, chest pain, weakness, abdominal pain, dysuria. Hemodynamically, afebrile, and up in chair resting comfortably. Pending transfer to Med/Surg. OBJECTIVE: Vital Signs Period Temp Pulse Resp BP Sys/Barrera Pulse Ox Last 24 Hr 97.5 F-98.8 F 54-101 15-26 99-165/36-97 100-100 GENERAL: The patient is awake, alert, and fully oriented, in no acute distress. HEAD: Normal with no signs of trauma. EYES: sclera anicteric, conjunctiva clear. No ptosis. ENT: Ears normal, nares patent, oropharynx clear without exudates, moist mucous membranes. NECK: Trachea midline, full range of motion, supple. LUNGS: Breath sounds equal, clear to auscultation bilaterally, no wheezes, no crackles, no accessory muscle use. HEART: Regular rate and rhythm, S1, S2 without murmur, rub or gallop. ABDOMEN: Soft, nontender, nondistended, normoactive bowel sounds, no guarding, no rebound, no hepatosplenomegaly, no masses. EXTREMITIES: 2+ pulses, warm, well-perfused, no edema. . PSYCH: Normal mood, normal affect. SKIN: Warm, dry, normal turgor, no rashes or lesions noted Laboratory Results - last 24 hr 08/29/17 08/29/17 08/29/17 13:00 13:00 21:21 WBC RBC Hgb Hct MCV MCH MCHC RDW Plt Count MPV Neutrophils % Lymphocytes % Monocytes % Eosinophils % Basophils % Sodium 134 L Potassium 3.9 Chloride 100 Carbon Dioxide 23 Anion Gap 11 BUN 15 Creatinine 0.5 L POC Glucometer 130.02831 Random Glucose 203 H D Calcium 8.6 Phosphorus 1.9 L D Magnesium 08/30/17 08/30/17 08/30/17 05:00 05:00 05:13 WBC 3.8 L D RBC 3.95 Hgb 11.4 Hct 32.9 MCV 83.3 MCH 28.8 MCHC 34.6 RDW 13.9 Plt Count 151 D MPV 7.1 L Neutrophils % 79.9 Lymphocytes % 10.2 D Monocytes % 8.5 Eosinophils % 0.8 Basophils % 0.6 Sodium 135 L Potassium 3.7 Chloride 99 Carbon Dioxide 26 Anion Gap 10 BUN 15 Creatinine 0.5 L POC Glucometer 216.51851 Random Glucose 251 H D Calcium 7.9 L Phosphorus 1.9 L Magnesium 2.0 Active Medications Generic Name Dose Route Start Last Admin Trade Name Freq PRN Reason Stop Dose Admin Acetaminophen 650 mg 08/29/17 15:40 08/29/17 17:19 Tylenol - PO 650 mg Q6H PRN Administration FEVER OR PAIN Aspirin 81 mg 08/30/17 10:00 08/30/17 10:12 Asa - PO 81 mg DAILY KHANH Administration Atorvastatin Calcium 20 mg 08/29/17 22:00 08/29/17 21:23 Lipitor - PO 20 mg HS KHANH Administration Chlorhexidine Gluconate 1 applic 08/29/17 22:00 08/29/17 21:23 Hibiclens For Decolonization - TP 1 applic HS KHANH Administration Clopidogrel Bisulfate 75 mg 08/30/17 10:00 08/30/17 10:13 Plavix - PO 75 mg DAILY K[facility]ANH Administration Escitalopram Oxalate 30 mg 08/30/17 10:00 08/30/17 10:13 Lexapro - PO 30 mg DAILY K[facility]ANH Administration Insulin Aspart 1 vial 08/29/17 16:30 08/30/17 06:33 Novolog Vial Sliding Scale - SQ 2 units ACHS KHANH Administration Protocol Metoprolol Succinate 25 mg 08/29/17 16:30 08/30/17 10:12 Toprol Xl - PO 25 mg DAILY [facility]H Administration Mupirocin 1 applic 08/29/17 22:00 08/30/17 10:14 Bactroban Ointment (For Decolonization) - NS 09/02/17 21:59 1 applic BID KHANH Administration Nystatin 1 applic 08/30/17 10:00 Nystop Powder - TP DAILY [facility] Potassium Phos/Sodium Phos 1 packet 08/29/17 22:00 08/30/17 06:33 Phos-Nak Packet - PO 1 packet TID [facility]ANH Administration Ranitidine HCl 150 mg 08/29/17 22:00 08/30/17 10:13 Zantac - PO 150 mg BID KHANH Administration ASSESSMENT/PLAN: Patient is a 71 year old female with a PMHx of IDDMII (noncompliant to insulin) who presented for nausea, vomiting, and lethargy and was found to be in DKA with elevated anion gap. Patient admitted to ICU for further monitoring and management. Neurology Initially presented w/lethargy,and agitation. A&Ox3 No focal neuro deficits Plan: - Cont to monitor Cardiology: HTN (stable) [id number] NPO Plan:: -Metoprolol Succinate 25 mg PO QD -Holding Lisinopril 2.5 mg PO HLD -NPO -Hold Lipitor 20mg PO Endocrinology Diabetic Ketoacidosis: H/o poorly controlled NIDDM Presented altered, nauseous, and lethargic Pt. arrived with Glucose >500, anion gap over 12, Bicarbonate 18, and Ketonuria. Was started on Insulin gtt 0.1 units/kg/hr. Switched to 0.05 U/kg/hr once BS dropped below 250. 10 U Levemir ( 08/28) Swtiched IV Fluids to D5 1/2 NS once glucose dropped below 250. Anion gap closed (12) (08/29) with BS 148 Plan: -BGM Q1H -BMP Q2H -Replete potassium if K+ < 5.3 -Diabetic diet -Insulin Aspart sliding scale Renal Pseudohyponatremia: Initially pseudohyponatremic d/t Hyperglycemia Current Na 135, Glu 216 Plan: -Continue BMP Q2H Hyperkalemia (resolved) -Initially K + 5.5. Currently 3.7 Plan: -Replete potassium if K+ < 5.3 -BMP Q2H. Ortho: R Supracondylar Fracture Distal Humerus S/p mechanical fall 3-4 weeks ago. Complains of right elbow pain Xray reveals R nondisplaced supracondylar humerus fx Sling placed Ortho consulted Plan: -Pain control PRN -Cont immobilization with sling -F/u with Dr. Castillo FEN: No IVF, hyponatremia and hyperkalemia, diabetic diet Prophylaxis: Lovenox 40mg SQ QD Dispo: Med/Surg Visit type - Emergency Visit Emergency Visit: Yes ED Registration Date: 08/28/17 Care time: The patient presented to the Emergency Department on the above date and was hospitalized for further evaluation of their emergent condition. - New Patient This patient is new to me today: No - Critical Care Critical Care patient: Yes Total Critical Care Time (in minutes): 35 Critical Care Statement: The care of this patient involved high complexity decision making to prevent further life threatening deterioration of the patient 's condition and/or to evaluate & treat vital organ system(s) failure or risk of failure.
--- NOTE | 2017-08-30 11:52 | DS ---
Physical Exam: SUBJECTIVE: Patient seen and examined at bedside. she is doing much better. denies any vomiting, nausea, abdominal pain, she has a good appetite and asking for food. patient is medically stable and ready to go home. OBJECTIVE: Vital Signs Period Temp Pulse Resp BP Sys/Barrera Pulse Ox Last 24 Hr 97.5 F-98.8 F 54-101 15-26 99-165/36-97 100-100 PHYSICAL EXAM GENERAL: Awake, alert, oriented , in no acute distress. HEAD: Normal with no signs of trauma. EYES: sclera anicteric, conjunctiva clear. EARS, NOSE, THROAT: dry mucous membranes. LUNGS: Breath sounds equal, clear to auscultation bilaterally. No wheezes, and no crackles. No accessory muscle use. HEART: Regular rate and rhythm, normal S1 and S2 with 2/6 systolic murmur RSB, No rub or gallop. ABDOMEN: Soft,non tender, not distended, normoactive bowel sounds, no guarding, no rebound. UPPER EXTREMITIES: warm, well-perfused. No cyanosis. No clubbing. No peripheral edema.enlarged right elbow due to previous trauma. LOWER EXTREMITIES: warm, well-perfused. No calf tenderness. No peripheral edema. NEUROLOGICAL: Normal speech.gait not observed.facial symmetry. sensation intact over b/l UE from shoulders to fingers. 3/5 handgrip in right, 5/5 handgrip on left. 3/5 hip extension b/l. sensation intact in b/l lower legs anterior and soles of feet. PSYCHIATRIC: cooperative. Good eye contact. normal mood and affect. SKIN: Warm, dry, no rashes or lesions noted.erythematous lower abdomen under pannus with skin demuted on the right side. Manning in place LABS Laboratory Results - last 24 hr 08/29/17 08/29/17 08/29/17 13:00 13:00 21:21 WBC RBC Hgb Hct MCV MCH MCHC RDW Plt Count MPV Neutrophils % Lymphocytes % Monocytes % Eosinophils % Basophils % Sodium 134 L Potassium 3.9 Chloride 100 Carbon Dioxide 23 Anion Gap 11 BUN 15 Creatinine 0.5 L POC Glucometer [phone] Random Glucose 203 H D Calcium 8.6 Phosphorus 1.9 L D Magnesium 08/30/17 08/30/17 08/30/17 05:00 05:00 05:13 WBC 3.8 L D RBC 3.95 Hgb 11.4 Hct 32.9 MCV 83.3 MCH 28.8 MCHC 34.6 RDW 13.9 Plt Count 151 D MPV 7.1 L Neutrophils % 79.9 Lymphocytes % 10.2 D Monocytes % 8.5 Eosinophils % 0.8 Basophils % 0.6 Sodium 135 L Potassium 3.7 Chloride 99 Carbon Dioxide 26 Anion Gap 10 BUN 15 Creatinine 0.5 L POC Glucometer [phone] Random Glucose 251 H D Calcium 7.9 L Phosphorus 1.9 L Magnesium 2.0 CBC, BMP 08/30/17 05:00 08/30/17 05:00 HOSPITAL COURSE: Date of Admission:08/28/17 Date of Discharge: 08/30/17 is a71yo F wtih PMH CAD s/p 4 stents, DM, hyperlipidemia and long hx of non compliance presented with nausea and vomiting for the past 2 days and found to be in DKA on arrival.DKA secondary to non-compliance. AG closed and remained closed. good sugar control with levemir 10 units in the AM. counselled on importance of medication compliance and follow up. indicted she should see PMD on Saturday for further insulin adjustment. to document sugars and to bring to dr rivera saturday. verbalized understanding and agreement with plan She developed Pseudohyponatremia- resolved, and Hyperkalemia which is resolved.And Severe hypophosphatemia,neutraphos was repleted . She has Acute metabolic encephalopathy- due to AG metabolic acidosis. resolved In term of R supracondylar fracture of distal humerus- s/p mechanical fall. immobilizer. PWB as tolerated. PT. ortho consulted. pain control In term of CAD s/p stents,continue on asa/plavix and F/U as out patient . In term of HTN- controlled, continue home meds In term of depression continue lexipro and F/U as out patient with your PCP or Psychiatrist. In term of Dyslipidemia continue on statin for DVT ppx lovenox was given. will be d/c home. Minutes to complete discharge: 30 Discharge Summary Reason For Visit: DIABETIC KETOACIDOSIS Condition: Stable - Instructions Diet, Activity, Other Instructions: You have been admitted because of very high blood sugar You have been admitted into ICU and treated with insulin and fluids Your blood sugar number has been improved for the last 24 hour You will be discharged home You will be starting using Levemir 10 in the morning , please stop taking the insulin 70/30 that you have been using before this admission Please use insulin sliding scale following this protocol Sugar # units of insulin 101-150 0 151-200 0 201-250 2 251-300 3 301-350 4 351-400 8 >400 10 and call your primary Please check your blood sugar before each meal. Document what sugar you get and how much insulin you give yourself. bring this to your doctor appointment. You should see your doctor on Saturday. Please follow diabetic diet. It is very important to take insulin as prescribed and check your blood sugar, non compliant with medication can cause too many complication including . for your arm fracture, you can use Tylenol for pain as needed. Please avoid carrying any subject with your right arm. Please follow up with orthopedics surgeon within 2 week and repeat the image to make sure it is healing well. For the rash on your abdomen please apply Nystatin powder topical once daily Please use walker when you move around. Please use fall precautions. Please resume your daily activity as tolerated. Please take your medications as prescribed. It is very important that you take all your medications as prescrived. You are at a high risk of further cardiac disease as well as other medical problems if you do not take your medication. If you develop any fever, chills, lightheadedness, sever vomiting please return to emergency department. Referrals: Bernabe Castillo MD [Staff Physician] - 2 Weeks Gemini Gilmore MD [Primary Care Provider] - 1 Week (Saturday) Disposition: HOME - Home Medications Comprehensive Discharge Medication List: Ambulatory Orders Aspirin [ASA -] 81 mg PO DAILY 09/03/14 Escitalopram Oxalate [Lexapro -] 30 mg PO DAILY 12/29/16 Acetaminophen [Tylenol .Regular Strength -] 650 mg PO Q6H PRN #0 tablet Atorvastatin Ca [Lipitor] 20 mg PO HS #30 tablet 06/24/17 Clopidogrel Bisulfate [Plavix -] 75 mg PO DAILY #30 tablet 06/24/17 Ranitidine [Zantac -] 150 mg PO BID tablet 06/24/17 Lisinopril [Zestril] 2.5 mg PO DAILY 08/28/17 Metoprolol Succinate [Toprol Xl] 25 mg PO DAILY 08/28/17 Insulin (Levemir) [Levemir Vial] 10 unit SQ DAILY #1 vial 08/30/17 Insulin Sliding Scale [Novolog Vial Sliding Scale -] 1 vial SQ ACHS #100 units 08/30/17 Nystatin Powder [Nystop Powder -] 1 applic TP DAILY #30 applic 08/30/17 This patient is new to me today: No Emergency Visit: Yes ED Registration Date: 08/28/17 Care time: The patient presented to the Emergency Department on the above date and was hospitalized for further evaluation of their emergent condition. Critical Care patient: Yes Total Critical Care Time (in minutes): 40 Critical Care Statement: The care of this patient involved high complexity decision making to prevent further life threatening deterioration of the patient 's condition and/or to evaluate & treat vital organ system(s) failure or risk of failure. - Discharge Referral Referred to [facility] Med P.C.: No
--- NOTE | 2017-08-30 13:03 | PN ---
Teaching Attending Note Name of Resident: Smooth Buckley ATTENDING PHYSICIAN STATEMENT I saw and evaluated the patient. I reviewed the resident's note and discussed the case with the resident. I agree with the resident's findings and plan as documented. SUBJECTIVE:asymptomatic. tolerating diet. denies CP, SOB, fever, chills, N/V/C/D OBJECTIVE: Last Vital Signs Temp Pulse Resp BP Pulse Ox 98.0 F 72 19 112/49 100 08/30/17 10:13 08/30/17 12:00 08/30/17 12:00 08/30/17 12:00 08/30/17 09:55 General NAD CV S1 S2 RRR +murmur Lungs CTA B/L anteriorly Abdomen soft NT/ND Extremities R elbow swollen with healing ecchymosis, tender on manipulation, 1+ pulse in RUE ASSESSMENT AND PLAN: 71yo F wtih PMH CAD s/p 4 stents, DM, hyperlipidemia and long hx of non compliance presented with nausea and vomiting for the past 2 days and found to be in DKA on arrival 1. DKA- due to non-compliance. AG closed and remained closed. good sugar control with levemir 10 units in the AM. counselled on importance of medication compliance and follow up. indicted she should see PMD on Saturday for further insulin adjustment. to document sugars and to bring to dr rivera saturday. verbalized understanding and agreement with plan 2. Pseudohyponatremia- resolved 3. Hyperkalemia- resolved 4. Severe hypophosphatemia- neutraphos 5. Acute metabolic encephalopathy- due to AG metabolic acidosis. resolved 4. R supracondylar fracture of distal humerus- s/p mechanical fall. immobilizer. PWB as tolerated. PT. ortho consulted. pain control 5. CAD s/p stents- on asa/plavix. 6. HTN- controlled. 7. depression- on lexipro. 8. Dyslipidemia- on statin 9. DVT ppx- lovenox 10. d/c home
--- NOTE | 2017-08-30 16:27 | PN ---
Physical Exam: SUBJECTIVE: Patient seen and examined felling better, asking for food. No acute events over night. right arm pain is better with better attitude. OBJECTIVE: Vital Signs Period Temp Pulse Resp BP Sys/Barrera Pulse Ox Last 24 Hr 97.5 F-98.8 F 54-101 15-26 92-157/36-97 100-100 GENERAL: Awake, alert, oriented to person only , in no acute distress. HEAD: Normal with no signs of trauma. EYES: sclera anicteric, conjunctiva clear. EARS, NOSE, THROAT: dry mucous membranes. LUNGS: Breath sounds equal, clear to auscultation bilaterally. No wheezes, and no crackles. No accessory muscle use. HEART: Regular rate and rhythm, normal S1 and S2 with 2/6 systolic murmur RSB, No rub or gallop. ABDOMEN: Soft,non tender, not distended, normoactive bowel sounds, no guarding, no rebound. UPPER EXTREMITIES: warm, well-perfused. No cyanosis. No clubbing. No peripheral edema.enlarged right elbow , tender and sensitive to touch. LOWER EXTREMITIES: warm, well-perfused. No calf tenderness. No peripheral edema. NEUROLOGICAL: Normal speech.gait not observed.facial symmetry. sensation intact over b/l UE from shoulders to fingers. 3/5 handgrip in right, 5/5 handgrip on left. 3/5 hip extension b/l. sensation intact in b/l lower legs anterior and soles of feet. PSYCHIATRIC: non cooperative. Good eye contact. flat mood and affect. SKIN: Warm, dry, no rashes or lesions noted.erythematous lower abdomen under pannus with skin demuted on the right side. Manning in place Laboratory Results - last 24 hr 08/29/17 08/30/17 08/30/17 21:21 05:00 05:00 WBC 3.8 L D RBC 3.95 Hgb 11.4 Hct 32.9 MCV 83.3 MCH 28.8 MCHC 34.6 RDW 13.9 Plt Count 151 D MPV 7.1 L Neutrophils % 79.9 Lymphocytes % 10.2 D Monocytes % 8.5 Eosinophils % 0.8 Basophils % 0.6 Sodium 135 L Potassium 3.7 Chloride 99 Carbon Dioxide 26 Anion Gap 10 BUN 15 Creatinine 0.5 L POC Glucometer 130.71158 Random Glucose 251 H D Calcium 7.9 L Phosphorus 1.9 L Magnesium 2.0 08/30/17 05:13 WBC RBC Hgb Hct MCV MCH MCHC RDW Plt Count MPV Neutrophils % Lymphocytes % Monocytes % Eosinophils % Basophils % Sodium Potassium Chloride Carbon Dioxide Anion Gap BUN Creatinine POC Glucometer [phone] Random Glucose Calcium Phosphorus Magnesium Active Medications Generic Name Dose Route Start Last Admin Trade Name Freq PRN Reason Stop Dose Admin Acetaminophen 650 mg 08/29/17 15:40 08/29/17 17:19 Tylenol - PO 650 mg Q6H PRN Administration FEVER OR PAIN Aspirin 81 mg 08/30/17 10:00 08/30/17 10:12 Asa - PO 81 mg DAILY KHANH Administration Atorvastatin Calcium 20 mg 08/29/17 22:00 08/29/17 21:23 Lipitor - PO 20 mg HS KHANH Administration Chlorhexidine Gluconate 1 applic 08/29/17 22:00 08/29/17 21:23 Hibiclens For Decolonization - TP 1 applic HS KHANH Administration Clopidogrel Bisulfate 75 mg 08/30/17 10:00 08/30/17 10:13 Plavix - PO 75 mg DAILY KHANH Administration Escitalopram Oxalate 30 mg 08/30/17 10:00 08/30/17 10:13 Lexapro - PO 30 mg DAILY KHANH Administration Insulin Aspart 1 vial 08/29/17 16:30 08/30/17 06:33 Novolog Vial Sliding Scale - SQ 2 units ACHS KHANH Administration Protocol Metoprolol Succinate 25 mg 08/29/17 16:30 08/30/17 10:12 Toprol Xl - PO 25 mg DAILY KHANH Administration Mupirocin 1 applic 08/29/17 22:00 08/30/17 10:14 Bactroban Ointment (For Decolonization) - NS 09/02/17 21:59 1 applic BID KHANH Administration Nystatin 1 applic 08/30/17 10:00 Nystop Powder - TP DAILY KHANH Potassium Phos/Sodium Phos 1 packet 08/29/17 22:00 08/30/17 06:33 Phos-Nak Packet - PO 1 packet TID KHANH Administration Ranitidine HCl 150 mg 08/29/17 22:00 08/30/17 10:13 Zantac - PO 150 mg BID KHANH Administration CBC, BMP 08/30/17 05:00 08/30/17 05:00 ASSESSMENT/PLAN: Patient is a 71 Year old female with PMHx of IDDM, DKA, HTN, HLD, CAD(CABG) who presented to the hospital with 2 days history of non bilious non bloody diarrhea , who was found to have DKA at the ED and was admitted to the ICU fir further evaluation and treatment. 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 * levemir 10 Units Q AM * #Acute metabolic encephalopathy- due to AG metabolic acidosis, imporoved #Pseudohyponatremia, 2/2 DKA, improved * corrected Na 137 * Monitor BMP after IV fluids # Hyperkalemia , resolved * K > 5.3 on admission , today 3.7 * monitor closely * replenish if less than 4 # Hypovolemia/Dehydration 2/2 low oral intake and vomiting , improved * Monitor BUN/ Cr * Monitor urine out put and input * daily weight * Zofran as needed # vomiting 2/2 DKA, resolved * 2 days of vomiting non bloody * Zofran as needed # Suprachondylar fracture R elbow distal humerus * 2/2 mechanical fall 3 weeks ago * Pain control,Tylenol 650 mg po daily * ortho consult, Dr. Castillo no intervention at this time * she will follow as out patient with # CAD, * stable * LV systolic dysfunction * continue ASA, Plavix as there is no orthopedic intervntion at this time # HTN, * BP 143/55 on admission , today (92-157/36-97) * Hold home meds (lisinopril 2.5 daily , Metoprolol 25 daily ) # HLD , * Continue Lipitor 20 daily once start feeding # Depression, chronic , resistant * on lexipro 30 daily * pt non compliant will hold for now * consider to consult Psychiatrist # H/O imbalance gait * Consider PT when Stable * Will benefit from AMANDA #Erythema on the abdomen , likely fungal * Nystatin topical one daily * keep the area dry and clean of urine or humidity # FEN * DC IV fluids * pseudo hyponatremia, hyperkalemia , repeat BMP Q2 hr * NPO till close the AG # Proph * DVT: Lovenox 40 SQ daily * GI: no needed # Dispo * Admit to ICU * will likely need placement when ready for discharge Visit type - Emergency Visit Emergency Visit: Yes ED Registration Date: 08/28/17 Care time: The patient presented to the Emergency Department on the above date and was hospitalized for further evaluation of their emergent condition. - New Patient This patient is new to me today: No - Critical Care Critical Care patient: Yes Total Critical Care Time (in minutes): 40 Critical Care Statement: The care of this patient involved high complexity decision making to prevent further life threatening deterioration of the patient 's condition and/or to evaluate & treat vital organ system(s) failure or risk of failure.
[2017-08-30] MEDS ORDERED: INSULIN (NOVOLOG) ASPART 100 UNITS/ML 10ML VIAL ONE ×2 (17:20→21:49)
[2017-08-30] MEDS ORDERED: ACETAMINOPHEN 325 MG TABLET (FP) PO PRN (17:58)
[2017-08-30 18:52] LABS: ANION GAP 10 (8-16); CALCIUM 8.2 mg/dL (8.5-10.1); CO2 26 mmol/L (21-32); CREATININE 0.6 mg/dL (0.55-1.02)
[2017-08-30 19:07] LABS: GLUCOSE,RANDOM 372 mg/dL (74-106)
[2017-08-30] MEDS: CHLORHEXIDINE GLUCONATE 4% CLEANSER FOR DECOLONIZATION TP SCH (21:30)
[2017-08-30] MEDS: ATORVASTATIN CA 20 MG TABLET (FP) PO SCH (21:53)
[2017-08-31] MEDS: NAPH,MB-DB/K PH,MBDB POWDER PACKET PO SCH ×3 (06:07→21:40)
[2017-08-31] MEDS: INSULIN SLIDING SCALE (NOVOLOG) 1 VIAL SQ SCH ×4 (06:10→21:40)
[2017-08-31] MEDS ORDERED: INSULIN DETEMIR 100 UNITS/ML MDV SQ SCH ×2 (07:30→22:00)
[2017-08-31 08:16] LABS: ALBUMIN 2.3 g/dl (3.4-5.0); ALK PHOS 92 U/L (45-117); ANION GAP 7 (8-16); BILIRUBIN,TOTAL 0.5 mg/dL (0.2-1.0); CALCIUM 8.2 mg/dL (8.5-10.1); CO2 28 mmol/L (21-32); CREATININE 0.3 mg/dL (0.55-1.02); GLUCOSE,RANDOM 164 mg/dL (74-106); SGOT/AST 8 U/L (15-37); SGPT/ALT 12 U/L (12-78); TOT PROT 4.9 g/dl (6.4-8.2)
--- NOTE | 2017-08-31 08:56 | PN ---
Progress Note (short form) - Note Progress Note: currently c/o R elbow pain. improves with pain medication. denies Cp, SOB, fever , chills, N/V/C/D Current Medications Generic Name Dose Route Start Last Admin Trade Name Freq PRN Reason Stop Dose Admin Acetaminophen 650 mg 08/30/17 17:58 Tylenol - PO Q6H PRN FEVER OR PAIN Aspirin 81 mg 08/31/17 10:00 Asa - PO DAILY KHANH Atorvastatin Calcium 20 mg 08/30/17 22:00 08/30/17 21:53 Lipitor - PO 20 mg HS KHANH Administration Chlorhexidine Gluconate 1 applic 08/30/17 22:00 08/30/17 21:30 Hibiclens For Decolonization - TP Not Given HS KHANH Clopidogrel Bisulfate 75 mg 08/31/17 10:00 Plavix - PO DAILY KHANH Escitalopram Oxalate 30 mg 08/31/17 10:00 Lexapro - PO DAILY KHANH Insulin Aspart 1 vial 08/30/17 17:20 08/31/17 06:10 Novolog Vial Sliding Scale - SQ 2 units ACHS KHANH Administration Protocol Insulin Detemir 10 units 08/31/17 07:30 Levemir Vial SQ DAILY@0700 KHANH Metoprolol Succinate 25 mg 08/31/17 10:00 Toprol Xl - PO DAILY KHANH Mupirocin 1 applic 08/30/17 22:00 08/30/17 21:29 Bactroban Ointment (For Decolonization) - NS 09/02/17 21:59 Not Given BID KHANH Nystatin 1 applic 08/31/17 10:00 Nystop Powder - TP DAILY KHANH Potassium Phos/Sodium Phos 1 packet 08/30/17 22:00 08/31/17 06:07 Phos-Nak Packet - PO 1 packet TID KHANH Administration Ranitidine HCl 150 mg 08/30/17 22:00 08/30/17 21:54 Zantac - PO 150 mg BID KHANH Administration Last Vital Signs Temp Pulse Resp BP Pulse Ox 98.6 F 71 18 129/60 98 08/31/17 05:53 08/31/17 05:53 08/31/17 05:53 08/31/17 05:53 08/30/17 22:00 General NAD CV S1 S2 RRR +murmur Lungs CTA B/L anteriorly Abdomen soft NT/ND Extremities R elbow swollen with healing ecchymosis, tender on manipulation, 1+ pulse in RUE CMP Sodium 137 mmol/L (136-145) 08/31/17 06:35 Potassium 3.7 mmol/L (3.5-5.1) 08/31/17 06:35 Chloride 102 mmol/L (98-107) 08/31/17 06:35 Carbon Dioxide 28 mmol/L (21-32) 08/31/17 06:35 Anion Gap 7 (8-16) L 08/31/17 06:35 BUN 12 mg/dL (7-18) 08/31/17 06:35 Creatinine 0.3 mg/dL (0.55-1.02) L D 08/31/17 06:35 Creat Clearance w eGFR > 60 (>60) 08/31/17 06:35 Calcium 8.2 mg/dL (8.5-10.1) L 08/31/17 06:35 Total Bilirubin 0.5 mg/dL (0.2-1.0) D 08/31/17 06:35 AST 8 U/L (15-37) L D 08/31/17 06:35 ALT 12 U/L (12-78) D 08/31/17 06:35 Alkaline Phosphatase 92 U/L (45-117) D 08/31/17 06:35 Total Protein 4.9 g/dl (6.4-8.2) L D 08/31/17 06:35 Albumin 2.3 g/dl (3.4-5.0) L D 08/31/17 06:35 ASSESSMENT AND PLAN: 71yo F wtih PMH CAD s/p 4 stents, DM, hyperlipidemia and long hx of non compliance presented with nausea and vomiting for the past 2 days and found to be in DKA on arrival 1. DKA- due to non-compliance. AG closed and remained closed. elevated sugars in the evening. will increase levemir to 14 units in AM. cont to adjust per bgm to optimize control. 2. Pseudohyponatremia- resolved 3. Hyperkalemia- resolved 4. Severe hypophosphatemia- awaiting todays lab 5. Acute metabolic encephalopathy- due to AG metabolic acidosis. resolved 4. R supracondylar fracture of distal humerus- s/p mechanical fall. immobilizer. PWB as tolerated. PT. ortho consulted. pain control 5. CAD s/p stents- on asa/plavix. 6. HTN- controlled. 7. depression- on lexipro. 8. Dyslipidemia- on statin 9. DVT ppx- lovenox 10. anticipated d/c home yesterday but when getting up to leave was very unstable and unable to ambulate. pt agreeable to AMANDA. PT assessment today to evaluate if meets criteria. Visit type - Emergency Visit Emergency Visit: Yes ED Registration Date: 08/28/17 Care time: The patient presented to the Emergency Department on the above date and was hospitalized for further evaluation of their emergent condition. - New Patient This patient is new to me today: No - Critical Care Critical Care patient: No - Discharge Referral Referred to [facility] Med P.C.: No
[2017-08-31] MEDS ORDERED: INSULIN DETEMIR 100 UNITS/ML MDV SQ ONE (09:15)
[2017-08-31] MEDS: ASPIRIN 81 MG CHEWABLE TABLETS PO SCH (09:17)
[2017-08-31] MEDS: RANITIDINE HCL 150 MG TABLET (FP) PO SCH ×2 (09:17→21:40)
[2017-08-31] MEDS: ESCITALOPRAM OXALATE 10 MG TABLET (FP) PO SCH (09:17)
[2017-08-31] MEDS: CLOPIDOGREL BISULFATE 75 MG TABLET (FP) PO SCH (09:18)
[2017-08-31] MEDS: METOPROLOL SUCCINATE 25 MG TAB.SR.24H (FP) PO SCH (09:18)
[2017-08-31] MEDS: MUPIROCIN 2% TOPICAL OINTMENT FOR DECOLONIZATION NS SCH ×2 (09:20→21:29)
[2017-08-31] MEDS: NYSTATIN POWDER 100,000 UNITS/GM - 15 GM TOPICAL POWDER TP SCH (09:20)
[2017-08-31] MEDS ORDERED: INSULIN (NOVOLOG) ASPART 100 UNITS/ML 10ML VIAL ONE ×2 (10:45→21:32)
--- NOTE | 2017-08-31 16:18 | PN ---
Progress Note (short form) - Note Progress Note: Pt seen and examined. She feels good as far as her right arm is concerned. HOLDEN FITZPATRICK Right supracondylar humerus fracture is now about 1 month old. No surgery planned. Will follow. I rec ROM exercises for her right elbow which is very stiff.
[2017-08-31] MEDS: CHLORHEXIDINE GLUCONATE 4% CLEANSER FOR DECOLONIZATION TP SCH (21:29)
[2017-08-31] MEDS: ATORVASTATIN CA 20 MG TABLET (FP) PO SCH (21:40)
[2017-09-01] MEDS ORDERED: INSULIN (NOVOLOG) ASPART 100 UNITS/ML 10ML VIAL ONE ×5 (06:09→21:31)
[2017-09-01] MEDS: INSULIN SLIDING SCALE (NOVOLOG) 1 VIAL SQ SCH ×4 (06:15→21:53)
[2017-09-01] MEDS: NAPH,MB-DB/K PH,MBDB POWDER PACKET PO SCH (06:17)
[2017-09-01] MEDS ORDERED: INSULIN DETEMIR 100 UNITS/ML MDV SQ SCH (07:00)
[2017-09-01] MEDS: MUPIROCIN 2% TOPICAL OINTMENT FOR DECOLONIZATION NS SCH (09:22)
[2017-09-01] MEDS: METOPROLOL SUCCINATE 25 MG TAB.SR.24H (FP) PO SCH (09:22)
[2017-09-01] MEDS: RANITIDINE HCL 150 MG TABLET (FP) PO SCH ×2 (09:22→21:53)
[2017-09-01] MEDS: ESCITALOPRAM OXALATE 10 MG TABLET (FP) PO SCH (09:22)
[2017-09-01] MEDS: ASPIRIN 81 MG CHEWABLE TABLETS PO SCH (09:22)
[2017-09-01] MEDS: CLOPIDOGREL BISULFATE 75 MG TABLET (FP) PO SCH (09:22)
[2017-09-01] MEDS: NYSTATIN POWDER 100,000 UNITS/GM - 15 GM TOPICAL POWDER TP SCH (09:25)
--- NOTE | 2017-09-01 09:58 | PN ---
Progress Note (short form) - Note Progress Note: asymptomatic. denies Cp, SOB, fever, chills, N/V/C/D Current Medications Generic Name Dose Route Start Last Admin Trade Name Raulito PRN Reason Stop Dose Admin Acetaminophen 650 mg 08/30/17 17:58 08/31/17 09:19 Tylenol - PO 650 mg Q6H PRN Administration FEVER OR PAIN Aspirin 81 mg 08/31/17 10:00 09/01/17 09:22 Asa - PO 81 mg DAILY KHANH Administration Atorvastatin Calcium 20 mg 08/30/17 22:00 08/31/17 21:40 Lipitor - PO 20 mg HS KHANH Administration Chlorhexidine Gluconate 1 applic 08/30/17 22:00 08/31/17 21:29 Hibiclens For Decolonization - TP Not Given HS KHANH Clopidogrel Bisulfate 75 mg 08/31/17 10:00 09/01/17 09:22 Plavix - PO 75 mg DAILY KHANH Administration Escitalopram Oxalate 30 mg 08/31/17 10:00 09/01/17 09:22 Lexapro - PO 30 mg DAILY KHANH Administration Insulin Aspart 1 vial 08/31/17 08:57 09/01/17 06:15 Novolog Vial Sliding Scale - SQ Not Given ACHS [facility] Protocol Insulin Detemir 15 units 09/01/17 07:00 09/01/17 06:16 Levemir Vial SQ 15 units DAILY@0700 KHANH Administration Metoprolol Succinate 25 mg 08/31/17 10:00 09/01/17 09:22 Toprol Xl - PO 25 mg DAILY KHANH Administration Mupirocin 1 applic 08/30/17 22:00 09/01/17 09:22 Bactroban Ointment (For Decolonization) - NS 09/02/17 21:59 Not Given BID KHANH Nystatin 1 applic 08/31/17 10:00 09/01/17 09:25 Nystop Powder - TP 1 applic DAILY KHANH Administration Potassium Phos/Sodium Phos 1 packet 08/30/17 22:00 09/01/17 06:17 Phos-Nak Packet - PO 1 packet TID KHANH Administration Ranitidine HCl 150 mg 08/30/17 22:00 09/01/17 09:22 Zantac - PO 150 mg BID KHANH Administration Last Vital Signs Temp Pulse Resp BP Pulse Ox 98.6 F 66 18 107/58 98 09/01/17 09:02 09/01/17 09:02 09/01/17 09:02 09/01/17 09:02 08/31/17 21:00 General NAD CV S1 S2 RRR +murmur Lungs CTA B/L anteriorly Abdomen soft NT/ND Extremities R elbow swollen with healing ecchymosis, tender on manipulation, 1+ pulse in RUE CMP Sodium 137 mmol/L (136-145) 08/31/17 06:35 Potassium 3.7 mmol/L (3.5-5.1) 08/31/17 06:35 Chloride 102 mmol/L (98-107) 08/31/17 06:35 Carbon Dioxide 28 mmol/L (21-32) 08/31/17 06:35 Anion Gap 7 (8-16) L 08/31/17 06:35 BUN 12 mg/dL (7-18) 08/31/17 06:35 Creatinine 0.3 mg/dL (0.55-1.02) L D 08/31/17 06:35 Creat Clearance w eGFR > 60 (>60) 08/31/17 06:35 Calcium 8.2 mg/dL (8.5-10.1) L 08/31/17 06:35 Total Bilirubin 0.5 mg/dL (0.2-1.0) D 08/31/17 06:35 AST 8 U/L (15-37) L D 08/31/17 06:35 ALT 12 U/L (12-78) D 08/31/17 06:35 Alkaline Phosphatase 92 U/L (45-117) D 08/31/17 06:35 Total Protein 4.9 g/dl (6.4-8.2) L D 08/31/17 06:35 Albumin 2.3 g/dl (3.4-5.0) L D 08/31/17 06:35 ASSESSMENT AND PLAN: 71yo F wtih PMH CAD s/p 4 stents, DM, hyperlipidemia and long hx of non compliance presented with nausea and vomiting for the past 2 days and found to be in DKA on arrival 1. DKA- due to non-compliance. AG closed and remained closed. elevated sugars in the evening. will increase levemir to 18 units in AM. cont to adjust per bgm to optimize control. 2. Pseudohyponatremia- resolved 3. Hyperkalemia- resolved 4. Severe hypophosphatemia- resolved. d/c neutraphos 5. Acute metabolic encephalopathy- due to AG metabolic acidosis. resolved 4. R supracondylar fracture of distal humerus- s/p mechanical fall. immobilizer. PWB as tolerated. PT. ortho consulted. pain control 5. CAD s/p stents- on asa/plavix. 6. HTN- controlled. 7. depression- on lexipro. 8. Dyslipidemia- on statin 9. DVT ppx- lovenox 10. medically optimized for discharge. will need AMANDA placement. Visit type - Emergency Visit Emergency Visit: Yes ED Registration Date: 08/28/17 Care time: The patient presented to the Emergency Department on the above date and was hospitalized for further evaluation of their emergent condition. - New Patient This patient is new to me today: No - Critical Care Critical Care patient: No - Discharge Referral Referred to [facility] Med [facility].C[facility] No
[2017-09-01] MEDS ORDERED: INSULIN DETEMIR 100 UNITS/ML MDV SQ ONE ×2 (10:15→10:18)
[2017-09-01] MEDS: ATORVASTATIN CA 20 MG TABLET (FP) PO SCH (21:53)
[2017-09-02] MEDS: INSULIN SLIDING SCALE (NOVOLOG) 1 VIAL SQ SCH ×4 (06:06→22:03)
[2017-09-02] MEDS ORDERED: INSULIN DETEMIR 100 UNITS/ML MDV SQ SCH (07:00)
[2017-09-02] MEDS ORDERED: PT OWN MED DRAWER 7, Y5N ONE (11:26)
[2017-09-02] MEDS: ESCITALOPRAM OXALATE 10 MG TABLET (FP) PO SCH (11:29)
[2017-09-02] MEDS: CLOPIDOGREL BISULFATE 75 MG TABLET (FP) PO SCH (11:29)
[2017-09-02] MEDS: RANITIDINE HCL 150 MG TABLET (FP) PO SCH ×2 (11:30→21:59)
[2017-09-02] MEDS: ASPIRIN 81 MG CHEWABLE TABLETS PO SCH (11:30)
[2017-09-02] MEDS: METOPROLOL SUCCINATE 25 MG TAB.SR.24H (FP) PO SCH (11:30)
[2017-09-02] MEDS ORDERED: INSULIN (NOVOLOG) ASPART 100 UNITS/ML 10ML VIAL ONE ×2 (11:42→22:02)
[2017-09-02] MEDS: NYSTATIN POWDER 100,000 UNITS/GM - 15 GM TOPICAL POWDER TP SCH (11:49)
--- NOTE | 2017-09-02 15:46 | PN ---
Teaching Attending Note Name of Resident: Judson Michael ATTENDING PHYSICIAN STATEMENT I saw and evaluated the patient. I reviewed the resident's note and discussed the case with the resident. I agree with the resident's findings and plan as documented. SUBJECTIVE:asymptomatic. denies CP, SOB, fever, chills, N/V/C/D OBJECTIVE: Last Vital Signs Temp Pulse Resp BP Pulse Ox 98.1 F 67 19 113/56 95 09/02/17 14:32 09/02/17 14:32 09/02/17 14:32 09/02/17 14:32 09/02/17 09:00 General NAD Extremities tenderness at elbow. pulse intact ASSESSMENT AND PLAN: 71yo F wtih PMH CAD s/p 4 stents, DM, hyperlipidemia and long hx of non compliance presented with nausea and vomiting for the past 2 days and found to be in DKA on arrival 1. DKA- due to non-compliance. AG closed and remained closed. elevated sugars in the evening. will increase levemir to 22 units in AM. cont to adjust per bgm to optimize control. 2. Pseudohyponatremia- resolved 3. Hyperkalemia- resolved 4. Severe hypophosphatemia- resolved. 5. Acute metabolic encephalopathy- due to AG metabolic acidosis. resolved 4. R supracondylar fracture of distal humerus- s/p mechanical fall. immobilizer. PWB as tolerated. PT. ortho consulted. pain control 5. CAD s/p stents- on asa/plavix. 6. HTN- controlled. 7. depression- on lexipro. 8. Dyslipidemia- on statin 9. DVT ppx- lovenox 10. Sw went to speak about [facility] placement and she refused placement. d/w with her about going home and only able to ambulate a few steps and may not be safe discharge. she responded well "ill go home and discuss it with my 4 dogs and come back if they want me to go to rehab". will consult psych for competency
--- NOTE | 2017-09-02 17:32 | PN ---
Physical Exam: SUBJECTIVE: Patient seen and examined at bedside. Patient denies any current complaints. She states that she is OK with taking long-acting insulin once a day. She states that she needs to talk to her dogs before discharge OBJECTIVE: Vital Signs Period Temp Pulse Resp BP Sys/Barrera Pulse Ox Last 24 Hr 97.7 F-98.4 F 59-68 18-20 113-134/56-62 95-95 GENERAL: The patient is awake, alert, and fully oriented, in no acute distress. HEAD: Normal with no signs of trauma. EYES: PERRL, extraocular movements intact, sclera anicteric, conjunctiva clear. No ptosis. ENT: Ears normal, nares patent, oropharynx clear without exudates, moist mucous membranes. NECK: Trachea midline, full range of motion, supple. LUNGS: Breath sounds equal, clear to auscultation bilaterally, no wheezes, no crackles, no accessory muscle use. HEART: Regular rate and rhythm, S1, S2 without murmur, rub or gallop. ABDOMEN: Soft, nontender, nondistended, normoactive bowel sounds, no guarding, no rebound, no hepatosplenomegaly, no masses. EXTREMITIES: 2+ pulses, warm, well-perfused, no edema. fracture of R elbow, arm in sling NEUROLOGICAL: Cranial nerves II through XII grossly intact. Normal speech, gait not observed. PSYCH: Normal mood, normal affect. SKIN: Warm, dry, normal turgor, no rashes or lesions noted Laboratory Results - last 24 hr 08/29/17 08/30/17 09/01/17 17:02 17:15 21:51 POC Glucometer [id number] > 400 278 09/02/17 09/02/17 09/02/17 05:51 11:38 16:25 POC Glucometer 305 289 344 Active Medications Generic Name Dose Route Start Last Admin Trade Name Freq PRN Reason Stop Dose Admin Acetaminophen 650 mg 08/30/17 17:58 08/31/17 09:19 Tylenol - PO 650 mg Q6H PRN Administration FEVER OR PAIN Aspirin 81 mg 08/31/17 10:00 09/02/17 11:30 Asa - PO 81 mg DAILY [facility] Administration Atorvastatin Calcium 20 mg 08/30/17 22:00 09/01/17 21:53 Lipitor - PO 20 mg HS [facility]AN[facility] Administration Clopidogrel Bisulfate 75 mg 08/31/17 10:00 09/02/17 11:29 Plavix - PO 75 mg DAILY [facility] Administration Escitalopram Oxalate 30 mg 08/31/17 10:00 09/02/17 11:29 Lexapro - PO 30 mg DAILY [facility] Administration Insulin Aspart 1 vial 08/31/17 08:57 09/02/17 16:29 Novolog Vial Sliding Scale - SQ 6 units ACHS [facility] Administration Protocol Insulin Detemir 22 units 09/03/17 07:00 Levemir Vial SQ DAILY@0700 [facility] Metoprolol Succinate 25 mg 08/31/17 10:00 09/02/17 11:30 Toprol Xl - PO 25 mg DAILY [facility] Administration Nystatin 1 applic 08/31/17 10:00 09/02/17 11:49 Nystop Powder - TP 1 applic DAILY [facility] Administration Ranitidine HCl 150 mg 08/30/17 22:00 09/02/17 11:30 Zantac - PO 150 mg BID [facility] Administration ASSESSMENT/PLAN: 71 year old female pmh CAD s/p 4 stents, DM, HLD admitted for treatment of DKA. Patient was non-compliant with her medications at home. Anion gap has closed. 1. DKA: resolved -fingersticks range between 242-344 -increase levemir to 22 units -continue sliding scale novolog 2. Hyponatremia/hypokalemia: resolved 3. Coronary artery disease s/p stents -continue aspirin 81 and plavix 75 4. Depression: -continue lexapro 30 5. Dyslipidemia: -continue atorvastatin 20 6. R supracondylar fracture of distal humerus: -tylenol for pain PRN -consulted orthopedics -keep arm in sling 6. FEN: -continue diabetic/sodium diet as tolerated -electrolytes had normalized -No standing fluids 7. Prophylaxis -continue lovenox 8. Dyspo: -patient states that she would like to speak to her dogs prior to discharge from the hospital when asked about possibly rehab placement -consult psychiatry Problem List - Problems (1) Supracondylar fracture of humerus Code(s): S42.413A - DISPL SIMPLE SUPRCNDL FX W/O INTRCNDL FX UNSP HUMERUS, INIT (2) Diabetic ketoacidosis Code(s): E13.10 - OTH DIABETES MELLITUS WITH KETOACIDOSIS WITHOUT COMA Qualifiers: (3) Hyperglycemia Code(s): R73.9 - HYPERGLYCEMIA, UNSPECIFIED (4) Hyponatremia Code(s): E87.1 - HYPO-OSMOLALITY AND HYPONATREMIA (5) CAD (coronary artery disease) Code(s): I25.10 - ATHSCL HEART DISEASE OF [place] CORONARY ARTERY W/O ANG PCTRS Visit type - Emergency Visit Emergency Visit: No - New Patient This patient is new to me today: Yes Date on this admission: 09/02/17 - Critical Care Critical Care patient: No
[2017-09-02] MEDS: ATORVASTATIN CA 20 MG TABLET (FP) PO SCH (21:59)
[2017-09-03] MEDS: INSULIN DETEMIR 100 UNITS/ML MDV SQ SCH (06:25)
[2017-09-03] MEDS: INSULIN SLIDING SCALE (NOVOLOG) 1 VIAL SQ SCH ×4 (06:25→21:30)
--- NOTE | 2017-09-03 06:28 | PN ---
Physical Exam: SUBJECTIVE: Patient seen and examined at bedside. Patient denies any current complaints. Patient was ready for discharge home, but she states that she wants to stay in the hospital today because her dogs don't want her to come home. OBJECTIVE: Vital Signs Period Temp Pulse Resp BP Sys/Barrera Pulse Ox Last 24 Hr 97.7 F-98.8 F 60-68 18-19 100-133/54-60 95-95 GENERAL: The patient is awake, alert, and fully oriented, in no acute distress. LUNGS: Breath sounds equal, clear to auscultation bilaterally, no wheezes, no crackles, no accessory muscle use. HEART: Regular rate and rhythm, S1, S2 without murmur, rub or gallop. ABDOMEN: Soft, nontender, nondistended, normoactive bowel sounds, no guarding, no rebound, no hepatosplenomegaly, no masses. NEUROLOGICAL: Cranial nerves II through XII grossly intact. Normal speech, gait not observed. PSYCH: Normal mood, normal affect. patient asks to for her dogs' permission before discharge SKIN: Warm, dry, normal turgor, no rashes or lesions noted Laboratory Results - last 24 hr 08/30/17 09/02/17 09/02/17 17:15 11:38 16:25 POC Glucometer > 400 289 344 09/02/17 22:00 POC Glucometer 265 Active Medications Generic Name Dose Route Start Last Admin Trade Name Freq PRN Reason Stop Dose Admin Acetaminophen 650 mg 08/30/17 17:58 08/31/17 09:19 Tylenol - PO 650 mg Q6H PRN Administration FEVER OR PAIN Aspirin 81 mg 08/31/17 10:00 09/02/17 11:30 Asa - PO 81 mg DAILY K[facility]AN[facility] Administration Atorvastatin Calcium 20 mg 08/30/17 22:00 09/02/17 21:59 Lipitor - PO 20 mg HS [facility]AN[facility] Administration Clopidogrel Bisulfate 75 mg 08/31/17 10:00 09/02/17 11:29 Plavix - PO 75 mg DAILY [facility]AN[facility] Administration Escitalopram Oxalate 30 mg 08/31/17 10:00 09/02/17 11:29 Lexapro - PO 30 mg DAILY [facility] Administration Insulin Aspart 1 vial 08/31/17 08:57 09/03/17 06:25 Novolog Vial Sliding Scale - SQ 2 units ACHS [facility] Administration Protocol Insulin Detemir 22 units 09/03/17 07:00 09/03/17 06:25 Levemir Vial SQ 22 units DAILY@0700 [facility] Administration Metoprolol Succinate 25 mg 08/31/17 10:00 09/02/17 11:30 Toprol Xl - PO 25 mg DAILY [facility] Administration Nystatin 1 applic 08/31/17 10:00 09/02/17 11:49 Nystop Powder - TP 1 applic DAILY [facility] Administration Ranitidine HCl 150 mg 08/30/17 22:00 09/02/17 21:59 Zantac - PO 150 mg BID [facility] Administration ASSESSMENT/PLAN: 71 year old female pmh CAD s/p 4 stents, DM, HLD admitted for treatment of DKA. Patient was non-compliant with her medications at home. Anion gap has closed. Patient is able to walk ~50 feet with the assistance of two people. Physical therapy stated that she needs a hemiwalker to ambulate, and even so, she won't be able to live by herself without assistance 1. DKA: resolved, anion gap is closed. -fingersticks still range between 242-344 -continue levemir at 22 units once a day -continue sliding scale novolog -re-evaluate medications in the AM for adjustments 2. Hyponatremia/hypokalemia: resolved 3. Coronary artery disease s/p stents -continue aspirin 81 and plavix 75 4. Depression: -continue lexapro 30 5. Dyslipidemia: -continue atorvastatin 20 6. R supracondylar fracture of distal humerus: -consulted orthopedics -continue tylenol for pain PRN -keep arm in sling 6. FEN: -continue diabetic/sodium diet as tolerated -electrolytes had normalized -No standing fluids 7. Prophylaxis -continue lovenox 8. Dyspo: -patient states that she would like to speak to her dogs prior to discharge from the hospital when asked about possibly rehab placement -f/u psych consult before discharge Problem List - Problems (1) Supracondylar fracture of humerus Code(s): S42.413A - DISPL SIMPLE SUPRCNDL FX W/O INTRCNDL FX UNSP HUMERUS, INIT (2) Hyperglycemia Code(s): R73.9 - HYPERGLYCEMIA, UNSPECIFIED (3) Hyponatremia Code(s): E87.1 - HYPO-OSMOLALITY AND HYPONATREMIA (4) CAD (coronary artery disease) Code(s): I25.10 - ATHSCL HEART DISEASE OF [place] CORONARY ARTERY W/O ANG PCTRS Visit type - Emergency Visit Emergency Visit: No - New Patient This patient is new to me today: No - Critical Care Critical Care patient: No
[2017-09-03] MEDS: ASPIRIN 81 MG CHEWABLE TABLETS PO SCH (10:33)
[2017-09-03] MEDS: CLOPIDOGREL BISULFATE 75 MG TABLET (FP) PO SCH (10:34)
[2017-09-03] MEDS: NYSTATIN POWDER 100,000 UNITS/GM - 15 GM TOPICAL POWDER TP SCH (10:34)
[2017-09-03] MEDS: METOPROLOL SUCCINATE 25 MG TAB.SR.24H (FP) PO SCH (10:34)
[2017-09-03] MEDS: ESCITALOPRAM OXALATE 10 MG TABLET (FP) PO SCH (10:34)
[2017-09-03] MEDS: RANITIDINE HCL 150 MG TABLET (FP) PO SCH ×2 (10:34→21:31)
[2017-09-03] MEDS ORDERED: INSULIN (NOVOLOG) ASPART 100 UNITS/ML 10ML VIAL ONE ×2 (11:42→21:11)
--- NOTE | 2017-09-03 13:37 | PN ---
Teaching Attending Note Name of Resident: Judson Michael ATTENDING PHYSICIAN STATEMENT I saw and evaluated the patient. I reviewed the resident's note and discussed the case with the resident. I agree with the resident's findings and plan as documented. SUBJECTIVE:asymptomatic. refusing to go to [facility], needs to verify with dogs and clean her house prior to going. denies CP, SOB, fever, chills, N/V/C/D OBJECTIVE: Last Vital Signs Temp Pulse Resp BP Pulse Ox 98.1 F 18 L 18 90/57 95 09/03/17 06:00 09/03/17 10:00 09/03/17 06:00 09/03/17 10:00 09/02/17 21:00 General NAD ASSESSMENT AND PLAN: 71yo F wtih PMH CAD s/p 4 stents, DM, hyperlipidemia and long hx of non compliance presented with nausea and vomiting for the past 2 days and found to be in DKA on arrival 1. DKA- due to non-compliance. AG closed and remained closed. elevated sugars in the evening but overall improved. will cont levemir 22 units AM. cont to adjust per bgm to optimize control. 2. competency- psych consulted for competency 3. Pseudohyponatremia- resolved 4. Hyperkalemia- resolved 5. Severe hypophosphatemia- resolved. 6. Acute metabolic encephalopathy- due to AG metabolic acidosis. resolved 7. R supracondylar fracture of distal humerus- s/p mechanical fall. immobilizer. PWB as tolerated. PT. ortho consulted. pain control 8. CAD s/p stents- on asa/plavix. 9. HTN- controlled. 10. depression- on lexipro. 11. Dyslipidemia- on statin 12. DVT ppx- lovenox 13. Would benefit from [facility] placement. however pt is refusing. unable to walk without 2 person assist. will wait on psych to determine competency
--- NOTE | 2017-09-03 18:31 | CON.PSY ---
Psychiatry Consult Chief Complaint: Asked to see this patient a 71 year old female, to assess capacity to refuse the recommended discharge planning. History of Present Problem: Patient states that she fell and ended up in the hospital. She lives alone with 4 dogs who are now with her neighbors, she says. Patient can recall only that she fell but nothing about what transpired in the hospital i.e. DKA, her diabetic condition. She is oriented to person, and that she is in the hospital. Patient believes that she is in [facility], and at one time, she thinks she is in [facility]. She was able to articulate the reasons for going home " to enjoy her solitude' and ' to be with her babies, the dogs" Patient could not verbally articulate the reasons and risks/ consequences of going back to live alone in her private home Rec Patient has impaired capacity at this time. - Current Medications Current Medications: Active Medications Acetaminophen (Tylenol -) 650 mg PO Q6H PRN PRN Reason: FEVER OR PAIN Last Admin: 08/31/17 09:19 Dose: 650 mg Aspirin (Asa -) 81 mg PO DAILY [facility] Last Admin: 09/03/17 10:33 Dose: 81 mg Atorvastatin Calcium (Lipitor -) 20 mg PO HS [facility] Last Admin: 09/02/17 21:59 Dose: 20 mg Clopidogrel Bisulfate (Plavix -) 75 mg PO DAILY [facility] Last Admin: 09/03/17 10:34 Dose: 75 mg Escitalopram Oxalate (Lexapro -) 30 mg PO DAILY [facility] Last Admin: 09/03/17 10:34 Dose: 30 mg Insulin Aspart (Novolog Vial Sliding Scale -) 1 vial SQ ACHS [facility] PRN Reason: Protocol Last Admin: 09/03/17 16:59 Dose: 8 units Insulin Detemir (Levemir Vial) 22 units SQ DAILY@0700 [facility] Last Admin: 09/03/17 06:25 Dose: 22 units Metoprolol Succinate (Toprol Xl -) 25 mg PO DAILY [facility] Last Admin: 09/03/17 10:34 Dose: 25 mg Nystatin (Nystop Powder -) 1 applic TP DAILY [facility] Last Admin: 09/03/17 10:34 Dose: 1 applic Ranitidine HCl (Zantac -) 150 mg PO BID [facility] Last Admin: 09/03/17 10:34 Dose: 150 mg - Allergies Allergies: Allergies Allergy/AdvReac Type Severity Reaction Status Date / Time apple [Apple] Allergy Verified 08/28/17 10:23 peach [[place]] Allergy Verified 08/28/17 10:23 Penicillins Allergy Verified 08/28/17 10:23
[2017-09-03] MEDS: ATORVASTATIN CA 20 MG TABLET (FP) PO SCH (21:31)
[2017-09-04] MEDS: INSULIN DETEMIR 100 UNITS/ML MDV SQ SCH (06:29)
[2017-09-04] MEDS: INSULIN SLIDING SCALE (NOVOLOG) 1 VIAL SQ SCH ×3 (06:29→18:09)
[2017-09-04] MEDS ORDERED: INSULIN (NOVOLOG) ASPART 100 UNITS/ML 10ML VIAL ONE ×2 (07:05→11:17)
[2017-09-04] MEDS: METOPROLOL SUCCINATE 25 MG TAB.SR.24H (FP) PO SCH (10:52)
[2017-09-04] MEDS: ESCITALOPRAM OXALATE 10 MG TABLET (FP) PO SCH (11:03)
[2017-09-04] MEDS: RANITIDINE HCL 150 MG TABLET (FP) PO SCH (11:03)
[2017-09-04] MEDS: ASPIRIN 81 MG CHEWABLE TABLETS PO SCH (11:03)
[2017-09-04] MEDS: CLOPIDOGREL BISULFATE 75 MG TABLET (FP) PO SCH (11:03)
[2017-09-04] MEDS ORDERED: LORazepam 0.5 MG TABLET PO ONE (15:01)
[2017-09-04] MEDS: NYSTATIN POWDER 100,000 UNITS/GM - 15 GM TOPICAL POWDER TP SCH (15:21)
[2017-09-04 15:47] VITALS: BP 98/46; PULSE 57
[2017-09-04 15:59] VITALS: TEMP 98.5
--- NOTE | 2017-09-04 16:14 | DS ---
Physical Exam: SUBJECTIVE: Patient seen and examined at bedside. Patient is in no acute distress but is slightly agitated. Psychiatry deemed patient incapable of making own medical decisions. OBJECTIVE: Vital Signs Period Temp Pulse Resp BP Sys/Barrera Pulse Ox Last 24 Hr 97.1 F-98.5 F 57-70 18-20 98-120/46-76 95-96 PHYSICAL EXAM GENERAL: The patient is awake, alert, and oriented to person, in no acute distress. HEAD: Normal with no signs of trauma. EYES: PERRL, extraocular movements intact, sclera anicteric, conjunctiva clear. ENT: Ears normal, nares patent, oropharynx clear without exudates, moist mucous membranes. NECK: Trachea midline, full range of motion, supple. LUNGS: Breath sounds equal, clear to auscultation bilaterally, no wheezes, no crackles, no accessory muscle use. HEART: Regular rate and rhythm, S1, S2 without murmur, rub or gallop. ABDOMEN: Soft, nontender, nondistended, normoactive bowel sounds, no guarding, no rebound, no hepatosplenomegaly, no masses. EXTREMITIES: 2+ pulses, warm, well-perfused, no edema. NEUROLOGICAL: Cranial nerves II through XII grossly intact. Normal speech, gait not observed. PSYCH: Normal mood, normal affect. SKIN: Warm, dry, normal turgor, no rashes or lesions noted. LABS Laboratory Results - last 24 hr 09/03/17 09/03/17 09/04/17 16:44 21:06 06:28 POC Glucometer 308 261 292 09/04/17 11:13 POC Glucometer 242 HOSPITAL COURSE: Date of Admission:08/28/17 71 year old female pmh CAD s/p 4 stents, DM, DKA, HLD presented to the ED by EMS for non-bloody vomiting and weakness. Patient additionally fell 3 weeks prior onto her R elbow and denied head injury. ED course notable for R elbow fracture on imaging, hyperkalemia, and hyperglycemia, ketonemia, and anion gap metabolic acidosis. Patient was admitted to the ICU for the treatment of diabetic ketoacidosis. Her arm was placed into a sling and treated for pain. ICU course significant for IV fluid resuscitation, insulin drip until anion gap closed, bicarb and potassium + BG monitoring. Anion gap had closed and remained closed the following day and patient was given levemir 10 units, controlling her blood sugar. Patient was transferred to the floors and her sugars were found to be elevated. Levermir dose was increased to 22 units but patient was otherwise asymptomatic. Prior to discharge, patient was deemed unable to make medical decisions by psychiatry. Patient initially refused discharge, but she was given a low dose of ativan and discharge was able to proceed. Date of Discharge: 09/04/17 Minutes to complete discharge: 45 Discharge Summary Reason For Visit: DIABETIC KETOACIDOSIS Current Active Problems Acute metabolic encephalopathy (Acute) Hypophosphatemia (Acute) Supracondylar fracture of humerus (Acute) Condition: Stable - Instructions Diet, Activity, Other Instructions: RECOMMENDATIONS: - Follow a diabetic diet - Write down your blood sugar before each meal, and bring it to your appointment - Complications of diabetes include limb amputations, blindness, and - Avoid carrying heavy objects with your right arm - Continue range of motion exercises with your right arm - Please use walker at all times NEW MEDICATIONS: - STOP taking Novolog 70/30 - TAKE Levemir 22 units every morning - Please use the following sliding scale before meals and at bedtime: Glucose # units of insulin 101-150 0 151-200 0 201-250 2 251-300 4 301-350 6 351-400 8 >400 10 and call your doctor - Apply Nystatin powder to the rash on your abdomen once daily FOLLOWUP APPOINTMENTS: - Dr Castillo (Orthopedic Surgeon) - 2 weeks - Dr Gilmore (Primary Care Physician) - 1 week If you experience any serious symptoms, please return to emergency department. Referrals: Bernabe Castillo MD [Staff Physician] - 2 Weeks Geimni Gilmore MD [Primary Care Provider] - 1 Week (Saturday) Disposition: HALF-WAY FACILITY - Home Medications Comprehensive Discharge Medication List: Ambulatory Orders Aspirin [ASA -] 81 mg PO DAILY 09/03/14 Escitalopram Oxalate [Lexapro -] 30 mg PO DAILY 12/29/16 Acetaminophen [Tylenol .Regular Strength -] 650 mg PO Q6H PRN #0 tablet Atorvastatin Ca [Lipitor] 20 mg PO HS #30 tablet 06/24/17 Clopidogrel Bisulfate [Plavix -] 75 mg PO DAILY #30 tablet 06/24/17 Ranitidine [Zantac -] 150 mg PO BID tablet 06/24/17 Lisinopril [Zestril] 2.5 mg PO DAILY 08/28/17 Metoprolol Succinate [Toprol Xl] 25 mg PO DAILY 08/28/17 Insulin Sliding Scale [Novolog Vial Sliding Scale -] 1 vial SQ ACHS #100 units 08/30/17 Nystatin Powder [Nystop Powder -] 1 applic TP DAILY #30 applic 08/30/17 Insulin (Levemir) [Levemir Vial] 22 units SQ DAILY@0700 ml 09/04/17 Problem List - Problems (1) Supracondylar fracture of humerus Code(s): S42.413A - DISPL SIMPLE SUPRCNDL FX W/O INTRCNDL FX UNSP HUMERUS, INIT (2) Hyperglycemia Code(s): R73.9 - HYPERGLYCEMIA, UNSPECIFIED (3) Hyponatremia Code(s): E87.1 - HYPO-OSMOLALITY AND HYPONATREMIA (4) CAD (coronary artery disease) Code(s): I25.10 - ATHSCL HEART DISEASE OF [place] CORONARY ARTERY W/O ANG PCTRS This patient is new to me today: No Emergency Visit: No Critical Care patient: No - Discharge Referral Referred to [facility] No
--- NOTE | 2017-09-04 17:38 | PN ---
Teaching Attending Note Name of Resident: Judson Michael ATTENDING PHYSICIAN STATEMENT I saw and evaluated the patient. I reviewed the resident's note and discussed the case with the resident. I agree with the resident's findings and plan as documented. SUBJECTIVE: no concerns, tolerating diet well. Right elbow pain well controlled. OBJECTIVE: Vital Signs Period Temp Pulse Resp BP Sys/Barrera Pulse Ox Last 24 Hr 97.1 F-98.5 F 57-70 18-20 98-120/46-76 95-96 Laboratory Results - last 24 hr 09/03/17 09/04/17 09/04/17 21:06 06:28 11:13 POC Glucometer 261 292 242 ASSESSMENT AND PLAN: Anion gap closed. LEvemir increased to 22 units daily, will need further titration outpatient. d/c with ISS and blood sugar checks to [facility]. Psychiatry input appreciated, primary contact agreable to placement, arranged for today. Outpatient orthopedic follow up, Sling with partial weight bearing. d/c to [facility] today. Total d/c time 40 min.
== END 2017-09-04 18:40 | DRG 637 ==
LOC: JER 09:46 → JERBED 13:53 → JICU 15:20 → J6S 08-30 20:55
PROVIDERS: ADMIT Internal Medicine; ATTEND Hospitalist
DX: E11.10 Type 2 diabetes mellitus with ketoacidosis without coma (principal); G93.41 Metabolic encephalopathy; E87.2 Acidosis; N17.9 Acute kidney failure, unspecified; E87.1 Hypo-osmolality and hyponatremia; S42.411A Displaced simple supracondylar fracture without intercondylar fracture of right humerus, initial encounter for closed fracture; I25.10 Atherosclerotic heart disease of native coronary artery without angina pectoris; E78.5 Hyperlipidemia, unspecified; Z95.1 Presence of aortocoronary bypass graft; I25.2 Old myocardial infarction; R29.6 Repeated falls; Z88.0 Allergy status to penicillin; E86.0 Dehydration; Z79.4 Long term (current) use of insulin; E87.5 Hyperkalemia; E86.1 Hypovolemia; F32.9 Major depressive disorder, single episode, unspecified; Z91.19 Patient's noncompliance with other medical treatment and regimen; W01.0XXA Fall on same level from slipping, tripping and stumbling without subsequent striking against object, initial encounter; Y93.89 Activity, other specified; Y92.090 Kitchen in other non-institutional residence as the place of occurrence of the external cause; Y99.8 Other external cause status; R19.7 Diarrhea, unspecified; E83.39 Other disorders of phosphorus metabolism
CPT/HCPCS: 36415; 73070-TC-RT; 80048; 80053; 81003; 81015; 82009; 82550; 82947; 83605; 83690; 83735; 84100; 84484; 85025; 87086; 93005; 93010; 97116-GP; 99283-25